=== PATIENT | female | born 1960 | race Caucasian/White ===

== ENCOUNTER 2020-11-04 13:31 | Outpatient (REF) | payer OTHER, SELFPAY ==
--- NOTE | 2020-11-04 | MR_ITS ---
EXAMINATION: BRAIN MRI WITHOUT CONTRAST CLINICAL INFORMATION: Trigeminal neuralgia COMPARISON: No relevant prior imaging. TECHNIQUE: Multiplanar MR imaging of the brain was performed without contrast. FINDINGS: There are a few scattered nonspecific foci of T2 FLAIR signal hyperintensity within the periventricular white matter. No acute territorial infarct. No pathological magnetic susceptibility artifact. Intracranial vascular flow voids are maintained. There is no intracranial mass effect or midline shift. No abnormal extra-axial collection. Lateral and third ventricles are proportionate to the subarachnoid spaces. No hydrocephalus. Midline structures including the cervicomedullary junction are normal. No acute bone marrow signal changes. There is no mastoid or middle ear effusion. Moderate paranasal sinus disease primarily affecting the right maxillary sinus. Globes and orbits are symmetric. MR/MR head/brain wo con IMPRESSION: There are a few scattered chronic small vessel ischemic changes within the periventricular white matter. Otherwise unremarkable examination. No evidence of acute territorial infarct no hemorrhage.
== END 2020-11-04 13:32 | disposition home or self-care (01) ==
LOC: HO.MRI 13:31
PROVIDERS: PCP Internal Medicine; Visit Provider Psychiatry & Neurology Neurology
DX: G50.0 Trigeminal neuralgia (principal); G50.9 Disorder of trigeminal nerve, unspecified
CPT/HCPCS: 70551

== ENCOUNTER → 2021-01-08 08:25 | Outpatient (REF) | payer OTHER, SELFPAY | LOC: HO.CARD 08:25 | PROVIDERS: Visit Provider Internal Medicine Cardiovascular Disease | DX: Z13.89 Encounter for screening for other disorder (principal) ==

== ENCOUNTER → 2021-04-20 14:00 | Outpatient (REF) | payer OTHER, SELFPAY ==
--- NOTE | 2021-04-20 14:12 | CA_ITS ---
Transthoracic Echocardiogram Patient (Last, First, Middle): Carolyn An A Gender: Female Date of : 1960 Age: 61 Procedure Date: 04/20/2021 Procedure Type: Transthoracic Echocardiogram Location: OP Height: 162.56 cm Weight: 97.07 kg BSA: 2.01 m2 Heart Rate: bpm BP: 117 / 72 mmHg Liner Checker: GREGG Referring MD: Luis Longoria MD Symptoms: palpitations Study Quality: Technically Difficult ECG Rhythm: Sinus Conclusions: - The left ventricular systolic function is normal. The visually estimated ejection fraction is between 60-65%. - No obvious valvular pathology seen on this study. Findings Left Ventricle Normal left ventricular cavity size. There is mildly increased left ventricular wall thickness. The left ventricular systolic function is normal. The visually estimated ejection fraction is between 60-65%. There is no evidence of regional wall motion abnormalities. E/E prime ratio is <8, consistent with normal filling pressures. Evidence suggests grade I (mild) diastolic dysfunction. Right Ventricle Normal right ventricular cavity size and systolic function. Atria Both atria are normal in size. Aortic Valve There is a normal trileaflet aortic valve. There is no aortic valve stenosis. There is no aortic valve regurgitation. Mitral Valve The mitral valve appears normal. There is trace mitral valve regurgitation. There is no mitral valve stenosis. Pulmonic Valve The pulmonic valve was not well visualized. Tricuspid Valve Normal tricuspid valve structure. There is trace tricuspid valve regurgitation. The pulmonary artery systolic pressure is normal. Great Vessels The aortic annulus, sinuses of valsalva, asc aorta, and aortic arch are normal in size. Venous The inferior vena cava is normal in size and collapses greater than 50% with inspiration. Pericardium/Pleural There is no evidence of pericardial effusion. Prior Study Comparison No significant change compared to prior study dated: 06/30/2018. Recommendations, Care & Conclusions No obvious valvular pathology seen on this study. Measurements 2D Linear Measurements IVSd: 1.12 0.6-0.9/0.6-1.0 cm LVIDd: 4.95 3.9-5.3/4.2-5.9 cm LVIDd Index: 2.46 2.4-3.2/2.2-3.1 cm/m2 LVIDs: 2.99 2.0-3.6 cm LVPWd: 1.10 0.7-1.1 cm Ao Root: 3.80 2.1-3.5 cm LA Diam: 4.00 2.7-3.8/3.0-4.0 cm LAIDs Index: 1.99 1.5-2.3 cm/m2 LV Mass: 257.21 67-162/88-224 g LV Mass Index: 127.96 43-95/49-115 g/m2 LVOT Diam: 2.10 3.0+(-)1.3 cm Mitral Valve MV Pk E: 0.66 MV PK A: 0.80 MV Decel Time: 254.00 E/A: 0.80 E'Lateral: 6.74 E'Medial: 6.96 E/E' Med: 9.50 E/E' Lat: 9.80 PHT: 74.00 MVA PHT: 2.97 Decel [place]: 2.61 Aortic Valve AoV Pk Cheo: 1.21 AoV Mn Cheo: 0.87 AoV VTI: 0.29 AoV Pk Grad: 6.00 Aov Mn Grad: 3.00 EDUARDA Cont.VTI: 2.41 LVOT LVOT Pk Cheo: 0.95 LVOT Mn Cheo: 0.66 LVOT VTI: 0.20 LVOT Pk Grad: 4.00 LVOT Mn Grad: 2.00 LVOT Diam: 2.10 LVOT Area: 3.46 Diastolic Function MV Pk E: 0.66 MV Pk A: 0.80 E/A: 0.80 E'Medial: 6.96 E/E' Med: 9.50 E' Laterial: 6.74 E/E' Lat: 9.80 Tricuspid Valve TR Pk Cheo: 1.52 TR Pk Grad: 9.00 Great Vessels Aorta Ao Root-2D: 3.80 2.0-3.7 cm Ao Asc: 3.20 2.1-3.4 cm Ao Arch: 3.00 Updated in Other Vendor System with Status of Final Gregg Bedoya MD electronically signed on 04/22/2021 4:28:11 PM with status of Final
--- NOTE | 2021-04-20 14:15 | ECG_ITS ---
Hook-up date: 2021-04-20 14:51:00 Duration: 47:09:00 Test Indications: PALPITATIONS Medications: 52563 QRS complexes 10 Ventricular ectopics which represent <1 % of total QRS comp. 54 Supraventricular ectopics which represent <1 % of total QRS comp. * Paced QRS complexs which represent % of total QRS comp. VENTRICULAR ECTOPY 10 Isolated 0 Bigeminal Cycles 0 Couplets 0 Runs 0 Beats in Runs * Beats LONGEST at * BPM at :: -- * Beats FASTEST at * BPM at :: -- SUPRAVENTRICULAR ECTOPY 48 Isolated 1 Couplets 1 Runs 4 Beats in Runs 4 Beats LONGEST at 114 BPM at 22:31:40 2021-04-20 4 Beats FASTEST at 114 BPM at 22:31:40 2021-04-20 HEART RATES 48 MIN at 08:31:13 2021-04-21 63 AVG 103 MAX at 21:51:50 2021-04-20 LONGEST RR 1.3280 secs at 10:53:49 2021-04-21 S-T LEVELS Channel 1 - 128 mm at 14:51:00 2021-04-20 - 128 mm at 14:51:00 2021-04-20 Channel 2 - 128 mm at 14:51:00 2021-04-20 - 128 mm at 14:51:00 2021-04-20 Channel 3 - 128 mm at 03:41:01 -- - 128 mm at 03:41:01 Underlying rhythm is sinus; Average rate 63/min; range 48-103/min; Rare PACs, PVCs; No sustained arrhythmias; Some symptoms in patient diary- 'fibrillate', 'pain' seem to be around the time of atrial ectopy. Referred By: Luis Longoria Overread By: RICKI KING
== END ==
LOC: HO.CARD 14:00
PROVIDERS: Visit Provider Internal Medicine Cardiovascular Disease
DX: R07.89 Other chest pain (principal); R00.2 Palpitations; I10 Essential (primary) hypertension; E66.9 Obesity, unspecified; R94.31 Abnormal electrocardiogram [ECG] [EKG]
CPT/HCPCS: 93225; 93226; 93306

== ENCOUNTER 2021-04-22 07:20 | Outpatient (REF) | payer OTHER, SELFPAY | END 2021-04-22 07:21 | disposition home or self-care (01) | LOC: HO.HOSX 07:20 | PROVIDERS: Visit Provider Orthopaedic Surgery | DX: Z13.89 Encounter for screening for other disorder (principal) ==

== ENCOUNTER 2021-06-19 | Outpatient (REF) | payer OTHER, SELFPAY | END 2021-06-19 00:01 | disposition home or self-care (01) | LOC: HO.LNP | PROVIDERS: Visit Provider Hospitalist | DX: Z20.822 Contact with and (suspected) exposure to COVID-19 (principal); J01.90 Acute sinusitis, unspecified | CPT/HCPCS: U0003; U0005 ==

== ENCOUNTER 2021-06-24 13:59 | Outpatient (REF) | payer OTHER, SELFPAY ==
[2021-06-24 16:29] LABS: MANUAL DIFF FLAG NO
[2021-06-24 16:33] LABS: Basophils Percent Auto 0.3 % (0-2); Eosinophils Absolute Auto 0.3 X10*3/uL (0.0-0.4); Eosinophils Percent Auto 4.7 % (0-4); Hematocrit 38.9 % (37-47); Hemoglobin 12.8 g/dl (12.0-16.0); Imm Gran Abs Auto 0.04 X10*3/uL (0.00-0.03); Imm Gran Pct Auto 0.6 % (0.0-0.4); Lymphocytes Absolute Auto 2.5 X10*3/uL (1.2-4.9); Lymphocytes Percent Auto 37.4 % (20-40); Mean Corpuscular HGB Conc 32.9 g/dl (31.0-35.0); Mean Corpuscular Hemoglobin 30.2 pg (27.0-33.0); Mean Corpuscular Volume 91.7 fL (80-98); Mean Platelet Volume 10.2 fL (9.4-12.3); Monocytes Absolute Auto 0.6 X10*3/uL (0.1-1.2); Monocytes Percent Auto 8.6 % (2-11); Neutrophils Absolute Auto 3.3 X10*3/uL (2.0-8.3); Neutrophils Percent Auto 48.4 % (45-73); Platelet Count 232 X10*3/uL (160-400); Red Blood Count 4.24 X10*6/uL (4.20-5.50); Red Cell Distribution Width 12.1 % (11.0-16.0); White Blood Count 6.8 X10*3/uL (4.8-10.8)
[2021-06-24 16:50] LABS: Alanine Aminotransferase 42 U/L (0-31); Albumin Level 4.6 g/dL (3.5-5.0); Alkaline Phosphatase 100 U/L (39-117); Anion Gap 15 (12-20); Aspartate Amino Transferase 24 U/L (5-31); Bilirubin Total 0.9 mg/dL (0.0-1.0); Blood Urea Nitrogen 30 mg/dL (9-16); Calcium 9.6 mg/dL (8.4-10.2); Carbon Dioxide 24 mmol/L (22-29); Chloride 106 mmol/L (96-108); Estimated Glomerular Filt Rate 42; Glucose Random 93 mg/dL (60-115); Potassium 4.5 mmol/L (3.3-5.1); Sodium 140 mmol/L (135-145)
== END 2021-06-24 14:00 | disposition home or self-care (01) ==
LOC: HO.HMGCLDS 13:59
PROVIDERS: PCP Internal Medicine; Visit Provider Internal Medicine
DX: J02.9 Acute pharyngitis, unspecified (principal); K14.6 Glossodynia; R19.7 Diarrhea, unspecified; R53.1 Weakness
CPT/HCPCS: 36415; 80053; 85025

== ENCOUNTER 2021-08-11 07:18 | Outpatient (REF) | payer OTHER, SELFPAY ==
--- NOTE | ~2021-08-11 | XR_ITS ---
EXAMINATION: XR KNEE, LEFT CLINICAL INFORMATION: Left knee pain. COMPARISON: None TECHNIQUE: Upright frontal views of both knees, bilateral femoral and lateral radiographs of the left knee were obtained. Total of 3 images. FINDINGS: The frontal view of both knees show symmetric alignment. Mild osteophyte formations are present along the articular surface of the femoral tibial joint both the medial lateral compartments. Note is made of chondrocalcinosis. The articular surface of the patella also appear irregular and subtle sclerosis and mild osteophyte formation. Suprapatellar effusion is noted as well. XR/XR knee LT 3V IMPRESSION: 1. Abnormal radiographs of the left knee showing evidence of tricompartmental mild osteoarthrosis and small suprapatellar effusion. Note is also made of presence of chondrocalcinosis. 2. Single limited frontal view only of the right knee appears unremarkable.
== END 2021-08-11 07:19 | disposition home or self-care (01) ==
LOC: HO.HOSX 07:18
PROVIDERS: Visit Provider Physician Assistant
DX: M17.12 Unilateral primary osteoarthritis, left knee (principal)
CPT/HCPCS: 20610; 73562; 99202; J1040

== ENCOUNTER 2021-08-23 03:01 | Emergency (ER) | payer OTHER, SELFPAY ==
[2021-08-23 03:06] VITALS: BP 130/80; BP 153/62; PULSE 77; PULSE 89; RESP 15; TEMP 37; O2SAT 95; O2SAT 98; BMI 39.8
[2021-08-23 04:00] VITALS: BP 154/68; PULSE 74; RESP 16; O2SAT 98
--- NOTE | 2021-08-23 04:03 | ED.GENADULT ---
HPI - General Adult General Chief complaint: Extremity Problem Stated complaint: foot pain Time Seen by Provider: 08/23/21 03:47 Source: patient Mode of arrival: EMS Limitations: no limitations History of Present Illness HPI narrative: 61-year-old female who presents emergency department for evaluation of pain in her right ankle x3 days. The patient states that she does have a history of gout and and she has had gout in her right foot and right ankle in the past. She states for the past 3 days she has had pain and swelling in her right ankle. She has also noticed redness over the right ankle. She states that the pain is a constant, sharp/burning/achy pain that is 10/10 at its worst. She states that she is not able to bear weight secondary to the pain. Patient states that she had a complex fracture of the right ankle in the past and does have screws and plates in this area. The patient states that she has been treated in the past with prednisone. She states that she has chronic kidney disease stage 3 with a GFR of 40-50%. The patient also has a history of a liver transplant. Related Data Previous Rx's Medication Instructions Recorded loratadine 10 mg tablet 10 mg PO DAILY 90 Days #90 tab 11/13/20 hydrocortisone 2.5 % topical cream 1 appl TOPICAL BID PRN 30 Days #30 12/09/20 g lancets 28 gauge (Sierrayle See Rx Instructions MISCELLANEOUS 02/24/21 Lancets) .qd prn #100 cap clotrimazole 10 mg shelly 10 mg MUCOUS MEMBRANE TID 7 Days 06/24/21 #21 tab gabapentin 300 mg capsule 300 mg PO BID 90 Days #180 cap 06/24/21 omeprazole 20 mg capsule,delayed 20 mg PO DAILY 90 Days #90 cap 06/26/21 release amoxicillin 875 mg-potassium 1 tab PO BID 7 Days #14 tab 06/30/21 clavulanate 125 mg tablet prednisone 20 mg tablet 20 mg PO DAILY 7 Days #7 tab 07/21/21 lisinopril 10 mg tablet 10 mg PO DAILY #30 tab 08/12/21 morphine 15 mg immediate release 15 mg PO Q4-6H PRN #14 tab 08/23/21 tablet prednisone 20 mg tablet 60 mg PO DAILY 7 Days #21 tab 08/23/21 Allergies Allergy/AdvReac Type Severity Reaction Status Date / Time nitrofurantoin Allergy Unknown nausea, Verified 08/23/21 03:52 dizziness and tightness chest perflutren [From DEFINITY] AdvReac Unknown SEVERE Verified 08/23/21 03:52 BACK PAIN Review of Systems Review of Systems: Yes all other systems are reviewed and are negative REPLACED BY [facility] Past Medical History REPLACED BY [facility] Narrative: Past medical history: Chronic kidney disease stage 3 GFR 40-50%, gout, osteoarthritis, liver transplant. Surgical history: Appendectomy, cholecystectomy, endometrial ablation, liver transplant, complex fracture of the right ankle with internal hardware including screws and plates according to the patient. Social history: She denies tobacco, alcohol and drug use. Surgical History History of ankle surgery History of endometrial ablation History of esophagogastroduodenoscopy (EGD) History of liver transplant Hx of appendectomy Hx of cholecystectomy Hx of colonoscopy Family History Family History Father No problems noted. Mother Sudden cardiac Other Mental health disorder Substance use disorder Social History Social History (Updated 08/11/21 @ 11:46 by Bakari Giron) Housing: House Alcohol intake: never Patient Tobacco Use Status: Never used Tobacco Second Hand Smoke Exposure: Yes Use of substances other than those prescribed or required for medical reasons: No Advance Directives: No Advance Directives Information Provided: No Current occupational status: disabled Current occupation: rt handed Physical Exam Vital Signs: Vital Signs: Last Vital Signs Temp 98.6 F 08/23/21 03:06 Pulse 72 08/23/21 06:00 Resp 16 08/23/21 06:00 BP 118/62 08/23/21 06:00 Pulse Ox 96 08/23/21 06:00 Body Mass Index 39.8 Const: General: cooperative and no acute distress Orientation/consciousness: oriented to person and oriented to place Limitations: no limitations HENMT: Head: Yes normal to inspection, Yes normocephalic and Yes atraumatic Ears: external ears normal General nose exam: Normal external nose present Face and sinus: Yes normal facial exam Mouth: Normal oral and palatal mucosa present Throat: Yes posterior oropharynx normal Eyes: General: appearance normal, both eyes and all related structures Pupils: Equal, round and reactive pupils present Neck: Neck: Yes normal visual inspection, Yes no lymphadenopathy, Yes trachea midline and Yes supple Chest: Chest palpation & inspection: normal inspection of the chest and normal palpation of entire chest wall Resp: Effort & Inspection: normal respiratory effort and able to speak in complete sentences Auscultation: clear to auscultation bilaterally Cardio: Rate: regular rate Rhythm: regular rhythm Heart sounds: S1 normal heart sound present, S2 normal heart sound present and no murmurs GI: Inspection: Yes normal to inspection Palpation (GI): Soft to palpation, nontender and no guarding Auscultation: normal bowel sounds : General: Yes no CVA tenderness Back/Spine/Pelvis: Back: no CVA tenderness Skin: General skin exam: no rashes or lesions noted Neuro: General: oriented to person and oriented to place Cranial nerves: Yes CN's II-XII intact bilaterally and Yes Equal, round and reactive pupils present Cognition (Neuro): normal cognition Motor exam (neuro): 5/5 motor strength present throughout Extrem: Other: The patient has soft tissue swelling and joint effusion over the right ankle with erythema and some slight increased warmth, the ankle is excruciatingly tender with minimal palpation. The patient does have surgical scars in this area consistent with her fracture ORIF. Patient also has tenderness with palpation over the 1st and 2nd MTP joints of the right foot with no increased warmth erythema or joint effusion in these areas. Her extremities neurovascularly intact Psych: Appearance: grossly normal Speech and movement: Normal speech and movement present Affect: normal affect Attitude: cooperative Thought process: Normal thought process present Thought content: Normal thought content present Course Course Course Narrative: 61-year-old female with a history of gout who presents to the emergency department for evaluation of 3 days of right ankle pain. Patient's physical findings are consistent with gout. I do not think the patient has cellulitis or joint infection at this time and I did discuss this with her. The patient does have chronic kidney disease and cannot take NSAIDs or colchicine. The patient's inflammation was treated with Solu-Medrol 125 mg IV. Her pain was treated with morphine 4 mg IV. The goal will be to try to get the patient's pain down to a tolerable level so that she can be discharged home. Patient states she does have a walker at home that she can use to help reduce weight-bearing on the right ankle. 0608: The patient required a 2nd and 3rd dose of morphine 4 mg IV with significant improvement of her pain. The patient will be discharged home with a prescription for prednisone 60 mg once a day for 1 week. She is also advised to take Tylenol 1000 mg every 6 hours as needed for pain. For pain not relieved by prednisone and Tylenol she was prescribed morphine 15 mg pills, 1 pill every 4 hours as needed for pain. I did discuss the use and side effects of morphine and the potential for addiction. The patient was discharged home. Discharge Plan Discharge Clinical Impression: Gout Instructions: Low Purine Diet (ED), Gout (ED) Additional Instructions: Your symptoms and physical findings are consistent with gout of your right ankle. You received morphine 4 mg IV x3 doses. You also received Solu-Medrol 125 mg IV (this is a steroid). Take prednisone 20 mg pills, 3 pills once a day for 7 days. You can stop this prescription earlier if your symptoms resolved before 7 days. Take your 1st dose tomorrow morning, 08/24/2021. Take Tylenol (acetaminophen) 500 mg pills, 2 pills every 4-6 hours as needed for pain. For pain not relieved by Tylenol take morphine 15 mg pills, 1 pill every 4 hours as needed for pain. Do not drive or work while taking this medication since they can cause sleepiness. Morphine is a narcotic medication that can be addicting. If you are concerned about addiction you can ask the pharmacist for less pills or do not get this prescription filled. Follow-up with your doctor in 2 days. Please return to the emergency department if your symptoms get worse or if you develop any symptoms that are concerning to you. Prescriptions: New prednisone 20 mg tablet 60 mg PO DAILY 7 Days Qty: 21 RF: 0 morphine 15 mg tablet 15 mg PO Q4-6H PRN (Reason: pain) Qty: 14 RF: 0 No Action loratadine 10 mg tablet 10 mg PO DAILY 90 Days Qty: 90 RF: 3 hydrocortisone 2.5 % cream 1 appl topical BID PRN (Reason: skin irritation) 30 Days Qty: 30 RF: 0 lancets [FreeStyle Lancets] 28 gauge misc See Rx Instructions miscellaneous .qd prn Qty: 100 RF: 5 omeprazole 20 mg capsule,delayed release(DR/EC) 20 mg PO DAILY 90 Days Qty: 90 RF: 0 prednisone 20 mg tablet 20 mg PO DAILY 7 Days Qty: 7 RF: 0 lisinopril 10 mg tablet 10 mg PO DAILY Qty: 30 RF: 2 gabapentin 300 mg capsule 300 mg PO BID 90 Days Qty: 180 RF: 0 clotrimazole 10 mg shelly 10 mg mucous membrane TID 7 Days Qty: 21 RF: 0 amoxicillin-pot clavulanate 875-125 mg tablet 1 tab PO BID 7 Days Qty: 14 RF: 0
[2021-08-23] MEDS: methylPREDNISolone Sod Succ 125 MG/2 ML VIAL IVPUSH (04:16)
[2021-08-23] MEDS: Morphine Sulfate 4 MG/ML CARTRIDGE IVPUSH ×3 (04:16→06:19)
[2021-08-23 06:00] VITALS: BP 118/62; PULSE 72; RESP 16; O2SAT 96
== END 2021-08-23 06:40 | disposition home or self-care (01) ==
PROVIDERS: Emergency Provider Emergency Medicine Emergency Medical Services
DX: M10.9 Gout, unspecified (principal); M25.571 Pain in right ankle and joints of right foot; Z79.899 Other long term (current) drug therapy
CPT/HCPCS: 96374; 96375; 96376; 99284; J2270; J2930

== ENCOUNTER → 2021-10-13 13:17 | Outpatient (BNVA) | payer OTHER, SELFPAY | PROVIDERS: PCP Internal Medicine; Visit Provider Physician Assistant | DX: M17.12 Unilateral primary osteoarthritis, left knee (principal) | CPT/HCPCS: 99212 ==

== ENCOUNTER 2021-11-16 15:32 | Outpatient (REF) | payer OTHER, SELFPAY ==
--- NOTE | ~2021-11-16 | US_ITS ---
EXAMINATION: US ABDOMEN LIMITED CLINICAL INFORMATION: Liver transplant status. COMPARISON: Ultrasound abdomen 08/25/2020 and 07/19/2019. CT abdomen and pelvis 09/26/2014. TECHNIQUE: Real-time imaging of the right upper quadrant abdominal viscera. FINDINGS: PANCREAS: The head and body the pancreas are normal. The tail is not well visualized due to bowel gas. LIVER: The liver is normal in size. The liver contour is normal. Liver echotexture is increased. No focal hepatic lesion. There is no intrahepatic biliary duct dilatation seen. The main portal vein is patent with appropriate hepatopedal flow. GALLBLADDER: Surgically absent. COMMON BILE DUCT: Common bile duct is similar to previous exams measuring 1.1 cm in diameter. RIGHT KIDNEY: There is a 1 cm cyst in the lower pole. No hydronephrosis or renal calculi. The kidney measures 10.3 cm in maximum dimension. FREE FLUID: None. US/US abdomen limited IMPRESSION: Slightly echogenic liver. No focal liver lesion or biliary duct dilatation. Limited visualization of the tail the pancreas.
== END 2021-11-16 15:33 | disposition home or self-care (01) ==
LOC: HO.HMGCX 15:32
PROVIDERS: PCP Internal Medicine; Visit Provider Internal Medicine
DX: Z94.4 Liver transplant status (principal)
CPT/HCPCS: 76705

== ENCOUNTER → 2021-12-03 13:19 | Outpatient (BNVA) | payer OTHER, SELFPAY | PROVIDERS: PCP Internal Medicine; Visit Provider Physician Assistant | DX: M17.12 Unilateral primary osteoarthritis, left knee (principal) | CPT/HCPCS: 20610; 99212; J1040 ==

== ENCOUNTER 2022-01-27 13:58 | Outpatient (REF) | payer OTHER, SELFPAY ==
[2022-01-27 16:48] LABS: MANUAL DIFF FLAG NO
[2022-01-27 16:51] LABS: Basophils Percent Auto 0.4 % (0-2); Eosinophils Absolute Auto 0.2 X10*3/uL (0.0-0.4); Eosinophils Percent Auto 4.6 % (0-4); Hematocrit 37.7 % (37.0-47.0); Hemoglobin 12.3 g/dl (12.0-16.0); Imm Gran Abs Auto 0.02 X10*3/uL (0.00-0.03); Imm Gran Pct Auto 0.4 % (0.0-0.4); Lymphocytes Absolute Auto 1.3 X10*3/uL (1.2-4.9); Mean Corpuscular HGB Conc 32.6 g/dl (31.0-35.0); Mean Corpuscular Hemoglobin 30.3 pg (27.0-33.0); Mean Corpuscular Volume 92.9 fL (80.0-98.0); Mean Platelet Volume 10.4 fL (9.4-12.3); Monocytes Absolute Auto 0.5 X10*3/uL (0.1-1.2); Monocytes Percent Auto 9.6 % (2-11); Neutrophils Absolute Auto 2.7 x10*3/uL (2.0-8.3); Platelet Count 238 X10*3/uL (160-400); Red Blood Count 4.06 X10*6/uL (4.20-5.50); Red Cell Distribution Width 12.6 % (11.0-16.0); White Blood Count 4.8 X10*3/uL (4.8-10.8)
[2022-01-27 17:07] LABS: Alanine Aminotransferase 26 U/L (0-31); Albumin Level 4.5 g/dL (3.5-5.0); Alkaline Phosphatase 75 U/L (39-117); Anion Gap 13 (12-20); Aspartate Amino Transferase 18 U/L (5-31); Bilirubin Total 1.2 mg/dL (0.0-1.0); Blood Urea Nitrogen 33 mg/dL (9-16); Calcium 9.4 mg/dL (8.4-10.2); Carbon Dioxide 27 mmol/L (22-29); Chloride 103 mmol/L (96-108); Estimated Glomerular Filt Rate 43; Glucose Random 101 mg/dL (60-115); Magnesium 2.2 mg/dL (1.6-2.6); Potassium 4.6 mmol/L (3.3-5.1); Sodium 138 mmol/L (135-145); Total Protein 6.7 g/dL (6.5-8.0)
[2022-01-27 17:27] LABS: TSH reflex Free T4 2.41 uIU/mL (0.32-4.0)
[2022-01-28 03:59] LABS: Estimated Average Glucose 97 mg/dL
== END 2022-01-27 13:59 | disposition home or self-care (01) ==
LOC: HO.HMGCLDS 13:58
PROVIDERS: Visit Provider Internal Medicine
DX: E66.09 Other obesity due to excess calories (principal); F41.1 Generalized anxiety disorder; R73.03 Prediabetes; R79.0 Abnormal level of blood mineral; Z94.4 Liver transplant status
CPT/HCPCS: 36415; 80053; 83036; 83735; 84443; 85025

== ENCOUNTER → 2022-03-23 15:37 | Outpatient (BNVA) | payer OTHER, SELFPAY | PROVIDERS: PCP Internal Medicine; Referring Provider Internal Medicine; Visit Provider Nurse Practitioner Family | DX: K21.9 Gastro-esophageal reflux disease without esophagitis (principal); R14.0 Abdominal distension (gaseous); K59.04 Chronic idiopathic constipation | CPT/HCPCS: 99202 ==

== ENCOUNTER 2022-06-24 13:43 | Outpatient (REF) | payer OTHER, SELFPAY | END 2022-06-24 13:44 | disposition home or self-care (01) | LOC: HO.LNP 13:43 | PROVIDERS: PCP Internal Medicine; Visit Provider Physician Assistant | DX: M17.12 Unilateral primary osteoarthritis, left knee (principal) | CPT/HCPCS: 20610; 87071; 87073; 87205; 89060; 99212; J1040 ==

== ENCOUNTER 2022-08-27 13:15 | Outpatient (REF) | payer OTHER, SELFPAY ==
[2022-08-27 14:31] LABS: Estimated Average Glucose 97 mg/dL
[2022-08-27 14:54] LABS: Alanine Aminotransferase 27 U/L (0-31); Albumin Level 4.5 g/dL (3.5-5.0); Alkaline Phosphatase 95 U/L (39-117); Anion Gap 16 (12-20); Aspartate Amino Transferase 18 U/L (5-31); Bilirubin Total 0.7 mg/dL (0.0-1.0); Blood Urea Nitrogen 25 mg/dL (9-16); Calcium 9.3 mg/dL (8.4-10.2); Carbon Dioxide 25 mmol/L (22-29); Chloride 107 mmol/L (96-108); Cholesterol 189 mg/dL; Estimated Glomerular Filt Rate 46; Glucose Fasting 92 mg/dL (60-99); HDL Cholesterol 44 mg/dL; LDL Cholesterol Calculated 122 mg/dl; Potassium 4.5 mmol/L (3.3-5.1); Sodium 143 mmol/L (135-145); Total Protein 6.8 g/dL (6.5-8.0); Triglycerides 117 mg/dL; Uric Acid 11.3 mg/dL (2.4-5.7)
== END 2022-08-27 13:16 | disposition home or self-care (01) ==
LOC: HO.HMGCLDS 13:15
PROVIDERS: PCP Internal Medicine; Visit Provider Internal Medicine
DX: E66.09 Other obesity due to excess calories (principal); F41.1 Generalized anxiety disorder; G62.0 Drug-induced polyneuropathy; I10 Essential (primary) hypertension; R73.03 Prediabetes; M10.9 Gout, unspecified; R79.0 Abnormal level of blood mineral; Z94.4 Liver transplant status
CPT/HCPCS: 36415; 80053; 80061; 83036; 84550

== ENCOUNTER 2022-11-06 14:59 | Outpatient (REF) | payer OTHER, SELFPAY | END 2022-11-06 15:00 | disposition home or self-care (01) | LOC: HO.LAB 14:59 | PROVIDERS: Visit Provider Nurse Practitioner Family | DX: R30.0 Dysuria (principal) | CPT/HCPCS: 87086 ==

== ENCOUNTER 2022-11-09 11:10 | Outpatient (REF) | payer OTHER, SELFPAY ==
[2022-11-09 14:25] LABS: Alanine Aminotransferase 36 U/L (0-31); Albumin Level 4.5 g/dL (3.5-5.0); Alkaline Phosphatase 94 U/L (39-117); Anion Gap 13 (12-20); Aspartate Amino Transferase 21 U/L (5-31); Bilirubin Total 0.7 mg/dL (0.0-1.0); Blood Urea Nitrogen 26 mg/dL (9-16); Calcium 9.5 mg/dL (8.4-10.2); Carbon Dioxide 27 mmol/L (22-29); Chloride 107 mmol/L (96-108); Estimated Glomerular Filt Rate 43; Glucose Random 108 mg/dL (60-115); Potassium 4.5 mmol/L (3.3-5.1); Sodium 142 mmol/L (135-145); Total Protein 6.7 g/dL (6.5-8.0)
== END 2022-11-09 11:11 | disposition home or self-care (01) ==
LOC: HO.HMGCLDS 11:10
PROVIDERS: PCP Internal Medicine; Visit Provider Internal Medicine
DX: R10.84 Generalized abdominal pain (principal)
CPT/HCPCS: 36415; 80053

== ENCOUNTER 2023-03-04 08:34 | Outpatient (REF) | payer OTHER, SELFPAY ==
--- NOTE | ~2023-03-04 | XR_ITS ---
EXAMINATION: XR KNEE, LEFT XR KNEE AP STANDING CLINICAL INFORMATION: Pain. COMPARISON: None TECHNIQUE: Lateral and axial views of the left knee were obtained. AP bilateral standing view of the knees was obtained. FINDINGS: The bilateral lateral and medial joint space compartment are well-maintained. The left patellofemoral joint space compartment is well-maintained. There is very mild tricompartment osteoarthritic change of the left knee. There is bilateral chondrocalcinosis, left greater than right. No fracture or dislocation is seen. A small left knee joint effusion is suspected. XR/XR knee LT 2V IMPRESSION: 1. There is very mild tricompartment osteoarthritic change of the left knee. 2. There is a small left knee joint effusion. 3. There is chondrocalcinosis, which can be associated with CPPD.
--- NOTE | ~2023-03-04 | XR_ITS ---
EXAMINATION: XR KNEE, LEFT XR KNEE AP STANDING CLINICAL INFORMATION: Pain. COMPARISON: None TECHNIQUE: Lateral and axial views of the left knee were obtained. AP bilateral standing view of the knees was obtained. FINDINGS: The bilateral lateral and medial joint space compartment are well-maintained. The left patellofemoral joint space compartment is well-maintained. There is very mild tricompartment osteoarthritic change of the left knee. There is bilateral chondrocalcinosis, left greater than right. No fracture or dislocation is seen. A small left knee joint effusion is suspected. XR/XR knee standing BI IMPRESSION: 1. There is very mild tricompartment osteoarthritic change of the left knee. 2. There is a small left knee joint effusion. 3. There is chondrocalcinosis, which can be associated with CPPD.
== END 2023-03-04 08:35 | disposition home or self-care (01) ==
LOC: HO.HOSX 08:34
PROVIDERS: Visit Provider Physician Assistant
DX: M17.12 Unilateral primary osteoarthritis, left knee (principal)
CPT/HCPCS: 20610; 73560; 73565; 99212; J1040

== ENCOUNTER → 2023-04-01 13:34 | Outpatient (BNVA) | payer OTHER, SELFPAY | PROVIDERS: PCP Internal Medicine; Visit Provider Nurse Practitioner Family | DX: M17.12 Unilateral primary osteoarthritis, left knee (principal); M25.562 Pain in left knee; E66.01 Morbid (severe) obesity due to excess calories; Z68.41 Body mass index [BMI] 40.0-44.9, adult | CPT/HCPCS: 99202 ==

== ENCOUNTER 2023-09-03 11:09 | Emergency (ER) | payer OTHER, SELFPAY ==
[2023-09-03 11:53] VITALS: BP 172/81; PULSE 75; RESP 18; TEMP 36.6; O2SAT 98; BMI 39.5
--- NOTE | 2023-09-03 11:53 | ED.EXTPRO ---
HPI - Extremity Problem General Chief complaint: Extremity Injury, Upper Stated complaint: L arm swelling Time Seen by Provider: 09/03/23 12:23 Source: patient Mode of arrival: ambulatory Limitations: no limitations History of Present Illness HPI Narrative: 63 yo female With history of gout, chronic kidney disease, liver transplant currently here with complaints of left elbow pain for the last 3 days with no known injury or trauma. Patient reports history of gout and states this feels similar. She is not on any daily gout medication. She denies any fevers, chills, weakness, numbness, tingling of the extremity. MD Complaint: extremity pain and extremity swelling Related Data Home Medications Medication Instructions Recorded Confirmed tacrolimus 1 mg capsule, 2 mg PO Q12H 10/13/21 03/17/23 immediate-release Lacto.acidophilus-Bif.animalis PO DAILY 01/27/22 03/17/23 [Daily Probiotic] cholecalciferol (vitamin D3) 50 100 mcg PO DAILY 01/27/22 03/17/23 mcg (2,000 unit) capsule coenzyme Q10 100 mg capsule 100 mg PO DAILY 01/27/22 03/17/23 magnesium oxide 400 mg (241.3 mg 400 mg PO BID 01/27/22 03/17/23 magnesium) tablet omega-3 fatty acids 500 mg capsule 1,000 mg PO .bid 02/10/22 03/17/23 blood sugar diagnostic (FreeStyle #10 ea 03/23/22 03/17/23 Lite Strips) famotidine 20 mg tablet 20 mg PO BID 03/23/22 03/17/23 vitamin K2 40 mcg tablet 90 mcg PO DAILY 08/27/22 03/17/23 propranolol 40 mg tablet 10 mg PO BID PRN 03/17/23 03/17/23 Previous Rx's Medication Instructions Recorded lancets 28 gauge (FreeStyle See Rx Instructions miscellaneous 02/24/21 Lancets) .qd prn for diabetes mellitus #100 caps hydrocortisone 2.5 % topical cream 1 appl topical BID PRN skin 01/28/22 irritation 30 days #30 grams sennosides 8.6 mg tablet (Natural 8.6 mg PO BEDTIME constipation #90 03/23/22 Senna Laxative) tabs simethicone 125 mg capsule (Gas 125 mg PO TID-QID PRN abdominal 04/26/22 Relief (simethicone)) distention #120 caps clotrimazole-betamethasone 1 1 appl topical ONCE 30 days #45 10/20/22 %-0.05 % topical cream grams gabapentin 300 mg capsule 300 mg PO BID 90 days #180 caps 11/10/22 loratadine 10 mg tablet 10 mg PO DAILY 90 days #90 tabs 02/04/23 prednisone 10 mg tablet 10 mg PO DAILY 30 days #30 tabs 03/17/23 diclofenac sodium 1 % topical gel 4 g topical QID pain #180 grams 04/01/23 (Arthritis Pain (diclofenac)) lisinopril 10 mg tablet 15 mg (1.5 x 10 mg) PO DAILY 90 06/28/23 days #135 tabs allopurinol 100 mg tablet 100 mg PO DAILY 30 days #90 tabs 08/19/23 morphine 15 mg immediate release 15 mg PO Q4-6H PRN pain #10 tabs 09/03/23 tablet prednisone 20 mg tablet 40 mg (2 x 20 mg) PO DAILY #8 tabs 09/03/23 Allergies Allergy/AdvReac Type Severity Reaction Status Date / Time nitrofurantoin Allergy Unknown nausea, Verified 09/03/23 11:53 dizziness and tightness chest perflutren [From DEFINITY] AdvReac Unknown SEVERE Verified 09/03/23 11:53 BACK PAIN Review of Systems Review of Systems: Yes all other systems are reviewed and are negative Constitutional: Constitutional: Reports no additional constitutional complaints, Denies body ache(s), Denies chills, Denies fever(s), Denies headache(s) and Denies weakness Eyes: Eyes: Reports no additional eye complaints and Denies change in vision ENT: Reports system reviewed and no additional complaints, except as documented, Denies dizziness, Denies headache(s), Denies nasal congestion, Denies nasal discharge and Denies neck pain Cardiovascular: Cardiovascular: Reports no additional cardiovascular complaints, Denies chest pain, Denies leg edema and Denies dyspnea Respiratory: Respiratory: Reports no additional respiratory complaints, Denies cough and Denies dyspnea Gastrointestinal: Gastrointestinal: Reports no additional gastrointestinal complaints, Denies abdominal pain, Denies diarrhea, Denies nausea and Denies vomiting Genitourinary: Genitourinary: Reports no additional female genitourinary complaints and Denies urinary incontinence Musculoskeletal: Musculoskeletal: Reports no additional musculoskeletal complaints, Denies back pain, Reports arthralgias, Reports joint swelling, Reports limited range of motion, Denies neck pain, Denies numbness and Denies tingling Integumentary/Breasts: Skin/Breast: Reports system reviewed and no additional complaints, except as docu and Denies rash Neurologic: Reports system reviewed and no additional complaints, except as documented, Denies Abnormal speech present, Denies dizziness, Denies headache(s), Denies numbness, Denies tingling and Denies weakness PMFSH Past Medical History Attestation statement: The following information was validated with the patient. Source: old records reviewed and nursing notes reviewed Medical History Dysuria Surgical History History of endometrial ablation Hx of colonoscopy Hx of appendectomy History of esophagogastroduodenoscopy (EGD) Hx of cholecystectomy History of ankle surgery History of liver transplant Family History Family History Father No problems noted. Mother Sudden cardiac Other Mental health disorder Substance use disorder Social History Social History Housing: House Alcohol intake: never Patient Tobacco Use Status: Never used Tobacco e-Cigarette/Vaping Use: Never Used Second Hand Smoke Exposure: Yes Advance Directives: No Current occupational status: disabled Current occupation: rt handed Cognitive needs: No Hearing needs: No Vision needs: No Physical Exam Vital Signs: Vital Signs: Last Vital Signs Temp 98 F 09/03/23 11:53 Pulse 75 09/03/23 11:53 Resp 18 09/03/23 11:53 BP 172/81 H 09/03/23 11:53 Pulse Ox 98 09/03/23 11:53 O2 Del Method Room Air 09/03/23 11:53 BMI result Body Mass Index 39.5 Const: General: cooperative, healthy appearing, comfortable and no acute distress Orientation/consciousness: patient oriented x3 Limitations: no limitations HEENT: Head: Yes normal to inspection Ears: hearing grossly normal bilaterally General nose exam: Normal external nose present Face and sinus: Yes normal facial exam Mouth: Normal oral and palatal mucosa present Throat: Yes posterior oropharynx normal Eyes: General: appearance normal, both eyes and all related structures Pupils: Equal, round and reactive pupils present Neck: Neck: Yes normal visual inspection Chest: Chest palpation & inspection: normal inspection of the chest Resp: Effort & Inspection: normal respiratory effort Auscultation: clear to auscultation bilaterally Cardio: Rate: regular rate Rhythm: regular rhythm Peripheral pulses: Peripheral pulses 2+ throughout GI: Inspection: Yes normal to inspection Palpation (GI): Soft to palpation and nontender Auscultation: normal bowel sounds Back/Spine/Pelvis: Thoracic/Lumbar Spine: thoracic and lumbar spine normal to inspection Skin: General skin exam: no rashes or lesions noted Neuro: General: patient oriented x3, no focal motor deficits and normal sensation to monofilament Cranial nerves: Yes Equal, round and reactive pupils present Cognition (Neuro): normal cognition Speech: No Abnormal speech present Gait exam (Neuro): Normal gait present Motor exam (neuro): 5/5 motor strength present throughout Extrem: Other: +swelling, erythema, TTP over the left lateral elbow. Pain with extension/flexion but able to with encouragement. Normal radial and ulnar pulses. Normal distal sensation. No tenderness on palpation over the proximal or distal joints. Course Course Course Narrative: RME - 63 y/o female with history of DM, obesity, gout, hx liver transplant 10 years ago @ [facility] who presents to the ER who presents to the ER for evaluation of left elbow pain, swelling, redness and warmth that has been worsening for the last 3 days. Left elbow is hot, slightly red, unable to fully extend and cannot flex at all. Plan: basic labs and x-ray Reevaluation(s) Reevaluation #1: labs are at baseline with the exception of elevated uric acid. X-ray shows no bony abnormality. Patient received morphine x2 for pain with some relief. plan for discharge home for gout flare with prednisone and morphine tablets. Reviewed worrisome signs and symptoms of when to return to the emergency room. Comfortable plan for discharge home. Medications Administered Discontinued Medications Generic Name Dose Route Start Last Admin Trade Name Freq PRN Reason Stop Dose Admin Morphine Sulfate 4 mg 09/03/23 12:35 09/03/23 12:43 Morphine Sulfate 4 Mg/Ml Cartridge IM 09/03/23 12:36 4 mg ONCE ONE Administration Protocol Morphine Sulfate 15 mg 09/03/23 14:10 09/03/23 14:19 Morphine Sulfate Immed Release 15 Mg Tablet PO 09/03/23 14:11 15 mg ONCE ONE Administration Prednisone 60 mg 09/03/23 12:35 09/03/23 12:42 Prednisone 20 Mg Tablet PO 09/03/23 12:36 60 mg ONCE ONE Administration Medical Decision Making Medical Decision Making [facility] Narrative: 63 yo female With history of gout, chronic kidney disease, liver transplant currently here with complaints of left elbow pain for the last 3 days with no known injury or trauma. Patient reports history of gout and states this feels similar. She is not on any daily gout medication. She denies any fevers, chills, weakness, numbness, tingling of the extremity. +swelling, erythema, TTP over the left lateral elbow which is worsened with extension/flexion but able to perform ROM with encouragement. Normal radial and ulnar pulses. Normal distal sensation. No tenderness on palpation over the proximal or distal joints. low concern for septic arthritis is patient has intact range of motion Plan to review labs, x-ray from triage, order analgesia Differential Diagnosis Differential Diagnoses: The differential diagnosis associated with the presentation includes Low concern for fracture, dislocation, sprain, strain, vascular injury, cellulitis, septic arthritis Consider gout Admission/Observation Consideration of admission/observation: Escalation of care including admission/observation considered Low concern for septic arthritis so no need for additional labs, imaging or emergent orthopedic consultation Lab Data [facility] Lab Attestation statement: I reviewed the patient's lab results. elevated uric acid, labs otherwise at baseline 09/03/23 12:01 09/03/23 12:01 Labs: Lab Results 09/03/23 Range/Units 12:01 WBC 6.7 (4.8-10.8) X10*3/uL RBC 4.34 (4.20-5.50) X10*6/uL Hgb 13.1 (12.0-16.0) g/dl Hct 39.5 (37.0-47.0) % MCV 91.0 (80.0-98.0) fL MCH 30.2 (27.0-33.0) pg MCHC 33.2 (31.0-35.0) g/dl RDW 12.2 (11.0-16.0) % Plt Count 247 (160-400) X10*3/uL MPV 9.2 L (9.4-12.3) fL Immature Gran % (Auto) 0.3 (0.0-0.4) % Neut % (Auto) 58.8 (45-73) % Lymph % (Auto) 26.4 (20-40) % [place] % (Auto) 9.2 (2-11) % Eos % (Auto) 4.8 H (0-4) % Baso % (Auto) 0.5 (0-2) % Lymph # (Auto) 1.8 (1.2-4.9) X10*3/uL [place] # (Auto) 0.6 (0.1-1.2) X10*3/uL Eos # (Auto) 0.3 (0.0-0.4) X10*3/uL Baso # (Auto) 0.0 (0.0-0.2) X10*3/uL Abs Immat Gran (auto) 0.02 (0.00-0.03) X10*3/uL Absolute Neuts (auto) 3.9 (2.0-8.3) x10*3/uL Absolute Nucleated RBC 0.000 (0.0-0.012) X10*3/uL Nucleated RBC % (auto) 0.0 (0.0-0.2) /100WBC ESR 14 (0-20) MM/HR Sodium 141 (135-145) mmol/L Potassium 4.5 (3.3-5.1) mmol/L Chloride 109 H (96-108) mmol/L Carbon Dioxide 22 (22-29) mmol/L Anion Gap 15 (12-20) BUN 24 H (9-16) mg/dL Creatinine 1.16 (0.5-1.4) mg/dL Estim Creat Clear Calc 59.9 Estimated GFR 47 Random Glucose 105 (60-115) mg/dL Uric Acid 10.0 H (2.4-5.7) mg/dL Calcium 9.9 (8.4-10.2) mg/dL Magnesium 2.1 (1.6-2.6) mg/dL Total Bilirubin 0.4 (0.0-1.0) mg/dL Direct Bilirubin 0.1 (0.0-0.5) mg/dL AST 24 (5-31) U/L ALT 42 H (0-31) U/L Alkaline Phosphatase 105 (39-117) U/L C-Reactive Protein 0.38 (< or = 0.50) mg/dL Total Protein 7.2 (6.5-8.0) g/dL Albumin 4.3 (3.5-5.0) g/dL Independent Interpretation I performed an independent interpretation of an: Plain X-Ray Interpretation: I independently reviewed the x-ray and agree with the radiology report Radiology Impression Discussion of test interpretation with radiology: I have reviewed the radiologist's reading. Radiologist Impression: [address] [address] XRay Report Signed Patient: Carolyn An MR#: [id number] : 1960 Acct:[id number] Age/Sex: 63 / F ADM Date: 09/03/23 Loc: .ED Attending Dr: Ordering Physician: Cristina Lala Date of Service: 09/03/23 Procedure(s): XR elbow LT min 3V Accession Number(s): [id number] cc: Agueda Shelton MD; Cristina Lala~ EXAMINATION: XR ELBOW, LEFT CLINICAL INFORMATION: Pain, swelling, limited range of motion COMPARISON: None available. TECHNIQUE: AP, lateral, and oblique views of the left elbow. FINDINGS: No visible acute fracture or dislocation. Alignment is anatomic. No significant joint effusion is evident. Joint spaces are maintained. No abnormal soft tissue calcification. XR/XR elbow LT min 3V IMPRESSION: No radiographic evidence of acute fracture or malalignment. External Record Review Previous ED record Tests considered The following testing was considered but not selected: Low concern for septic arthritis so no need for additional labs, imaging or emergent orthopedic consultation Prescription Management I considered prescription management with: Pain Medication Discharge Plan Discharge Clinical Impression: Gout Patient Disposition: Home, Self-Care Instructions: Low Purine Diet (ED), Gout (ED) Additional Instructions: Heat or ice Gentle stretching No heavy lifting with the left upper extremity Start the prednisone tomorrow Take Tylenol for pain every 4 hours at this not helped take the stronger pain medication that was prescribed. Please follow-up with your primary care doctor Prescriptions: New prednisone 20 mg tablet 40 mg PO DAILY Qty: 8 0RF morphine 15 mg tablet 15 mg PO Q4-6H PRN (Reason: pain) Qty: 10 0RF Rx Instructions: Partial Fill upon patient request. No Action lancets [FreeStyle Lancets] 28 gauge misc See Rx Instructions miscellaneous .qd prn Qty: 100 5RF Rx Instructions: miscellaneous .qd prn; hydrocortisone 2.5 % cream 1 appl topical BID PRN (Reason: skin irritation) 30 Days Qty: 30 5RF gabapentin 300 mg capsule 300 mg PO BID 90 Days Qty: 180 0RF loratadine 10 mg tablet 10 mg PO DAILY 90 Days Qty: 90 3RF lisinopril 10 mg tablet 15 mg PO DAILY 90 Days Qty: 135 2RF allopurinol 100 mg tablet 100 mg PO DAILY 30 Days Qty: 90 2RF magnesium oxide 400 mg (241.3 mg magnesium) tablet 400 mg PO BID cholecalciferol (vitamin D3) 50 mcg (2,000 unit) capsule 100 mcg PO DAILY coenzyme Q10 100 mg capsule 100 mg PO DAILY Lacto.acidophilus-Bif.animalis [Daily Probiotic] PO DAILY propranolol 40 mg tablet 10 mg PO BID PRN omega-3 fatty acids 500 mg capsule 1,000 mg PO .bid clotrimazole-betamethasone 1-0.05 % cream 1 appl topical ONCE 30 Days Qty: 45 0RF vitamin K2 40 mcg tablet 90 mcg PO DAILY prednisone 10 mg tablet 10 mg PO DAILY 30 Days Qty: 30 0RF famotidine 20 mg tablet 20 mg PO BID (DME) FreeStyle Lite Strips Strip See Rx Instructions Not Applicable QID Qty: 10 Rx Instructions: As directed sennosides [Natural Senna Laxative] 8.6 mg tablet 8.6 mg PO BEDTIME Qty: 90 3RF simethicone [Gas Relief (simethicone)] 125 mg capsule 125 mg PO TID-QID PRN (Reason: abdominal distention) Qty: 120 2RF tacrolimus 1 mg capsule 2 mg PO Q12H diclofenac sodium [Arthritis Pain (diclofenac)] 1 % gel 4 g topical QID Qty: 180 2RF Rx Instructions: Apply 1-3 grams (pumps) to the affected area 3-4 times daily. Referrals: Agueda Shelton MD [Primary Care Provider] - 1 week
[2023-09-03 12:30] LABS: Alanine Aminotransferase 42 U/L (0-31); Albumin Level 4.3 g/dL (3.5-5.0); Alkaline Phosphatase 105 U/L (39-117); Anion Gap 15 (12-20); Aspartate Amino Transferase 24 U/L (5-31); Bilirubin Direct 0.1 mg/dL (0.0-0.5); Bilirubin Total 0.4 mg/dL (0.0-1.0); Blood Urea Nitrogen 24 mg/dL (9-16); C Reactive Protein 0.38 mg/dL (< or = 0.50); Calcium 9.9 mg/dL (8.4-10.2); Carbon Dioxide 22 mmol/L (22-29); Chloride 109 mmol/L (96-108); Creatinine Clr Calc Pharmacy 59.9; Estimated Glomerular Filt Rate 47; Glucose Random 105 mg/dL (60-115); Magnesium 2.1 mg/dL (1.6-2.6); Potassium 4.5 mmol/L (3.3-5.1); Sodium 141 mmol/L (135-145); Total Protein 7.2 g/dL (6.5-8.0)
--- NOTE | 2023-09-03 14:21 | PC.NURSE ---
pt medicated per JAN for 08/07 pain- awaiting XR read
== END 2023-09-03 14:30 | disposition home or self-care (01) ==
PROVIDERS: Physician Assistant; Emergency Provider Emergency Medicine Emergency Medical Services; PCP Internal Medicine
DX: M10.9 Gout, unspecified (principal); M25.522 Pain in left elbow; Z79.899 Other long term (current) drug therapy
CPT/HCPCS: 36415; 73080; 80048; 80076; 83735; 84550; 85025; 85652; 86140; 96372; 99283; 99284; J2270

== ENCOUNTER 2023-09-16 13:28 | Outpatient (AMB) | payer OTHER, SELFPAY ==
--- NOTE | 2023-09-16 13:28 | A.OFFVIS_ITS ---
Intake Vital Signs 09/16/23 13:29 Height 5 ft 4 in Weight 230 lb BMI 39.5 Handedness Right Intake Visit Reasons: New Prob- B/L elbow pain Intake Note: Carolyn is a 63 year old right hand dominant female who presents today for a evaluation for her bilateral elbow pain. Patient reports the right elbow pain started 2 years ago with a lump on it and for the left elbow pain started a month ago. She states that he manager student services is weak and her ROM is limited due to causing her a lot. Allergies nitrofurantoin Allergy (Unknown, Verified 09/16/23 13:33) nausea, dizziness and tightness chest perflutren [From DEFINSwipeToSpin] Adverse Reaction (Unknown, Verified 09/16/23 13:33) SEVERE BACK PAIN HPI New Prob- B/L elbow pain HPI Details 63-year-old right hand dominant female danis martinez presents in the office today for an evaluation of bilateral elbow pain. The patient reports her right elbow pain began around 2 years ago, in 2020, with a lump on it. The left elbow pain started about a month ago. She states that her manager student services is weak and her ROM is limited due to increased pain. Patient has a significant medical history of diabetes mellitus. PFSH Medical History Dysuria Surgical History History of endometrial ablation Hx of colonoscopy Hx of appendectomy History of esophagogastroduodenoscopy (EGD) Hx of cholecystectomy History of ankle surgery History of liver transplant Family History Father No problems noted. Mother Sudden cardiac Other Mental health disorder Substance use disorder Social History Housing: House Alcohol intake: never Patient Tobacco Use Status: Never used Tobacco e-Cigarette/Vaping Use: Never Used Second Hand Smoke Exposure: Yes Current occupational status: disabled Current occupation: rt handed Cognitive needs: No Hearing needs: No Vision needs: No Review of Systems Const All systems reviewed & are unremarkable except as noted in HPI and below Physical Exam Vital Signs: BMI result Body Mass Index 39.5 Const General: cooperative and no acute distress Orientation/consciousness: patient oriented x3 Resp Effort & Inspection: normal respiratory effort and able to speak in complete sentences Cardio Peripheral pulses: Peripheral pulses 2+ throughout Skin General skin exam: no rashes or lesions noted Neuro General: patient oriented x3 Extrem Other: Right elbow: Chronic olecranon bursitis hard to palpation. 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 Full ROM in all planes. NVI. Left elbow: Tenderness to palpation lateral epicondyle. Pain with resisted wrist extension over the lateral epicondyle. Full ROM in all planes. Office Procedures Joint Injection/Drain Joint Injection/Drain Primary Site: left tennis elbow Prep: site was prepped using aseptic technique, ethochloride spray was applied and injection warnings given Injected: 40 mg of, DepoMedrol, with 1 mL of (2% plain lido) and other (lateral epicondyle ) Approach Used: other (lateral) Procedure: The patient tolerated the procedure well, but had some pain with the injection and there was some relief with the local anesthesia Coding 09583 - Epicondyle Procedure code (CPT) selection complete Results Reviewed Results Reviewed: 09/16/23 13:41 Lidocaine HCl 2 % MPF [Xylocaine 2 % MPF] 5 ml .ROUTE .STK-MED ONE methylPREDNISolone acetate [DEPO-MedroL] 80 mg .ROUTE .STK-MED ONE 09/16/23 13:42 methylPREDNISolone acetate [DEPO-MedroL] 40 mg .ROUTE .STK-MED ONE Assessment & Plan Assessment & Plan (1) Chronic gout of right elbow: Code(s): M1A.0210 - Idiopathic chronic gout, right elbow, without tophus (tophi) Qualifiers: Gout etiology: unspecified cause Qualified Code(s): M1A.0210 - Idiopathic chronic gout, right elbow, without tophus (tophi) (2) Olecranon bursitis, right elbow: Code(s): M70.21 - Olecranon bursitis, right elbow (3) Left tennis elbow: Code(s): M77.12 - Lateral epicondylitis, left elbow (4) Diabetes: Code(s): E11.9 - Type 2 diabetes mellitus without complications Plan Ms. An is a 63-year-old right hand dominant female who presents in the office today for an evaluation of bilateral elbow pain. The patient reports her right elbow pain began around 2 years ago, in 2020, with a lump on it. The left elbow pain started about a month ago. She states that her manager student services is weak and her ROM is limited due to increased pain. Patient has a significant medical history of diabetes mellitus. Right elbow: The right elbow will continue to be monitored. At this time I would not re commend surgical intervention. She is immunosuppressed and I educated the patient that there would be complications including wound healing concerns. She understands and excepts. Left elbow: The patient was offered a cortisone injection in the left elbow with 40 mg of DepoMedrol. The patient was explained the risk, benefits, and alternatives to receiving this injection. After receiving consent for the injection, the patient had the procedure done while in office today. The patient tolerated the procedure well with no complications. Due to the patient?s history of diabetes, they were instructed to monitor her blood glucose level. The patient was informed that they could see a rise in their numbers and if the numbers became too high, they were instructed to call their PCP. The patient was also informed that they could have facial flushing as a side effect of the injection but this will pass. I recommended for the patient to get a tennis elbow brace at the local drug store. Follow up will be PRN, or sooner if needed. Patient Instructions: Scribed for Kaila Bhatia PA-C by Cristina Willson senior medical technologist, on 09/16/2023 at 1:31 pm, EST. Coding Level of Care Code Est Pt Level 4 (29236) Diagnoses Chronic gout of right elbow, unspecified cause M1A.0210 Gout etiology: unspecified cause Olecranon bursitis, right elbow M70.21 Left tennis elbow M77.12 Diabetes E11.9 CPT Codes Coding - Joint 2: 18155 - Epicondyle ([id number])
[2023-09-16 13:29] VITALS: BMI 39.5
== END 2023-09-16 13:58 | disposition home or self-care (01) ==
PROVIDERS: PCP Internal Medicine; Visit Provider Physician Assistant
DX: M1A.0210 Idiopathic chronic gout, right elbow, without tophus (tophi) (principal); M77.12 Lateral epicondylitis, left elbow; M70.21 Olecranon bursitis, right elbow
CPT/HCPCS: 20550; 99214

== ENCOUNTER → 2023-09-16 13:28 | Outpatient (BNVA) | payer OTHER, SELFPAY | PROVIDERS: PCP Internal Medicine; Visit Provider Physician Assistant | DX: M70.21 Olecranon bursitis, right elbow (principal); M77.12 Lateral epicondylitis, left elbow; M1A.0210 Idiopathic chronic gout, right elbow, without tophus (tophi); E11.9 Type 2 diabetes mellitus without complications; Z94.4 Liver transplant status | CPT/HCPCS: 20551; 99212; J1020; J1040 ==

== ENCOUNTER 2023-10-08 16:03 | Emergency (ER) | payer OTHER, SELFPAY ==
--- NOTE | ~2023-10-08 | XR_ITS ---
EXAMINATION: XR SHOULDER, RIGHT CLINICAL INFORMATION: Atraumatic pain, shoulder pain. COMPARISON: None available. TECHNIQUE: Four views of the right shoulder. FINDINGS: No acute fracture or subluxation. Mild degenerative osteoarthritis of the acromioclavicular and glenohumeral joints. No abnormal soft tissue calcifications. No osseous erosions. Visualized right-sided ribs and right lung are within normal limits. No unexpected radiopaque foreign bodies. XR/XR shoulder RT min 2V IMPRESSION: 1. No acute fracture or malalignment. 2. Mild degenerative osteoarthritis of the acromioclavicular and glenohumeral joints.
[2023-10-08 16:57] VITALS: BP 152/79; PULSE 90; RESP 18; TEMP 37.3; O2SAT 98; BMI 41.8
--- NOTE | 2023-10-08 16:58 | ED.GENADULT ---
HPI - General Adult General Chief complaint: Neck Pain/Injury Stated complaint: right shoulder pain no inj Time Seen by Provider: 10/08/23 18:08 Source: patient Mode of arrival: ambulatory Limitations: no limitations History of Present Illness HPI narrative: Patient is a 63-year-old female presenting to the emergency department with complaint of right shoulder pain for the past 8 days. She denies any fall or other trauma. She reports pain is worse with movement and extends across the superior aspect of her right shoulder and towards her clavicle. She denies any numbness, weakness, tingling to her right arm. She has been using Tylenol as well as ice and heat for her symptoms with little relief. Reports pain is interfering with sleep. MD complaint: Right shoulder pain Onset (ago): day(s) Location: right and upper extremity Radiation: non-radiation Severity: severe Quality: burning Pain Consistency: constant Relieving factors: rest Exacerbating factors: movement Associated symptoms: denies other symptoms Treatments prior to arrival: cold therapy, heat therapy and other (Tylenol) Related Data Home Medications Medication Instructions Recorded Confirmed tacrolimus 1 mg capsule, 2 mg PO Q12H 10/13/21 03/17/23 immediate-release Lacto.acidophilus-Bif.animalis PO DAILY 01/27/22 03/17/23 [Daily Probiotic] cholecalciferol (vitamin D3) 50 100 mcg PO DAILY 01/27/22 03/17/23 mcg (2,000 unit) capsule coenzyme Q10 100 mg capsule 100 mg PO DAILY 01/27/22 03/17/23 magnesium oxide 400 mg (241.3 mg 400 mg PO BID 01/27/22 03/17/23 magnesium) tablet omega-3 fatty acids 500 mg capsule 1,000 mg PO .bid 02/10/22 03/17/23 blood sugar diagnostic (RisaStyle #10 ea 03/23/22 03/17/23 Lite Strips) famotidine 20 mg tablet 20 mg PO BID 03/23/22 03/17/23 vitamin K2 40 mcg tablet 90 mcg PO DAILY 08/27/22 03/17/23 propranolol 40 mg tablet 10 mg PO BID PRN 03/17/23 03/17/23 Previous Rx's Medication Instructions Recorded lancets 28 gauge (Sierrayle See Rx Instructions miscellaneous 02/24/21 Lancets) .qd prn for diabetes mellitus #100 caps hydrocortisone 2.5 % topical cream 1 appl topical BID PRN skin 01/28/22 irritation 30 days #30 grams sennosides 8.6 mg tablet (Natural 8.6 mg PO BEDTIME constipation #90 03/23/22 Senna Laxative) tabs simethicone 125 mg capsule (Gas 125 mg PO TID-QID PRN abdominal 03/23/22 Relief (simethicone)) distention #120 caps clotrimazole-betamethasone 1 1 appl topical ONCE 30 days #45 10/20/22 %-0.05 % topical cream grams gabapentin 300 mg capsule 300 mg PO BID 90 days #180 caps 11/10/22 loratadine 10 mg tablet 10 mg PO DAILY 90 days #90 tabs 02/04/23 prednisone 10 mg tablet 10 mg PO DAILY 30 days #30 tabs 03/17/23 diclofenac sodium 1 % topical gel 4 g topical QID pain #180 grams 04/01/23 (Arthritis Pain (diclofenac)) lisinopril 10 mg tablet 15 mg (1.5 x 10 mg) PO DAILY 90 06/28/23 days #135 tabs allopurinol 100 mg tablet 100 mg PO DAILY 30 days #90 tabs 08/19/23 morphine 15 mg immediate release 15 mg PO Q4-6H PRN pain #10 tabs 09/03/23 tablet prednisone 20 mg tablet 40 mg (2 x 20 mg) PO DAILY #8 tabs 09/03/23 lidocaine 5 % topical patch 1 patch topical DAILY #15 ea 10/08/23 prednisone 20 mg tablet 40 mg (2 x 20 mg) PO DAILY #8 tabs 10/08/23 Allergies Allergy/AdvReac Type Severity Reaction Status Date / Time nitrofurantoin Allergy Unknown nausea, Verified 09/16/23 13:33 dizziness and tightness chest perflutren [From DEFINITY] AdvReac Unknown SEVERE Verified 09/16/23 13:33 BACK PAIN Review of Systems Review of Systems: As per HPI. Yes all other systems are reviewed and are negative Constitutional: Constitutional: Reports as per HPI [facility] Past Medical History Medical History Dysuria Surgical History History of endometrial ablation Hx of colonoscopy Hx of appendectomy History of esophagogastroduodenoscopy (EGD) Hx of cholecystectomy History of ankle surgery History of liver transplant Family History Family History Father No problems noted. Mother Sudden cardiac Other Mental health disorder Substance use disorder Social History Social History Housing: House Alcohol intake: never Patient Tobacco Use Status: Never used Tobacco e-Cigarette/Vaping Use: Never Used Second Hand Smoke Exposure: Yes Advance Directives: No Advance Directives Information Provided: Yes Current occupational status: disabled Current occupation: rt handed Cognitive needs: No Hearing needs: No Vision needs: No Physical Exam ED Vital Signs: Vital Signs - 24 hr 10/08/23 16:57 Temperature 99.1 F Pulse Rate 90 Respiratory Rate 18 Blood Pressure 152/79 H Pulse Oximetry 98 Oxygen Delivery Method Room Air BMI result Body Mass Index 41.8 Vital signs have been reviewed and appear to be correct. Blood pressure elevated. Heart rate normal. Respiratory rate normal. Temperature normal. Oxygen saturation normal. Const General: cooperative and no acute distress Orientation/consciousness: oriented to person, oriented to place, oriented to time and patient oriented x3 Limitations: no limitations HENMT Head: Yes normocephalic and Yes atraumatic Ears: external ears normal General nose exam: Normal external nose present Face and sinus: Yes face symmetric Mouth: oropharynx normal and moist mucous membranes Throat: Yes uvula midline Eyes Pupils: Equal, round and reactive pupils present Neck Neck: Yes normal visual inspection and Yes supple Resp Effort & Inspection: normal respiratory effort and able to speak in complete sentences Auscultation: clear to auscultation bilaterally Cardio Rate: regular rate Rhythm: regular rhythm Heart sounds: S1 normal heart sound present and S2 normal heart sound present Skin General skin exam: elasticity normal and turgor normal Neuro General: oriented to person, oriented to place, oriented to time, patient oriented x3, moves all extremities, no focal motor deficits and CN's II-XI intact bilaterally Cranial nerves: Yes Equal, round and reactive pupils present Cognition (Neuro): normal cognition Motor exam (neuro): 5/5 motor strength present throughout Extrem General: Yes full ROM, Yes no pedal edema and Yes no calf tenderness Right upper extremity: shoulder/upper arm Details: normal to inspection, tenderness Location: of the A-C joint and of the proximal humerus, axillary nerve sensory function normal and normal ROM and Extremity exam: right hand Details: vascular exam Details: radial pulse present Psych Mental Status: mental status grossly normal Affect: normal affect Thought process: Normal thought process present Course Course Course Narrative: This is a rapid medical exam. Deferred additional HPI, ROS, PE to primary provider. 63 y/o female with history of CKD, obesity, gout, hx liver transplant 10 years ago @ [facility] here with complaints of atraumatic right shoulder pain x 8 days. Will obtain x-ray VSS Medical Decision Making Medical Decision Making MDM Narrative: Patient is a 63-year-old female presenting to the emergency department with complaint of right shoulder pain for the past 8 days. On exam patient is awake, A+Ox3, VS WNL, afebrile, normal neurological exam without focal deficits, physical exam findings as above. Given reported symptoms and physical exam findings, initial differential includes muscle strain, fracture, arthritis. X-ray notable for osteoarthritis of AC and glenohumeral joints. My interpretation is in agreement with the radiologist's interpretation. Results discussed with patient all questions answered. Will treat patient with course of prednisone and lidocaine patches. Advised patient to keep follow-up appointments with PCP and Ortho. Return precautions discussed at bedside. Patient verbalized understanding of and agreement with plan. Differential Diagnosis Differential Diagnoses: The differential diagnosis associated with the presentation includes As per MDM. Independent Interpretation I performed an independent interpretation of an: Plain X-Ray Interpretation: Osteoarthritis of AC and glenohumeral joints Radiology Impression Discussion of test interpretation with radiology: I have reviewed the radiologist's reading. Radiologist Impression: XR/XR shoulder RT min 2V IMPRESSION: 1. No acute fracture or malalignment. 2. Mild degenerative osteoarthritis of the acromioclavicular and glenohumeral joints. External Record Review External record reviewed: Inpatient record, Office record and Outpatient record Prescription Management I considered prescription management with: Pain Medication and Other Discharge Plan Discharge Clinical Impression: Pain in right shoulder Patient Disposition: Home, Self-Care Instructions: Shoulder Pain (ED) Additional Instructions: You were evaluated in the emergency department today for right shoulder pain. Your x-ray showed evidence of arthritis. You are being prescribed a short course of prednisone which is a steroid. Do not take any NSAIDs with his medication. You are also being prescribed topical lidocaine patches which he can wear for up to 12 hours in a 24 hour period, do not apply heat directly over the patches. Keep your follow-up appointments with your PCP and Orthopedics. Return to the emergency department if you develop worsening pain, new weakness, numbness, tingling to your arm or change of color to your arm or hand. Prescriptions: New prednisone 20 mg tablet 40 mg PO DAILY Qty: 8 0RF lidocaine 5 % adhesive patch,medicated 1 patch topical DAILY Qty: 15 0RF Rx Instructions: leave on most painful area for up to 12 hrs No Action lancets [FreeStyle Lancets] 28 gauge misc See Rx Instructions miscellaneous .qd prn Qty: 100 5RF Rx Instructions: miscellaneous .qd prn; hydrocortisone 2.5 % cream 1 appl topical BID PRN (Reason: skin irritation) 30 Days Qty: 30 5RF gabapentin 300 mg capsule 300 mg PO BID 90 Days Qty: 180 0RF loratadine 10 mg tablet 10 mg PO DAILY 90 Days Qty: 90 3RF lisinopril 10 mg tablet 15 mg PO DAILY 90 Days Qty: 135 2RF allopurinol 100 mg tablet 100 mg PO DAILY 30 Days Qty: 90 2RF prednisone 20 mg tablet 40 mg PO DAILY Qty: 8 0RF morphine 15 mg tablet 15 mg PO Q4-6H PRN (Reason: pain) Qty: 10 0RF Rx Instructions: Partial Fill upon patient request. magnesium oxide 400 mg (241.3 mg magnesium) tablet 400 mg PO BID cholecalciferol (vitamin D3) 50 mcg (2,000 unit) capsule 100 mcg PO DAILY coenzyme Q10 100 mg capsule 100 mg PO DAILY Lacto.acidophilus-Bif.animalis [Daily Probiotic] PO DAILY propranolol 40 mg tablet 10 mg PO BID PRN omega-3 fatty acids 500 mg capsule 1,000 mg PO .bid clotrimazole-betamethasone 1-0.05 % cream 1 appl topical ONCE 30 Days Qty: 45 0RF vitamin K2 40 mcg tablet 90 mcg PO DAILY prednisone 10 mg tablet 10 mg PO DAILY 30 Days Qty: 30 0RF famotidine 20 mg tablet 20 mg PO BID (DME) FreeStyle Lite Strips Strip See Rx Instructions Not Applicable QID Qty: 10 Rx Instructions: As directed sennosides [Natural Senna Laxative] 8.6 mg tablet 8.6 mg PO BEDTIME Qty: 90 3RF simethicone [Gas Relief (simethicone)] 125 mg capsule 125 mg PO TID-QID PRN (Reason: abdominal distention) Qty: 120 2RF tacrolimus 1 mg capsule 2 mg PO Q12H diclofenac sodium [Arthritis Pain (diclofenac)] 1 % gel 4 g topical QID Qty: 180 2RF Rx Instructions: Apply 1-3 grams (pumps) to the affected area 3-4 times daily.
[2023-10-08] MEDS: Lidocaine 4 % Patch ADH..PATCH 1 PATCH TRANSDERMA (19:41)
[2023-10-08] MEDS: predniSONE 20 MG TABLET 40 MG PO (19:42)
== END 2023-10-08 19:46 | disposition home or self-care (01) ==
PROVIDERS: Emergency Provider Student in an Organized Health Care Education/Training Program; PCP Internal Medicine
DX: M25.511 Pain in right shoulder (principal); E66.9 Obesity, unspecified; Z68.41 Body mass index [BMI] 40.0-44.9, adult; Z94.4 Liver transplant status
CPT/HCPCS: 73030; 99282; 99283

== ENCOUNTER 2023-10-19 12:05 | Outpatient (AMB) | payer OTHER, SELFPAY ==
[2023-10-19 12:07] VITALS: BMI 39.8
--- NOTE | 2023-10-19 12:07 | MHC.OFFVIS ---
Intake Vital Signs 10/19/23 12:07 Height 5 ft 4 in Weight 232 lb BMI 39.8 Intake Visit Reasons: New Prob- neck pain Intake Note: Carolyn 63 yr old female presents today for a new problem visit for her neck/shoulder/clavicle. States pain started about 3 weeks on the right side of her neck and clavicle. Hx of O.A. States she is limited ROM in neck and shoulder. Patient recalls about 30 years ago she fx her clavicle where no surgery was needed. Denies numbness or tingling in hands. Allergies nitrofurantoin Allergy (Unknown, Verified 10/19/23 12:10) nausea, dizziness and tightness chest perflutren [From DEFINITY] Adverse Reaction (Unknown, Verified 10/19/23 12:10) SEVERE BACK PAIN Medication List - Last Reconciled 10/19/23 by Leonie Cervantes MD allopurinol 100 mg PO DAILY 30 days blood sugar diagnostic (FreeStyle Lite Strips) As directed cholecalciferol (vitamin D3) 100 mcg PO DAILY clotrimazole-betamethasone 1-0.05 % 1 appl topical ONCE 30 days coenzyme Q10 100 mg PO DAILY diclofenac sodium 1% (Arthritis Pain (diclofenac)) 4 grams topical QID famotidine 20 mg PO BID hydrocortisone 2.5% 1 appl topical BID PRN 30 days Lacto.acidophilus-Bif.animalis (Daily Probiotic) PO DAILY lancets (FreeStyle Lancets) miscellaneous .qd prn; lisinopril 15 mg (1.5 x 10 mg) PO DAILY 90 days loratadine 10 mg PO DAILY 90 days magnesium oxide 400 mg PO BID omega-3 fatty acids 1,000 mg PO .bid propranolol 10 mg PO BID PRN sennosides (Natural Senna Laxative) 8.6 mg PO BEDTIME simethicone (Gas Relief (simethicone)) 125 mg PO TID-QID PRN tacrolimus 2 mg PO Q12H vitamin K2 90 mcg PO DAILY HPI HPI Comments History of Present Illness Details History of osteoarthritis, gout, pre-diabetes, CKD III, history of hepatitis B with liver transplant, morbid obesity and hypoventilation syndrome. Went to ER 10/08 for right shoulder pain. Woke up one day, fell asleep on the couch, pain on right clavicle and right trapezius pain. Described as pulling and severe. Was given prednisone at ER with relief for a few days. But now it has come back. Difficult to put on clothes. Full ROM with pain. No numbness. Treatment done so far: medications History of clavicle fracture 30 years ago, from fall. Healed well. [facility] Medical History Dysuria Surgical History History of endometrial ablation Hx of colonoscopy Hx of appendectomy History of esophagogastroduodenoscopy (EGD) Hx of cholecystectomy History of ankle surgery History of liver transplant Family History Father No problems noted. Mother Sudden cardiac Other Mental health disorder Substance use disorder Housing: House Alcohol intake: never Patient Tobacco Use Status: Never used Tobacco e-Cigarette/Vaping Use: Never Used Second Hand Smoke Exposure: Yes Current occupational status: disabled Current occupation: rt handed Cognitive needs: No Hearing needs: No Vision needs: No Review of Systems Const All systems reviewed & are unremarkable except as noted in HPI and below Physical Exam Vital Signs: BMI result Body Mass Index 39.8 Constitutional: Patient appears to be in no acute distress, well nourished and well developed. MSK: Inspection reveals appropriate head and neck positioning. No pain with palpation over the neck musculature. Cervical ROM was full. Spurling's sign negative. Bilateral shoulder ROM WNL. No ligamentous laxity or crepitance. No increased effusion. Empty can test is negative. Drop arm test is negative. Speed's test is negative. Neer's test is negative. Hawkin's test is negative. Tender on right upper trapezius with trigger points. Strength is 5/5 in all muscle groups tested. No increased tone noted. Neurological: Neurologic examination of the upper and lower extremities was nonfocal with intact sensation, muscle stretch reflexes and without focal motor deficits . De Leon?s negative bilaterally. Gait is non-antalgic without loss of balance. Office Procedures Joint Injection/Drain Joint Injection/Drain Details: Consent was obtained. The distal, lateral, and posterior edges of the right acromion are palpated. Area is cleansed with betadine solution. A findings at gauge needle is inserted just inferior to the posterolateral edge of the acromion. The needle is directed toward the opposite chest. A solution containing [40 mg] Kenalog and [3 ml] of 2% Lidocaine is injected. Patient tolerated procedure well without complications. Post-injection instructions given. Primary Site: right shoulder Injected: 40 mg of, Kenalog and with 3 mL of (2% lidocaine) Procedure: The patient tolerated the procedure well Coding 21702 - Large joint Procedure code (CPT) selection complete Results Reviewed Results Reviewed: XR SHOULDER, RIGHT CLINICAL INFORMATION: Atraumatic pain, shoulder pain. COMPARISON: None available. TECHNIQUE: Four views of the right shoulder. FINDINGS: No acute fracture or subluxation. Mild degenerative osteoarthritis of the acromioclavicular and glenohumeral joints. No abnormal soft tissue calcifications. No osseous erosions. Visualized right-sided ribs and right lung are within normal limits. No unexpected radiopaque foreign bodies. XR/XR shoulder RT min 2V IMPRESSION: 1. No acute fracture or malalignment. 2. Mild degenerative osteoarthritis of the acromioclavicular and glenohumeral joints. I reviewed records from the following: Ortho saw her for elbow pain Pain Management saw her for knee pain ER Assessment & Plan Assessment & Plan (1) Myofascial pain: Code(s): M79.18 - Myalgia, other site (2) AC (acromioclavicular) arthritis: Code(s): M19.019 - Primary osteoarthritis, unspecified shoulder Qualifiers: Laterality: right Qualified Code(s): M19.011 - Primary osteoarthritis, right shoulder Plan Suspect pain is primarily myofascial with trigger points on right upper trapezius. I recommend starting physical therapy and consideration of trigger point injections. However patient is convinced that this is coming from the shoulder. I assured her there is no sign of rotator cuff pathology on exam. No signs of cervical radiculopathy or myelopathy on exam. She is looking for immediate relief and would like to trial shoulder injection instead. X-ray was discussed with patient, images reviewed, showed mild AC joint arthritis. Tolerated procedure well. Still highly recommend physical therapy. Order placed. If not better, consider trigger point injections. Assessment and plan discussed with patient, and patient was agreeable. All questions were answered thoroughly. Follow-up in 2 months. Leonie Cervantes MD, MARIO Board Certified, [place] [employer] (ABPMR) Board Certified, [place] [employer] (ABEM) Orders: Orders AMB Joint Injection/Aspiration Today M19.019 - Primary osteoarthritis, unspecified shoulder PT Evaluation and Treatment Today M19.019 - Primary osteoarthritis, unspecified shoulder, M79.18 - Myalgia, other site Coding Level of Care Code New Pt Level 4 (36407) Diagnoses Myofascial pain M79.18 Arthritis of right acromioclavicular joint M19.011 Laterality: right CPT Codes Coding - 67551 Large joint: 52542 - Large joint ([id number])
== END 2023-10-19 12:32 | disposition home or self-care (01) ==
PROVIDERS: PCP Internal Medicine; Visit Provider Physical Medicine & Rehabilitation
DX: M19.011 Primary osteoarthritis, right shoulder (principal); M79.18 Myalgia, other site
CPT/HCPCS: 20610; 99214

== ENCOUNTER → 2023-10-19 12:05 | Outpatient (BNVA) | payer OTHER, SELFPAY | PROVIDERS: PCP Internal Medicine; Visit Provider Physical Medicine & Rehabilitation | DX: M19.011 Primary osteoarthritis, right shoulder (principal); M79.18 Myalgia, other site | CPT/HCPCS: 20610; 99212; J3301 ==

== ENCOUNTER 2023-10-26 15:30 | Outpatient (AMB) | payer OTHER, SELFPAY ==
--- NOTE | 2023-10-26 15:33 | MHC.PC.OV ---
Vital Signs 10/26/23 15:34 Height 5 ft 4 in Weight 245 lb 6 oz BMI 42.1 BP 132/68 Blood Pressure Location Rt brachial Position Sitting Pulse 76 Pulse Source Pulse Oximeter Pulse Oximetry (%) 98 Oxygen Delivery Method Room Air Intake Visit Reasons: F/u psoriasis-gout+ NEEDS PHQ9 +THRIVE Allergies nitrofurantoin Allergy (Unknown, Verified 10/26/23 15:34) nausea, dizziness and tightness chest perflutren [From DEFINITY] Adverse Reaction (Unknown, Verified 10/26/23 15:34) SEVERE BACK PAIN Medication List - Last Reconciled 10/26/23 by Agueda Shelton MD allopurinol 100 mg PO DAILY 30 days blood sugar diagnostic (FreeStyle Lite Strips) As directed cholecalciferol (vitamin D3) 100 mcg PO DAILY clotrimazole-betamethasone 1-0.05 % 1 appl topical ONCE 30 days coenzyme Q10 100 mg PO DAILY diclofenac sodium 1% (Arthritis Pain (diclofenac)) 4 grams topical QID famotidine 20 mg PO BID hydrocortisone 2.5% 1 appl topical BID PRN 30 days Lacto.acidophilus-Bif.animalis (Daily Probiotic) PO DAILY lancets (FreeStyle Lancets) miscellaneous .qd prn; lisinopril 15 mg (1.5 x 10 mg) PO DAILY 90 days loratadine 10 mg PO DAILY 90 days magnesium oxide 400 mg PO BID omega-3 fatty acids 1,000 mg PO .bid propranolol 10 mg PO BID PRN sennosides (Natural Senna Laxative) 8.6 mg PO BEDTIME simethicone (Gas Relief (simethicone)) 125 mg PO TID-QID PRN tacrolimus 2 mg PO Q12H vitamin K2 90 mcg PO DAILY Tobacco use date assessed: 10/26/23 Dental Screening Dental Screen Date: 10/26/23 Did you have a dental visit in the last 12 months?: Yes Did you have a dental problem in the last 6 months where you did not have access to dental care?: No Was dental information given to patient?: Patient has dentist HPI F/u psoriasis-gout+ NEEDS PHQ9 +THRIVE HPI Details Patient is 63-year-old female Patient have severe psoriasis she is in touch with her liver transplant doctor as well as Dermatology They are trying to figure out which medication will be a good choice for the patient. She is under care of [facility] for liver transplant monitoring. Hypertension: Blood pressure is elevated she is on lisinopril 10 mg I am increasing the dose to 1 and half tablet she has a monitor at home Pre diabetes: Due for labs Patient is also on vitamin-D supplement Chronic GERD: She is taking famotidine 20 mg b.i.d. Chronic constipation managed with the help of natural senna and stool softener as needed Allergies stable with loratadine 10 mg Morbid obesity with BMI of 42.1, patient is enquiring about Semaglutide, being a liver transplant recipient I do not think that is a good choice as it can cause problem with pancreas Patient have recurrent gout and elevated uric acid level but she has not start allopurinol still. She is requesting few tablets of prednisone as it helps her in number of ways including psoriasis and right shoulder pain. I talked about side effect of recurrent prednisone use I would not recommend that she continue taking prednisone frequently. Instead she should take allopurinol PFSH Medical History Dysuria Surgical History History of endometrial ablation Hx of colonoscopy Hx of appendectomy History of esophagogastroduodenoscopy (EGD) Hx of cholecystectomy History of ankle surgery History of liver transplant Family History Father No problems noted. Mother Sudden cardiac Other Mental health disorder Substance use disorder Social History Housing: House Alcohol intake: never Patient Tobacco Use Status: Never used Tobacco e-Cigarette/Vaping Use: Never Used Second Hand Smoke Exposure: Yes Current occupational status: disabled Current occupation: rt handed Cognitive needs: No Hearing needs: No Vision needs: No Questionnaire Thrive Questionnaire Date Thrive assessed: 01/27/22 AUDIT C Alcohol Use Questionnaire (AUDIT-C) 1. How often do you have a drink containing alcohol?: Never 3. How often do you have six or more drinks on one occasion?: Never Total Score: 0 Score Reviewed/Action Taken: Yes ALAN-7 AMB Questionnaire ALAN-7 Date ALAN - 7 assessed: 01/27/22 Source: Developed by Drs. Diomedes Uribe, Elda Medina, Black Kaplan and colleagues, with an educational christi from [employer]. Review of Systems Const Denies chills and Denies fever(s) ENT Denies epistaxis and Denies nasal discharge Card Denies chest pain Resp Denies chest congestion, Denies cough and Denies hemoptysis GI Denies diarrhea and Denies nausea Neuro Reports no additional complaints Psych Reports no additional complaints Endo Reports no additional complaints Physical exam (Primary Care) Vital Signs: Last Vital Signs Pulse 76 10/26/23 15:34 BP 132/68 10/26/23 15:34 Pulse Ox 98 10/26/23 15:34 Oxygen Delivery Method Room Air 10/26/23 15:34 BMI result Body Mass Index 42.1 Tobacco/Smoking Status: Tobacco use Status Tobacco use date assessed 10/26/23 10/26/23 15:36 Patient Tobacco Use Status Never used Tobacco 10/26/23 15:36 e-Cigarette/Vaping Use Never Used 10/26/23 15:36 Thrive Assessment: Date of Thrive Assessment Date Thrive assessed 01/27/22 10/26/23 15:36 Const General: cooperative, comfortable and no acute distress Orientation/consciousness: patient oriented x3 HENMT Head: Yes normocephalic Eyes General: appearance normal, both eyes and all related structures Neck Neck: Yes supple Resp Effort & Inspection: normal respiratory effort, no cough and no stridor Cardio Rhythm: regular rhythm Heart sounds: S1 normal heart sound present and S2 normal heart sound present Skin Other: Extensive psoriatic rash all over the body General skin exam: turgor normal Neuro General: patient oriented x3, tone normal and moves all extremities Extrem Right lower extremity: no edema Left lower extremity: no edema Assessment and Plan Assessment & Plan (1) Morbid obesity with BMI of 40.0-44.9, adult: Code(s): E66.01 - Morbid (severe) obesity due to excess calories; Z68.41 - Body mass index [BMI] 40.0-44.9, adult (2) Liver transplant recipient: Code(s): Z94.4 - Liver transplant status (3) Drug-induced peripheral neuropathy: Code(s): G62.0 - Drug-induced polyneuropathy (4) Nephropathy: Code(s): N28.9 - Disorder of kidney and ureter, unspecified (5) Psoriasis: Code(s): L40.9 - Psoriasis, unspecified (6) Hypertension, essential: Code(s): I10 - Essential (primary) hypertension (7) Anxiety, generalized: Code(s): F41.1 - Generalized anxiety disorder (8) Pre-diabetes: Code(s): R73.03 - Prediabetes (9) Gout: Code(s): M10.9 - Gout, unspecified Qualifiers: Gout site: multiple sites Gout etiology: unspecified cause Chronicity: chronic Qualified Code(s): M1A.09X0 - Idiopathic chronic gout, multiple sites, without tophus (tophi) Plan Patient is 63-year-old female Patient have severe psoriasis she is in touch with her liver transplant doctor as well as Dermatology They are trying to figure out which medication will be a good choice for the patient. She is under care of [facility] for liver transplant monitoring. Hypertension: Blood pressure is elevated she is on lisinopril 10 mg I am increasing the dose to 1 and half tablet she has a monitor at home Pre diabetes: Due for labs Patient is also on vitamin-D supplement Chronic GERD: She is taking famotidine 20 mg b.i.d. Chronic constipation managed with the help of natural senna and stool softener as needed Allergies stable with loratadine 10 mg Morbid obesity with BMI of 42.1, patient is enquiring about Semaglutide, being a liver transplant recipient I do not think that is a good choice as it can cause problem with pancreas Patient have recurrent gout and elevated uric acid level but she has not start allopurinol still. She is requesting few tablets of prednisone as it helps her in number of ways including psoriasis and right shoulder pain. I talked about side effect of recurrent prednisone use I would not recommend that she continue taking prednisone frequently. Instead she should take allopurinol Orders: Orders Comprehensive [place]. Panel Fast Today E11.69 - Type 2 diabetes mellitus with other specified complication, E66.01 - Morbid (severe) obesity due to excess calories, E66.9 - Obesity, unspecified, Z68.41 - Body mass index [BMI] 40.0-44.9, adult Hemoglobin A1c Today R73.03 - Prediabetes Lipid Panel Today E11.69 - Type 2 diabetes mellitus with other specified complication, E66.01 - Morbid (severe) obesity due to excess calories, E66.9 - Obesity, unspecified, G62.0 - Drug-induced polyneuropathy, L40.9 - Psoriasis, unspecified, Z68.41 - Body mass index [BMI] 40.0-44.9, adult, Z94.4 - Liver transplant status Microalbumin, Random (w Creat) Today E11.69 - Type 2 diabetes mellitus with other specified complication, E66.9 - Obesity, unspecified Medications: New prednisone 20 mg PO DAILY 5 tabs 0RF 5 days Coding Level of Care Code Est Pt Level 4 (09185) Diagnoses Morbid obesity with BMI of 40.0-44.9, adult E66.01; Z68.41 Liver transplant recipient Z94.4 Drug-induced peripheral neuropathy G62.0 Nephropathy N28.9 Psoriasis L40.9 Hypertension, essential I10 Anxiety, generalized F41.1 Pre-diabetes R73.03 Chronic gout of multiple sites, unspecified cause M1A.09X0 Gout site: multiple sites Gout etiology: unspecified cause Chronicity: chronic
[2023-10-26 15:34] VITALS: BP 132/68; PULSE 76; O2SAT 98; BMI 42.1
== END 2023-10-26 17:49 | disposition home or self-care (01) ==
PROVIDERS: PCP Internal Medicine; Visit Provider Internal Medicine
DX: E66.01 Morbid (severe) obesity due to excess calories (principal); Z68.41 Body mass index [BMI] 40.0-44.9, adult; Z94.4 Liver transplant status; G62.0 Drug-induced polyneuropathy; N28.9 Disorder of kidney and ureter, unspecified; L40.9 Psoriasis, unspecified; I10 Essential (primary) hypertension; F41.1 Generalized anxiety disorder; R73.03 Prediabetes; M1A.09X0 Idiopathic chronic gout, multiple sites, without tophus (tophi)
CPT/HCPCS: 99214

== ENCOUNTER 2023-12-16 07:46 | Outpatient (AMB) | payer OTHER, SELFPAY ==
--- NOTE | 2023-12-16 07:54 | MHC.PC.OV ---
Intake Visit Reasons: Pulmonology Referral~[phone] Allergies nitrofurantoin Allergy (Unknown, Verified 10/26/23 15:34) nausea, dizziness and tightness chest perflutren [From DEFINITY] Adverse Reaction (Unknown, Verified 10/26/23 15:34) SEVERE BACK PAIN Medication List - Last Reconciled 12/16/23 by Agueda Shelton MD allopurinol 100 mg PO DAILY 30 days blood sugar diagnostic (FreeStyle Lite Strips) As directed cholecalciferol (vitamin D3) 100 mcg PO DAILY clotrimazole-betamethasone 1-0.05 % 1 appl topical ONCE 30 days coenzyme Q10 100 mg PO DAILY diclofenac sodium 1% (Arthritis Pain (diclofenac)) 4 grams topical QID famotidine 20 mg PO BID hydrocortisone 2.5% 1 appl topical BID PRN 30 days Lacto.acidophilus-Bif.animalis (Daily Probiotic) PO DAILY lancets (FreeStyle Lancets) miscellaneous .qd prn; lisinopril 15 mg (1.5 x 10 mg) PO DAILY 90 days loratadine 10 mg PO DAILY 90 days magnesium oxide 400 mg PO BID omega-3 fatty acids 1,000 mg PO .bid prednisone 20 mg PO DAILY 5 days propranolol 10 mg PO BID PRN sennosides (Natural Senna Laxative) 8.6 mg PO BEDTIME simethicone (Gas Relief (simethicone)) 125 mg PO TID-QID PRN tacrolimus 2 mg PO Q12H vitamin K2 90 mcg PO DAILY Tobacco use date assessed: 10/26/23 HPI Pulmonology Referral~[phone] HPI Details 63-year-old female this is a telemedicine video conference Patient tells me that she started having respiratory symptoms 1 month ago, they escalated to cough chest congestion she never had fever She got concern as she still have lingering cough and mucus in her throat when she lays down at night Patient is liver transplant recipient and she is on immunosuppressants She is requesting adjust x-ray and a referral to employment law specialist which I have placed for her There is no difficulty taking deep breaths there is no shortness a breath She also have developed right elbow bursitis, for that I have recommended to place Isidoro wrap during the day for a week and see if it resolves Otherwise she need to come in for examination On review system: There is no nausea vomiting abdominal pain there are no chills PFSH Medical History Dysuria Surgical History History of endometrial ablation Hx of colonoscopy Hx of appendectomy History of esophagogastroduodenoscopy (EGD) Hx of cholecystectomy History of ankle surgery History of liver transplant Family History Father No problems noted. Mother Sudden cardiac Other Mental health disorder Substance use disorder Social History Housing: House Alcohol intake: never Patient Tobacco Use Status: Never used Tobacco e-Cigarette/Vaping Use: Never Used Second Hand Smoke Exposure: Yes Current occupational status: disabled Current occupation: rt handed Cognitive needs: No Hearing needs: No Vision needs: No Questionnaire Thrive Questionnaire Date Thrive assessed: 01/27/22 ALAN-7 AMB Questionnaire ALAN-7 Date ALAN - 7 assessed: 01/27/22 Source: Developed by Drs. Diomedes Uribe, Elda Medina, Black Kaplan and colleagues, with an educational christi from [employer] Review of Systems Const Denies chills and Denies fever(s) ENT Denies epistaxis and Denies nasal discharge Card Denies chest pain Resp Denies hemoptysis GI Denies diarrhea and Denies nausea Skin/Breast Denies rash Neuro Reports no additional complaints Psych Reports no additional complaints Endo Reports no additional complaints Physical exam (Primary Care) Tobacco/Smoking Status: Tobacco use Status Tobacco use date assessed 10/26/23 12/16/23 07:59 Patient Tobacco Use Status Never used Tobacco 12/16/23 07:59 e-Cigarette/Vaping Use Never Used 12/16/23 07:59 Thrive Assessment: Date of Thrive Assessment Date Thrive assessed 01/27/22 12/16/23 07:59 Telehealth Telehealth Location of provider rendering services: practice address Location of patient: address on file Patient Identification confirmed using: Name, : Yes Telehealth method: video Patient verbally consented to treatment: Yes Patient verbally consented to billing insurance company: Yes Patient informed of any privacy concerns related to visit: Yes Assessment and Plan Assessment & Plan (1) Acute bronchitis: Code(s): J20.9 - Acute bronchitis, unspecified Qualifiers: Bronchitis organism: other organism Qualified Code(s): J20.8 - Acute bronchitis due to other specified organisms (2) Chronic cough: Code(s): R05.3 - Chronic cough (3) Olecranon bursitis, right elbow: Code(s): M70.21 - Olecranon bursitis, right elbow (4) Liver transplant recipient: Code(s): Z94.4 - Liver transplant status Plan 63-year-old female this is a telemedicine video conference Patient tells me that she started having respiratory symptoms 1 month ago, they escalated to cough chest congestion she never had fever She got concern as she still have lingering cough and mucus in her throat when she lays down at night Patient is liver transplant recipient and she is on immunosuppressants Patient says that she was going for RSV infection when the symptoms started She is requesting adjust x-ray and a referral to employment law specialist which I have placed for her There is no difficulty taking deep breaths there is no shortness a breath She also have developed right elbow bursitis, for that I have recommended to place Isidoro wrap during the day for a week and see if it resolves Otherwise she need to come in for examination On review system: There is no nausea vomiting abdominal pain there are no chills Orders: Orders XR chest 2V Today J20.9 - Acute bronchitis, unspecified, R05.3 - Chronic cough Referrals Pulmonary Medicine Referral J20.9 - Acute bronchitis, unspecified, R05.3 - Chronic cough Coding Level of Care Code Tele Est Pt Level 4 (60832) Diagnoses Acute bronchitis due to other specified organisms J20.8 Bronchitis organism: other organism Chronic cough R05.3 Olecranon bursitis, right elbow M70.21 Liver transplant recipient Z94.4 Time Spent (min) 30 Comment 4 pre visit, 16 with patient, 5 charting, 5 coordination of care
== END 2023-12-16 09:38 | disposition home or self-care (01) ==
LOC: HO.HMGC 07:46
PROVIDERS: PCP Internal Medicine; Visit Provider Internal Medicine
DX: J20.8 Acute bronchitis due to other specified organisms (principal); R05.3 Chronic cough; M70.21 Olecranon bursitis, right elbow; Z94.4 Liver transplant status
CPT/HCPCS: 99214

== ENCOUNTER 2024-01-11 18:41 | Emergency (ER) | payer OTHER, SELFPAY ==
--- NOTE | ~2024-01-11 | XR_ITS ---
EXAMINATION: XR FOOT, LEFT CLINICAL INFORMATION: Left foot pain COMPARISON: None available. TECHNIQUE: AP, lateral, and oblique views of the left foot. FINDINGS: The bones and soft tissues are normal. No fracture. Alignment is anatomic. Joint spaces are maintained. XR/XR foot LT min 3V IMPRESSION: Unremarkable left foot.
[2024-01-11 18:54] VITALS: BP 118/58; PULSE 90; RESP 18; TEMP 36.6; O2SAT 97; BMI 38.6
--- NOTE | 2024-01-11 19:05 | ED.GENADULT ---
HPI - General Adult General Chief complaint: Extremity Injury, Lower Stated complaint: cant walk on foot Time Seen by Provider: 01/12/24 00:29 Source: patient and old records reviewed Mode of arrival: ambulatory Limitations: no limitations History of Present Illness HPI narrative: 63 yo female with PMH of gout, chronic kidney disease, liver transplant on tacrolimus, psoriatic arthritis here with c/o L foot pain and swelling no trauma no fevers concern for gout attack. states she cannot walk on it. Feels like a typical bout for her. complaint: foot pain Onset (ago): day(s) (6) Location: left and lower extremity Radiation: non-radiation Severity: moderate Quality: aching and constant Pain Consistency: constant Relieving factors: none Exacerbating factors: movement Associated symptoms: denies other symptoms Treatments prior to arrival: none Related Data Home Medications Medication Instructions Recorded Confirmed tacrolimus 1 mg capsule, 2 mg PO Q12H 10/13/21 12/16/23 immediate-release Lacto.acidophilus-Bif.animalis PO DAILY 01/27/22 12/16/23 [Daily Probiotic] cholecalciferol (vitamin D3) 50 100 mcg PO DAILY 01/27/22 12/16/23 mcg (2,000 unit) capsule coenzyme Q10 100 mg capsule 100 mg PO DAILY 01/27/22 12/16/23 magnesium oxide 400 mg (241.3 mg 400 mg PO BID 01/27/22 12/16/23 magnesium) tablet omega-3 fatty acids 500 mg capsule 1,000 mg PO .bid 02/10/22 12/16/23 blood sugar diagnostic (Luis #10 ea 03/23/22 12/16/23 Lite Strips) famotidine 20 mg tablet 20 mg PO BID 03/23/22 12/16/23 vitamin K2 40 mcg tablet 90 mcg PO DAILY 08/27/22 12/16/23 propranolol 40 mg tablet 10 mg PO BID PRN 03/17/23 12/16/23 Previous Rx's Medication Instructions Recorded lancets 28 gauge (Luis See Rx Instructions miscellaneous 02/24/21 Lancets) .qd prn for diabetes mellitus #100 caps hydrocortisone 2.5 % topical cream 1 appl topical BID PRN skin 01/28/22 irritation 30 days #30 grams sennosides 8.6 mg tablet (Natural 8.6 mg PO BEDTIME constipation #90 03/23/22 Senna Laxative) tabs simethicone 125 mg capsule (Gas 125 mg PO TID-QID PRN abdominal 03/23/22 Relief (simethicone)) distention #120 caps clotrimazole-betamethasone 1 1 appl topical ONCE 30 days #45 10/20/22 %-0.05 % topical cream grams diclofenac sodium 1 % topical gel 4 g topical QID pain #180 grams 04/01/23 (Arthritis Pain (diclofenac)) lisinopril 10 mg tablet 15 mg (1.5 x 10 mg) PO DAILY 90 06/28/23 days #135 tabs loratadine 10 mg tablet 10 mg PO DAILY 90 days #90 tabs 11/30/23 prednisone 20 mg tablet 20 mg PO DAILY 5 days #5 tabs 01/05/24 allopurinol 100 mg tablet 200 mg (2 x 100 mg) PO DAILY 90 01/08/24 days #180 tabs morphine 15 mg immediate release 15 mg PO Q6H PRN pain #15 tabs 01/12/24 tablet prednisone 20 mg tablet 40 mg (2 x 20 mg) PO DAILY 4 days 01/12/24 #8 tabs Allergies Allergy/AdvReac Type Severity Reaction Status Date / Time nitrofurantoin Allergy Unknown nausea, Verified 01/11/24 18:54 dizziness and tightness chest perflutren [From [employer]] AdvReac Unknown SEVERE Verified 01/11/24 18:54 BACK PAIN Review of Systems Review of Systems: Constitutional : No Fever, No Chills ENT/Mouth : No Ear Pain, No Hoarseness, No sore throat Eyes: No Eye Pain, No Swelling, No Redness, No Foreign Body Cardiovascular : No Chest Pain, No SOB Respiratory : No Cough, No Dyspnea Gastrointestinal : No Nausea, No Vomiting, No Diarrhea, No abdominal Pain Genitourinary : No Dysuria, No Hematuria Musculoskeletal : positive joint pain, No Myalgias, pos Joint Swelling Skin : No Skin lacerations, No rash Neuro : No Weakness, No Numbness, No Loss of Consciousness, No Dizziness, No Headache All other systems reviewed and are negative [facility] Past Medical History Attestation statement: The following information was validated with the patient. Source: old records reviewed Medical History Acute bronchitis Nephropathy Gout Hypertension, essential Drug-induced peripheral neuropathy Dysuria Surgical History Liver transplant recipient History of endometrial ablation Hx of colonoscopy Hx of appendectomy History of esophagogastroduodenoscopy (EGD) Hx of cholecystectomy History of ankle surgery History of liver transplant Family History Family History Father No problems noted. Mother Sudden cardiac Other Mental health disorder Substance use disorder Social History Social History Housing: House Alcohol intake: never Patient Tobacco Use Status: Never used Tobacco e-Cigarette/Vaping Use: Never Used Second Hand Smoke Exposure: Yes Advance Directives: No Advance Directives Information Provided: Yes Current occupational status: disabled Current occupation: rt handed Cognitive needs: No Hearing needs: No Vision needs: No Physical Exam ED Vital Signs: Vital Signs - 24 hr 01/11/24 18:54 Temperature 98 F Pulse Rate 90 Respiratory Rate 18 Blood Pressure 118/58 L Pulse Oximetry 97 Oxygen Delivery Method Room Air BMI result Body Mass Index 38.6 Appearance: Alert. Oriented X3. No acute distress. Eyes: Pupils equal, round and reactive to light. ENT: Pharynx normal. Neck: Normal inspection. Neck supple. CVS: Normal heart rate and rhythm. Pulses normal. Respiratory: No respiratory distress. Breath sounds normal. Abdomen: Soft and nontender. Skin: Skin warm and dry. Normal skin color. Normal skin turgor. Extremities: No lower extremity edema. L foot lateral aspect mild warmth minimal erythema mild swelling there is ttp along 5th MTP area she is NV intact Neuro: Oriented X 3. No motor deficit. No sensory deficit. Course Course Course Narrative: Patient with history of gout complains of left foot pain without injury making it hard to bear weight on the foot Left foot x-ray ordered This is rapid medical exam done in triage pending full evaluation and disposition by ER provider Medical Decision Making Medical Decision Making MDM Narrative: 63 yo female with PMH of gout, chronic kidney disease, liver transplant on tacrolimus, psoriatic arthritis here with atraumatic pain to L foot - NV intact hx of same in past with gout. There is mild erythema she is declining abx coverage states this is gout. At this time labs, xray and steroids/pain control ordered. sent home with precautions Differential Diagnosis Differential Diagnoses: The differential diagnosis associated with the presentation includes gout, cellulitis when discussed about possible coverage for cellulitis patient declined and states she will observe and return for any concerns Admission/Observation Consideration of admission/observation: Escalation of care including admission/observation considered labs stable, not toxic, can be managed as outpatient Lab Data MDM Lab Attestation statement: I reviewed the patient's lab results. 01/11/24 19:29 01/11/24 19:29 Labs: Lab Results 01/11/24 Range/Units 19:29 WBC 10.0 (4.8-10.8) X10*3/uL RBC 4.48 (4.20-5.50) X10*6/uL Hgb 13.2 (12.0-16.0) g/dl Hct 41.4 (37.0-47.0) % MCV 92.4 (80.0-98.0) fL MCH 29.5 (27.0-33.0) pg MCHC 31.9 (31.0-35.0) g/dl RDW 12.3 (11.0-16.0) % Plt Count 280 (160-400) X10*3/uL MPV 9.1 L (9.4-12.3) fL Immature Gran % (Auto) 0.4 (0.0-0.4) % Neut % (Auto) 73.1 H (45-73) % Lymph % (Auto) 14.3 L (20-40) % [place] % (Auto) 10.2 (2-11) % Eos % (Auto) 1.7 (0-4) % Baso % (Auto) 0.3 (0-2) % Lymph # (Auto) 1.4 (1.2-4.9) X10*3/uL [place] # (Auto) 1.0 (0.1-1.2) X10*3/uL Eos # (Auto) 0.2 (0.0-0.4) X10*3/uL Baso # (Auto) 0.0 (0.0-0.2) X10*3/uL Abs Immat Gran (auto) 0.04 H (0.00-0.03) X10*3/uL Absolute Neuts (auto) 7.3 (2.0-8.3) x10*3/uL Absolute Nucleated RBC 0.000 (0.0-0.012) X10*3/uL Nucleated RBC % (auto) 0.0 (0.0-0.2) /100WBC Sodium 141 (135-145) mmol/L Potassium 4.4 (3.3-5.1) mmol/L Chloride 103 (96-108) mmol/L Carbon Dioxide 27 (22-29) mmol/L Anion Gap 15 (12-20) BUN 20 H (9-16) mg/dL Creatinine 1.19 (0.5-1.4) mg/dL Estim Creat Clear Calc 57.7 Estimated GFR 46 Random Glucose 121 H (60-115) mg/dL Uric Acid 9.9 H (2.4-5.7) mg/dL Calcium 9.8 (8.4-10.2) mg/dL Total Bilirubin 0.8 (0.0-1.0) mg/dL AST 21 (5-31) U/L ALT 45 H (0-31) U/L Alkaline Phosphatase 84 (39-117) U/L Total Protein 7.2 (6.5-8.0) g/dL Albumin 4.1 (3.5-5.0) g/dL Independent Interpretation I performed an independent interpretation of an: Plain X-Ray (no fracture) Radiology Impression Discussion of test interpretation with radiology: I have reviewed the radiologist's reading. External Record Review External record reviewed: Inpatient record Prescription Management I considered prescription management with: Pain Medication and Other Discharge Plan Discharge Clinical Impression: Gout attack Qualifiers: Gout site: foot Gout etiology: unspecified cause Laterality: left Qualified Code(s): M10.9 - Gout, unspecified Patient Disposition: Home, Self-Care Instructions: Gout (ED) Additional Instructions: please return for worsening pain, swelling, increased redness or signs of infection, fevers Prescriptions: New prednisone 20 mg tablet 40 mg PO DAILY 4 Days Qty: 8 0RF morphine 15 mg tablet 15 mg PO Q6H PRN (Reason: pain) Qty: 15 0RF Rx Instructions: partial fill okay; Partial Fill upon patient request. No Action lancets [FreeStyle Lancets] 28 gauge misc See Rx Instructions miscellaneous .qd prn Qty: 100 5RF Rx Instructions: miscellaneous .qd prn; hydrocortisone 2.5 % cream 1 appl topical BID PRN (Reason: skin irritation) 30 Days Qty: 30 5RF lisinopril 10 mg tablet 15 mg PO DAILY 90 Days Qty: 135 2RF loratadine 10 mg tablet 10 mg PO DAILY 90 Days Qty: 90 3RF prednisone 20 mg tablet 20 mg PO DAILY 5 Days Qty: 5 0RF allopurinol 100 mg tablet 200 mg PO DAILY 90 Days Qty: 180 2RF magnesium oxide 400 mg (241.3 mg magnesium) tablet 400 mg PO BID cholecalciferol (vitamin D3) 50 mcg (2,000 unit) capsule 100 mcg PO DAILY coenzyme Q10 100 mg capsule 100 mg PO DAILY Lacto.acidophilus-Bif.animalis [Daily Probiotic] PO DAILY propranolol 40 mg tablet 10 mg PO BID PRN omega-3 fatty acids 500 mg capsule 1,000 mg PO .bid clotrimazole-betamethasone 1-0.05 % cream 1 appl topical ONCE 30 Days Qty: 45 0RF vitamin K2 40 mcg tablet 90 mcg PO DAILY famotidine 20 mg tablet 20 mg PO BID (DME) FreeStyle Lite Strips Strip See Rx Instructions Not Applicable QID Qty: 10 Rx Instructions: As directed sennosides [Natural Senna Laxative] 8.6 mg tablet 8.6 mg PO BEDTIME Qty: 90 3RF simethicone [Gas Relief (simethicone)] 125 mg capsule 125 mg PO TID-QID PRN (Reason: abdominal distention) Qty: 120 2RF tacrolimus 1 mg capsule 2 mg PO Q12H diclofenac sodium [Arthritis Pain (diclofenac)] 1 % gel 4 g topical QID Qty: 180 2RF Rx Instructions: Apply 1-3 grams (pumps) to the affected area 3-4 times daily.
[2024-01-11 19:35] LABS: MANUAL DIFF FLAG NO
[2024-01-11 19:37] LABS: Basophils Percent Auto 0.3 % (0-2); Eosinophils Absolute Auto 0.2 X10*3/uL (0.0-0.4); Eosinophils Percent Auto 1.7 % (0-4); Hematocrit 41.4 % (37.0-47.0); Hemoglobin 13.2 g/dl (12.0-16.0); Imm Gran Abs Auto 0.04 X10*3/uL (0.00-0.03); Imm Gran Pct Auto 0.4 % (0.0-0.4); Lymphocytes Absolute Auto 1.4 X10*3/uL (1.2-4.9); Lymphocytes Percent Auto 14.3 % (20-40); Mean Corpuscular HGB Conc 31.9 g/dl (31.0-35.0); Mean Corpuscular Hemoglobin 29.5 pg (27.0-33.0); Mean Corpuscular Volume 92.4 fL (80.0-98.0); Mean Platelet Volume 9.1 fL (9.4-12.3); Monocytes Percent Auto 10.2 % (2-11); Neutrophils Absolute Auto 7.3 x10*3/uL (2.0-8.3); Neutrophils Percent Auto 73.1 % (45-73); Platelet Count 280 X10*3/uL (160-400); Red Blood Count 4.48 X10*6/uL (4.20-5.50); Red Cell Distribution Width 12.3 % (11.0-16.0)
[2024-01-11 19:53] LABS: Alanine Aminotransferase 45 U/L (0-31); Albumin Level 4.1 g/dL (3.5-5.0); Alkaline Phosphatase 84 U/L (39-117); Anion Gap 15 (12-20); Aspartate Amino Transferase 21 U/L (5-31); Bilirubin Total 0.8 mg/dL (0.0-1.0); Blood Urea Nitrogen 20 mg/dL (9-16); Calcium 9.8 mg/dL (8.4-10.2); Carbon Dioxide 27 mmol/L (22-29); Chloride 103 mmol/L (96-108); Creatinine Clr Calc Pharmacy 57.7; Estimated Glomerular Filt Rate 46; Glucose Random 121 mg/dL (60-115); Potassium 4.4 mmol/L (3.3-5.1); Sodium 141 mmol/L (135-145); Total Protein 7.2 g/dL (6.5-8.0); Uric Acid 9.9 mg/dL (2.4-5.7)
[2024-01-12 00:49] VITALS: BP 113/67; PULSE 40; RESP 14; TEMP 36.8; O2SAT 95
[2024-01-12] MEDS: Morphine Sulfate Immed Release 15 MG TABLET PO (01:57)
[2024-01-12] MEDS: predniSONE 20 MG TABLET 40 MG PO (01:57)
== END 2024-01-12 02:07 | disposition home or self-care (01) ==
PROVIDERS: Emergency Provider Emergency Medicine; PCP Internal Medicine
DX: M10.9 Gout, unspecified (principal); M79.672 Pain in left foot; I10 Essential (primary) hypertension
CPT/HCPCS: 36415; 73630; 80053; 84550; 85025; 99283

== ENCOUNTER 2024-01-17 15:02 | Outpatient (AMB) | payer OTHER, SELFPAY ==
[2024-01-17 15:08] VITALS: BP 100/82; PULSE 72; TEMP 36.2; O2SAT 100; BMI 42.3
--- NOTE | 2024-01-17 15:08 | A.OFFVIS_ITS ---
Intake Vital Signs 01/17/24 15:08 Height 5 ft 4 in Weight 246 lb 7.629 oz BMI 42.3 BP 100/82 Blood Pressure Location Rt brachial Position Sitting Pulse 72 Pulse Source Pulse Oximeter Temp 97.2 F Temp Source Skin Pulse Oximetry (%) 100 Oxygen Delivery Method Room Air Intake Visit Reasons: Idiopathic chronic gout Intake Note: New patient, internally referred, presents today for gout. Reports on going left foot swelling. Justice Court Deputy Clerk Required: No Accompanied by: Self / Same As Patient Allergies nitrofurantoin Allergy (Unknown, Verified 01/17/24 15:08) nausea, dizziness and tightness chest perflutren [From [employer]] Adverse Reaction (Unknown, Verified 01/17/24 15:08) SEVERE BACK PAIN HPI HPI Comments History of Present Illness Details Ms. An 64yoF was referred to our practice for management of gout. Patient has a medical history significant for hepatitis-B with liver transplant, diabetes, hypertension, chronic kidney disease stage 3 and hypoventilation syndrome. She was diagnosed with gout over 5 years ago and was not taking allopurinol as prescribed. Patient was started on allopurinol in 2021 and her uric acid was 11.0 but did not continue to take the medication. She has managed her gout flares with prednisone. In August 2023 again she was started on allopurinol and did not take the medication however recent visit with her primary care she was admonished to take the medication and will be starting allopurinol 200 mg per day. Her uric acid is 9.9 as of 01/11/2024. The patient shares that she was afraid to take allopurinol because she was not sure how it would affect her liver. She is on tacrolimus. The patient says that prednisone helps her gout flare well better than colchicine. She feels that she is in a gout flare that is low and insidious. She says the bottom of her feet are burning and tender which usually happens when she has a gout flare. The main areas for her gout is her feet and her knees. She also described chronic right shoulder pain that is not helped by corticosteroids. She does have a history of right clavicle fracture 30 years ago, from fall which has since healed. [facility] Medical History (Updated 01/19/24 @ 22:43 by KISHA Lo) Pain of left foot Gout of multiple sites Acute bronchitis Nephropathy Gout Hypertension, essential Drug-induced peripheral neuropathy Dysuria Surgical History Liver transplant recipient History of endometrial ablation Hx of colonoscopy Hx of appendectomy History of esophagogastroduodenoscopy (EGD) Hx of cholecystectomy History of ankle surgery History of liver transplant Family History (Updated 01/17/24 @ 15:12 by RENATA Colon) Father No problems noted. Mother Sudden cardiac Other Arthritis Mental health disorder Substance use disorder Social History Housing: House Alcohol intake: never Patient Tobacco Use Status: Never used Tobacco e-Cigarette/Vaping Use: Never Used Second Hand Smoke Exposure: Yes Current occupational status: disabled Current occupation: rt handed Cognitive needs: No Hearing needs: No Vision needs: No Review of Systems Const All systems reviewed & are unremarkable except as noted in HPI and below Physical Exam Vital Signs: Last Vital Signs Temp 97.2 F 01/17/24 15:08 Pulse 72 01/17/24 15:08 BP 100/82 01/17/24 15:08 Pulse Ox 100 01/17/24 15:08 Oxygen Delivery Method Room Air 01/17/24 15:08 BMI result Body Mass Index 42.3 APPEARANCE: Patient in no acute distress EYES no redness, eyelids normal EARS:? External ear normall. NOSE/SINUS:? Airflow through both nares, no nasal discharge, no bleeding THROAT:? Oral mucosa moist, no ulcerations NECK:? No thyromegaly or masses, no adenopathy, trachea midline. HEART:? Regular rhythm, S1-S2 heard, no murmurs, rubs or gallops. LUNG:? Clear to percussion and auscultation ABD:? Normal bowel sounds, no organomegaly, masses or tenderness. Obese/Large EXTREMITIES:? No edema, no calf tenderness, normal peripheral pulses. NEURO:? Oriented and alert x3.? No focal weakness.? Reflexes symmetric.? Walks with a mild limp. SKIN:? There are no skin lesions evident. No objective signs of Raynaud's phenomenon. JOINT EXAM: Cervical Spine:.? Full range of motion without pain; no tenderness. Thoracic Spine:.? No scoliosis.? No tenderness on palpation. Lumbar Spine:.? Alignment normal.? Full range of motion without pain, no tenderness. Chest Wall:.? No tenderness, swelling, increased warmth or erythema. Hands:.? Normal pain-free range of motion without tenderness, swelling, increased warmth or erythema. Able to make a full fist and has a good contract writer strength. Wrists:.? Normal pain-free range of motion without tenderness, swelling, increased warmth or erythema. Elbows:. Normal pain-free range of motion without tenderness, swelling, increased warmth or erythema. Shoulders:.?? Full range of motion without pain. No tenderness, weakness, swelling, increased warmth or erythema. Hips:.? Full range of motion without pain. Hip bursa:.? No tenderness. Knees:.?? Normal pain-free range of motion with mild tenderness to right joint line, but no swelling, increased warmth or erythema.? There is no effusion or crepitation Ankles:.? Normal pain-free range of motion without tenderness, swelling, increased warmth or erythema. Feet:.? Normal pain-free range of motion without tenderness, swelling, increased warmth or erythema. Bilateral plantar tenderness L>R. Tender points:? No tenderness to digital palpation at the occiput, trapezius, second rib, lateral epicondyle, knees, greater trochanter and gluteal area bilaterally. ? Results Reviewed Results Reviewed: Laboratory Tests 01/11/24 19:29 WBC 10.0 RBC 4.48 Hgb 13.2 Hct 41.4 Creatinine 1.19 ALT 45 H Laboratory Tests 08/27/22 09/03/23 01/11/24 13:22 12:01 19:29 Uric Acid 11.3 H 10.0 H 9.[address] [address] XRay Report Signed Patient: Carolyn An MR#: [id number] : 1960 Acct:[id number] Age/Sex: 63 / F ADM Date: 01/11/24 Loc: HO.ED Attending Dr: Ordering Physician: Wilbert Krueger Date of Service: 01/11/24 Procedure(s): XR foot LT min 3V Accession Number(s): [id number] cc: Agueda Shelton MD; Wilbert Krueger~ EXAMINATION: XR FOOT, LEFT CLINICAL INFORMATION: Left foot pain COMPARISON: None available. TECHNIQUE: AP, lateral, and oblique views of the left foot. FINDINGS: The bones and soft tissues are normal. No fracture. Alignment is anatomic. Joint spaces are maintained. XR/XR foot LT min 3V IMPRESSION: Unremarkable left foot. Carolyn An 64 F 1960 Allergy/Adv: nitrofurantoin, perflutren [address] [address] XRay Report Signed Patient: Carolyn An MR#: [id number] : 1960 Acct:[id number] Age/Sex: 63 / F ADM Date: 10/08/23 Loc: HO.ED Attending Dr: Ordering Physician: Asuncion Lowery NP Date of Service: 10/08/23 Procedure(s): XR shoulder RT min 2V Accession Number(s): [id number] cc: Agueda Shelton MD; Asuncion Lowery NP~ EXAMINATION: XR SHOULDER, RIGHT CLINICAL INFORMATION: Atraumatic pain, shoulder pain. COMPARISON: None available. TECHNIQUE: Four views of the right shoulder. FINDINGS: No acute fracture or subluxation. Mild degenerative osteoarthritis of the acromioclavicular and glenohumeral joints. No abnormal soft tissue calcifications. No osseous erosions. Visualized right-sided ribs and right lung are within normal limits. No unexpected radiopaque foreign bodies. XR/XR shoulder RT min 2V IMPRESSION: 1. No acute fracture or malalignment. 2. Mild degenerative osteoarthritis of the acromioclavicular and glenohumeral joints. EXAMINATION: XR KNEE, LEFT XR KNEE AP STANDING CLINICAL INFORMATION: Pain. COMPARISON: None TECHNIQUE: Lateral and axial views of the left knee were obtained. AP bilateral standing view of the knees was obtained. FINDINGS: The bilateral lateral and medial joint space compartment are well-maintained. The left patellofemoral joint space compartment is well-maintained. There is very mild tricompartment osteoarthritic change of the left knee. There is bilateral chondrocalcinosis, left greater than right. No fracture or dislocation is seen. A small left knee joint effusion is suspected. XR/XR knee standing BI IMPRESSION: 1. There is very mild tricompartment osteoarthritic change of the left knee. 2. There is a small left knee joint effusion. 3. There is chondrocalcinosis, which can be associated with CPPD. [address] [address] XRay Report Signed Patient: Carolyn An MR#: [id number] : 1960 Acct:[id number] Age/Sex: 63 / F ADM Date: 09/03/23 Loc: HO.ED Attending Dr: Ordering Physician: Cristina Lala Date of Service: 09/03/23 Procedure(s): XR elbow LT min 3V Accession Number(s): [id number] cc: Agueda Shelton MD; Cristina Lala~ EXAMINATION: XR ELBOW, LEFT CLINICAL INFORMATION: Pain, swelling, limited range of motion COMPARISON: None available. TECHNIQUE: AP, lateral, and oblique views of the left elbow. FINDINGS: No visible acute fracture or dislocation. Alignment is anatomic. No significant joint effusion is evident. Joint spaces are maintained. No abnormal soft tissue calcification. XR/XR elbow LT min 3V IMPRESSION: No radiographic evidence of acute fracture or malalignment. Assessment & Plan Assessment & Plan (1) Myofascial pain: Code(s): M79.18 - Myalgia, other site (2) AC (acromioclavicular) arthritis: Code(s): M19.019 - Primary osteoarthritis, unspecified shoulder Qualifiers: Laterality: right Qualified Code(s): M19.011 - Primary osteoarthritis, right shoulder (3) Pain of left foot: Code(s): M79.672 - Pain in left foot (4) Gout of multiple sites: Code(s): M10.9 - Gout, unspecified Qualifiers: Chronicity: chronic Gout etiology: idiopathic Presence of tophus: without tophus Qualified Code(s): M1A.09X0 - Idiopathic chronic gout, multiple sites, without tophus (tophi) Plan #Gout/Left foot pain: Patient will start Allopurinol 200 mg QD. I will start her on a course of prednisone to offset any potential flare-ups when she starts the allopurinol. I educated patient on allopurinol to understand that there has an increased risk of flares when you start stopped or changed the dose of allopurinol. Discussed with patient that allopurinol is usually not toxic to the liver. Moreover we do monitor her CMP for adequate liver and kidney functions and CBC for anemia every 3-4 months. We will check labs in 2 months on Allopurinol, #Right shoulder Pain: Imaging reflects mild OA to the shoulder joint. She had a recent joint injection that did not provide relief per patient. Per Ortho there is no sign of rotator cuff pathology on their examination. Patient was given PT referral by Ortho. I recommend that she follow-up with physical therapy. She should continue to follow with ortho. Follow-up in 2 months. I spent 50 minutes reviewing history, evaluating and counseling patient and documenting. Orders: Orders Complete Blood Count Auto Diff 01/17/24 M10.9 - Gout, unspecified, M79.672 - Pain in left foot Erythrocyte Sedimentation Rate 01/17/24 M10.9 - Gout, unspecified, M79.672 - Pain in left foot C Reactive Protein 01/17/24 M10.9 - Gout, unspecified, M79.672 - Pain in left foot Cyclic Citrullinated Peptide 01/17/24 M10.9 - Gout, unspecified, M79.672 - Pain in left foot COLLIN Reflex Titer and Pattern 01/17/24 M10.9 - Gout, unspecified, M79.672 - Pain in left foot Uric Acid 01/17/24 M10.9 - Gout, unspecified, M79.672 - Pain in left foot Medications: New prednisone orally as directed; 3 tablets per day x 7 days, 2 tablets per day x 7 days, 1 tablet per day x 7 days. 30 tabs 0RF Coding Level of Care Code New Pt Level 4 (16016) Diagnoses Myofascial pain M79.18 Arthritis of right acromioclavicular joint M19.011 Laterality: right Pain of left foot M79.672 Idiopathic chronic gout of multiple sites without tophus M1A.09X0 Chronicity: chronic Gout etiology: idiopathic Presence of tophus: without tophus
== END 2024-01-17 15:55 | disposition home or self-care (01) ==
LOC: HO.RHE 15:02
PROVIDERS: PCP Internal Medicine; Visit Provider Nurse Practitioner Family
DX: M79.18 Myalgia, other site (principal); M19.011 Primary osteoarthritis, right shoulder; M79.672 Pain in left foot; M1A.09X0 Idiopathic chronic gout, multiple sites, without tophus (tophi)
CPT/HCPCS: 99204

== ENCOUNTER → 2024-01-17 15:02 | Outpatient (BNVA) | payer OTHER, SELFPAY | PROVIDERS: PCP Internal Medicine; Visit Provider Nurse Practitioner Family | DX: M79.18 Myalgia, other site (principal); M19.011 Primary osteoarthritis, right shoulder; M79.672 Pain in left foot; M1A.09X0 Idiopathic chronic gout, multiple sites, without tophus (tophi) | CPT/HCPCS: 99202 ==

== ENCOUNTER 2024-03-20 13:51 | Outpatient (AMB) | payer OTHER, SELFPAY ==
[2024-03-20 13:52] VITALS: BP 138/76; PULSE 82; O2SAT 98; BMI 42.8
--- NOTE | 2024-03-20 13:52 | MHC.PC.OV ---
Vital Signs 03/20/24 13:52 Height 5 ft 4 in Weight 249 lb 2 oz BMI 42.8 BP 138/76 Blood Pressure Location Lt brachial Position Sitting Pulse 82 Pulse Source Pulse Oximeter Pulse Oximetry (%) 98 Oxygen Delivery Method Room Air Intake Visit Reasons: Followup fungal infection Allergies nitrofurantoin Allergy (Unknown, Verified 03/20/24 13:53) nausea, dizziness and tightness chest perflutren [From DEFINITY] Adverse Reaction (Unknown, Verified 03/20/24 13:53) SEVERE BACK PAIN Medication List - Last Reconciled 03/20/24 by Agueda Shelton MD allopurinol 200 mg (2 x 100 mg) PO DAILY 90 days blood sugar diagnostic (FreeStyle Lite Strips) As directed cholecalciferol (vitamin D3) 100 mcg PO DAILY clotrimazole-betamethasone 1-0.05 % 1 appl topical ONCE 30 days coenzyme Q10 100 mg PO DAILY diclofenac sodium 1% (Arthritis Pain (diclofenac)) 4 grams topical QID hydrocortisone 2.5% 1 appl topical BID PRN 30 days Lacto.acidophilus-Bif.animalis (Daily Probiotic) PO DAILY lancets (FreeStyle Lancets) miscellaneous .qd prn; lisinopril 15 mg (1.5 x 10 mg) PO DAILY 90 days loratadine 10 mg PO DAILY 90 days magnesium oxide 400 mg PO BID omega-3 fatty acids 1,000 mg PO .bid propranolol 10 mg PO BID PRN sennosides (Natural Senna Laxative) 8.6 mg PO BEDTIME simethicone (Gas Relief (simethicone)) 125 mg PO TID-QID PRN tacrolimus 2 mg PO Q12H Tobacco use date assessed: 03/20/24 Dental Screening Dental Screen Date: 03/20/24 Did you have a dental visit in the last 12 months?: Yes Did you have a dental problem in the last 6 months where you did not have access to dental care?: No Was dental information given to patient?: Patient has dentist HPI Followup fungal infection HPI Details Patient is 63-year-old female Patient has developed severe fungal rash under her breasts and groin Also was found to have Louise in mouth by ENT specialist Patient says that nystatin was prescribed but her insurance did not cover it She is requesting clotrimazole toe shows that she has taken before, sent I have also sent ketoconazole 2% cream for the rash Explained to patient that prednisone that she is been taken recurrently for gout can predispose her to fungal rash Patient have severe psoriasis she is in touch with her liver transplant doctor as well as Dermatology They are trying to figure out which medication will be a good choice for the patient. She is under care of [facility] for liver transplant monitoring. Hypertension: Blood pressure is elevated she is on lisinopril 15 mg blood pressure is well-controlled Pre diabetes: Diet-controlled Patient is also on vitamin-D supplement Chronic GERD: She is taking famotidine 20 mg b.i.d. through Gastroenterology Chronic constipation managed with the help of natural senna and stool softener as needed also through Gastroenterology Allergies stable with loratadine 10 mg Morbid obesity , patient is having difficulty losing weight Gout with elevated uric acid level patient is under allopurinol and still having flare-up every now and then PFS Medical History Pain of left foot Gout of multiple sites Acute bronchitis Nephropathy Gout Hypertension, essential Drug-induced peripheral neuropathy Dysuria Surgical History Liver transplant recipient History of endometrial ablation Hx of colonoscopy Hx of appendectomy History of esophagogastroduodenoscopy (EGD) Hx of cholecystectomy History of ankle surgery History of liver transplant Family History Father No problems noted. Mother Sudden cardiac Other Arthritis Mental health disorder Substance use disorder Social History Housing: House Alcohol intake: never Patient Tobacco Use Status: Never used Tobacco e-Cigarette/Vaping Use: Never Used Second Hand Smoke Exposure: Yes service: No Current occupational status: disabled Current occupation: rt handed Cognitive needs: No Hearing needs: No Vision needs: No Questionnaire Thrive Questionnaire Date Thrive assessed: 01/27/22 AUDIT C Alcohol Use Questionnaire (AUDIT-C) 1. How often do you have a drink containing alcohol?: Never 3. How often do you have six or more drinks on one occasion?: Never Total Score: 0 Score Reviewed/Action Taken: Yes ALAN-7 AMB Questionnaire ALAN-7 Date ALAN - 7 assessed: 01/27/22 Source: Developed by Drs. Diomedes Uribe, Elda Medina, Black Kaplan and colleagues, with an educational christi from [employer]. Review of Systems Const Denies chills and Denies fever(s) ENT Denies epistaxis and Denies nasal discharge Card Denies chest pain Resp Denies chest congestion, Denies cough and Denies hemoptysis GI Denies diarrhea and Denies nausea Skin/Breast Denies rash Neuro Reports no additional complaints Psych Reports no additional complaints Endo Reports no additional complaints Physical exam (Primary Care) Vital Signs: Last Vital Signs Pulse 82 03/20/24 13:52 BP 138/76 03/20/24 13:52 Pulse Ox 98 03/20/24 13:52 Oxygen Delivery Method Room Air 03/20/24 13:52 BMI result Body Mass Index 42.8 Tobacco/Smoking Status: Tobacco use Status Tobacco use date assessed 03/20/24 03/20/24 14:01 Patient Tobacco Use Status Never used Tobacco 03/20/24 13:58 e-Cigarette/Vaping Use Never Used 03/20/24 13:58 Thrive Assessment: Date of Thrive Assessment Date Thrive assessed 01/27/22 03/20/24 13:58 Const General: cooperative, comfortable and no acute distress Orientation/consciousness: patient oriented x3 HENMT Head: Yes normocephalic Eyes General: appearance normal, both eyes and all related structures Neck Neck: Yes supple Resp Effort & Inspection: normal respiratory effort, no cough and no stridor Cardio Rhythm: regular rhythm Heart sounds: S1 normal heart sound present and S2 normal heart sound present Skin Other: Extensive rash under the breast and groin area General skin exam: turgor normal Neuro General: patient oriented x3, tone normal and moves all extremities Extrem Right lower extremity: no edema Left lower extremity: no edema Assessment and Plan Assessment & Plan (1) Tinea corporis: Code(s): B35.4 - Tinea corporis (2) Oral thrush: Code(s): B37.0 - Candidal stomatitis (3) Hypertension, essential: Code(s): I10 - Essential (primary) hypertension (4) Morbid obesity with BMI of 40.0-44.9, adult: Code(s): E66.01 - Morbid (severe) obesity due to excess calories; Z68.41 - Body mass index [BMI] 40.0-44.9, adult (5) Liver transplant recipient: Code(s): Z94.4 - Liver transplant status (6) Drug-induced peripheral neuropathy: Code(s): G62.0 - Drug-induced polyneuropathy (7) Nephropathy: Code(s): N28.9 - Disorder of kidney and ureter, unspecified (8) Psoriasis: Code(s): L40.9 - Psoriasis, unspecified (9) Anxiety, generalized: Code(s): F41.1 - Generalized anxiety disorder (10) Pre-diabetes: Code(s): R73.03 - Prediabetes (11) Gout: Code(s): M10.9 - Gout, unspecified Qualifiers: Chronicity: chronic Gout etiology: unspecified cause Gout site: multiple sites Qualified Code(s): M1A.09X0 - Idiopathic chronic gout, multiple sites, without tophus (tophi) Plan Patient is 63-year-old female Patient has developed severe fungal rash under her breasts and groin Also was found to have Louise in mouth by ENT specialist Patient says that nystatin was prescribed but her insurance did not cover it She is requesting clotrimazole toe shows that she has taken before, sent I have also sent ketoconazole 2% cream for the rash Explained to patient that prednisone that she is been taken recurrently for gout can predispose her to fungal rash Patient have severe psoriasis she is in touch with her liver transplant doctor as well as Dermatology They are trying to figure out which medication will be a good choice for the patient. She is under care of [facility] for liver transplant monitoring. Hypertension: Blood pressure is elevated she is on lisinopril 15 mg blood pressure is well-controlled Pre diabetes: Diet-controlled Patient is also on vitamin-D supplement Chronic GERD: She is taking famotidine 20 mg b.i.d. through Gastroenterology Chronic constipation managed with the help of natural senna and stool softener as needed also through Gastroenterology Allergies stable with loratadine 10 mg Morbid obesity , patient is having difficulty losing weight Gout with elevated uric acid level patient is under allopurinol and still having flare-up every now and then Medications: New clotrimazole Let it melt in the mouth 10 mg mucous membrane TID 21 tabs 0RF 7 days B37.0 - Candidal stomatitis ketoconazole 2% 1 appl topical BID 120 grams 2RF Fungal rash 30 days Coding Level of Care Code Est Pt Level 4 (84481) Diagnoses Tinea corporis B35.4 Oral thrush B37.0 Hypertension, essential I10 Morbid obesity with BMI of 40.0-44.9, adult E66.01; Z68.41 Liver transplant recipient Z94.4 Drug-induced peripheral neuropathy G62.0 Nephropathy N28.9 Psoriasis L40.9 Anxiety, generalized F41.1 Pre-diabetes R73.03 Chronic gout of multiple sites, unspecified cause M1A.09X0 Chronicity: chronic Gout etiology: unspecified cause Gout site: multiple sites
== END 2024-03-20 16:16 | disposition home or self-care (01) ==
LOC: HO.HMGC 13:51
PROVIDERS: PCP Internal Medicine; Visit Provider Internal Medicine
DX: G62.0 Drug-induced polyneuropathy (principal); E66.01 Morbid (severe) obesity due to excess calories; Z68.41 Body mass index [BMI] 40.0-44.9, adult; Z94.4 Liver transplant status; I10 Essential (primary) hypertension; B35.4 Tinea corporis; B37.0 Candidal stomatitis; N28.9 Disorder of kidney and ureter, unspecified; L40.9 Psoriasis, unspecified; F41.1 Generalized anxiety disorder; R73.03 Prediabetes; M1A.09X0 Idiopathic chronic gout, multiple sites, without tophus (tophi)
CPT/HCPCS: 99214

== ENCOUNTER 2024-05-09 11:27 | Outpatient (AMB) | payer OTHER, SELFPAY ==
--- NOTE | 2024-05-09 11:31 | MHC.OFFVIS ---
Intake Visit Reasons: Newprob-Left hand/joint pain Intake Note: Carolyn 64 female presents today for a new problem visit for her Left hand/joint pain. States pain started about 1 month ago and has worsened. Patient has been on prednisone which has helped with the swelling and pain. She denies numbness or tingling. She states her fingers and the left side of her wrist swelled up with no known injury. She states it is hard to pickup things as well. Pt denies any previous hand surgeries. Allergies nitrofurantoin Allergy (Unknown, Verified 05/09/24 11:33) nausea, dizziness and tightness chest perflutren [From DEFINITY] Adverse Reaction (Unknown, Verified 05/09/24 11:33) SEVERE BACK PAIN Medication List - Last Reconciled 05/09/24 by Leonie Cervantes MD allopurinol 200 mg (2 x 100 mg) PO DAILY 90 days blood sugar diagnostic (FreeStyle Lite Strips) As directed cholecalciferol (vitamin D3) 100 mcg PO DAILY clotrimazole 10 mg mucous membrane TID 7 days clotrimazole-betamethasone 1-0.05 % 1 appl topical ONCE 30 days coenzyme Q10 100 mg PO DAILY diclofenac sodium 1% (Arthritis Pain (diclofenac)) 4 grams topical QID hydrocortisone 2.5% 1 appl topical BID PRN 30 days ketoconazole 2% 1 appl topical BID 30 days Lacto.acidophilus-Bif.animalis (Daily Probiotic) PO DAILY lancets (FreeStyle Lancets) miscellaneous .qd prn; lisinopril 15 mg (1.5 x 10 mg) PO DAILY 90 days loratadine 10 mg PO DAILY 90 days magnesium oxide 400 mg PO BID omega-3 fatty acids 1,000 mg PO .bid prednisone 3 tablets daily x 7 days, 2 tablets daily x 7 days, 1 tablet daily x 7 days. propranolol 10 mg PO BID PRN sennosides (Natural Senna Laxative) 8.6 mg PO BEDTIME simethicone (Gas Relief (simethicone)) 125 mg PO TID-QID PRN tacrolimus 2 mg PO Q12H HPI Comments Details: Seen before for right shoulder, trapezius, myofascial pain. which is now better. Here now for left hand pain. Woke up with pain and sense of swelling 6 weeks. No inciting injuries. Affects 2nd-4th digits, left worse than right. No numbness. But it does wake her up at night. Swelling pain went down with prednisone, prescribed by Rheumatology. She was also on allopurinol for gout, which is prescribed by PCP. It gives her side effects. [facility] Medical History (Updated 05/09/24 @ 11:47 by Leonie Cervantes MD) De Quervain's tenosynovitis, left History of gout Carpal tunnel syndrome on both sides Pain of left foot Gout of multiple sites Acute bronchitis Nephropathy Gout Hypertension, essential Drug-induced peripheral neuropathy Dysuria Surgical History Liver transplant recipient History of endometrial ablation Hx of colonoscopy Hx of appendectomy History of esophagogastroduodenoscopy (EGD) Hx of cholecystectomy History of ankle surgery History of liver transplant Family History Father No problems noted. Mother Sudden cardiac Other Arthritis Mental health disorder Substance use disorder Social History Housing: House Alcohol intake: never Patient Tobacco Use Status: Never used Tobacco e-Cigarette/Vaping Use: Never Used Second Hand Smoke Exposure: Yes service: No Current occupational status: disabled Current occupation: rt handed Cognitive needs: No Hearing needs: No Vision needs: No Physical Exam Constitutional: Patient appears to be in no acute distress, well nourished and well developed. MSK: No joint effusion noted. No deformity noted. No intrinsic hand weakness noted. No atrophy noted. Lynsey test positive left. Carpal compression test negative. Tinel sign negative. No triggering. Strength is 5/5 in all muscle groups tested. No increased tone noted. Neurological: No upper extremity weakness. Reflexes normal. De Leon?s negative bilaterally. Results Reviewed Results Reviewed: Reviewed notes from Rheumatology, 10/19/2023 Reviewed notes from PCP Assessment & Plan Assessment & Plan (1) Carpal tunnel syndrome on both sides: Code(s): G56.03 - Carpal tunnel syndrome, bilateral upper limbs Category: Medical (2) History of gout: Code(s): Z87.39 - Personal history of other diseases of the musculoskeletal system and connective tissue Category: Medical (3) De Quervain's tenosynovitis, left: Code(s): M65.4 - Radial styloid tenosynovitis [de Quervain] Category: Medical Plan Symptoms suggestive of carpal tunnel syndrome although exam was normal. We will schedule for EMG. Advised to wear the wrist splints at night instead of during the day. Possible left de Quervain tenosynovitis. Will give a thumb spica comfort cool brace to wear during the day. We will get x-rays done today. She has history of gout. 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 Assessment and plan discussed with patient, and patient was agreeable. All questions were answered thoroughly. Leonie Cervantes MD, MARIO Board Certified, [place] Board [employer] and Rehabilitation (ABPMR) Board Certified, [place] Board [employer] Electrodiagnostic Medicine (ABEM) Orders: Orders NE electromyogram (EMG) Today G56.03 - Carpal tunnel syndrome, bilateral upper limbs NE nerve conduction velocity Today G56.03 - Carpal tunnel syndrome, bilateral upper limbs XR hand wrist LT Today G56.03 - Carpal tunnel syndrome, bilateral upper limbs, Z87.39 - Personal history of other diseases of the musculoskeletal system and connective tissue XR hand wrist RT Today G56.03 - Carpal tunnel syndrome, bilateral upper limbs, M79.643 - Pain in unspecified hand, Z87.39 - Personal history of other diseases of the musculoskeletal system and connective tissue Coding Level of Care Code Est Pt Level 4 (87837) Diagnoses Carpal tunnel syndrome on both sides G56.03 History of gout Z87.39 De Quervain's tenosynovitis, left M65.4
== END 2024-05-09 12:45 | disposition home or self-care (01) ==
PROVIDERS: PCP Internal Medicine; Visit Provider Physical Medicine & Rehabilitation
DX: G56.03 Carpal tunnel syndrome, bilateral upper limbs (principal); M65.4 Radial styloid tenosynovitis [de Quervain]; Z87.39 Personal history of other diseases of the musculoskeletal system and connective tissue
CPT/HCPCS: 99214

== ENCOUNTER 2024-05-09 11:27 | Outpatient (REF) | payer OTHER, SELFPAY ==
--- NOTE | ~2024-05-09 | XR_ITS ---
EXAMINATION: XR BILATERAL HAND AND WRIST CLINICAL INFORMATION: Personal history of other disease of musculoskeletal system, pain in unspecified hand. COMPARISON: Left forearm 08/31/2018. TECHNIQUE: 3 views of each wrist/hand. FINDINGS: LEFT HAND: Mild degenerative changes in the first carpometacarpal joint. Small cystic lucency in the distal aspect of the left scaphoid. Alignment maintained. Nonspecific minimal calcifications in the soft tissues of the wrist. RIGHT HAND: Mild degenerative changes in the first carpometacarpal joint. Amorphous calcifications adjacent to the first metacarpophalangeal joint. Radiopaque marker placed by technologist to indicate the area of concern as indicated by the patient adjacent to the shaft of the right fifth metacarpal. Very subtle, mild periosteal reaction along the distal diaphysis of the fifth metacarpal. XR/XR hand wrist LT IMPRESSION: 1. Mild degenerative changes in the bilateral first carpometacarpal joints. 2. Very subtle, mild periosteal reaction along the distal diaphysis of the right fifth metacarpal. Radiopaque marker placed by technologist to indicate the area of concern as indicated by the patient adjacent to the shaft of the right fifth metacarpal. 3. Recommend follow up imaging in 10-14 days if fracture is suspected.
--- NOTE | ~2024-05-09 | XR_ITS ---
EXAMINATION: XR BILATERAL HAND AND WRIST CLINICAL INFORMATION: Personal history of other disease of musculoskeletal system, pain in unspecified hand. COMPARISON: Left forearm 08/31/2018. TECHNIQUE: 3 views of each wrist/hand. FINDINGS: LEFT HAND: Mild degenerative changes in the first carpometacarpal joint. Small cystic lucency in the distal aspect of the left scaphoid. Alignment maintained. Nonspecific minimal calcifications in the soft tissues of the wrist. RIGHT HAND: Mild degenerative changes in the first carpometacarpal joint. Amorphous calcifications adjacent to the first metacarpophalangeal joint. Radiopaque marker placed by technologist to indicate the area of concern as indicated by the patient adjacent to the shaft of the right fifth metacarpal. Very subtle, mild periosteal reaction along the distal diaphysis of the fifth metacarpal. XR/XR hand wrist RT IMPRESSION: 1. Mild degenerative changes in the bilateral first carpometacarpal joints. 2. Very subtle, mild periosteal reaction along the distal diaphysis of the right fifth metacarpal. Radiopaque marker placed by technologist to indicate the area of concern as indicated by the patient adjacent to the shaft of the right fifth metacarpal. 3. Recommend follow up imaging in 10-14 days if fracture is suspected.
== END 2024-05-09 11:28 | disposition home or self-care (01) ==
LOC: HO.HOSX 11:27
PROVIDERS: PCP Internal Medicine; Visit Provider Physical Medicine & Rehabilitation
DX: G56.03 Carpal tunnel syndrome, bilateral upper limbs (principal); M65.4 Radial styloid tenosynovitis [de Quervain]; Z87.39 Personal history of other diseases of the musculoskeletal system and connective tissue
CPT/HCPCS: 73110; 73130; 99212

== ENCOUNTER 2024-10-03 14:30 | Outpatient (AMB) | payer OTHER, SELFPAY ==
--- NOTE | 2024-10-03 14:32 | MHC.OFFVIS ---
Vital Signs 10/03/24 14:36 Height 5 ft 4 in Weight 239 lb 6.752 oz BMI 41.1 BP 124/70 Blood Pressure Location Lt brachial Position Sitting Pulse 90 Pulse Source Pulse Oximeter Pulse Oximetry (%) 98 Oxygen Delivery Method Room Air Intake Visit Reasons: Gout/PsO/Liver TransPlnt/cM Intake Note: Patient presents for Gout/PsO/Liver Transplant. Allergies nitrofurantoin Allergy (Unknown, Verified 10/03/24 14:35) nausea, dizziness and tightness chest perflutren [From DEFINITY] Adverse Reaction (Unknown, Verified 10/03/24 14:35) SEVERE BACK PAIN Medication List - Last Reconciled 10/03/24 by Elenita Molina MD allopurinol 200 mg (2 x 100 mg) PO DAILY 90 days blood sugar diagnostic (FreeStyle Lite Strips) As directed cholecalciferol (vitamin D3) 100 mcg PO DAILY clotrimazole 10 mg mucous membrane TID 7 days clotrimazole-betamethasone 1-0.05 % 1 appl topical ONCE 30 days coenzyme Q10 100 mg PO DAILY diclofenac sodium 1% (Arthritis Pain (diclofenac)) 4 grams topical QID hydrocortisone 2.5% 1 appl topical BID PRN 30 days ketoconazole 2% 1 appl topical BID 30 days Lacto.acidophilus-Bif.animalis (Daily Probiotic) PO DAILY lancets (FreeStyle Lancets) miscellaneous .qd prn; lisinopril 15 mg (1.5 x 10 mg) PO DAILY 90 days loratadine 10 mg PO DAILY 90 days magnesium oxide 400 mg PO BID omega-3 fatty acids 1,000 mg PO .bid prednisone 3 tablets daily x 3 days, 2 tablets daily x 3 days, 1 tablet daily x days. propranolol 10 mg PO BID PRN sennosides (Natural Senna Laxative) 8.6 mg PO BEDTIME simethicone (Gas Relief (simethicone)) 125 mg PO TID-QID PRN tacrolimus 2 mg PO Q12H HPI Comments Details: This is a 64-year-old female with gout who presents for follow-up. Patient did not take allopurinol as prescribed. For fear of damage. She also states that she gets flare-up of gout when she starts it. She states that she continues to have flare-ups of gout that occur every 1-2 months, usually involving her knees, ankles and feet. Usually resolve with prednisone taper. She was recently diagnosed with psoriasis. She is treated with topicals. [facility] Medical History De Quervain's tenosynovitis, left Carpal tunnel syndrome on both sides Pain of left foot Acute bronchitis Nephropathy Gout Hypertension, essential Drug-induced peripheral neuropathy Dysuria Surgical History Liver transplant recipient History of endometrial ablation Hx of colonoscopy Hx of appendectomy History of esophagogastroduodenoscopy (EGD) Hx of cholecystectomy History of ankle surgery History of liver transplant Family History Father No problems noted. Mother Sudden cardiac Other Arthritis Mental health disorder Substance use disorder Social History Housing: House Alcohol intake: never Patient Tobacco Use Status: Never used Tobacco e-Cigarette/Vaping Use: Never Used Second Hand Smoke Exposure: Yes service: No Current occupational status: disabled Current occupation: rt handed Cognitive needs: No Hearing needs: No Vision needs: No Review of Systems Musc Reports arthralgias and Reports joint swelling Skin/Breast Reports rash Physical Exam Vital Signs: Last Vital Signs Pulse 90 10/03/24 14:36 BP 124/70 10/03/24 14:36 Pulse Ox 98 10/03/24 14:36 Oxygen Delivery Method Room Air 10/03/24 14:36 BMI result Body Mass Index 41.1 Const General: cooperative, healthy appearing and comfortable Nutritional Appearance: obese morbidly obese Orientation/consciousness: patient oriented x3 Limitations: no limitations HEENT Head: Yes normocephalic and Yes atraumatic Mouth: moist mucous membranes Resp Effort & Inspection: normal respiratory effort and able to speak in complete sentences Auscultation: clear to auscultation bilaterally Skin Other: Psoriasis patches on extensor aspect of both arms and her back Neuro General: patient oriented x3 Extrem Other: 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 Patient has been noncompliant with allopurinol as she is worried about liver damage. She has history of liver transplant and is taking tacrolimus. Per patient her most recent uric acid level was 10.4 mg/dL. This was just 2 days ago. Continues to have gout flare-ups that occur every 1-2 months treated with prednisone taper. Discussed with patient the need to control her gout given multiple complications associated with it including nephrolithiasis, progression of CKD and association of repeated flare-ups with cardiovascular events. Discussed that the risk of liver damage from allopurinol is likely minimal and is generally associated with severe allergic reactions (DRESS) patient has been exposed to allopurinol in the past and does not recall any allergic reactions . We will monitor her liver enzymes periodically. Discussed the need for prophylactic treatment in the 1st 3-6 months. Given that patient has history of liver transplant on tacrolimus, colchicine may not be a good option. Start allopurinol 100 mg daily for 2 weeks then increase to 200 mg daily Start prednisone 10 mg daily as a standing dose, then reduce to prednisone 5 mg daily until next visit Patient was recently diagnosed with psoriasis. She has multiple psoriasis patches all over, we will also have to monitor her for the development of psoriatic arthritis Labs before next visit in 3 months Plan I spent 30 minutes reviewing patient's chart, evaluating patient, ordering diagnostic workup, counseling patient and documenting in the chart Orders: Orders Erythrocyte Sedimentation Rate 3 Months M1A.9XX1 - Chronic gout, unspecified, with tophus (tophi) HLA B27 3 Months M45.9 - Ankylosing spondylitis of unspecified sites in spine Complete Blood Count Auto Diff 3 Months M1A.9XX1 - Chronic gout, unspecified, with tophus (tophi) Comprehensive Met. Panel 3 Months M1A.9XX1 - Chronic gout, unspecified, with tophus (tophi) C Reactive Protein 3 Months M1A.9XX1 - Chronic gout, unspecified, with tophus (tophi) Uric Acid 3 Months M1A.9XX1 - Chronic gout, unspecified, with tophus (tophi) Coding Level of Care Code Est Pt Level 4 (47043) Diagnoses Tophaceous gout M1A.9XX1
[2024-10-03 14:36] VITALS: BP 124/70; PULSE 90; O2SAT 98; BMI 41.1
== END 2024-10-03 15:03 | disposition home or self-care (01) ==
LOC: HO.RHE 14:31
PROVIDERS: PCP Internal Medicine; Visit Provider Student in an Organized Health Care Education/Training Program
DX: M1A.9XX1 Chronic gout, unspecified, with tophus (tophi) (principal)
CPT/HCPCS: 99214

== ENCOUNTER → 2024-10-03 14:30 | Outpatient (BNVA) | payer OTHER, SELFPAY | PROVIDERS: PCP Internal Medicine; Visit Provider Student in an Organized Health Care Education/Training Program | DX: M1A.9XX1 Chronic gout, unspecified, with tophus (tophi) (principal); L40.9 Psoriasis, unspecified; M45.9 Ankylosing spondylitis of unspecified sites in spine | CPT/HCPCS: 99212 ==

== ENCOUNTER → 2025-01-08 12:33 | Outpatient (BNVA) | payer OTHER, SELFPAY | PROVIDERS: PCP Internal Medicine; Visit Provider Student in an Organized Health Care Education/Training Program | DX: M1A.9XX1 Chronic gout, unspecified, with tophus (tophi) (principal); L40.9 Psoriasis, unspecified; Z51.81 Encounter for therapeutic drug level monitoring; Z79.52 Long term (current) use of systemic steroids; Z79.899 Other long term (current) drug therapy | CPT/HCPCS: 99212 ==

== ENCOUNTER → 2025-01-08 13:11 | Outpatient (AMB) | payer OTHER, SELFPAY ==
--- NOTE | 2025-01-08 12:42 | MHC.OFFVIS ---
Vital Signs 01/08/25 12:48 Height 5 ft 4 in Weight 258 lb 9.636 oz BMI 44.4 BP 150/90 H Blood Pressure Location Lt brachial Position Sitting Pulse 80 Pulse Source Pulse Oximeter Pulse Oximetry (%) 99 Oxygen Delivery Method Room Air Intake Visit Reasons: Gout Intake Note: Patient presents for Gout. Allergies nitrofurantoin Allergy (Unknown, Verified 01/08/25 12:47) nausea, dizziness and tightness chest perflutren [From DEFINITY] Adverse Reaction (Unknown, Verified 01/08/25 12:47) SEVERE BACK PAIN Medication List - Last Reconciled 01/08/25 by Shawna Whelan MD allopurinol 200 mg (2 x 100 mg) PO DAILY blood sugar diagnostic (FreeStyle Lite Strips) As directed cholecalciferol (vitamin D3) 100 mcg PO DAILY clotrimazole 10 mg mucous membrane TID 7 days clotrimazole-betamethasone 1-0.05 % 1 appl topical ONCE 30 days coenzyme Q10 100 mg PO DAILY diclofenac sodium 1% (Arthritis Pain (diclofenac)) 4 grams topical QID hydrocortisone 2.5% 1 appl topical BID PRN 30 days ketoconazole 2% 1 appl topical BID 30 days Lacto.acidophilus-Bif.animalis (Daily Probiotic) PO DAILY lancets (FreeStyle Lancets) miscellaneous .qd prn; lisinopril 15 mg (1.5 x 10 mg) PO DAILY 90 days loratadine 10 mg PO DAILY 90 days magnesium oxide 400 mg PO BID omega-3 fatty acids 1,000 mg PO .bid prednisone Take 2 tablets daily for 7 days then 1 tablet daily for 30 days propranolol 10 mg PO BID PRN sennosides (Natural Senna Laxative) 8.6 mg PO BEDTIME simethicone (Gas Relief (simethicone)) 125 mg PO TID-QID PRN tacrolimus 2 mg PO Q12H HPI Comments Details: Patient is a 64-year-old female with morbid obesity, 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 Molina. At that time patient's uric acid was not controlled due to noncompliance with medication out of fear of medication side effects. She was reassured during that visit and restarted on allopurinol. Since then she states that she started the allopurinol and then stopped because she was told by her surgeon that it interacted with opiates and so she stopped the medication in anticipation for this procedure. Today she continues to complain of multiple gout flares monthly requiring bouts of Prednisone and/or [id number] ibuprofen. Rheumatologic History: Ddx 2021 crystal proven gout (intracellular urate crystals left knee arthrocentesis in 2021) she also has tophi (right elbow) Current Rheumatology Medication(s): Allopurinol 200mg (not taking) Prednisone 5mg (not taking) [facility] Medical History (Updated 01/08/25 @ 13:17 by Shawna Whelan MD) Encounter for monitoring allopurinol therapy De Quervain's tenosynovitis, left Carpal tunnel syndrome on both sides Pain of left foot Acute bronchitis Nephropathy Gout Hypertension, essential Drug-induced peripheral neuropathy Dysuria Surgical History Liver transplant recipient History of endometrial ablation Hx of colonoscopy Hx of appendectomy History of esophagogastroduodenoscopy (EGD) Hx of cholecystectomy History of ankle surgery History of liver transplant Family History Father No problems noted. Mother Sudden cardiac Other Arthritis Mental health disorder Substance use disorder Social History Housing: House Alcohol intake: never Patient Tobacco Use Status: Never used Tobacco e-Cigarette/Vaping Use: Never Used Second Hand Smoke Exposure: Yes service: No Current occupational status: disabled Current occupation: rt handed Cognitive needs: No Hearing needs: No Vision needs: No Review of Systems Const Details: Review of Systems Constitutional: Denies fever, chills, weight loss ENT: Denies vision changes, eye pain or eye redness, dental caries, dry mouth GI: Denies nausea, vomiting, diarrhea, abdominal pain, change in BM Pulm: Denies SOB, GOMEZ, hemoptysis, wheezing Cards: Denies chest pain, palpitations Skin: Denies Raynaud's, rash, nail changes, photosensitivity, 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 Well appearing and in no apparent painful distress HEENT Conjunctiva and sclera clear. ?Pupils equal round and reactive to light. ?No lymphadenopathy. ? CHEST/RESPIRATORY SYSTEM Normal respiratory effort and able to speak in complete sentences. ?Clear to auscultation bilaterally. ?No crackles, rales, rhonchi, wheezes heard. CARDIAC SYSTEM Regular rate and rhythm. ?S1 and S2 heard no murmurs. ?Radial pulses intact bilaterally MSK Hands: ?Good director part strength bilaterally. No deformities noted. ?No synovitis noted to the MCPs, PIPs or DIPs. ?No tenderness to palpation of these joints. Wrists: ?Right wrist in a brace. Unable to fully examined. Left wrist no tenderness to palpation and full range of motion. Elbows: Full range of motion without pain. No tenderness, weakness, swelling, increased warmth or erythema. Tophi noted to the right elbow Shoulders: Full range of motion without pain. No tenderness, weakness, swelling, increased warmth or erythema. Hips: Full range of motion without pain. Hip bursa: No tenderness to palpation Knees: ?Full range of motion. ?No tenderness, swelling, increased warmth or erythema.?No effusion or crepitations Ankles: Full range of motion. ?No tenderness, swelling, increased warmth or erythema.? Feet: ?Negative squeeze test. ?No tenderness to palpation or swelling of the MTPs. Tender points:?No tenderness to palpation of the bilateral trapezius, supraspinatus, greater trochanters, anterior costochondral junctions, bilateral gluteal areas, bilateral suboccipital muscle insertions SKIN Psoriatic rash noted to bilateral ears, back and hairline Results Reviewed Results Reviewed: Laboratory Tests 09/03/23 01/11/24 12:01 19:29 WBC 10.0 RBC 4.48 Hgb 13.2 Hct 41.4 Plt Count 280 ESR 14 Sodium 141 Potassium 4.4 Chloride 103 Carbon Dioxide 27 BUN 20 H Creatinine 1.19 Uric Acid 10.0 H 9.9 H AST 24 21 ALT 42 H 45 H Alkaline Phosphatase 105 84 C-Reactive Protein 0.38 Assessment & Plan Assessment & Plan (1) 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 crystal proven gout (intracellular urate crystals left knee arthrocentesis in 2021) she also has tophi (right elbow) Code(s): M1A.9XX1 - Chronic gout, unspecified, with tophus (tophi) Category: Medical Plan: #Crystal proven tophaceous gout Patient is a 64-year-old female with crystal proven gout (intracellular urate crystals left knee arthrocentesis in 2021) she also has tophi (right elbow) who presents for follow-up. Patient has been noncompliant with allopurinol. Now stating that she was told that she had to stop it for some per surgical procedure. Continues to have gout flare-ups that occur every 1-2 months treated with prednisone taper. Discussed with patient the need to control her gout given multiple complications associated with it including nephrolithiasis, progression of CKD and association of repeated flare-ups with cardiovascular events. Discussed that the risk of liver damage from allopurinol is likely minimal and is generally associated with severe allergic reactions (DRESS) patient has been exposed to allopurinol in the past and does not recall any allergic reactions . We will monitor her liver enzymes periodically. Discussed the need for prophylactic treatment in the 1st 3-6 months. Given that patient has history of liver transplant on tacrolimus, colchicine may not be a good option. Reviewed interactions between tacrolimus and opiates and there are none with my allopurinol Plan - Restart allopurinol 200mg - Prednisone 10mg daily for 7 days then 5mg until f/u - Labs before next visit: CBC, CMP, ESR, CRP (2) Psoriasis: Code(s): L40.9 - Psoriasis, unspecified Category: Medical Plan: #PsO Patient with scattered psoriatic plaques noted involving the ear, hairline and back. Currently only on topical medications. Once gout under control we will consider adding Otezla Plan - Continue topicals - monitor for PsA - Consider Otezla in the future (3) Encounter for monitoring allopurinol therapy: Code(s): Z51.81 - Encounter for therapeutic drug level monitoring; Z79.899 - Other termite helper (current) drug therapy Category: Medical Plan: #Long-term Current Use of Allopurinol Risks and benefits of allopurinol discussed with patient Benefits include decreased gout flares, remission of gout and reduction of tophi Risks include allopurinol hypersensitivity syndrome which is a severe cutaneous adverse reaction associated with allopurinol use particularly in patients who are HLA B*5801 positive, increased transaminases, GI upset including diarrhea, nausea and vomiting, and other dermatologic manifestations. 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 (current) use of systemic steroids Plan: #Long-term Use of Steroids Discussed with patient the risks and benefits of steroid for managing the rheumatic condition Benefits include: - Reduced pain, improved mobility, increased participation in activities, and decreased progression of disease Risks include: - GI upset, potential ultrasound worsening or formation (especially in patients > 65 years old), elevated blood pressure/worsening hypertension, elevated blood sugar/worsening diabetes control, worsening of bone density, elevated lipids/worsening triglycerides, cataract formation, weight gain Recommended using proton pump inhibitors (PPIs) for the duration of steroid use to reduce the risk of gastric ulcers and vitamin-D daily to reduce the risk of osteoporosis Labs checked: ?A1c, T spot, hepatitis-B and C serologies Pneumocystis jiroveci prophylaxis: ?Patient with risk factors including steroids greater than 50 mg for more than 30 days, age greater than 60 years, and lung involvement from underlying rheumatic disease requires prophylaxis and will be given so Plan I spent 30 minutes reviewing the record and labs, taking a history, examining the patient, discussing the treatment plan and documenting in the medical record Medications: Changed From allopurinol Take 1 tab daily for 2 weeks then remain on 2 tabs daily 180 tabs 0RF M1A.9XX1 - Chronic gout, unspecified, with tophus (tophi) To allopurinol 200 mg (2 x 100 mg) PO DAILY 180 tabs 0RF M1A.9XX1 - Chronic gout, unspecified, with tophus (tophi) From prednisone 5 mg orally Take 4 tablets for 4 days then 3 tablets for 4 days the 2 tablets for 4 days then 1 tablet for 4 days then stop; 40 tabs 0RF M1A.9XX1 - Chronic gout, unspecified, with tophus (tophi) To prednisone Take 2 tablets daily for 7 days then 1 tablet daily for 30 days 44 tabs 0RF M1A.9XX1 - Chronic gout, unspecified, with tophus (tophi) Coding Level of Care Code Est Pt Level 4 (30473) Complex EM visit Add On G2211 Diagnoses Tophaceous gout M1A.9XX1 Psoriasis L40.9 Encounter for monitoring allopurinol therapy Z51.81; Z79.899 correction systemic steroid user Z79.52
[2025-01-08 12:48] VITALS: BP 150/90; PULSE 80; O2SAT 99; BMI 44.4
== END | disposition home or self-care (01) ==
PROVIDERS: PCP Internal Medicine; Visit Provider Student in an Organized Health Care Education/Training Program
DX: M1A.9XX1 Chronic gout, unspecified, with tophus (tophi) (principal); L40.9 Psoriasis, unspecified; Z51.81 Encounter for therapeutic drug level monitoring; Z79.899 Other long term (current) drug therapy; Z79.52 Long term (current) use of systemic steroids
CPT/HCPCS: 99214; G2211

== ENCOUNTER 2025-01-18 09:40 | Outpatient (REF) | payer OTHER, SELFPAY ==
--- OUTSIDE RECORDS SUMMARY | 2025-01-22 10:52 | XMS_ITS | Encounter Summary ---
Author Organization [facility] Address [address] [place] [address] Phone Care Team Providers Care Multiple Knife Edge Trimmer Operator Name Role Phone Agueda Shelton MD Primary Care Provider [phone] Encounter Details Date Type Department Care Team ([facility] Contact Info) Description 08/26/2022 Telephone [facility] [address] [place] [phone] Kimberly Archibald MD Social History Tobacco Use Types Packs/Day Years Used Date Smoking Tobacco: Never Smokeless Tobacco: Never Alcohol Use Standard Drinks/Week Comments No 0 (1 standard drink = 0.6 oz pure alcohol) Alcoholic Drinks/day: Occasional social drink Comments Unknown Sex and Gender Information Value Date Recorded Sex Assigned at Not on file Legal Sex Female 5:09 PM EST Gender Identity Not on file Sexual Orientation Not on file COVID-19 Exposure Response Date Recorded In the last 10 days, have kody osborn been in contact with someone who was confirmed or suspected to have Coronavirus/COVID-19? No / Unsure 08/23/2022 6:55 AM EDT documented as of this encounter Miscellaneous Notes * Telephone Encounter - Rosetta Thomas - 08/26/2022 9:55 AM EDT Pt called, her prednisone was sent over with a quantity of 12 tabs but in order to take the medication as directed she needs a total of 19 tabs. Please correct and resend to [facility] [address] in [place]. Thank you documented in this encounter Plan of Treatment Upcoming Encounters Date Type Department Care Team (Late st Contact Info) Description 06/05/2025 3:30 PM EDT Office Visit [facility] [address] [phone] Kelli Reyes ARNP [address] [address] documented as of this encounter Visit Diagnoses Not on filedocumented in this encounter Care Teams Multiple Knife Edge Trimmer Operator Relationship Specialty Start Date End Date Agueda Shelton MD [address] [place] [id number] PCP - General 12/08/20 documented as of this encounter
--- OUTSIDE RECORDS SUMMARY | 2025-01-22 10:52 | XMS_ITS | Encounter Summary ---
Author Organization [facility] Address [address] [place] [address] Phone Care Team Providers Care Bed Operator Name Role Phone Agueda Shelton MD Primary Care Provider [phone] Encounter Details Date Type Department Care Team (Late st Contact Info) Description 12/09/2022 Telephone [facility] [address] [place] [phone] Kelli Eubanks Social History Tobacco Use Types Packs/Day Years [...] In the last 10 days, have kody u been in contact with someone who was confirmed or suspected to have Coronavirus/COVID-19? No / Unsure 12/09/2022 9:07 AM EST documented as of this encounter Miscellaneous Notes * Telephone Encounter - Kelli Eubanks - 12/09/2022 1:22 PM EST This PT called today she has a kidney ultrasound appointment tomorrow but after receiving her labs PT feels her labs were good and that an ultrasound of her kidneys might be unnecessary. PT also relayed that her kidneys are no longer hurting her. PT wants to be advised on whether she should go to her appointment tomorrow. documented in this encounter Plan of Treatment Upcoming Encounters Date Type Department Care Team (Late st Contact Info) Description 06/05/2025 3:30 PM EDT [facility] Visit [facility] [address] [phone] Kelli Reyes ARNP [address] [phone] documented as of this encounter Visit Diagnoses Not on filedocumented in this encounter Care Teams Bed Operator Relationship Specialty Start Date End Date Agueda Shelton MD [facility] [place] [address] PCP - General 12/08/20 documented as of this encounter
--- OUTSIDE RECORDS SUMMARY | 2025-01-22 10:52 | XMS_ITS | Encounter Summary ---
Author Organization [facility] Address [address] [place] [address] Phone Care Team Providers Care Well Shooter Name Role Phone Agueda Shelton MD Primary Care Provider [phone] Encounter Details Date Type Department Care Team (Late st Contact Info) Description 03/22/2023 Telephone [facility] [address] [place] [phone] Rosetta Thomas MA Social History Tobacco Use Types Packs/Day Years [...] on file Sexual Orientation Not on file documented as of this encounter Miscellaneous Notes * Telephone Encounter - Cele Campo RN - 03/28/2023 11:24 AM EDT Called her, all set * Telephone Encounter - Nathalie Gray - 03/22/2023 5:24 PM EDT See note below * Telephone Encounter - Rosetta Thomas MA - 03/22/2023 3:35 PM EDT Pt called, she is experiencing burning while urinating and dizziness for the past 4 days. She wouldlike to be checked for a UTI if possible. Please advise Thank you documented in this encounter Plan of Treatment Upcoming Encounters Date Type Department Care Team (Late st Contact Info) Description 06/05/2025 3:30 PM EDT [facility] Visit [facility] [address] [phone] Kelli Reyes ARNP [address] [phone] documented as of this encounter Visit Diagnoses Not on filedocumented in this encounter Care Teams Well Shooter Relationship Specialty Start Date End Date Agueda Shelton MD [facility] [place] [address] PCP - General 12/08/20 documented as of this encounter
--- OUTSIDE RECORDS SUMMARY | 2025-01-22 10:52 | XMS_ITS | Encounter Summary ---
Author Organization [facility] Address [address] [place] [address] Care Team Providers Care Project Development Leader Name Role Phone Agueda Shelton Primary Care Provider [phone] Encounter Details Date Type Department Care Team (Late st Contact Info) Description 01/10/2025 Orders Only [facility] Transplant Department [address] [place] [address] Yoli Kent RN 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); Immunosuppression (HCC) Social History Tobacco Use Types Packs/Day Years Used Date Smoking Tobacco: Former Smokeless Tobacco: Never Comments:: Alcohol Use Standard Drinks/Week Comments No 0 (1 standard drink = 0.6 oz pur e alcohol) Comments No Sex and Gender Information Value Date Recorded Sex Assigned at Female 12/08/2022 11:51 PM EST Legal Sex Female 12:40 PM EDT Gender Identity Female 12/08/2022 11:51 PM EST Sexual Orientation Straight 12/08/2022 11 :51 PM EST documented as of this encounter Plan of Treatment Upcoming Encounters Date Type Department Care Team (Late st Contact Info) Description 04/11/2025 3:30 PM EDT Follow-Up [facility] Transplant Services [address] [place] [address] Meet Reilly MD [address] [place] [address] Scheduled Orders Name Type Priority Associated Diagnoses Orde r Schedule CBC Auto Differential Lab Routine Liver replaced by transplant (HCC) Expected: 01/10/2025, Expires: 01/10/2026 Magnesium Lab Routine Liver replaced by transplant (HCC) Expected: 01/10/2025, Expires: 01/10/2026 Tacrolimus level Lab Routine Liver replaced by transplant (HCC) Immunosuppression (HCC) Expected: 01/10/2025, Expires: 01/10/2026 Comprehensive Metabolic Panel Lab Routine Liver replaced by transplant (HCC) Expected: 01/10/2025, Expires: 01/10/2026 CBC Auto Differential Lab Routine Liver replaced by transplant (HCC) Every 12 Weeks for 22 Occurrences starting 01/10/2025 until 07/09/2025 Magnesium Lab Routine Liver replaced by transplant (HCC) Every 12 Weeks for 22 Occurrences starting 01/10/2025 until 07/09/2025 Tacrolimus level Lab Routine Liver replaced by transplant (HCC) Immunosuppression (HCC) Every 12 Weeks for 22 Occurrences starting 01/10/2025 until 07/09/2025 Comprehensive Metabolic Panel Lab Routine Liver replaced by transplant (HCC) Every 12 Weeks for 22 Occurrences starting 01/10/2025 until 07/09/2025 documented as of this encounter Visit Diagnoses Diagnosis Liver replaced by transplant (HCC)- Primary Liver replaced by transplant Immunosuppression (HCC) documented in this encounter Care Teams Project Development Leader Relationship Specialty Start Date End Date Nikita Agueda [address] [place] [address] PCP - General 06/16/17 documented as of this encounter
--- OUTSIDE RECORDS SUMMARY | 2025-01-22 10:52 | XMS_ITS | Encounter Summary ---
Author Organization [facility] Address [address] [place] [address] Phone Care Team Providers Care Jacquard Card Lacer Name Role Phone Agueda Shelton MD Primary Care Provider [phone] Encounter Details Date Type Department Care Team (Late st Contact Info) Description 11/04/2022 Telephone [facility] [address] [place] [phone] Kimberly Archibald MD Social History Tobacco Use [...] * Telephone Encounter - Kelli Eubanks - 11/08/2022 3:55 PM EST ERROR. * Telephone Encounter - Rosetta Thomas - 11/04/2022 3:12 PM EST Pt called she would thinks she might have a UTI and would like to get some labs done. Please advisethank you documented in this encounter Plan of Treatment Upcoming Encounters Date Type Department Care Team (Late st Contact Info) Description 06/05/2025 3:30 PM EDT Office Visit [facility] [address] [phone] Kelli Reyes ARNP [address] [phone] documented as of this encounter Visit Diagnoses Not on filedocumented in this encounter Care Teams Jacquard Card Lacer Relationship Specialty Start Date End Date Agueda Shelton MD [facility] [place] [address] PCP - General 12/08/20 documented as of this encounter
--- OUTSIDE RECORDS SUMMARY | 2025-01-22 10:52 | XMS_ITS | Encounter Summary ---
Author Organization [facility] Address [address] [place] [address] Phone Care Team Providers Care Security Services Manager Name Role Phone Agueda Shelton MD Primary Care Provider [phone] Encounter Details Date Type Department Care Team (Late Contact Info) Description 03/02/2021 Orders Only [facility] [address] [place] [id number] Kimberly Archibald MD Stage 3a chronic kidney disease (HCC); H/O: liver recipient (HCC) Social History Tobacco Use Types Packs/Day Years Used Date Smoking Tobacco: Never Alcohol Use Standard Drinks/Week Comments No 0 (1 standard drink = 0.6 oz pure alcohol) Alcoholic Drinks/day: Occasional social drink Comments Unknown Sex and Gender Information Value Date Recorded Sex Assigned at Not on file Legal Sex Female 5:09 PM EST Gender Identity Not on file Sexual Orientation Not on file documented as of this encounter Plan of Treatment Upcoming Encounters Date Type Department Care Team (Late st Contact Info) Description 06/05/2025 3:30 PM EDT Office Visit [facility] [address] [facility] [address] [place] [address] Kelli Reyes ARNP [address] [facility] [address] [place] [address] documented as of this encounter Procedures Procedure Name Priority Date/Time Associated Diagnosis Comments URINALYSIS WITH MICROSCOPIC Routine 03/26/2021 2:39 PM EDT Stage 3a chronic kidney disease (HCC) H/O: liver recipient (HCC) UA W/REFLEX CULTURE & RENAL Routine 03/26/2021 2:38 PM EDT URINE ALBUMIN / CREATININE RATIO Routine 03/26/2021 2:38 PM EDT URINE CULTURE Routine 03/26/2021 2:38 PM EDT TACROLIMUS LEVEL Routine 03/26/2021 2:20 PM EDT Stage 3a chronic kidney disease (HCC) H/O: liver recipient (HCC) VITAMIN D 25 HYDROXY Routine 03/26/2021 2:20 PM EDT Stage 3a chronic kidney disease (HCC) H/O: liver recipient (HCC) CBC AND DIFFERENTIAL Routine 03/26/2021 2:20 PM EDT Stage 3a chronic kidney disease (HCC) H/O: liver recipient (HCC) URIC ACID Routine 03/26/2021 2:20 PM EDT Stage 3a chronic kidney disease (HCC) H/O: liver recipient (HCC) PTH, INTACT Routine 03/26/2021 2:20 PM EDT Stage 3a chronic kidney disease (HCC) H/O: liver recipient (HCC) MAGNESIUM Routine 03/26/2021 2:20 PM EDT Stage 3a chronic kidney disease (HCC) H/O: liver recipient (HCC) RENAL FUNCTION PANEL Routine 03/26/2021 2:20 PM EDT Stage 3a chronic kidney disease (HCC) H/O: liver recipient (HCC) documented in this encounter Results * (ABNORMAL) Urinalysis with microscopic (03/26/2021 2:39 PM EDT) Appearance COLORLESS [facility] Comment:CLEAR Specific Villas 1.009 (1.002-1. 030) [facility] pH Urine 6.0 (5.0-8.0) [facility] Albumin, Urine NEGATIVE (NEG) [facility] Glucose, Ur NEGATIVE (NEG) [facility] Ketones, Urine NEGATIVE (NEG) [facility] Bilirubin Urine NEGATIVE (NEG) [facility] Hemoglobin Presence in Urine NEGATIVE (NEG) [facility] Nitrite, Urine NEGATIVE (NEG) [facility] Leukocyte Esterase Urine 1+(A) (NEG) [facility] Urobilinogen Urine NORMAL (NORM) MG/DL [facility] WBC, Urine 3 (0-5) /HPF [facility] RBC, Urine <1 (0-3) /HPF [facility] Bacteria SLIGHT(A) (NEG) HPF [facility] Squamous Epithelial, Urine 3 (0-8) /HPF [facility] Comment: Testing performed or reported by [facility], a Service of [facility], [address] [place] [id number] Gene Vu MD, Director Voice Urine (Urine, Clean Catch) 03/26/2021 2:39 PM EDT 03/26/2021 2:42 PM EDT Kimberly Archibald MD LAB URINE ORDERABLES Final Resu lt [facility] * Urine Culture (03/26/2021 2:38 PM EDT) Specimen Description See Comment See Comment See Comment See Comment [facility] Comment: URINE NONE Reflexed from [id number] <10,000 COL/ML FINAL 03/28/2021 Testing performed or reported by [facility], a Service of [facility], [address] [place] [address] [place] [address] Darren Garcia MD, Director Voice 03/26/2021 2:38 PM EDT 03/26/2021 2:42 PM EDT James Forrest MD LAB URINE ORDERABLES Final Re sult [facility] * (ABNORMAL) Urine Albumin / Creatinine Ratio (03/26/2021 2:38 PM EDT) Urine Microalbumin 14.1 (<20) MG/L [facility] Comment: The urine microalbumin test is designed to monitor renal function. When screening for Bence Garcia proteinuria, urine electrophoresis is recommended. Microalbumin/Creati nine Ratio 23.8(H) (0-20) MG/GM [facility] Microalb/Creat Ratio 59.3 MG/DL [facility] Comment: Testing performed or reported by [facility], a Service of [facility], [address] [place] [phone] Gene Vu MD, Director Voice 03/26/2021 2:38 PM EDT 03/26/2021 2:42 PM EDT James Forrest MD LAB URINE ORDERABLES Final Re sult [facility] * (ABNORMAL) UA w/Reflex Culture (03/26/2021 2:38 PM EDT) Appearance COLORLESS [facility] Comment:CLEAR Specific Villas 1.009 (1.002-1. 030) [facility] pH Urine 6.0 (5.0-8.0) [facility] Albumin, Urine NEGATIVE [facility] Glucose, Ur NEGATIVE (NEG) [facility] Ketones, Urine NEGATIVE (NEG) [facility] Bilirubin Urine NEGATIVE (NEG) [facility] Hemoglobin Presence in Urine NEGATIVE (NEG) [facility] Nitrite, Urine NEGATIVE (NEG) [facility] Leukocyte Esterase Urine 1+(A) (NEG) [facility] Urobilinogen Urine NORMAL (NORM) MG/DL [facility] WBC, Urine 3 (0-5) /HPF [facility] RBC, Urine <1 (0-3) /HPF [facility] Bacteria SLIGHT(A) (NEG) HPF [facility] Squamous Epithelial, Urine 3 (0-8) /HPF [facility] Clarity CLEAR (CLEAR) [facility] CULTURE INDICATED CULTURE INDICATED [facility] Comment: Testing performed or reported by [facility], a Service of [facility], [address] [place] [phone] Gene Vu MD, Director Voice 03/26/2021 2:38 PM EDT 03/26/2021 2:42 PM EDT James Forrest MD LAB URINE ORDERABLES Final Re sult [facility] * (ABNORMAL) CBC and differential (03/26/2021 2:20 PM EDT) White Blood Cells 4.9 (4.0-11.0) K/MM3 [facility] RBC 4.22 (4.20-5.40 ) M/MM3 [facility] Hgb 12.6 (11.7-15.5 ) GM/DL [facility] Hematocrit 40.0 (35.7-45.8 ) % [facility] MCV 94.8 (80.0-100. 0) FL [facility] MCH 29.9 (27.0-34.0 ) PG [facility] MCHC 31.5(L) (33.0-37.0 ) g/dL [facility] Platelets 229 (150-460) K/MM3 [facility] RDW-SD 42.7 (<47.0) FL [facility] MPV 9.9 (9.4-12.4) FL [facility] nRBC Count 0.0 #/100 WBC'S [facility] NRBC Absolute 0.0 K/MM3 [facility] Neutrophils Abs Auto 2.8 (1.3-7.0) K/MM3 [facility] Lymphocytes Relative 1.4 (0.8-3.1) K/MM3 [facility] Monocytes 0.4 (0.4-0.9) K/MM3 [facility] Eosinophils Relative 0.2 (0.0-0.4) K/MM3 [facility] Basophil ABS 0.0 (0.0-0.1) K/MM3 [facility] Granulocytes Absolute 0.0 K/MM3 [facility] Neutrophils % Auto 57.1 (44-76) % [facility] Lymphs 28.6 (15-43) % [facility] Monocytes Absolute 8.4 (4.5-10.5) % [facility] Eosinophils 4.9 (0-6) % [facility] Basophils Relative 0.4 (0-2) % [facility] Immature Granulocytes 0.6 % [facility] Comment: Testing performed or reported by [facility], a Service of [facility], [address] [place] [phone] Gene Vu MD, Director Voice Blood (Blood, Venous) 03/26/2021 2:20 PM EDT 03/26/2021 2:34 PM EDT Kimberly Archibald MD LAB BLOOD ORDERABLES Final Resu lt Performing Organization Address City/[facility]/ZIP Co de Phone Number [facility] * Magnesium (03/26/2021 2:20 PM EDT) Magnesium 2.0 (1.6-2.3) mg/dL [facility] Comment: Testing performed or reported by [facility], a Service of [facility], [address] [place] [phone] Gene Vu MD, Director Voice Blood (Blood, Venous) 03/26/2021 2:20 PM EDT 03/26/2021 2:34 PM EDT Kimberly Archibald MD LAB BLOOD ORDERABLES Final Resu lt Performing Organization Address [facility] de Phone Number [facility] * (ABNORMAL) Tacrolimus level (03/26/2021 2:20 PM EDT) Tacrolimus Lvl 4.8(L) (5-20) NG/ML [facility] Comment: As of January 18, 2018, Tacrolimus method has been changed from liquid chromatography mass spectrometry (LC-MS/MS) to immunoassay based method ([employer]). ??The new method could produce measurements that are approximately 15% higher than LC-MS/MS. Reference range(s) correspond to the new method. Testing performed or reported by [facility], a Service of [facility], [address] [place] [phone] Darren Garcia MD, Director Voice Blood (Blood, Venous) 03/26/2021 2:20 PM EDT 03/26/2021 2:34 PM EDT Kimberly Archibald MD LAB BLOOD ORDERABLES Final Resu lt Performing Organization Address [facility]/ZIP Co de Phone Number [facility] * Vitamin D 25 hydroxy (03/26/2021 2:20 PM EDT) Vitamin D, 25-Hydroxy 30.0 (20-50) NG/ML [facility] Comment: Testing performed or reported by [facility], a Service of [facility], [address] [place] [phone] Gene Vu MD, Director Voice Blood (Blood, Venous) 03/26/2021 2:20 PM EDT 03/26/2021 2:34 PM EDT Kimberly Archibald MD LAB BLOOD ORDERABLES Final Resu lt Performing Organization Address [facility] Co de Phone Number [facility] * (ABNORMAL) PTH, intact (03/26/2021 2:20 PM EDT) PTH, Intact 85(H) (15-65) PG/ML [facility] Comment: Testing performed or reported by [facility], a Service of [address] [id number] Gene Vu MD, Director Voice Blood (Blood, Venous) 03/26/2021 2:20 PM EDT 03/26/2021 2:34 PM EDT Kimberly Archibald MD LAB BLOOD ORDERABLES Final Resu lt Performing Organization Address [facility] de Phone Number [facility] * (ABNORMAL) Uric acid (03/26/2021 2:20 PM EDT) Uric Acid 10.8(H) (1.6-7.6) MG/DL [facility] Comment: Testing performed or reported by [facility], a Service of [address] [phone] Gene Vu MD, Director Voice Blood (Blood, Venous) 03/26/2021 2:20 PM EDT 03/26/2021 2:34 PM EDT Kimberly Archibald MD LAB BLOOD ORDERABLES Final Resu lt Performing Organization Address [facility] de Phone Number [facility] * (ABNORMAL) Renal function panel (03/26/2021 2:20 PM EDT) Glucose 108(H) (70-99) MG/DL [facility] BUN 24(H) (6-20) MG/DL [facility] Creatinine 1.2(H) (0.5-1.0) MG/DL [facility] Sodium 139 (133-145) MMOL/L [facility] Potassium 4.8 (3.6-5.2) MMOL/L [facility] Chloride 105 (98-107) MMOL/L [facility] Bicarbonate (CO2) 25 (22-29) MMOL/L [facility] Anion Gap 9 (4-17) [facility] Albumin 4.5 (3.4-4.8) GM/DL [facility] Calcium 9.3 (8.6-10.5) MG/DL [facility] Phosphorus, Serum 3.8 (2.5-4.5) MG/DL [facility] Est GFR Non 50 ML/MIN/1.7 3 M2 [facility] Comment: Creatinine based estimated glomerular filtration rate (eGFR) is calculated using the Chronic Kidney Disease Epidemiology Collaboration (CKD-EPI). The CKD-EPI creatinine equation has not been validated in children (<18 years), women or in some racial or ethnic subgroups other than Caucasians and Americans. EST GFR 58 ML/MIN/1.7 3 M2 [facility] Comment: Creatinine based estimated glomerular filtration rate (eGFR) is calculated using the Chronic Kidney Disease Epidemiology Collaboration (CKD-EPI). The CKD-EPI creatinine equation has not been validated in children (<18 years), women or in some racial or ethnic subgroups other than Caucasians and Americans. Testing performed or reported by [facility], a Service of [facility], [address] [place] [id number] Gene Vu MD, Director Voice Blood (Blood, Venous) 03/26/2021 2:20 PM EDT 03/26/2021 2:34 PM EDT Kimberly Archibald MD LAB BLOOD ORDERABLES Final Resu lt [facility] documented in this encounter Visit Diagnoses Diagnosis Stage 3a chronic kidney disease (HCC) H/O: liver recipient (HCC) documented in this encounter Care Teams Security Services Manager Relationship Specialty Start Date End Date Agueda Shelton MD [address] [place] [address] PCP - General 12/08/20 documented as of this encounter
--- OUTSIDE RECORDS SUMMARY | 2025-01-22 10:53 | XMS_ITS | Referral Summary ---
Author Organization [facility] Address [address] [place] [address] Care Team Providers Care Tight Rope Walker Name Role Phone Agueda Shelton Primary Care Provider Encounters Date Type Department Care Team Description 01/10/2025 Orders Only [facility] Transplant Department [address] [place] [id number] Yoli Kent, RN 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); Immunosuppression (HCC) from Last 3 Months Allergies No known active allergies Medications cyanocobalamin, vitamin B-12, 1,000 mcg tablet extended release Take 1,000 mcg by mouth daily. DIRECTED. Active folic acid (FOLVITE) 400 mcg tablet Take 400 mcg by mouth daily. DIRECTED Active LACTOBACILLUS ACIDOPHILUS (PROBIOTIC ORAL) ONCE DAILY Ac tive TURMERIC (CURCUMIN MISC) Curcumin Extract Powder PT STATES TAKING 1 CAP 400MG DAILY Refills: 0 Started 03-Feb-2016 Active 6 Active coenzyme Q10 10 mg capsule Coenzyme Q10 10 MG Oral Capsule TAKE 1 CAPSULE DAILY Refills: 0 Started 04-Jan-2014 Active 4 Active omega-3 acid ethyl esters (LOVAZA) 1 gram capsule Fish Oil 1000 MG Oral Capsule TAKE 1 CAPSULE DAILY. Refills: 0 MEET VARNER MD; Started 09-Jul-2015 Active 5 Active hydrocortisone 2.5% cream APPLY TO AFFECTED AREA EVERY DAY AT BEDTIME NEEDED 1 7 Active lidocaine (LIDODERM) 5% patch APPLY 1 PATCH ONTO SKIN DAILY, REMOVE AFTER 12 HOURS 2 7 Active loratadine (CLARITIN) 10 mg tablet Take 10 mg by mouth. 9 7 Active vitamin D3 1,000 unit capsule Vitamin D3 1000 UNIT Oral Capsule 1 TAB DAILY Refills: 0 Active Active BLOOD-GLUCOSE METER (FREESTYLE FREEDOM LITE MISC) FreeStyle Lite Device test 4 x per day Quantity: 1; Refills: 0 MARKOSIAN, SUSANNA N.P.; Started 11-Dec-2013 Active1 EA Box 4 Active BLOOD-GLUCOSE METER (FREESTYLE LITE METER MISC) FreeStyle Lite Test In Vitro Strip TEST 4 TIMES DAILY. Quantity: 1; Refills: 5 MARKOSIAN, SUSANNA N.P.; Started 11-Dec-2013 [id number] EA Box 4 Active colchicine (COLCRYS) 0.6 mg tablet Take 1 tablet (0.6 mg total) by mouth 2 times a day. 60 tablet 8 Active lancets misc Use to test 4 times daily. 100 each 5 9 Active Freestyle lancets 28 gauge USE TO TEST BLOOD SUGAR FOUR TIMES DAILY DIRECTED 5 9 Active lisinopril (PRINIVIL,ZESTRI L) 10 mg tablet 9 Active fluocinonide (LIDEX) 0.05% cream PLEASE SEE ATTACHED FOR DETAILED DIRECTIONS 2 Active gabapentin (NEURONTIN) 300 mg capsule Take 300 mg by mouth 2 times a day. 2 Active escitalopram (LEXAPRO) 10 mg tablet Take 10 mg by mouth once a day. 2 Active valACYclovir (VALTREX) 500 mg tablet Take 500 mg by mouth 2 times a day. 2 Active Freestyle Lite test strips USE TO TEST 4 TIMES DAILY 100 strip 11 2 Active clobetasoL 0.05 % shampooIndicatio ns:Psoriasis Use to wash scalp 3-5x per week. Let sit for 5 min before rinsing 118 mL 3 3 Active alclometasone (ACLOVATE) 0.05 % ointmentIndicati ons:Psoriasis USE ON PSORIASIS IN SKIN FOLDS AND GROIN TWICE DAILY NEEDED 45 g 2 3 Active famotidine (PEPCID) 20 mg tablet TAKE 1 TABLET BY MOUTH TWICE A DAY 180 tablet 3 3 Active triamcinolone (KENALOG) 0.025 % ointmentIndicati ons:Psoriasis Apply to psoriasis and skin folds twice daily for 2-week intervals 80 g 3 3 Active tacrolimus (PROGRAF) 1 mg capsuleIndicatio ns:Liver replaced by transplant (HCC),Immunosupp ression (HCC) Take 2 capsules (2 mg total) by mouth in the morning AND 1 capsule (1 mg total) every evening. 270 capsule 3 01/07/2025 10:33 PM EST 4 01/31/20 27 Active fluocinonide (LIDEX) 0.05% solutionIndicati ons:Psoriasis APPLY TO AFFECTED AREAS OF SCALP TWICE DAILY FOR FLARES FOR UP TO 2 WEEKS AT A TIME 60 mL 2 4 Active clobetasoL (TEMOVATE) 0.05% ointmentIndicati ons:Psoriasis APPLY TO AFFECTED AREAS ON BACK AND LEGS TWICE DAILY 60 g 4 Active ketoconazole (NIZORAL) 2% shampooIndicatio ns:Psoriasis APPLY TO SCALP, LATHER, LEAVE ON 5 MINUTES, AND RINSE. USE AT LEAST 2-3X WEEKLY 120 mL 5 4 Active propranoloL (INDERAL) 10 mg tablet TAKE 0.5 TABLETS (5 MG TOTAL) BY MOUTH 2 TIMES A DAY. 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/03/2016 Genital herpes in women 03/05/2015 Umbilical hernia 09/18/2014 Arthralgia of multiple sites 05/29/2014 Hypertension 03/21/2014 Hyperglycemia 01/08/2014 Liver replaced by transplant 12/14/2013 Immunizations Immunization Administration Dates Next Due COVID-19, Pfizer, mRNA, Biva lent Booster, PF, 30 mcg/0.3 mL dose (for age 12 y and up) 04/09/2023,09/24/2022 Covid-19, Pfizer, mRNA, Erie valent, PF 30 mcg/0.3 mL dose (for ages 12 and older) 07/17/2021,03/16/2021,02/21/2021 Covid-19, Pfizer, mRNA, Erie valent, PF, 30 mcg/0.3 mL dose, danie-sucrose (COMIRNATY)(for ages 12 and older) 07/10/2022,01/25/2022 Covid-19, Pfizer, mRNA, Danie -sucrose Vaccine, PF, 30 mcg/0.3 mL (for age 12 y and up) 08/24/2023 INFLUENZA, SPLIT VIRUS, TRIVALENT, PF 09/01/2016 ,08/28/2014 Influenza, Injectable, Madin Tonya Canine Kidney, Preservative Free, Quadrivalent 09/10/2019 Influenza, Injectable, Quadr ivalent, Contains Preservative 08/31/2018,08/20/2017 Influenza, Injectable, Quadr ivalent, Preservative Free 08/15/2021,08/09/2020 Influenza, Trivalent, MDV, Injectable 09/26/2018 ,08/29/2015,08/02/2012 Pneumococcal Conjugate Vaccine, 13 Valent 2019 Pneumococcal Polysaccharide Vaccine, 23 Valent 12/25/2012 Zoster Vaccine Recombinant 08/09/2020 Social History Tobacco Use Types Packs/Day Years Used Date Smoking Tobacco: Former Smokeless Tobacco: Never Tobacco Cessation:Counseling Given: Not Answered Comments:: Alcohol Use Standard Drinks/Week Comments No 0 (1 standard drink = 0.6 oz pur e alcohol) Comments No Sex and Gender Information Value Date Recorded Sex Assigned at Female 12/08/2022 11:51 PM EST Legal Sex Female 12:40 PM EDT Gender Identity Female 12/08/2022 11:51 PM EST Sexual Orientation Straight 12/08/2022 11 :51 PM EST Last Filed Vital Signs Vital Sign Reading Time Taken Comments Blood Pressure 128/48 08/11/2022 5:15 PM EDT Pulse 90 08/11/2022 5:15 PM EDT Temperature 36.2 ??C (97.1 ??F) 07/27/2022 3:34 PM ED T Respiratory Rate 19 08/11/2022 5:15 PM EDT Oxygen Saturation 97% 08/11/2022 5:15 PM EDT Inhaled Oxygen Concentration - - Weight 102.1 kg (225 lb) 07/27/2022 3:34 PM EDT Height 160 cm (5' 3 ) 03/30/2019 11:34 AM EDT Body Mass Index 39.86 03/30/2019 11:34 AM EDT Plan of Treatment Upcoming Encounters Date Type Department Care Team (Late st Contact Info) Description 04/11/2025 3:30 PM EDT Follow-Up [facility] Liver Transplant Services [address] [place] [address] Meet Varner MD [address] [place] [address] Procedures * Due to [facility] law, this organization might not be sharing negative HIV tests. Procedure Name Priority Date/Time Associated Diagnosis Comments COMPREHENSIVE METABOLIC PANEL, OUTSIDE LAB Routine 09/27/2017 12:56 PM EDT COLONOSCOPY 02/17/2016 9:07 AM EDT X HEPATITIS C RNA, QUALITATIVE, TMA Routine 08/28/2014 11:[address] CHEST W CONTRAST Routine 12/01/2010 1 1:08 AM EST from Last 3 Months or Most Recently Relevant to Health Maintenance Results * Due to [place] [employer] law, this organization might not be sharing negative HIV tests. * Comprehensive Metabolic Panel, Outside Lab (09/27/2017 12:56 PM EDT) Sodium 141 mmol/L [facility] Potassium 4.6 [facility] Chloride 103 [facility] Carbon Dioxide 26 [facility] Glucose 96 [facility] BUN 19 mg/dL [facility] Creatinine 1.2 [facility] Calcium 9.3 mg/dL [facility] Total Protein 6.7 g/dL [facility] Albumin 4.8 g/dL [facility] Bilirubin, Total 0.7 mg/dL [facility] Alkaline Phosphatase 81 U/L [facility] AST 24 U/L [facility] ALT 51 U/L [facility] Blood specimen (specimen) Structure of peripheral vein / Unknown 09/27/2017 12:56 PM EDT us Unknown Provider LAB BLOOD ORDERABLES Final R esult [facility] [address] [place] [address] [id number] * COLONOSCOPY (02/17/2016 9:07 AM EDT) Narrative Procedure Note Meet Varner MD - 02/17/2016 9:07 AM EDT Patient Name: Carolyn An Procedure Date: 02/17/2016 9:07 AM Date of : 1960 Admit Type: Outpatient Age: 56 Room: Room 4 Gender: Female Note Status: Finalized Attending MD: Meet Varner MD Procedure: Colonoscopy Indications: Hematochezia Comorbidities status post liver transplant Providers: Meet Varner MD Referring MD: Agueda Shelton MD (Referring MD) Requesting Provider: Medicines: Midazolam 1 mg IV, Fentanyl 25 micrograms IV, See the other procedure note for documentation of theadministered medications Complications: No immediate complications. Estimated Blood Loss: Estimated blood loss: none. Procedure: After I obtained informed consent, the scope was passed under direct vision. Throughout the procedure, the patient's blood pressure, pulse, and oxygen saturations were monitored continuously. The Colonoscope was introduced through the anus and advanced to the cecum, identified by appendiceal orifice and ileocecal valve.The colonoscopy was performed with moderate difficulty dueto significant looping. Successful completion of the procedure was aided by applying abdominal pressure. The patient tolerated the procedure well. The quality ofthe bowel preparation was good. The bowel preparation usedwas CoLyte. Findings: The perianal and digital rectal examinations were normal. Internal hemorrhoids were found during retroflexion. The hemorrhoids were mild. The exam was otherwise without abnormality. Impression: - Internal hemorrhoids. - The examination was otherwise normal. - No specimens collected. Recommendation: - Discharge patient to home (ambulatory). - Return to transplant clinic as previouslyscheduled. Attending Participation: I was present and participated during the entire procedure, including non-johnson portions. Meet Varner MD 02/17/2016 10:04:55 AM This report has been signed electronically. Number of Addenda: 0 Note Initiated On: 02/17/2016 9:07 AM us Meet Varner MD PROVATION PROCEDURES Final Re sult * Hepatitis C RNA, Qualitative, TMA (08/28/2014 11:56 AM EDT) Hepatitis C Viral RNA Qual TMA Not detected () [facility] ([place]) Comment: Reference Range: ??Not detected The limit of detection for this assay is 5.3 IU/mL. This test was performed using the Versant (R) HCV RNA Qualitative Assay (TMA). Test Performed by Galina Mars, [facility] Padilla [facility], [address] [place], [place] Godfrey Hernandez M.D., Ph.D., Director of Laboratories , AMRIEL [id number] 08/28/2014 11:5 6 AM EDT 08/28/2014 1:54 PM EDT us Meet Varner MD LAB BLOOD ORDERABLES Final Re sult [facility]) [address] [place], [place] , [place] * CT Chest W Contrast (12/01/2010 11:08 AM EST) Anatomical Region Laterality Modality Body Computed Tomogra phy 12/01/2010 10:4 0 AM EST Impressions 12/02/2010 5:26 PM EST Contrast-enhanced CT of the chest showing no evidence of lung nodules or masses. Small left effusion is present, most likely related to liver failure.. COMMUNICATION: Per this written report. Narrative 12/02/2010 5:26 PM EST EXAMINATION: CT Chest With Intravenous Contrast. INDICATION: Preliver transplant. ?? TECHNIQUE: Routine helical CT of the chest was performed with use of approximately 80 ??ml of intravenous contrast; exact amount is documented in supervisor microbiology technologists 's exam notes. ??One and 5mm Axial images were obtained at 1 and 5mm ??intervals from apices through diaphragms. COMPARISON: None FINDINGS: Lung windows show no evidence of opacities, nodule or mass. Mediastinal windows show infra-centimetric nodes, but no significant adenopathy. ??There is a small left pleural effusion which appears to be free-flowing. There is no right effusion or pericardial effusion.. ?? Bone windows show no significant abnormality. Images of the upper abdomen suggest the presence of 3 lymph nodes will be reported separately. There is a markedly cirrhotic liver with nodular surface. The spleen is enlarged, multiple portosystemic shunts are seen.. Procedure Note Taj Gold P - 07/29/2017 EXAMINATION: CT Chest With Intravenous Contrast. INDICATION: Preliver transplant. TECHNIQUE: Routine helical CT of the chest was performed with use of approximately 80 ml of intravenous contrast; exact amount is documented in supervisor microbiology technologists 's exam notes. One and 5mm Axial images were obtained at 1 and 5mm intervals from apices through diaphragms. COMPARISON: None FINDINGS: Lung windows show no evidence of opacities, nodule or mass. Mediastinal windows show infra-centimetric nodes, but no significant adenopathy. There is a small left pleural effusion which appears to be free-flowing. There is no right effusion or pericardial effusion.. Bone windows show no significant abnormality. Images of the upper abdomen suggest the presence of 3 lymph nodes will be reported separately. There is a markedly cirrhotic liver with nodular surface. The spleen is enlarged, multiple portosystemic shunts are seen.. IMPRESSION: Contrast-enhanced CT of the chest showing no evidence of lung nodules or masses. Small left effusion is present, most likely related to liver failure.. COMMUNICATION: Per this written report. us Michael Severino MD IMG CT PROCEDURES Final Res ult from Last 3 Months or Most Recently Relevant to Health Maintenance Insurance [employer] Advance Directives Documents on File Type Date Recorded Patient Senior Product Marketing Manager Expl anation Advance Directive 12/19/2013 12:00 AM Adva nce Care Directives Advance Directive 12/04/2010 12:00 AM keith Douglas dical Dec Making (Adv.Dir) * Full Code (Latest Code Status on File) Date Activated Date Inactivated Comments 08/11/2022 3:27 PM 08/11/2022 7:32 PM Care Teams Tight Rope Walker Relationship Specialty Start Date End Date Agueda Shelton [address] [place] [address] [facility] - General 06/16/17
--- OUTSIDE RECORDS SUMMARY | 2025-01-22 10:53 | XMS_ITS | Clinical Summary ---
Author Organization [facility] Address [address] [place] [address] Care Team Providers Care Force Variation Equipment Tender Name Role Phone Agueda Shelton Primary Care Provider [phone] Allergies No known active allergies Medications cyanocobalamin, [...] TAKE 1 CAPSULE DAILY. Refills: 0 MEET REILLY MD; Started 09-Jul-2015 Active 5 Active hydrocortisone [...] x per day Quantity: 1; Refills: 0 SUSANNA STEPHEN N.P.; Started 11-Dec-2013 Active1 EA Box 4 Active BLOOD-GLUCOSE METER (FREESTYLE LITE METER MISC) FreeStyle Lite Test In Vitro Strip TEST 4 TIMES DAILY. Quantity: 1; Refills: 5 MARKOSIGRISEL, SUSANNA N.P.; Started 11-Dec-2013 [id number] EA Box 4 Active colchicine (COLCRYS) 0.6 [...] Hyperglycemia 01/08/2014 Liver replaced by transplant 12/14/2013 Encounters Date Type Department Care Team Description 01/10/2025 Orders Only [facility] Transplant Department [address] [place] [id number] Yoli Kent, RN 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); Immunosuppression (HCC) from Last 3 Months Immunizations Immunization Administration Dates Next Due COVID-19, Pfizer, mRNA, Biva lent Booster, PF, 30 mcg/0.3 mL dose (for age 12 y and up) 04/09/2023,09/24/2022 Covid-19, Pfizer, mRNA, Hyde valent, PF 30 mcg/0.3 mL dose (for ages 12 and older) 07/17/2021,03/16/2021,02/21/2021 Covid-19, Pfizer, mRNA, Hyde valent, PF, 30 mcg/0.3 mL dose, danie-sucrose [...] 23 Valent 12/25/2012 Zoster Vaccine Recombinant 08/09/2020 Family History Medical History Relation Name Comments Other Brother 1 Family History of alcoholism Other Brother 2 Family History of chronic obstructive pulmonary disease Other Brother 3 Family history of Hepatitis Other Brother 4 Family history of High cholesterol Other Brother 5 Family History of hypertension Other Brother 6 Family History of arthritis Other Brother 7 Family History of cardiac disorder Other Father Family History of alcoholism /Family History of lung disease /Family History of chronic obstructive pulmonary disease /Family history of Other Mother Maternal histor y of Benign Essential Hypertension /Family History of hypertension /Family history of /Family History of arthritis /Family History of cardiac disorder Relation Name Status Comments Brother 1 Brother 2 Brother 3 Brother 4 Brother 5 Brother 6 Brother 7 Father Mother Social History Tobacco Use Types Packs/Day Years [...] Info) Description 04/11/2025 3:30 PM EDT Follow-Up [facility] Liver Transplant Services [address] [place] [address] Meet Reilly MD [address] [place] [address] Health Maintenance Due Date Last Done Comments Cervical Cancer Screening 1960 Cologuard 1960 FOBT / Fit Test 1960 HIV Screening 1960 HPV and Pap Smear 1960 Pap Smear 1960 Sigmoidoscopy 1960 DTaP,Tdap,and Td Vaccines (1 - Tdap) [address] Lung Cancer Screening (Baseline) 2012 12/01/2010 Zoster Vaccines (2 of 2) 10/04/2020 08/09/2020 Hepatitis B Vaccines (1 of 3 - Risk 3-dose series) 2022 RSV Vaccine (60+ years old a nd patients) (1 - Risk 60-74 years 1-dose series) 2022 Basic Metabolic Panel 04/12/2024 04/12/2023 , 02/15/2023, 03/26/2021, Additional history exists COVID-19 Vaccine (2023-2 5 season) 2024 08/24/2023, 04/09/2023, 09/24/2022, Additional history exists Alcohol/Substance Use Screening 11/28/2024 Depression Screening and Follow-Up 11/28/2024 Social Drivers of Health Margret ual Screening 11/28/2024 Colon Cancer Screening 02/16/2026 Colonoscopy 02/16/2026 02/17/2016, 11/12/2010 CT Lung Cancer Screening (12 months, previous LungRADS 1 or 2) Discontinued 12/01/2010 Hepatitis C Screening Completed 08/28/2014 , 05/29/2014, 02/20/2014, Additional history exists Influenza Vaccine Completed 08/07/2024, , 08/14/2022, Additional history exists Pneumococcal Vaccine: 50+ Years Completed 08/07/2024, 08/09/2020, 12/25/2012 Procedures * Due to [place] [employer] law, this organization might not be sharing [...] to Health Maintenance Results * Due to [place] [employer] law, this organization might not be sharing negative HIV tests. * Comprehensive Metabolic Panel, Outside Lab (09/27/2017 12:56 PM EDT) Sodium 141 mmol/L [facility] Potassium 4.6 [facility] Chloride 103 [facility] Carbon Dioxide 26 [facility] Glucose 96 [facility] BUN 19 mg/dL [facility] Creatinine 1.2 [facility] Calcium 9.3 mg/dL [facility] Total Protein 6.7 g/dL [facility] Albumin 4.8 g/dL [facility] Bilirubin, Total 0.7 mg/dL [facility] Alkaline Phosphatase 81 U/L [facility] AST 24 U/L [facility] ALT 51 U/L [facility] Blood specimen (specimen) Structure of peripheral vein / Unknown 09/27/2017 12:56 PM EDT us Unknown Provider LAB BLOOD ORDERABLES Final R esult Performing Organization Address [facility]/State/[facility] Co de Phone Number [facility] [address] [place] [address] [id number] * COLONOSCOPY (02/17/2016 9:07 AM EDT) Narrative Procedure Note Meet Reilly MD - 02/17/2016 9:07 AM EDT Patient Name: Carolyn An Procedure Date: 02/17/2016 9:07 AM Date of : 1960 Admit Type: Outpatient Age: 56 Room: Room 4 Gender: Female Note Status: Finalized Attending MD: Meet Reilly MD Procedure: Colonoscopy Indications: Hematochezia Comorbidities status post liver transplant Providers: Meet Reilly MD Referring MD: Agueda Shelton MD (Referring [...] the entire procedure, including non-johnson portions. Meet Reilly MD 02/17/2016 10:04:55 AM This report has been signed electronically. Number of Addenda: 0 Note Initiated On: 02/17/2016 9:07 AM us Meet Reilly MD PROVATION PROCEDURES Final Re sult * Hepatitis C RNA, Qualitative, TMA (08/28/2014 11:56 AM EDT) Hepatitis C Viral RNA Qual TMA Not detected () [facility] (ZAHIDA) Comment: Reference Range: ??Not detected The limit of detection for this assay is 5.3 IU/mL. This test was performed using the Versant (R) HCV RNA Qualitative Assay (TMA). Test Performed by Galina Mars, Navneet Padilla [facility], [address] [place], [place] Godfrey Hernandez M.D., Ph.D., Director of Laboratories , [place] [id number] 08/28/2014 11:5 6 AM EDT 08/28/2014 1:54 PM EDT us Meet Reilly MD LAB BLOOD ORDERABLES Final Re sult [facility] ([place]) [address] [place], [place] , [place] * CT Chest W [...] intravenous contrast; exact amount is documented in cytotechnologist 's exam notes. ??One and 5mm Axial [...] intravenous contrast; exact amount is documented in cytotechnologist 's exam notes. One and 5mm Axial [...] liver failure.. COMMUNICATION: Per this written report. Michael Severino MD IM CT PROCEDURES Final Res ult from Last 3 Months or Most Recently Relevant to Health Maintenance Insurance [employer] Advance Directives Documents on File Type Date Recorded Patient Application Architect Manager Expl anation Advance Directive 12/19/2013 12:00 AM Adva nce Care Directives Advance Directive 12/04/2010 12:00 AM sf Me dical Dec Making (Adv.Dir) * Full Code (Latest Code Status on File) Date Activated Date Inactivated Comments 08/11/2022 3:27 PM 08/11/2022 7:32 PM Care Teams Force Variation Equipment Tender Relationship Specialty Start Date End Date NikitaAgueda [address] [place] [address] PCP - General 06/16/17
--- OUTSIDE RECORDS SUMMARY | 2025-01-22 10:53 | XMS_ITS | Encounter Summary ---
Author Organization [facility] Address [address] [place] [address] Care Team Providers Care Maintenance Shop Laborer Name Role Phone Agueda Shelton Primary Care Provider [phone] Encounter Details Date Type Department Care Team (Late st Contact Info) Description 08/31/2017 Transplant Conversio n Encounter [facility] Management [address] [place], [place] [phone] Provider, Historical [facility] Social History Tobacco Use Types Packs/Day Years Used Date Smoking Tobacco: Former Comments:: Comments Unknown Sex and Gender Information Value Date Recorded Sex Assigned at Female 12/08/2022 11:51 PM EST Legal Sex Female 12:40 PM EDT Gender Identity Female 12/08/2022 11:51 PM EST Sexual Orientation Straight 12/08/2022 11 :51 PM EST documented as of this encounter Plan of Treatment Upcoming Encounters Date Type Department Care Team (Late st Contact Info) Description 04/11/2025 3:30 PM EDT Follow-Up [facility] Liver Transplant Services [address] [place], [place] [phone] Meet Reilly MD [address] [place], [place] [phone] documented as of this encounter Visit Diagnoses Not on filedocumented in this encounter Care Teams Maintenance Shop Laborer Relationship Specialty Start Date End Date Agueda Shelton [address] [place] [address] PCP - General 06/16/17 documented as of this encounter
--- OUTSIDE RECORDS SUMMARY | 2025-01-22 10:53 | XMS_ITS | Encounter Summary ---
Author Organization [facility] Address [address] [place] [address] Care Team Providers Care Dynamics Ax Consultant Name Role Phone Agueda Shelton Primary Care Provider [phone] Encounter Details Date Type Department Care Team (Late st Contact Info) Description 12/28/2022 Orders Only [facility] Interventional Radiology [address] [place] [address] Paulo Camilo MD [address] [place] [address] [phone] Social History Tobacco Use Types Packs/Day Years [...] Info) Description 04/11/2025 3:30 PM EDT Follow-Up [facility] Liver Transplant Services [address] [place] [address] Meet Reilly MD [address] [place] [phone] documented as of this encounter Visit Diagnoses Not on filedocumented in this encounter Care Teams Dynamics Ax Consultant Relationship Specialty Start Date End Date Agueda Shelton [address] [place] [address] PCP - General 06/16/17 documented as of this encounter
--- OUTSIDE RECORDS SUMMARY | 2025-01-22 10:53 | XMS_ITS | Clinical Summary ---
Author Organization [facility] Address [address] [address] Phone Care Team Providers Care Imitation Marble Mechanic Name Role Phone Agueda Shelton MD Primary Care Provider [phone] Allergies Active Allergy Reactions Criticality Noted Date Comments Nsaids Other (see comments) 01/13/2021 Other 12/30/2021 grapefruit Medications coenzyme Q-10 200 MG capsule Take 1 capsule by mouth 1 (one) time each day Active cyanocobalamin (VITAMIN B-12) 100 MCG tablet Take 1 tablet by mouth 1 (one) time each day Active hydrocortisone 2.5 % cream 1 application by Other route at bed time Active Harmony-3 Fatty Acids (Fish Oil Concentrate) 1000 MG capsule Take 2 capsules by mouth 2 (two) times a day Active folic acid (FOLVITE) 1 MG tablet Take 1 mg by mouth 1 (one) time each day Active saccharomyces boulardii (FLORASTOR) 250 MG capsule Take 250 mg by mouth 1 (one) time each day Active Tacrolimus ER 1 MG capsule sustained-relea se 24 hr Take 1 mg by mouth in the morning and 1 mg in the evening. 2mg in the am, 1 mg at night daily total 3mg. 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, not otherwise specified Take 0.5 tablets (50 mg total) by mouth 1 (one) time each day 45 tablet 3 4 06/06/20 25 Active Cholecalciferol (Vitamin D3) 1.25 MG (07218 UT) capsuleIndicati ons:Vitamin D Deficiency Take 1 capsule by mouth 1 (one) time each day Active predniSONE (DELTASONE) 20 MG tabletIndicatio ns:Idiopathic chronic gout without tophus, not otherwise specified,Stage 3a chronic kidney disease (HCC) Take 2 tablets (40 mg total) by mouth 1 (one) time each day for 5 days TAKE EARLY IN THE DAY WITH FOOD 10 tablet 5 01/06/20 25 Active Problems Problem Noted Date Diagnosed Date Vitamin D deficiency, not otherwise specified Idiopathic chronic gout with out tophus, not otherwise specified 12/07/2024 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, not otherwise specified 10/24/2024 Dysuria 06/09/2024 Drug-induced chronic gout wi thout tophus, not otherwise specified 06/09/2024 Eosinophilic esophagitis 09/02/2022 Stage 3a chronic kidney disease 09/02/2022 Palpitations 12/30/2021 Patent foramen ovale 12/30/2021 Portal hypertension 12/30/2021 Essential (primary) hypertension 12/30/2021 Stage 3a chronic kidney disease 09/03/2021 H/O: liver recipient 01/13/2021 Microalbuminuria 01/13/2021 Poisoning by antineoplastic and immunosuppressiv e drugs 01/13/2021 Resolved Problems Problem Noted Date Diagnosed Date Resolved Date Viral hepatitis C 12/30/2021 12/30/2021 Kidney failure 01/13/2021 09/02/2022 Encounters Date Type Department Care Team Description 01/01/2025 Office Communication [facility] [address] [place] [phone] Anne Akbar MA 12/11/2024 Office Communication [facility] [address] [place] [address] Sukhjinder Khushboo 12/06/2024 3:00 PM EST Office Visit [facility] [address] [place] [address] Kelli Reyes ARNP Stage 3a chronic kidney disease (HCC) (Primary Dx); Essential (primary) hypertension; Idiopathic chronic gout without tophus, not otherwise specified; Vitamin D deficiency, not otherwise specified 12/03/2024 Orders Only [facility] [address] [address] Kelli Reyes ARNP 11/30/2024 Travel 10/28/2024 Orders Only [facility] [address] [facility] [address] [place] [phone] Kelli Reyes ARNP Stage 3a chronic kidney disease (HCC); Essential (primary) hypertension; Drug-induced chronic gout without tophus, not otherwise specified 10/24/2024 Office Communication [facility] [address] [phone] Kelli Reyes ARNP from Last 3 Months Immunizations Name Administration Dates Next Due Influenza TIV (IM) 09/26/2018 Influenza, Quadrivalent, Preservative Free 08/08 Pneumococcal Conjugate 13-Valent 08/08/2020 Zoster 08/09/2020 Family History Medical History Relation Comments Heart disease Mother Hypertension Mother Heart disease Sibling Hypertension Sibling Relation Status Comments Father Mother Sibling Social History Tobacco Use Types Packs/Day Years Used Date Smoking Tobacco: Never Smokeless Tobacco: Never Tobacco Cessation:Counseling Given: No Alcohol Use Standard Drinks/Week Comments No 0 (1 standard drink = 0.6 oz pure alcohol) Alcoholic Drinks/day: Occasional social drink Comments Unknown Sex and Gender Information Value Date Recorded Sex Assigned at Not on file Legal Sex Female 5:09 PM EST Gender Identity Not on file Sexual Orientation Not on file Last Filed Vital Signs Vital Sign Reading Time Taken Comments Blood Pressure 130/70 12/06/2024 3:33 PM EST Pulse 79 12/06/2024 3:33 PM EST Temperature - - Respiratory Rate - - Oxygen Saturation 98% 06/06/2024 2:22 PM EDT Inhaled Oxygen Concentration - - Weight 113 kg (250 lb) 12/06/2024 3:33 PM EST Height 162.6 cm (5' 4 ) 09/03/2021 2:45 PM EDT Body Mass Index 42.91 09/03/2021 2:45 PM EDT Plan of Treatment Upcoming Encounters Date Type Department Care Team (Late st Contact Info) Description 06/05/2025 3:30 PM EDT Office Visit [facility] [address] [address] Kelli Reyes ARNP [address] [address] Health Maintenance Due Date Last Done Comments Breast Cancer Screening 1960 Colorectal Cancer Screening: Annual FOBT 2011 Colorectal Cancer Screening: Colonoscopy 2011 Colorectal Cancer Screening: Sigmoidoscopy 2011 Pneumococcal Vaccine: Pediat rics (0 to 5 Years) and At-Risk Patients (6 to 64 Years) (3 of 3 - PPSV23 or PCV20) 10/03/2020 08/08/2020, 12/25/2012 Hepatitis B Vaccine (1 of 3 - Risk 3-dose series) 2022 Influenza Vaccine (#1) 2024 , 08/08/2020, 09/10/2019, Additional history exists Procedures Procedure Name Priority Date/Time Associated Diagnosis Comments PTH, INTACT Routine 12/03/2024 3:53 PM EST FERRITIN Routine 12/03/2024 3:53 PM EST URIC ACID Routine 12/03/2024 3:53 PM EST VITAMIN D 25 HYDROXY Routine 12/03/2024 3:53 PM EST URINE ALBUMIN / CREATININE RATIO Routine 12/03/2024 3:53 PM EST IRON PANEL (FE, TIBC, TSAT) Routine 12/03/2024 3:53 PM EST CBC Routine 12/03/2024 3:53 PM EST RENAL FUNCTION PANEL Routine 12/03/2024 3:53 PM EST URINALYSIS WITH MICROSCOPIC Routine 12/03/2024 3:53 PM EST MICROSCOPIC EXAMINATION - DO NOT USE Routine 12/03/2024 3:53 PM EST from Last 3 Months Results * Microscopic Examination (12/03/2024 3:53 PM EST) WBC, Urine None seen 0 - 5 /hpf [facility] RBC, Urine None seen 0 - 2 /hpf [facility] Squamous Epithelial, Urine None seen 0 - 10 /hpf [facility] Casts None seen None seen /lpf [facility] Bacteria, Urine None seen None seen/Few [facility] 12/03/2024 3:53 PM EST 12/03/2024 Kelli Reyes [facility] MICROBIOLOGY - GENERAL ORDERABLES Final Result [facility] [address] [place] [address] * Iron Panel (Fe, TIBC, TSAT) (12/03/2024 3:53 PM EST) TIBC 296 250 - 450 ug/dL [facility] UIBC 222 118 - 369 ug/dL [facility] Iron 74 27 - 139 ug/dL [facility] Iron Saturation (TSat) 25 15 - 55 % [facility] 12/03/2024 3:53 PM EST 12/03/2024 Kelli Reyes [facility] BLOOD ORDERABLES Final Result Performing Organization Address City/[facility]/ZIP Co de Phone Number [facility] [address] [place] [address] * Urine Albumin / Creatinine Ratio (12/03/2024 3:53 PM EST) Creatinine, Ur 86.6 Not Estab. mg/dL [facility] Urine Microalbumin 23.6 Not Estab. ug/mL [facility] Microalbumin/Crea tinine Ratio 27 0 - 29 mg/g creat [facility] Comment: ? Normal: ?0 - ??29 ? Moderately increased: 30 - 300 ? Severely increased: ? >300 12/03/2024 3:5 3 PM EST 12/03/2024 Kelli [facility] URINE ORDERABLES Final Result Performing Organization Address City/[facility]/ZIP Co de Phone Number [facility] [place] [address] [place] [address] * Vitamin D 25 Hydroxy (12/03/2024 3:53 PM EST) Vitamin D, 25-OH, Total 30.6 30.0 - 100.0 ng/mL [facility] Comment: Vitamin D deficiency has been defined by the Independence of Medicine and an Endocrine Society practice guideline as a level of serum 25-OH vitamin D less than 20 ng/mL (1,2). The Endocrine Society went on to further define vitamin D insufficiency as a level between 21 and 29 ng/mL (2). 1. IOM (Independence of Medicine). 2010. Dietary reference ?? intakes for calcium and D. [place]: The ?? National Jaco Solarsi Press. 2. Joan MF, Marycruz CORDERO, Armand CHEN, et al. ?? Evaluation, treatment, and prevention of vitamin D ?? deficiency: an Endocrine Society clinical practice ?? guideline. JCEM. 2010; 96(7):1911-30. 12/03/2024 3:53 PM EST 12/03/2024 Kelli Reyes [facility] BLOOD ORDERABLES Final Result [facility] [address] [place] [address] * Urinalysis with microscopic (12/03/2024 3:53 PM EST) Specific [place], Urine 1.010 1.005 - 1.030 [facility] [phone] pH Urine 6.0 5.0 - 7.5 [facility] Color, Urine Yellow Yellow [facility] Appearance Urine Clear Clear [facility] [place] WBC Esterase Urine Negative Negative [facility] Protein, Ur Negative Negative/Tra ce [facility] Glucose, Ur Negative Negative [facility] Ketones, Urine Negative Negative [facility] [place] Blood Urine Negative Negative [facility] Bilirubin Urine Negative Negative [facility] [place] Urobilinogen Urine 0.2 0.2 - 1.0 mg/dL [facility] Nitrite, Urine Negative Negative [facility] Microscopic Examination Comment [facility] Comment:Microscopic follows if indicated. Other Microsc. Observations See below: [facility] Comment:Microscopic was haroon cated and was performed. 12/03/2024 3:53 PM EST 12/03/2024 Kelli [facility] LAB URINE ORDERABLES Final Result [facility] [address] [place] [address] * CBC (12/03/2024 3:53 PM EST) WBC 6.6 3.4 - 10.8 x10E3/uL [facility] RBC 4.42 3.77 - 5.28 x10E6/uL [facility] Hemoglobin 13.6 11.1 - 15.9 g/dL [facility] Hematocrit 40.6 34.0 - 46.6 % [facility] MCV 92 79 - 97 fL [facility] MCH 30.8 26.6 - 33.0 pg [facility] MCHC 33.5 31.5 - 35.7 g/dL [facility] RDW 12.2 11.7 - 15.4 % [facility] Platelets 214 150 - 450 x10E3/uL [facility] 12/03/2024 3:53 PM EST 12/03/2024 Kelli [facility] BLOOD ORDERABLES Final Result Performing Organization Address City/[facility]/ZIP Co de Phone Number [facility] [address] [place] [address] * (ABNORMAL) Uric Acid (12/03/2024 3:53 PM EST) Uric Acid 9.6(H) 3.0 - 7.2 mg/dL [facility] Comment:Therapeutic target f or gout patients: <6.0 12/03/2024 3:53 PM EST 12/03/2024 Kelli [facility] LAB BLOOD ORDERABLES Final Result Performing Organization Address [facility] Co de Phone Number [facility] [address] [place] [address] * PTH, Intact (12/03/2024 3:53 PM EST) PTH 56 15 - 65 pg/mL [facility] 12/03/2024 3:53 PM EST 12/03/2024 Kelli [facility] LAB BLOOD ORDERABLES Final Result Performing Organization Address [facility] Co de Phone Number [facility] [address] [place] [address] * (ABNORMAL) Ferritin (12/03/2024 3:53 PM EST) Ferritin 227(H) 15 - 150 ng/mL [facility] 12/03/2024 3:53 PM EST 12/03/2024 [facility]OD ORDER[facility]LES Final Result Performing Organization Address City/[facility]/ZIP Co de Phone Number [facility] [address] [place] [address] * (ABNORMAL) Renal Function Panel (12/03/2024 3:53 PM EST) Glucose 99 70 - 99 mg/dL [facility] BUN 17 8 - 27 mg/dL [facility] Creatinine 1.12(H) 0.57 - 1.00 mg/dL [facility] eGFR CKD-EPI CR 2020 56(L) >59 mL/min/1.7 3 [facility] BUN/Creatinine Ratio 15 12 - 28 [facility] Sodium 140 134 - 144 mmol/L [facility] Potassium 4.4 3.5 - 5.2 mmol/L [facility] Chloride 103 96 - 106 mmol/L [facility] Bicarbonate (CO2) 23 20 - 29 mmol/L [facility] Calcium 9.2 8.7 - 10.3 mg/dL [facility] Phosphorus 3.5 3.0 - 4.3 mg/dL [facility] Albumin 3.9 3.9 - 4.9 g/dL [facility] 12/03/2024 3:53 PM EST 12/03/2024 Kelli [facility] LAB BLOOD ORDERABLES Final Result [facility] [address] [place] [address] from Last [address] [place] [address] [place] [address] MEDICAID [facility] MEDICAID Care Teams Imitation Marble Mechanic Relationship Specialty Start Date End Date Agueda Shelton MD [address] [place], [place] PCP - General 12/08/20
--- OUTSIDE RECORDS SUMMARY | 2025-01-22 10:53 | XMS_ITS | Encounter Summary ---
Author Organization [facility] Address [address] [facility] [address] [place] [address] Phone Care Team Providers Care Industrial Truck Driver Name Role Phone Agueda Shelton MD Primary Care Provider [phone] Encounter Details Date Type Department Care Team (Late st Contact Info) Description 01/01/2025 Office Communication [facility]. [address] [facility] [address] [place] [phone] Anne Akbar MA [address] [place] [phone] Social History Tobacco Use Types Packs/Day Years [...] encounter Miscellaneous Notes * Telephone Encounter - Anne Akbar MA - 01/01/2025 8:58 AM EST Pt called, is having a gout flare up would like to have a 5 day course of prednisone . She said youhave prescribed this for her in the past [phone] or [phone] documented in this encounter Plan of Treatment Upcoming Encounters Date Type Department Care Team (Late st Contact Info) Description 06/05/2025 3:30 PM EDT Office Visit [facility] [address] [address] Kelli Reyes ARNP [address] [address] documented as of this encounter Visit Diagnoses Not on filedocumented in this encounter Care Teams Industrial Truck Driver Relationship Specialty Start Date End Date Agueda Shelton MD [facility] [place] [address] PCP - General 12/08/20 documented as of this encounter
--- OUTSIDE RECORDS SUMMARY | 2025-01-22 10:53 | XMS_ITS | Encounter Summary ---
Author Organization [facility] Address [address] [place] [address] Care Team Providers Care Oracle Application Consultant Name Role Phone Agueda Shelton Primary Care Provider [phone] Reason for Visit * Reason Onset Date Comments cs- reschdule appt 03/07/2023 Encounter Details Date Type Department Care Team (Late st Contact Info) Description 03/07/2023 Telephone [facility] Central Scheduling Department [address] [place] [address] Telephone Intake, Staff cs- reschdule appt Social History Tobacco Use Types Packs/Day Years [...] PM EST documented as of this encounter Miscellaneous Notes * Telephone Encounter - Georgie Arreola - 03/07/2023 3:47 PM EDT Pt needs a soon appt. She is having lesions on over body and some are changing colors, painful, itchy and bleed if you hit them. documented in this encounter Plan of Treatment Upcoming Encounters Date Type Department Care Team (Late st Contact Info) Description 04/11/2025 3:30 PM EDT Follow-Up [facility] [address] [place] [address] Meet Reilly MD [address] [place], [place] [phone] documented as of this encounter Visit Diagnoses Not on filedocumented in this encounter Care Teams Oracle Application Consultant Relationship Specialty Start Date End Date Agueda Shelton [address] [place] [address] PCP - General 06/16/17 documented as of this encounter
--- OUTSIDE RECORDS SUMMARY | 2025-01-22 10:53 | XMS_ITS | Encounter Summary ---
Author Organization [facility] Address [address] [place] [address] Care Team Providers Care Marketing Communications Associate Name Role Phone Agueda Shelton Primary Care Provider [phone] Encounter Details Date Type Department Care Team (Late st Contact Info) Description 04/06/2017 Orders Only [facility] Building [address] [place] [address] Meet Reilly MD [address] [place] [address] Social History Tobacco Use Types Packs/Day Years Used Date Smoking Tobacco: Never Assessed Comments Unknown Sex and Gender Information Value Date Recorded Sex Assigned at Female 12/08/2022 11:51 PM EST Legal Sex Female 12:40 PM EDT Gender Identity Female 12/08/2022 11:51 PM EST Sexual Orientation Straight 12/08/2022 11 :51 PM EST documented as of this encounter Plan of Treatment Upcoming Encounters Date Type Department Care Team (Late st Contact Info) Description 04/11/2025 3:30 PM EDT Follow-Up [facility] [address] [place], [place] [phone] Meet Reilly MD [address] [place], [place] [phone] documented as of this encounter Visit Diagnoses Not on filedocumented in this encounter Care Teams Marketing Communications Associate Relationship Specialty Start Date End Date Agueda Shelton [address] [place] [address] PCP - General 06/16/17 documented as of this encounter
--- OUTSIDE RECORDS SUMMARY | 2025-01-22 10:53 | XMS_ITS | Encounter Summary ---
Author Organization [facility] Address [address] [place] [address] Care Team Providers Care Personal Injury Law Specialist Name Role Phone Agueda Shelton Primary Care Provider [phone] Encounter Details Date Type Department Care Team (Late st Contact Info) Description 05/09/2017 Orders Only [facility] Building [address] [place] [address] Meet Reilly MD [address] [place] [address] Social History Tobacco Use Types Packs/Day Years [...] Description 04/11/2025 3:30 PM EDT Follow-Up [facility] [address] [place], [place] [phone] Meet Reilly MD [address] [place], [place] [phone] documented as of this encounter Visit Diagnoses Not on filedocumented in this encounter Care Teams Personal Injury Law Specialist Relationship Specialty Start Date End Date Agueda Shelton [address] [place] [address] PCP - General 06/16/17 documented as of this encounter
--- OUTSIDE RECORDS SUMMARY | 2025-01-22 10:53 | XMS_ITS | Encounter Summary ---
Author Organization [facility] Address [address] [place] [address] Phone Care Team Providers Care Hop Grower Name Role Phone Agueda Shelton MD Primary Care Provider Encounter Details Date Type Department Care Team (Late st Contact Info) Description 06/06/2024 Office Communication [facility] [address] [place] [phone] Kelli Reyes ARNP [address] [phone] Social History Tobacco Use Types Packs/Day Years [...] Visit [facility] [address] [facility] [address] [place] [address] Kelli Reyes ARNP [address] [address] documented as of this encounter Visit Diagnoses Not on filedocumented in this encounter Care Teams Hop Grower Relationship Specialty Start Date End Date Agueda Shelton MD [address] [place] [address] PCP - General 12/08/20 documented as of this encounter
--- OUTSIDE RECORDS SUMMARY | 2025-01-22 10:53 | XMS_ITS ---
Author Organization [facility] Address [address] [place] [address] Care Team Providers Care Bilingual Office Assistant Name Role Phone Nikita Ashlirosalia Primary Care Provider [phone] Transplant Episode Liver Recipient [facility] ([place], [place]) - [facility] Organ Received: Liver Transplanted on 11/20/2013 Marked as Active Follow-up on 11/20/2013 Liver CoordinatorYoli Kent RN Phone: N/A Fax: N/A Email: N/A [place] Organ Diagnosis Organ Primary Contributory Liver Cirrhosis: Type C Infection History Noted Survival Infection Treatment Organism Resolved 03/05/2015 1 year 3 months Genital herpes in women Donor Information Organ ABO Source Meets Risk Criteria HLA Match Mismatches Cross Match Liver Transplanted O DBD Yes A: B: DR: Liver Donor Serology Results Anti-CMV CMV IgG: Positive EBV IgG EBV VCA IgG: Positive Anti-HBcAb HBC Total: Negative HBsAg HBsAg: Negative HBV DNA No results on file Anti-HCV HCV: Negative Anti-HIV I/II HIV-1: Negative Anti-HTLV I/II HTLV: Not Done RPR/VDRL RPR: Negative EBV IgM EBV VCA IgM: Negative HBsAb HBsAb: Not Done EBNA No results on file HBC Total HBC Total: Negative SARS CoV-2 No results on file Care Team Name Role Phone Fax Email Yoli Kent RN Liver Coordinator N/A N/A N/A Meet Reilly MD Soaking Tank Worker [phone] [email or web address] Diomedes Chun Referring Physician [phone] N/A Events Post-Transplant Pre-Transplant Admitted: 11/13/2013 Referred: 07/09/2010 Transplanted: 11/20/2013 Evaluation began: 1 Discharged: 12/18/2013 Committee: 12/11/2010 Center waitlisted: 1
== END 2025-01-18 09:41 | disposition home or self-care (01) ==
LOC: HO.HOSX 09:40
PROVIDERS: Visit Provider Physician Assistant
DX: Z13.89 Encounter for screening for other disorder (principal)

== ENCOUNTER 2025-02-26 14:18 | Outpatient (REF) | payer OTHER, SELFPAY ==
--- OUTSIDE RECORDS SUMMARY | 2025-02-26 17:05 | XMS_ITS | Encounter Summary ---
Author Organization [facility] Address [address] [place] [address] Phone Care Team Providers Care Experimental Psychologist Name Role Phone Agueda Shelton MD Primary Care Provider [phone] Encounter Details Date Type Department Care Team ([facility] Contact Info) Description 08/26/2022 Telephone [facility] [address] [place] [phone] Kimberly Archibald MD Social History Tobacco Use [...] Please correct and resend to [facility] [place]. Thank you documented in this encounter Plan of Treatment Upcoming Encounters Date Type Department Care Team (Late st Contact Info) Description 06/05/2025 3:30 PM EDT Office Visit [facility] [address] [address] Kelli Reyes ARNP [address] [address] documented as of this encounter Visit Diagnoses Not on filedocumented in this encounter Care Teams Experimental Psychologist Relationship Specialty Start Date End Date Agueda Shelton MD [address] [place] [address] PCP - General 12/08/20 documented as of this encounter
--- OUTSIDE RECORDS SUMMARY | 2025-02-26 17:05 | XMS_ITS | Encounter Summary ---
Author Organization [facility] Address [address] [place] [address] Phone Care Team Providers Care Small Wind Energy Installer Name Role Phone Agueda Shelton MD Primary Care Provider [phone] Encounter Details Date Type Department Care Team (Late st Contact Info) Description 11/04/2022 Telephone [facility] [address] [place] [phone] Kimberly Archibald MD Social History Tobacco Use [...] [facility] [address] [address] Kelli Reyes ARNP [address] [address] documented as of this encounter Visit Diagnoses Not on filedocumented in this encounter Care Teams Small Wind Energy Installer Relationship Specialty Start Date End Date Agueda Shelton MD [facility] [place] [address] PCP - General 12/08/20 documented as of this encounter
--- OUTSIDE RECORDS SUMMARY | 2025-02-26 17:05 | XMS_ITS | Encounter Summary ---
Author Organization [facility] Address [address] [place] [address] Phone Care Team Providers Care Needle Punch Machine Operator Name Role Phone Agueda Shelton MD Primary Care Provider [phone] Encounter Details Date Type Department Care Team (Late st Contact Info) Description 12/09/2022 Telephone [facility] [address] [place] [phone] Kelli Eubanks Social History Tobacco Use Types [...] Office Visit [facility][1] [address] [address] Kelli Reyes ARNP [address] [address] documented as of this encounter Visit Diagnoses Not on filedocumented in this encounter Care Teams Needle Punch Machine Operator Relationship Specialty Start Date End Date Agueda [place] [address] PCP - General 12/08/20 documented as of this encounter
--- OUTSIDE RECORDS SUMMARY | 2025-02-26 17:06 | XMS_ITS | Encounter Summary ---
Author Organization [facility] Address [address] [facility] [address] [place] [address] Phone Care Team Providers Care Process Tank Tender Name Role Phone Agueda Shelton MD Primary Care Provider [phone] Reason for Visit * Reason Onset Date Comments Med Refill 02/19/2025 Encounter Details Date Type Department Care Team (Late Contact Info) Description 02/19/2025 Refill [facility] [address] [facility] [address] [place] [phone] Anne Akbar MA [address] [place] [phone] Social History Tobacco Use Types Packs/Day Years [...] Encounters Date Type Department Care Team (Late Contact Info) Description 06/05/2025 3:30 PM EDT Office Visit [facility] [address] [facility] [address] [place] [address] Kelli Reyes ARNP [address] [facility] [address] [place] [address] documented as of this encounter Visit Diagnoses Not on filedocumented in this encounter Care Teams Process Tank Tender Relationship Specialty Start Date End Date Agueda Shelton MD [facility] [place] [address] PCP - General 12/08/20 documented as of this encounter
--- OUTSIDE RECORDS SUMMARY | 2025-02-26 17:06 | XMS_ITS | Encounter Summary ---
Author Organization [facility] Address [address] [place] [address] Phone Care Team Providers Care Ripening Room Hand Name Role Phone Agueda Shelton MD Primary Care Provider [phone] Encounter Details Date Type Department Care Team (Late st Contact Info) Description 06/06/2024 Office Communication [facility] [address] [place] [phone] Kelli Reyes ARNP [address] [phone] Social History Tobacco Use Types Packs/Day Years [...] Visit [facility] [address] [facility] [address] [place] [phone] Kelli Reyes ARNP [address] [address] documented as of this encounter Visit Diagnoses Not on filedocumented in this encounter Care Teams Ripening Room Hand Relationship Specialty Start Date End Date Agueda Shelton MD [address] [place] [address] PCP - General 12/08/20 documented as of this encounter
--- OUTSIDE RECORDS SUMMARY | 2025-02-26 17:06 | XMS_ITS | Encounter Summary ---
Author Organization [facility] Address [address] [place] [address] Care Team Providers Care Mechanical Applications Engineer Name Role Phone Agueda Shelton Primary Care Provider [phone] Encounter Details Date Type Department Care Team (Late st Contact Info) Description 04/06/2017 Orders Only [facility] Building [address] [place] [address] Meet Reilly MD [address] [place] [address] Social History Tobacco Use Types Packs/Day Years [...] Info) Description 04/11/2025 3:30 PM EDT Follow-Up [facility] Transplant Services [address] [place], [place] [phone] Meet Reilly MD [address] [place], [place] [phone] documented as of this encounter Visit Diagnoses Not on filedocumented in this encounter Care Teams Mechanical Applications Engineer Relationship Specialty Start Date End Date Agueda Shelton [address] [place] [address] PCP - General 06/16/17 documented as of this encounter
--- OUTSIDE RECORDS SUMMARY | 2025-02-26 17:06 | XMS_ITS | Encounter Summary ---
Author Organization [facility] Address [address] [place] [address] Care Team Providers Care Sandwich Hand Name Role Phone Agueda Shelton Primary Care Provider [phone] Reason for Visit * Reason Onset Date Comments cs- reschdule appt 03/07/2023 Encounter Details Date Type Department Care Team (Late st Contact Info) Description 03/07/2023 Telephone [facility] Central Scheduling Department [address] [place] [address] Telephone Intake, Staff cs- reschdule appt Social [...] Info) Description 04/11/2025 3:30 PM EDT Follow-Up [facility] Transplant Services [address] [place] [address] Meet Reilly MD [address] [place], [place] [phone] documented as of this encounter Visit Diagnoses Not on filedocumented in this encounter Care Teams Sandwich Hand Relationship Specialty Start Date End Date Agueda Shelton [address] [place] [address] PCP - General 06/16/17 documented as of this encounter
--- OUTSIDE RECORDS SUMMARY | 2025-02-26 17:06 | XMS_ITS | Encounter Summary ---
Author Organization [facility] Address [address] [place] [address] Phone Care Team Providers Care Trimmer Loader Name Role Phone Agueda Shelton MD Primary Care Provider [phone] Encounter Details Date Type Department Care Team (Late Contact Info) Description 03/02/2021 Orders Only [facility] [address] [place] [phone] Kimberly Archibald MD Stage 3a chronic kidney [...] Visit [facility] [address] [facility] [address] [place] [address] Kelli Reyes ARNP [address] [facility] [address] [place] [address] documented as of this encounter [...] PM EDT) Appearance COLORLESS [facility] Comment:CLEAR Specific Murdock 1.009 (1.002-1. 030) [facility] pH Urine 6.0 (5.0-8.0) [facility] Albumin, Urine NEGATIVE (NEG) [facility] Glucose, Ur NEGATIVE (NEG) [facility] Ketones, Urine NEGATIVE (NEG) [facility] Bilirubin Urine NEGATIVE (NEG) [facility] Hemoglobin Presence in Urine NEGATIVE (NEG) [facility] Nitrite, Urine NEGATIVE (NEG) [facility] Leukocyte Esterase Urine 1+(A) (NEG) [facility] Urobilinogen Urine NORMAL (NORM) MG/DL [facility] WBC, Urine 3 (0-5) /HPF [facility] RBC, Urine <1 (0-3) /HPF [facility] Bacteria SLIGHT(A) (NEG) HPF [facility] Squamous Epithelial, Urine 3 (0-8) /HPF [facility] Comment: Testing performed or reported by [facility], a Service of [facility], [address] [place] [address] Gene Vu MD, Chemical Compounder Urine (Urine, Clean Catch) 03/26/2021 2:39 PM EDT 03/26/2021 2:42 PM EDT Kimberly Archibald MD LAB URINE ORDERABLES Final Resu lt [facility] * Urine Culture (03/26/2021 2:38 PM EDT) Specimen Description See Comment See Comment See Comment See Comment [facility] Comment: URINE NONE Reflexed from [id number] <10,000 COL/ML FINAL 03/28/2021 Testing performed or reported by [facility], a Service of [facility], [address] [place] [address] [place] [address] Darren Garcia MD, Chemical Compounder 03/26/2021 2:38 PM EDT 03/26/2021 2:42 PM EDT James Forrest MD LAB URINE ORDERABLES Final Re sult [facility] * (ABNORMAL) Urine Albumin / Creatinine Ratio (03/26/2021 2:38 PM EDT) Urine Microalbumin 14.1 (<20) MG/L [facility] Comment: The urine microalbumin test is designed to monitor renal function. When screening for Bence Garcia proteinuria, urine electrophoresis is recommended. Microalbumin/Creati nine Ratio 23.8(H) (0-20) MG/GM [facility] Microalb/Creat Ratio 59.3 MG/DL [facility] Comment: Testing performed or reported by [facility], a Service of [facility], [address] [place] [address] Gene Vu MD, Chemical Compounder 03/26/2021 2:38 PM EDT 03/26/2021 2:42 PM EDT James Forrest MD LAB URINE ORDERABLES Final Re sult [facility] * (ABNORMAL) UA w/Reflex Culture (03/26/2021 2:38 PM EDT) Appearance COLORLESS [facility] Comment:CLEAR Specific Murdock 1.009 (1.002-1. 030) [facility] pH Urine 6.0 (5.0-8.0) [facility] Albumin, Urine NEGATIVE [facility] Glucose, Ur NEGATIVE (NEG) [facility] Ketones, Urine NEGATIVE (NEG) [facility] Bilirubin Urine NEGATIVE (NEG) [facility] Hemoglobin Presence in Urine NEGATIVE (NEG) [facility] Nitrite, Urine NEGATIVE (NEG) [facility] Leukocyte Esterase Urine 1+(A) (NEG) [facility] Urobilinogen Urine NORMAL (NORM) MG/DL [facility] WBC, Urine 3 (0-5) /HPF [facility] RBC, Urine <1 (0-3) /HPF [facility] Bacteria SLIGHT(A) (NEG) HPF [facility] Squamous Epithelial, Urine 3 (0-8) /HPF [facility] Clarity CLEAR (CLEAR) [facility] CULTURE INDICATED CULTURE INDICATED [facility] Comment: Testing performed or reported by [facility], a Service of [facility], [address] [place] [address] Gene Vu MD, Chemical Compounder 03/26/2021 2:38 PM EDT 03/26/2021 2:42 PM EDT James Forrest MD LAB URINE ORDERABLES Final Re sult [facility] * (ABNORMAL) CBC and differential (03/26/2021 2:20 PM EDT) White Blood Cells 4.9 (4.0-11.0) K/MM3 [facility] RBC 4.22 (4.20-5.40 ) M/MM3 [facility] Hgb 12.6 (11.7-15.5 ) GM/DL [facility] Hematocrit 40.0 (35.7-45.8 ) % [facility] MCV 94.8 (80.0-100. 0) FL [facility] MCH 29.9 (27.0-34.0 ) PG [facility] MCHC 31.5(L) (33.0-37.0 ) g/dL [facility] Platelets 229 (150-460) K/MM3 [facility] RDW-SD 42.7 (<47.0) FL [facility] MPV 9.9 (9.4-12.4) FL [facility] nRBC Count 0.0 #/100 WBC'S [facility] NRBC Absolute 0.0 K/MM3 [facility] Neutrophils Abs Auto 2.8 (1.3-7.0) K/MM3 [facility] Lymphocytes Relative 1.4 (0.8-3.1) K/MM3 [facility] Monocytes 0.4 (0.4-0.9) K/MM3 [facility] Eosinophils Relative 0.2 (0.0-0.4) K/MM3 [facility] Basophil ABS 0.0 (0.0-0.1) K/MM3 [facility] Granulocytes Absolute 0.0 K/MM3 [facility] Neutrophils % Auto 57.1 (44-76) % [facility] Lymphs 28.6 (15-43) % [facility] Monocytes Absolute 8.4 (4.5-10.5) % [facility] Eosinophils 4.9 (0-6) % [facility] Basophils Relative 0.4 (0-2) % [facility] Immature Granulocytes 0.6 % [facility] Comment: Testing performed or reported by [facility], a Service of [facility], [address] [place] [address] Gene Vu MD, Chemical Compounder Blood (Blood, Venous) 03/26/2021 2:20 PM EDT 03/26/2021 2:34 PM EDT Kimberly Archibald MD LAB BLOOD ORDERABLES Final Resu lt Performing Organization Address City/[facility]/ZIP Co de Phone Number [facility] * Magnesium (03/26/2021 2:20 PM EDT) Magnesium 2.0 (1.6-2.3) mg/dL [facility] Comment: Testing performed or reported by [facility], a Service of [facility], [address] [place] [address] Gene Vu MD, Chemical Compounder Blood (Blood, Venous) 03/26/2021 2:20 PM EDT 03/26/2021 2:34 PM EDT Kimberly Archibald MD LAB BLOOD ORDERABLES Final Resu lt Performing Organization Address [facility] de Phone Number [facility] * (ABNORMAL) Tacrolimus level (03/26/2021 2:20 PM EDT) Tacrolimus Lvl 4.8(L) (5-20) NG/ML [facility] Comment: As of January 18, 2018, Tacrolimus method has been changed from liquid chromatography mass spectrometry (LC-MS/MS) to immunoassay based method (Anderson Operations Forester). ??The new method could produce measurements that are approximately 15% higher than LC-MS/MS. Reference range(s) correspond to the new method. Testing performed or reported by [facility], a Service of [facility], [address] [place] [address] Darren Garcia MD, Chemical Compounder Blood (Blood, Venous) 03/26/2021 2:20 PM EDT 03/26/2021 2:34 PM EDT Kimberly Archibald MD LAB BLOOD ORDERABLES Final Resu lt Performing Organization Address [facility]/ZIP Co de Phone Number [facility] * Vitamin D 25 hydroxy (03/26/2021 2:20 PM EDT) Vitamin D, 25-Hydroxy 30.0 (20-50) NG/ML [facility] Comment: Testing performed or reported by [facility], a Service of [facility], [address] [place] [address] Gene Vu MD, Chemical Compounder Blood (Blood, Venous) 03/26/2021 2:20 PM EDT 03/26/2021 2:34 PM EDT Kimberly Archibald MD LAB BLOOD ORDERABLES Final Resu lt Performing Organization Address [facility] Co de Phone Number [facility] * (ABNORMAL) PTH, intact (03/26/2021 2:20 PM EDT) PTH, Intact 85(H) (15-65) PG/ML [facility] Comment: Testing performed or reported by [facility], a Service of [address] [address] Gene Vu MD, Chemical Compounder Blood (Blood, Venous) 03/26/2021 2:20 PM EDT 03/26/2021 2:34 PM EDT Kimberly Archibald MD LAB BLOOD ORDERABLES Final Resu lt Performing Organization Address [facility] de Phone Number [facility] * (ABNORMAL) Uric acid (03/26/2021 2:20 PM EDT) Uric Acid 10.8(H) (1.6-7.6) MG/DL [facility] Comment: Testing performed or reported by [facility], a Service of [address] [address] Gene Vu MD, Chemical Compounder Blood (Blood, Venous) 03/26/2021 2:20 PM EDT 03/26/2021 2:34 PM EDT Kimberly Archibald MD LAB BLOOD ORDERABLES Final Resu lt Performing Organization Address [facility] de Phone Number [facility] * (ABNORMAL) Renal function panel (03/26/2021 2:20 PM EDT) Glucose 108(H) (70-99) MG/DL [facility] BUN 24(H) (6-20) MG/DL [facility] Creatinine 1.2(H) (0.5-1.0) MG/DL [facility] Sodium 139 (133-145) MMOL/L [facility] Potassium 4.8 (3.6-5.2) MMOL/L [facility] Chloride 105 (98-107) MMOL/L [facility] Bicarbonate (CO2) 25 (22-29) MMOL/L [facility] Anion Gap 9 (4-17) [facility] Albumin 4.5 (3.4-4.8) GM/DL [facility] Calcium 9.3 (8.6-10.5) MG/DL [facility] Phosphorus, Serum 3.8 (2.5-4.5) MG/DL [facility] Est GFR Non 50 ML/MIN/1.7 3 M2 [facility] Comment: Creatinine based estimated glomerular filtration rate (eGFR) is calculated using the Chronic Kidney Disease Epidemiology Collaboration (CKD-EPI). The CKD-EPI creatinine equation has not been validated in children (<18 years), women or in some racial or ethnic subgroups other than Caucasians and Americans. EST GFR 58 ML/MIN/1.7 3 M2 [facility] Comment: Creatinine based estimated glomerular filtration rate (eGFR) is calculated using the Chronic Kidney Disease Epidemiology Collaboration (CKD-EPI). The CKD-EPI creatinine equation has not been validated in children (<18 years), women or in some racial or ethnic subgroups other than Caucasians and Americans. Testing performed or reported by [facility], a Service of [facility], [address] [place] [address] Gene Vu MD, Chemical Compounder Blood (Blood, Venous) 03/26/2021 2:20 PM EDT 03/26/2021 2:34 PM EDT Kimberly Archibald MD LAB BLOOD ORDERABLES Final Resu lt [facility] documented in this encounter Visit Diagnoses Diagnosis Stage 3a chronic kidney disease (HCC) H/O: liver recipient (HCC) documented in this encounter Care Teams Trimmer Loader Relationship Specialty Start Date End Date Agueda Shelton MD [address] [place] [address] PCP - General 12/08/20 documented as of this encounter
--- OUTSIDE RECORDS SUMMARY | 2025-02-26 17:06 | XMS_ITS | Clinical Summary ---
Author Organization [facility] Address [address] [place] [address] Care Team Providers Care Mortgage Consultant Name Role Phone Agueda Shelton Primary Care Provider Allergies No known active allergies Medications cyanocobalamin, [...] Refills: 5 MARKOSIGRISEL, SUSANNA N.P.; Started 11-Dec-2013 [id number] Active colchicine (COLCRYS) 0.6 [...] Department Care Team Description 01/10/2025 Orders Only [facility] Transplant Department [address] [place] [address] Yoli Kent, RN Liver replaced by transplant (Primary Dx); Immunosuppression from Last 3 Months Immunizations Immunization Administration Dates Next Due COVID-19, Pfizer, mRNA, Biva lent Booster, PF, 30 mcg/0.3 mL dose (for age 12 y and up) 04/09/2023,09/24/2022 Covid-19, Pfizer, mRNA, Hinds valent, PF 30 mcg/0.3 mL dose (for ages 12 and older) 07/17/2021,03/16/2021,02/21/2021 Covid-19, Pfizer, mRNA, Hinds valent, PF, 30 mcg/0.3 mL dose, dnaie-sucrose (COMIRNATY)(for ages 12 and older) 07/10/2022,01/25/2022 Covid-19, [...] Info) Description 04/11/2025 3:30 PM EDT Follow-Up [facility] Transplant Services [address] [place] [address] Meet Reilly MD [address] [place] [address] Health Maintenance Due Date Last Done [...] 08/07/2024, 08/09/2020, 12/25/2012 Procedures * Due to [place] [employer] law, this organization might not be sharing [...] to Health Maintenance Results * Due to [place] law, this organization might not be sharing negative HIV tests. * Comprehensive Metabolic Panel, Outside Lab (09/27/2017 12:56 PM EDT) Sodium 141 mmol/L [facility] Potassium 4.6 [facility] Chloride 103 [facility] Carbon Dioxide 26 [facility] Glucose 96 [facility] BUN 19 mg/dL [facility] Creatinine 1.2 [facility] Calcium 9.3 mg/dL [facility] Total Protein 6.7 g/dL [facility] Albumin 4.8 g/dL [facility] Bilirubin, Total 0.7 mg/dL [facility] Alkaline Phosphatase 81 U/L [facility] AST 24 U/L [facility] ALT 51 U/L [facility] Blood specimen (specimen) Structure of peripheral vein / Unknown 09/27/2017 12:56 PM EDT us Unknown Provider LAB BLOOD ORDERABLES Final R esult Performing Organization Address City/State/[facility] Co de Phone Number [facility] [address] [place] [phone] * COLONOSCOPY (02/17/2016 9:07 AM EDT) Narrative [...] Qual TMA Not detected () [facility] Comment: Reference Range: ??Not detected The limit of detection for this assay is 5.3 IU/mL. This test was performed using the Versant (R) HCV RNA Qualitative Assay (TMA). Test Performed by Galina Mars, [facility], [address] [place], [place] Godfrey Hernandez M.D., Ph.D., Director of Laboratories , CLIA [id number] 08/28/2014 11:5 6 AM EDT 08/28/2014 1:54 PM EDT us Meet Reilly MD LAB BLOOD ORDERABLES Final Re sult [facility] [address] [place], [place] , [place] * CT Chest W [...] intravenous contrast; exact amount is documented in interventional radiology technologist 's exam notes. ??One and 5mm Axial [...] intravenous contrast; exact amount is documented in interventional radiology technologist 's exam notes. One and 5mm Axial [...] Per this written report. Michael Severino MD IMG CT PROCEDURES Final Res ult from Last 3 Months or Most Recently Relevant to Health Maintenance Insurance [place] [address] Advance Directives Documents on File Type Date Recorded Patient Bread Room Hand Expl anation Advance Directive 12/19/2013 12:00 AM Adva nce Care Directives Advance Directive 12/04/2010 12:00 AM [facility] dical Dec Making (Adv.Dir) * Full Code (Latest Code Status on File) Date Activated Date Inactivated Comments 08/11/2022 3:27 PM 08/11/2022 7:32 PM Care Teams Mortgage Consultant Relationship Specialty Start Date End Date Nikita Ashlirosalia [address] [place] [address] PCP - General 06/16/17
--- OUTSIDE RECORDS SUMMARY | 2025-02-26 17:06 | XMS_ITS | Encounter Summary ---
Author Organization [facility] Address [address] [place] [address] Care Team Providers Care Registered Associate Name Role Phone Agueda Shelton Primary Care Provider [phone] Encounter Details Date Type Department Care Team (Late st Contact Info) Description 08/31/2017 Transplant Conversio n Encounter [facility] [address] [place], [place] [phone] Provider, Historical [facility] Social History Tobacco Use Types Packs/Day Years [...] Info) Description 04/11/2025 3:30 PM EDT Follow-Up [facility] Transplant Services [address] [place], [place] [phone] Meet Reilly MD [address] [place], [place] [phone] documented as of this encounter Visit Diagnoses Not on filedocumented in this encounter Care Teams Registered Associate Relationship Specialty Start Date End Date Agueda Shelton [address] [place] [address] PCP - General 06/16/17 documented as of this encounter
--- OUTSIDE RECORDS SUMMARY | 2025-02-26 17:06 | XMS_ITS | Encounter Summary ---
Author Organization [facility] Address [address] [place] [address] Care Team Providers Care Lab Animal Technician Name Role Phone Agueda Shelton Primary Care Provider [phone] Encounter Details Date Type Department Care Team (Late st Contact Info) Description 05/09/2017 Orders Only [facility] Building [address] [place] [address] Meet Reilly MD [address] [place] [phone] Social History Tobacco Use Types Packs/Day Years [...] Info) Description 04/11/2025 3:30 PM EDT Follow-Up [facility] [address] [place], [place] [phone] Meet Reilly MD [address] [place], [place] [phone] documented as of this encounter Visit Diagnoses Not on filedocumented in this encounter Care Teams Lab Animal Technician Relationship Specialty Start Date End Date Agueda Shelton [address] [place] [address] PCP - General 06/16/17 documented as of this encounter
--- OUTSIDE RECORDS SUMMARY | 2025-02-26 17:06 | XMS_ITS | Clinical Summary ---
Author Organization [facility] Address [address] [address] Phone Care Team Providers Care Unit Nurse Name Role Phone Agueda Shelton MD Primary Care Provider [phone] Allergies Active Allergy Reactions Criticality Noted Date Comments Nsaids Other (see comments) 01/13/2021 Other 12/30/2021 grapefruit Medications coenzyme Q-10 200 MG capsule Take 1 capsule by mouth 1 (one) time each day Active cyanocobalamin (VITAMIN B-12) 100 MCG tablet Take 1 tablet by mouth 1 (one) time each day Active hydrocortisone 2.5 % cream 1 application by Other route at bed time Active [place]-3 Fatty Acids (Fish Oil Concentrate) 1000 MG capsule Take 2 capsules by mouth 2 (two) times a day Active folic acid (FOLVITE) 1 MG tablet Take 1 mg by mouth 1 (one) time each day Active saccharomyces boulardii (FLORASTOR) 250 MG capsule Take 250 mg by mouth 1 (one) time each day Active Tacrolimus ER 1 MG capsule sustained-rele ase 24 hr Take 1 mg by mouth [...] Turmeric 500 MG capsule Take by mouth Activ e propranolol (INDERAL) 10 MG tablet Take 10 mg by mouth 1 (one) time each day Active allopurinol (ZYLOPRIM) 100 MG tabletIndicati ons: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, not otherwise specified Take 0.5 tablets (50 mg total) by mouth 1 (one) time each day 45 tablet 3 4 025 Active Cholecalcifero l (Vitamin D3) 1.25 MG (05619 UT) capsuleIndicat ions:Vitamin D Deficiency Take 1 capsule by mouth 1 (one) time each day Active predniSONE (DELTASONE) 20 MG tablet Take 20 mg by mouth 1 (one) time each day Take 1 tablet 2x daily for five days for gout 025 Discontinu ed(Reorder (does not appear on AVS)) predniSONE (DELTASONE) 20 MG tabletIndicati ons:Acute gout Take 2 tablets (40 mg total) by mouth 1 (one) time each day if needed (Gout flare) for up to 4 days 8 tablet 5 025 Active Problems Problem Noted Date Diagnosed Date [...] Encounters Date Type Department Care Team Description 02/19/2025 Refill [facility] [address] [address] Anne Akbar [place] 01/01/2025 Office Communication [facility] [address] [address] Anne Akbar MA 12/11/2024 Office Communication [facility] [address] [phone] Khushboo Slaughter 12/06/2024 3:00 PM EST Office Visit [facility] [address] [address] Kelli Reyes ARNP Stage 3a chronic kidney disease (HCC) (Primary Dx); Essential (primary) hypertension; Idiopathic chronic gout without tophus, not otherwise specified; Vitamin D deficiency, not otherwise specified 12/03/2024 Orders Only [facility] [address] [address] Kelli Reyes ARNP 11/30/2024 Travel from Last 3 Months Immunizations Name Administration [...] [facility] [address] [address] Kelli Reyes ARNP [address] [address] Health Maintenance Due Date Last [...] 3-dose series) 2022 Influenza Vaccine (#1) 2024 1, 08/08/2020, 09/10/2019, Additional history exists Procedures Procedure [...] None seen 0 - 5 /hpf [facility] RBC, Urine None seen 0 - 2 /hpf [facility] Squamous Epithelial, Urine None seen 0 - 10 /hpf [facility] Casts None seen None seen /lpf [facility] Bacteria, Urine None seen None seen/Few [facility] 12/03/2024 3:53 PM EST 12/03/2024 Kelli Eric JONESP LAB MICROBIOLOGY - GENERAL ORDERABLES Final Result [facility] [address] [place] [address] * Iron Panel (Fe, TIBC, TSAT) (12/03/2024 3:53 PM EST) TIBC 296 250 - 450 ug/dL [facility] UIBC 222 118 - 369 ug/dL [facility] Iron 74 27 - 139 ug/dL [facility] Iron Saturation (TSat) 25 15 - 55 % [facility] 12/03/2024 3:53 PM EST 12/03/2024 Kelli Reyes [facility] LAB BLOOD ORDERABLES Final Result Performing Organization Address City/[facility] Co de Phone Number [facility] [place] [address] [place] [address] * Urine Albumin / Creatinine Ratio (12/03/2024 3:53 PM EST) Creatinine, Ur 86.6 Not Estab. mg/dL [facility] Urine Microalbumin 23.6 Not Estab. ug/mL [facility] Microalbumin/Crea tinine Ratio 27 0 - 29 mg/g creat [facility] Comment: ? Normal: ?0 - ??29 ? Moderately increased: 30 - 300 ? Severely increased: ? >300 12/03/2024 3:53 PM EST 12/03/2024 Kelli Reyes [facility] LAB URINE ORDERABLES Final Result Performing Organization Address City/[facility]/ZIP Co de Phone Number [facility] [address] [place] [address] * Vitamin D 25 Hydroxy (12/03/2024 3:53 PM EST) Vitamin D, 25-OH, Total 30.6 30.0 - 100.0 ng/mL [facility] Comment: Vitamin D deficiency has been defined by the [place] of Medicine and an Endocrine Society practice guideline as a level of serum 25-OH vitamin D less than 20 ng/mL (1,2). The Endocrine Society went on to further define vitamin D insufficiency as a level between 21 and 29 ng/mL (2). 1. IOM ([place] of Medicine). 2010. Dietary reference ?? intakes for calcium and D. [place]: The ?? National AcademAquamarine Power Press. 2. Joan MF, Marycruz CORDERO, Armand CHEN, et al. ?? Evaluation, treatment, and prevention of vitamin D ?? deficiency: an Endocrine Society clinical practice ?? guideline. JCEM. 2010; 96(7):1911-30. 12/03/2024 3:53 PM EST 12/03/2024 Kelli Reyes [facility] LAB BLOOD ORDERABLES Final Result [facility] [address] [place] [address] * Urinalysis with microscopic (12/03/2024 3:53 PM EST) Specific [place], Urine 1.010 1.005 - 1.030 [facility] pH Urine 6.0 5.0 - 7.5 [facility] [phone] Color, Urine Yellow Yellow [facility] Appearance Urine Clear Clear Lab [facility] [place] [phone] WBC Esterase Urine Negative Negative [facility] Protein, Ur Negative Negative/Tra ce [facility] [phone] Glucose, Ur Negative Negative [facility] [phone] Ketones, Urine Negative Negative [facility] [place] Blood Urine Negative Negative [facility] Bilirubin Urine Negative Negative [facility] [place] Urobilinogen Urine 0.2 0.2 - 1.0 mg/dL [facility] [phone] Nitrite, Urine Negative Negative [facility] [place] Microscopic Examination Comment [facility] [phone] Comment:Microscopic follows if indicated. Other Microsc. Observations See below: [facility] Comment:Microscopic was haroon cated and was performed. 12/03/2024 3:53 PM EST 12/03/2024 Kelli [facility] LAB URINE ORDERABLES Final Result Performing Organization Address City/[facility]/ZIP Co de Phone Number [facility] [address] [place] [address] * CBC (12/03/2024 3:53 PM EST) WBC 6.6 3.4 - 10.8 x10E3/uL [facility] RBC 4.42 3.77 - 5.28 x10E6/uL [facility] Hemoglobin 13.6 11.1 - 15.9 g/dL [facility] Hematocrit 40.6 34.0 - 46.6 % [facility] MCV 92 79 - 97 fL [facility] MCH 30.8 26.6 - 33.0 pg [facility] MCHC 33.5 31.5 - 35.7 g/dL [facility] RDW 12.2 11.7 - 15.4 % [facility] Platelets 214 150 - 450 x10E3/uL [facility] 12/03/2024 3:53 PM EST 12/03/2024 Kelli [facility] LAB BLOOD ORDERABLES Final Result Performing Organization Address City/[facility]/ZIP Co de Phone Number [facility] [address] [place] [address] * (ABNORMAL) Uric Acid (12/03/2024 3:53 PM EST) Uric Acid 9.6(H) 3.0 - 7.2 mg/dL [facility] Comment:Therapeutic target f or gout patients: <6.0 12/03/2024 3:53 PM EST 12/03/2024 [facility] LAB BLOOD ORDERABLES Final Result [facility] [place] [address] [place] [address] * PTH, Intact (12/03/2024 3:53 PM EST) Pathologist [facility] PTH 56 15 - 65 pg/mL [facility] 12/03/2024 3:53 PM EST 12/03/2024 [employer] [facility] LAB BLOOD ORDERABLES Final Result Performing Organization Address City/[facility]/ZIP Co de Phone Number [facility] [place] [address] [place] [address] * (ABNORMAL) Ferritin (12/03/2024 3:53 PM EST) Pathologist [facility] Ferritin 227(H) 15 - 150 ng/mL [facility] 12/03/2024 3:53 PM EST 12/03/2024 [facility] BLOOD ORDERABLES Final Result Performing Organization Address City/[facility]/ZIP Co de Phone Number [facility] [address] [place] [address] * (ABNORMAL) Renal Function Panel (12/03/2024 3:53 PM EST) Glucose 99 70 - 99 mg/dL [facility] BUN 17 8 - 27 mg/dL [facility] Creatinine 1.12(H) 0.57 - 1.00 mg/dL [facility] eGFR CKD-EPI CR 2020 56(L) >59 mL/min/1.7 3 [facility] BUN/Creatinine Ratio 15 12 - 28 [facility] Sodium 140 134 - 144 mmol/L [facility] Potassium 4.4 3.5 - 5.2 mmol/L [facility] Chloride 103 96 - 106 mmol/L [facility] Bicarbonate (CO2) 23 20 - 29 mmol/L [facility] Calcium 9.2 8.7 - 10.3 mg/dL [facility] Phosphorus 3.5 3.0 - 4.3 mg/dL [facility] Albumin 3.9 3.9 - 4.9 g/dL [facility] 12/03/2024 3:53 PM EST 12/03/2024 Kelli BARILLAS LAB BLOOD ORDERABLES Final Result [facility] [address] [place] [address] from Last 3 Months Insurance [facility] MEDICAID [facility] MEDICAID Care Teams Unit Nurse Relationship Specialty Start Date End Date Agueda Shelton MD [address] [place], [place] PCP - General 12/08/20
--- OUTSIDE RECORDS SUMMARY | 2025-02-26 17:06 | XMS_ITS | Encounter Summary ---
Author Organization [facility] Address [address] [place] [address] Phone Care Team Providers Care Site Leader Name Role Phone Agueda Shelton MD Primary Care Provider [phone] Encounter Details Date Type Department Care Team (Late st Contact Info) Description 03/22/2023 Telephone [facility] [address] [place] [phone] Rosetta Thomas MA Social History Tobacco Use [...] Office Visit [facility] [address] [address] Kelli Reyes ARNP [address] [address] documented as of this encounter Visit Diagnoses Not on filedocumented in this encounter Care Teams Site Leader Relationship Specialty Start Date End Date Agueda Shelton MD [facility] [place] [address] PCP - General 12/08/20 documented as of this encounter
--- OUTSIDE RECORDS SUMMARY | 2025-02-26 17:06 | XMS_ITS | Referral Summary ---
Author Organization [facility] Address [address] [place] [address] Care Team Providers Care Children'S Author Name Role Phone Agueda Shelton Primary Care Provider [phone] Encounters Date Type Department Care Team Description 01/10/2025 Orders Only [facility] Transplant Department [address] [place] [address] Yoli Kent, RN Liver replaced by transplant (Primary Dx); Immunosuppression from Last 3 Months Allergies No known [...] x per day Quantity: 1; Refills: 0 ZAFAR, SUSANNA N.P.; Started 11-Dec-2013 Active1 EA Box 4 Active BLOOD-GLUCOSE METER (FREESTYLE LITE METER MISC) FreeStyle Lite Test In Vitro Strip TEST 4 TIMES DAILY. Quantity: 1; Refills: 5 MARKOSIAN, SUSANNA N.P.; Started 11-Dec-2013 Cplsft814 EA Box 4 Active colchicine (COLCRYS) 0.6 [...] y and up) 04/09/2023,09/24/2022 Covid-19, Pfizer, mRNA, Bledsoe valent, PF 30 mcg/0.3 mL dose (for ages 12 and older) 07/17/2021,03/16/2021,02/21/2021 Covid-19, Pfizer, mRNA, Bledsoe valent, PF, 30 mcg/0.3 mL dose, danie-sucrose (COMIRNATY)(for ages 12 and older) 07/10/2022,01/25/2022 Covid-19, Pfizer, mRNA, Danie -sucrose Vaccine, PF, 30 mcg/0.3 mL (for age 12 y and up) 08/24/2023 INFLUENZA, SPLIT VIRUS, TRIVALENT, PF 09/01/2016 ,08/28/2014 Influenza, Injectable, Madin Tonay Canine Kidney, Preservative Free, Quadrivalent 09/10/2019 Influenza, [...] Info) Description 04/11/2025 3:30 PM EDT Follow-Up [facility] Transplant Services [address] [place] [address] Meet Reilly MD [address] [place], [place] [phone] Procedures * Due to [facility] law, this organization might not be [...] to Health Maintenance Results * Due to [place] law, this organization might not be sharing [...] [facility] Bilirubin, Total 0.7 mg/dL [facility] Alkaline Phosphatase 81 U/L [facility] AST 24 U/L [facility] ALT 51 U/L [facility] Blood specimen (specimen) Structure of peripheral vein / Unknown 09/27/2017 12:56 PM EDT us Unknown Provider LAB BLOOD ORDERABLES Final R esult Performing Organization Address City/State/[facility] Co de Phone Number [facility] [address] [place] [phone] * COLONOSCOPY (02/17/2016 9:07 AM EDT) Narrative [...] RNA Qual TMA Not detected () [facility]) Comment: Reference Range: ??Not detected The limit of detection for this assay is 5.3 IU/mL. This test was performed using the Versant (R) HCV RNA Qualitative Assay (TMA). Test Performed by Galina Mars, [facility], [address] [place] [address] Godfrey Hernandez M.D., Ph.D., Director of Laboratories , LALIT [id number] 08/28/2014 11:5 6 AM EDT 08/28/2014 1:54 PM EDT us Meet Reilly MD LAB BLOOD ORDERABLES Final Re sult [facility]) [address] [place], [place] , [place] * CT Chest W [...] intravenous contrast; exact amount is documented in biochemistry technologist 's exam notes. ??One and 5mm [...] intravenous contrast; exact amount is documented in biochemistry technologist 's exam notes. One and 5mm [...] Documents on File Type Date Recorded Patient Project Construction Manager Expl anation Advance Directive 12/19/2013 12:00 AM Adva amandeepe Care Directives Advance Directive 12/04/2010 12:00 AM keith Douglas dical Dec Making (Adv.Dir) * Full Code (Latest Code Status on File) Date Activated Date Inactivated Comments 08/11/2022 3:27 PM 08/11/2022 7:32 PM Care Teams Children'S Author Relationship Specialty Start Date End Date Agueda Shelton [address] [place] [address] [facility] - General 06/16/17
--- OUTSIDE RECORDS SUMMARY | 2025-02-26 17:06 | XMS_ITS ---
Author Organization [facility] Address [address] [place] [address] Care Team Providers Care Manager Of Internal Name Role Phone Nikita Ashlirosalia Primary Care Provider [phone] Transplant Episode Liver Recipient [facility] ([place], [place]) - [facility] Organ Received: Liver Transplanted on 11/20/2013 Marked as Active Follow-up on 11/20/2013 Liver CoordinatorYoli Kent RN Phone: N/A Fax: N/A Email: N/A [place] Organ Diagnosis Organ Primary Contributory Liver Cirrhosis: [...] Coordinator N/A N/A N/A Meet Reilly MD Household Manager [phone] [email or web address] Diomedes Chun Referring Physician [phone] N/A Events Post-Transplant Pre-Transplant Admitted: 11/13/2013 Referred: 07/09/2010 Transplanted: 11/20/2013 Evaluation began: 1 Discharged: 12/18/2013 Committee: 12/11/2010 Center waitlisted: 1
--- OUTSIDE RECORDS SUMMARY | 2025-02-26 17:06 | XMS_ITS | Encounter Summary ---
Author Organization [facility] Address [address] [place] [address] Care Team Providers Care Tool Repairer Name Role Phone Agueda Shelton Primary Care Provider [phone] Encounter Details Date Type Department Care Team (Late st Contact Info) Description 12/28/2022 Orders Only [facility] Interventional Radiology [address] [place] [address] Paulo Camilo MD [address] [place] [address] [phone] Social History Tobacco Use Types Packs/Day Years [...] Info) Description 04/11/2025 3:30 PM EDT Follow-Up [facility] Liver Transplant Services [address] [place] [address] Meet Reilly MD [address] [place] [address] documented as of this encounter Visit Diagnoses Not on filedocumented in this encounter Care Teams Tool Repairer Relationship Specialty Start Date End Date Agueda Shelton [address] [place] [address] PCP - General 06/16/17 documented as of this encounter
== END 2025-02-26 14:19 | disposition home or self-care (01) ==
LOC: HO.HOSX 14:18
DX: Z13.89 Encounter for screening for other disorder (principal)

== ENCOUNTER 2025-04-01 04:07 | Emergency (ER) | payer OTHER, SELFPAY ==
--- NOTE | ~2025-04-01 | XR_ITS ---
CLINICAL HISTORY: swelling , pain 3 view left elbow Comparison: CR/SR - XR ELBOW LT MIN 3V - 09/03/23 12:16 EDT Findings: No acute fractures or dislocations. No significant arthritic change or erosions. No joint effusion. No radiopaque foreign body. Posterior soft tissue swelling or possible bursitis. IMPRESSION: Posterior soft tissue swelling or possible bursitis. No acute osseous abnormality This document has been electronically signed by: Shawn Perkins MD, PHD on 04/01/2025 04:54:09
[2025-04-01 04:16] VITALS: BP 152/76; BP 168/88; PULSE 95; PULSE 99; RESP 18; TEMP 36.7; O2SAT 97; BMI 43.4
[2025-04-01 06:08] VITALS: BP 140/72; PULSE 93; RESP 16; TEMP 37.2; O2SAT 95
--- NOTE | 2025-04-01 06:26 | ED_ITS ---
HPI - Extremity Problem General Chief complaint: Extremity Problem Stated complaint: HTN 188/98, diff breathing, swollen Elbow Time Seen by Provider: 04/01/25 06:18 Source: patient Mode of arrival: ambulatory Limitations: no limitations History of Present Illness ED Provider: Dr. Marry Flores HPI Narrative: Patient comes to the emergency room complaining of right elbow pain. Patient states that last week she went to [facility] due to the same complaint, patient states that she was given steroid injections and started feeling better. Patient states that the pain is returning. Patient denies fever chills. Patient states that she has a fullness sensation in the elbow. Patient denies any trauma Related Data Home Medications ?Medication ?Instructions ?Recorded ?Confirmed tacrolimus 1 mg capsule, 2 mg PO Q12H 10/13/21 01/08/25 immediate-release Lacto.acidophilus-Bif.animalis PO DAILY 01/27/22 01/08/25 [Daily Probiotic] cholecalciferol (vitamin D3) 50 100 mcg PO DAILY 01/27/22 01/08/25 mcg (2,000 unit) capsule coenzyme Q10 100 mg capsule 100 mg PO DAILY 01/27/22 01/08/25 magnesium oxide 400 mg (241.3 mg 400 mg PO BID 01/27/22 01/08/25 magnesium) tablet omega-3 fatty acids 500 mg capsule 1,000 mg PO .bid 02/10/22 01/08/25 blood sugar diagnostic ([facility]a 03/23/22 01/08/25 Lite Strips) propranolol 40 mg tablet 10 mg PO BID PRN 03/17/23 01/08/25 Previous Rx's ?Medication ?Instructions ?Recorded lancets 28 gauge (FreeStyle See Rx Instructions miscellaneous 02/24/21 Lancets) .qd prn for diabetes mellitus #100 caps hydrocortisone 2.5 % topical cream 1 appl topical BID PRN skin 01/28/22 irritation 30 days #30 grams sennosides 8.6 mg tablet (Natural 8.6 mg PO BEDTIME constipation #90 03/23/22 Senna Laxative) tabs simethicone 125 mg capsule (Gas 125 mg PO TID-QID PRN abdominal 03/23/22 Relief (simethicone)) distention #120 caps clotrimazole-betamethasone 1 1 appl topical ONCE 30 days #45 10/20/22 %-0.05 % topical cream grams diclofenac sodium 1 % topical gel 4 g topical QID pain #180 grams 04/01/23 (Arthritis Pain (diclofenac)) clotrimazole 10 mg shelly 10 mg mucous membrane TID 7 days 03/20/24 #21 tabs ketoconazole 2 % topical cream 1 appl topical BID Fungal rash 30 03/20/24 days #120 grams lisinopril 10 mg tablet 15 mg (1.5 x 10 mg) PO DAILY 90 12/03/24 days #135 tabs loratadine 10 mg tablet 10 mg PO DAILY 90 days #90 tabs 12/03/24 allopurinol 100 mg tablet 200 mg (2 x 100 mg) PO DAILY #180 01/08/25 tabs prednisone 20 mg tablet 20 mg PO DAILY 5 days #5 tabs 03/02/25 prednisone 5 mg tablet 5 mg PO DIRECTED #100 tabs 03/04/25 prednisone 20 mg tablet 20 mg PO DAILY #4 tabs 04/01/25 tramadol 50 mg tablet 50 mg PO BID PRN pain #8 tabs 04/01/25 Allergies Allergy/AdvReac Type Severity Reaction Status Date / Time nitrofurantoin Allergy Unknown nausea, Verified 04/01/25 04:18 dizziness and tightness chest perflutren [From DEFINITY] AdvReac Unknown SEVERE Verified 04/01/25 04:18 BACK PAIN Review of Systems Review of Systems: Constitutional : No Weight loss, No Fever, No Chills, No Night Sweats, No Fatig ue, No Malaise ENT/Mouth : No Hearing loss, No Ear Pain, No Nasal Congestion, No Sinus Pain, No Hoarseness, No sore throat, No Rhinorrhea, No Swallowing Difficulty Eyes: No Eye Pain, No Swelling, No Redness, No Foreign Body, No Discharge, No Vision Changes Cardiovascular : No Chest Pain, No SOB, No Dyspnea on Exertion, No Orthopnea, No Edema, No Palpitations Respiratory : No Cough, No Sputum, No Wheezing, No Smoke Exposure, No Dyspnea Gastrointestinal : No Nausea, No Vomiting, No Diarrhea, No Constipation, No abdominal Pain, No Hematochezia, No Melena Genitourinary : no irregular bleeding, No Dysuria, No Urinary Frequency, No Hematuria, No Urinary Incontinence, No Urgency, No Flank Pain, No Urinary Flow Changes, No Hesitancy Musculoskeletal : Complaining of right elbow pain, No Myalgias, No Joint Swelling Skin : No Skin Lesions, No rash Neuro : No Weakness, No Numbness, No Paresthesias, No Loss of Consciousness, No Dizziness, No Headache Psych : No Anxiety/Panic, No Depression, No SI/HI/AH/VH, No Social Issues, Heme/Lymph: No Bruising, No Bleeding,No Lymphadenopathy Endocrine : No Polyuria, No Polydipsia, No Temperature Intolerance [facility] Past Medical History Medical History Encounter for monitoring allopurinol therapy De Quervain's tenosynovitis, left Carpal tunnel syndrome on both sides Pain of left foot Acute bronchitis Nephropathy Gout Hypertension, essential Drug-induced peripheral neuropathy Dysuria Surgical History Liver transplant recipient History of endometrial ablation Hx of colonoscopy Hx of appendectomy History of esophagogastroduodenoscopy (EGD) Hx of cholecystectomy History of ankle surgery History of liver transplant Family History Family History Father No problems noted. Mother Sudden cardiac Other Arthritis Mental health disorder Substance use disorder Social History Social History Housing: House Alcohol intake: never Patient Tobacco Use Status: Never used Tobacco e-Cigarette/Vaping Use: Never Used Second Hand Smoke Exposure: Yes Advance Directives: No Advance Directives Information Provided: Yes Do you have a plan to hurt others: No Plan service: No Current occupational status: disabled Current occupation: rt handed Cognitive needs: No Hearing needs: No Vision needs: No Physical Exam Vital Signs: Vital Signs: Last Vital Signs Temp 99.0 F 04/01/25 06:08 Pulse 93 04/01/25 06:08 Resp 16 04/01/25 06:08 BP 140/72 H 04/01/25 06:08 Pulse Ox 95 04/01/25 06:08 O2 Del Method Room Air 04/01/25 06:08 BMI result Body Mass Index 43.4 Const: Other: Appearance: Alert. Oriented X3. No acute distress. Eyes: Pupils equal, round and reactive to light. ENT: Pharynx normal. Neck: Normal inspection. Neck supple. No lymph nodes noted. No crepitus CVS: Normal heart rate and rhythm. Pulses normal. Normal S1 and S2 Respiratory: No respiratory distress. Breath sounds normal. No Wheezing. No rales Abdomen: Soft and nontender. No rigidity. No distention. Skin: Skin warm and dry. Normal skin color. Normal skin turgor. Extremities: No lower extremity edema. No Lacerations. No Rash on the left elbow, there is a bit of swelling, is not erythematous, not warm to touch. Patient is able to flex and extend the elbow. Hurts doing so but has near normal range of motion. Neuro: Oriented X 3. No motor deficit. No sensory deficit. Moving all extremities. No slurred speech. CN 2 through 12 grossly intact Psych: calm, cooperative, normal affect Course Course Course Narrative: Patient has near normal range of motion Medical Decision Making Medical Decision Making MDM Narrative: Septic joint is not suspected. Patient has fairly normal range of motion, hurts doing so but tolerable. Patient can not take NSAIDs due to chronic kidney disease per patient Tramadol was given to the patient. Patient instructed to follow-up with orthopedics and PCP X-rays did not show any acute abnormality Patient mentioned that about a week ago she had prednisone and help quite a bit. Patient will be given another dose of prednisone. It is possible that patient may have gout. Unable to take NSAIDs Differential Diagnosis Differential Diagnoses: The differential diagnosis associated with the presentation includes (Bursitis, effusion, gout, septic joint not suspected) Independent Interpretation I performed an independent interpretation of an: Plain X-Ray Radiology Impression Discussion of test interpretation with radiology: I have reviewed the radiologist's reading. Radiologist Impression: No acute fractures or dislocations. No significant arthritic change or erosions. No joint effusion. No radiopaque foreign body. Posterior soft tissue swelling or possible bursitis. IMPRESSION: Posterior soft tissue swelling or possible bursitis. No acute osseous abnormality Discharge Plan Discharge Clinical Impression: Bursitis of elbow Patient Disposition: Home, Self-Care Instructions: Elbow Bursitis (ED) Additional Instructions: Please follow-up with your primary care physician tomorrow. If you have any worsening or new symptoms, please return to the emergency room or call 911 Prescriptions: New tramadol 50 mg tablet 50 mg PO BID PRN (Reason: pain) Qty: 8 0RF prednisone 20 mg tablet 20 mg PO DAILY Qty: 4 0RF No Action lancets [FreeStyle Lancets] 28 gauge misc See Rx Instructions miscellaneous .qd prn Qty: 100 5RF Rx Instructions: miscellaneous .qd prn; hydrocortisone 2.5 % cream 1 appl topical BID PRN (Reason: skin irritation) 30 Days Qty: 30 5RF lisinopril 10 mg tablet 15 mg PO DAILY 90 Days Qty: 135 2RF loratadine 10 mg tablet 10 mg PO DAILY 90 Days Qty: 90 3RF prednisone 20 mg tablet 20 mg PO DAILY 5 Days Qty: 5 0RF prednisone 5 mg tablet 5 mg PO DIRECTED Qty: 100 0RF Rx Instructions: Take 4 tablets for 7 days then 3 tablets for 7 days then 2 tablets for 7 days then 1 tablet for 30 days magnesium oxide 400 mg (241.3 mg magnesium) tablet 400 mg PO BID cholecalciferol (vitamin D3) 50 mcg (2,000 unit) capsule 100 mcg PO DAILY coenzyme Q10 100 mg capsule 100 mg PO DAILY Lacto.acidophilus-Bif.animalis [Daily Probiotic] PO DAILY propranolol 40 mg tablet 10 mg PO BID PRN omega-3 fatty acids 500 mg capsule 1,000 mg PO .bid clotrimazole-betamethasone 1-0.05 % cream 1 appl topical ONCE 30 Days Qty: 45 0RF clotrimazole 10 mg shelly 10 mg mucous membrane TID 7 Days Qty: 21 0RF Rx Instructions: Let it melt in the mouth ketoconazole 2 % cream 1 appl topical BID 30 Days Qty: 120 2RF (DME) FreeStyle Lite Strips Strip See Rx Instructions Not Applicable QID Qty: 10 Rx Instructions: As directed sennosides [Natural Senna Laxative] 8.6 mg tablet 8.6 mg PO BEDTIME Qty: 90 3RF simethicone [Gas Relief (simethicone)] 125 mg capsule 125 mg PO TID-QID PRN (Reason: abdominal distention) Qty: 120 2RF tacrolimus 1 mg capsule 2 mg PO Q12H allopurinol 100 mg tablet 200 mg PO DAILY Qty: 180 0RF diclofenac sodium [Arthritis Pain (diclofenac)] 1 % gel 4 g topical QID Qty: 180 2RF Rx Instructions: Apply 1-3 grams (pumps) to the affected area 3-4 times daily. Print Language: [place]
[2025-04-01] MEDS: traMADoL HCL 50 MG TABLET PO (06:30)
[2025-04-01] MEDS: predniSONE 20 MG TABLET PO (06:36)
[2025-04-01 06:37] VITALS: BP 140/72; PULSE 93; RESP 16; TEMP 37.2; O2SAT 95
== END 2025-04-01 06:40 | disposition home or self-care (01) ==
PROVIDERS: Emergency Provider Emergency Medicine; PCP Internal Medicine
DX: M71.9 Bursopathy, unspecified (principal); M25.521 Pain in right elbow; I10 Essential (primary) hypertension
CPT/HCPCS: 73080; 99283; 99284

== ENCOUNTER → 2025-04-01 04:34 | Outpatient (BNV) | payer OTHER, SELFPAY | PROVIDERS: PCP Internal Medicine; Visit Provider General Practice | DX: M25.522 Pain in left elbow (principal); R22.32 Localized swelling, mass and lump, left upper limb | CPT/HCPCS: 73080 ==

== ENCOUNTER 2025-04-10 12:36 | Outpatient (AMB) | payer OTHER, SELFPAY ==
[2025-04-10 12:40] VITALS: BP 140/78; PULSE 74; O2SAT 97; BMI 46.5
--- NOTE | 2025-04-10 12:40 | A.OFFVIS_ITS ---
Vital Signs 04/10/25 12:40 Height 5 ft 3 in Weight 262 lb 9.129 oz BMI 46.5 BP 140/78 H Blood Pressure Location Lt brachial Position Sitting Pulse 74 Pulse Source Pulse Oximeter Pulse Oximetry (%) 97 Oxygen Delivery Method Room Air Intake Visit Reasons: follow up Intake Note: Patient presents for psoriasis and would like to discuss getting prednisone. Allergies nitrofurantoin Allergy (Unknown, Verified 04/10/25 12:44) nausea, dizziness and tightness chest perflutren [From DEFINITY] Adverse Reaction (Unknown, Verified 04/10/25 12:44) SEVERE BACK PAIN Medication List - Last Reconciled 04/10/25 by Shawna Whelan MD allopurinol 300 mg PO DAILY blood sugar diagnostic (FreeStyle Lite Strips) As directed cholecalciferol (vitamin D3) 100 mcg PO DAILY clotrimazole 10 mg mucous membrane TID 7 days clotrimazole-betamethasone 1-0.05 % 1 appl topical ONCE 30 days coenzyme Q10 100 mg PO DAILY diclofenac sodium 1% (Arthritis Pain (diclofenac)) 4 grams topical QID hydrocortisone 2.5% 1 appl topical BID PRN 30 days ketoconazole 2% 1 appl topical BID 30 days Lacto.acidophilus-Bif.animalis (Daily Probiotic) PO DAILY lancets (FreeStyle Lancets) miscellaneous .qd prn; lisinopril 15 mg (1.5 x 10 mg) PO DAILY 90 days loratadine 10 mg PO DAILY 90 days magnesium oxide 400 mg PO BID omega-3 fatty acids 1,000 mg PO .bid prednisone 10 mg PO DAILY propranolol 10 mg PO BID PRN sennosides (Natural Senna Laxative) 8.6 mg PO BEDTIME simethicone (Gas Relief (simethicone)) 125 mg PO TID-QID PRN tacrolimus 2 mg PO Q12H tramadol 50 mg PO BID PRN HPI Comments Details: Patient is a 64-year-old female with morbid obesity, 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 At that time she was following up for her tophaceous crystal proven chronic gouty arthritis. Her uric acid was not at goal and she was not very compliant with her allopurinol. Had a long discussion with the patient at that visit about the importance of compliance and follow up. Allopurinol was restarted and labs were drawn. Since that visit patient has missed an appointment and has been having frequent gout flares requiring prednisone not just from me but from other providers. I discussed with the patient through the patient portal that she needs to come in and be seen and evaluated. Today she is complaining of left elbow pain and swelling that has been occurring for the past 3 weeks. She has gotten 2 courses of 20 mg prednisone for 5 days for total of 10 days of prednisone 20 mg with no improvement in the pain or swelling. Rheumatologic History: Ddx 2021 crystal proven gout (intracellular urate crystals left knee arthrocentesis in 2021) she also has tophi (right elbow) Current Rheumatology Medication(s): Allopurinol 100mg (supposed to be taking 200mg) Prednisone 5mg daily [facility] Medical History Encounter for monitoring allopurinol therapy De Quervain's tenosynovitis, left Carpal tunnel syndrome on both sides Pain of left foot Acute bronchitis Nephropathy Gout Hypertension, essential Drug-induced peripheral neuropathy Dysuria Surgical History Liver transplant recipient History of endometrial ablation Hx of colonoscopy Hx of appendectomy History of esophagogastroduodenoscopy (EGD) Hx of cholecystectomy History of ankle surgery History of liver transplant Family History Father No problems noted. Mother Sudden cardiac Other Arthritis Mental health disorder Substance use disorder Social History Housing: House Alcohol intake: never Patient Tobacco Use Status: Never used Tobacco e-Cigarette/Vaping Use: Never Used Second Hand Smoke Exposure: Yes service: No Current occupational status: disabled Current occupation: rt handed Cognitive needs: No Hearing needs: No Vision needs: No Review of Systems Const Details: Review of Systems Constitutional: Denies fever, chills, weight loss ENT: Denies vision changes, eye pain or eye redness, dental caries, dry mouth GI: Denies nausea, vomiting, diarrhea, abdominal pain, change in BM Pulm: Denies SOB, GOMEZ, hemoptysis, wheezing Cards: Denies chest pain, palpitations Skin: Denies Raynaud's, rash, nail changes, photosensitivity, 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 Well appearing and in no apparent painful distress HEENT Conjunctiva and sclera clear. ?Pupils equal round and reactive to light. ?No lymphadenopathy. ? CHEST/RESPIRATORY SYSTEM Normal respiratory effort and able to speak in complete sentences. ?Clear to auscultation bilaterally. ?No crackles, rales, rhonchi, wheezes heard. CARDIAC SYSTEM Regular rate and rhythm. ?S1 and S2 heard no murmurs. 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 No deformities noted. ?No synovitis noted to the MCPs, PIPs or DIPs. ?No tenderness to palpation of these joints. Wrists: ?Right wrist in a brace. Unable to fully examined. Left wrist no tenderness to palpation and full range of motion. Elbows: Full range of motion without pain. No tenderness, weakness, swelling, increased warmth or erythema. Tophi noted to the right elbow. Swelling, warmth and TTP of the left elbow Shoulders: Full range of motion without pain. No tenderness, weakness, swelling, increased warmth or erythema. Hips: Full range of motion without pain. Hip bursa: No tenderness to palpation Knees: ?Full range of motion. ?No tenderness, swelling, increased warmth or erythema.?No effusion or crepitations Ankles: Full range of motion. ?No tenderness, swelling, increased warmth or erythema.? Feet: ?Negative squeeze test. ?No tenderness to palpation or swelling of the MTPs. Tender points:?No tenderness to palpation of the bilateral trapezius, supraspinatus, greater trochanters, anterior costochondral junctions, bilateral gluteal areas, bilateral suboccipital muscle insertions SKIN Psoriatic rash noted to bilateral ears, back and hairline Tophi no Office Procedures AMB Joint Injection/Aspiration Joint Injection/Aspiration Details: Procedure was explained to the patient and consent was obtained. ? The area of interest was identified and confirmed with patient. ?This was subsequently cleaned with chlorhexidine x3. ? The area was then anesthetized using ethyl chloride spray. Attempted to remove fluid but it was a dry tap likely 2/2 loculations 40 mg Kenalog with 1 cc 1% lidocaine was injected without issue. ?Minimal to no bleeding. ?Patient tolerated procedure. Primary Site: other (left elbow bursa) Prep: site was prepped using aseptic technique and ethochloride spray was applied Injected: 40 mg of, with 1 mL of, 1% plain lidocaine and other (into the bursa) Procedure: The patient tolerated the procedure well Coding 94768 - Medium joint Procedure code (CPT) selection complete Office Meds lidocaine (PF) 10 mg/mL (1 %) injection solution Performing Provider: Shawna Whelan MD Performing Location: [facility] Rheumatology Administered by: Shawna Whelan MD on 04/10/25 14:45 Dose Route Admin Location Dispensed Lot Number Expiration Date [facility] Irrigation System Installer 1 mL Infiltration left elbow 2 mL [id number] 01/26/27 25604-111-78 [facility] Kenalog 40 mg/mL suspension for injection Performing Provider: Shawna Whelan MD Performing Location: [facility] Rheumatology Administered by: Shawna Whelan MD on 04/10/25 14:45 Dose Route Admin Location Dispensed Lot Number Expiration Date [facility] Irrigation System Installer 40 mg intrabursal left elbow 1 mL [id number] 05/28/26 [address]-1 [employer] Results Reviewed Results Reviewed: Laboratory Tests 09/03/23 01/11/24 12:01 19:29 WBC 10.0 RBC 4.48 Hgb 13.2 Hct 41.4 Plt Count 280 ESR 14 Sodium 141 Potassium 4.4 Chloride 103 Carbon Dioxide 27 BUN 20 H Creatinine 1.19 Uric Acid 10.0 H 9.9 H AST 24 21 ALT 42 H 45 H Alkaline Phosphatase 105 84 C-Reactive Protein 0.38 Assessment & Plan Assessment & Plan (1) 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 crystal proven gout (intracellular urate crystals left knee arthrocentesis in 2021) she also has tophi (right elbow) Code(s): M1A.9XX1 - Chronic gout, unspecified, with tophus (tophi) Category: Medical Plan: #Gout Patient is a 65-year-old female with crystal proven tophaceous gout here today for follow up. Patient has been noncompliant with instructions from the rheumatology office including but not limited to taking her allopurinol, doing lab work and following up with visits. I had a discussion with the patient about the importance of following up and doing the required blood work in the management of her disease. She received a steroid injection into her olecranon bursa today for her gout flare. She is to do blood work and follow up in 8 weeks If patient does not follow up with instructions I can no longer be a part of her care Plan - Allopurinol increased to 300mg - Colchicine c/i in the setting of liver transplant - Prednisone 10mg daily for prophylaxis - Labs today: CBC, CMP, ESR, CRP, UA - RTC 8 weeks (2) Encounter for monitoring allopurinol therapy: Code(s): Z51.81 - Encounter for therapeutic drug level monitoring; Z79.899 - Other assisted (current) drug therapy Category: Medical Plan: #Long-term Current Use of Allopurinol Risks and benefits of allopurinol discussed with patient Benefits include decreased gout flares, remission of gout and reduction of tophi Risks include allopurinol hypersensitivity syndrome which is a severe cutaneous adverse reaction associated with allopurinol use particularly in patients who are HLA [id number] positive, increased transaminases, GI upset including diarrhea, nausea and vomiting, and other dermatologic manifestations. 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 Plan: #Long-term Use of Steroids Discussed with patient the risks and benefits of steroid for managing the rheumatic condition Benefits include: - Reduced pain, improved mobility, increased participation in activities, and decreased progression of disease Risks include: - GI upset, potential ultrasound worsening or formation (especially in patients > 65 years old), elevated blood pressure/worsening hypertension, elevated blood sugar/worsening diabetes control, worsening of bone density, elevated lipids/worsening triglycerides, cataract formation, weight gain Recommended using proton pump inhibitors (PPIs) for the duration of steroid use to reduce the risk of gastric ulcers and vitamin-D daily to reduce the risk of osteoporosis Labs checked: ?A1c, T spot, hepatitis-B and C serologies Pneumocystis jiroveci prophylaxis: ?Patient with risk factors including steroids greater than 50 mg for more than 30 days, age greater than 60 years, and lung involvement from underlying rheumatic disease requires prophylaxis and will be given so Plan I spent 30 minutes reviewing the record and labs, taking a history, examining the patient, discussing the treatment plan, counselling, ordering diagnostic work up and documenting in the medical record Orders: Orders Erythrocyte Sedimentation Rate Today M1A.9XX1 - Chronic gout, unspecified, with tophus (tophi) Uric Acid Today M1A.9XX1 - Chronic gout, unspecified, with tophus (tophi) Complete Blood Count Auto Diff Today M1A.9XX1 - Chronic gout, unspecified, with tophus (tophi) Comprehensive Met. Panel Today M1A.9XX1 - Chronic gout, unspecified, with tophus (tophi) C Reactive Protein Today M1A.9XX1 - Chronic gout, unspecified, with tophus (tophi) AMB Joint Injection/Aspiration Today M1A.9XX1 - Chronic gout, unspecified, with tophus (tophi), M70.22 - Olecranon bursitis, left elbow Medications: New prednisone 10 mg PO DAILY 90 tabs 1RF M1A.9XX1 - Chronic gout, unspecified, with tophus (tophi) Changed From allopurinol 200 mg (2 x 100 mg) PO DAILY 180 tabs 0RF M1A.9XX1 - Chronic gout, unspecified, with tophus (tophi) To allopurinol 300 mg PO DAILY 90 tabs 1RF M1A.9XX1 - Chronic gout, unspecified, with tophus (tophi) Discontinued prednisone Discontinued Reason: Doctor's Order 20 mg PO DAILY 4 tabs 0RF prednisone Discontinued Reason: Doctor's Order 20 mg PO DAILY 5 days 5 tabs 0RF prednisone Take 4 tablets for 7 days then 3 tablets for 7 days then 2 tablets for 7 days then 1 tablet for 30 days Discontinued Reason: Doctor's Order 5 mg PO DIRECTED 100 tabs 0RF M10.9 - Gout, unspecified Coding Level of Care Code Est Pt Level 4 (73630) Complex EM visit Add On G2211 Diagnoses Tophaceous gout M1A.9XX1 Encounter for monitoring allopurinol therapy Z51.81; Z79.899 USP (current) use of systemic steroids Z79.52 CPT Codes Coding - 73286 Medium joint: 00224 - Medium joint ([id number])
--- OUTSIDE RECORDS SUMMARY | 2025-04-10 12:57 | XMS_ITS | Encounter Summary ---
Author Organization [facility] Address [address] [place] [address] Phone Care Team Providers Care Cordwainer Name Role Phone Agueda Shleton MD Primary Care Provider [phone] Encounter Details Date Type Department Care Team ([facility] Contact Info) Description 08/26/2022 Telephone [facility] [address] [place] [phone] Kimberly Archibald MD Social History Tobacco Use [...] Please correct and resend to [facility] [address] in [place]. Thank you documented in this encounter Plan of Treatment Upcoming Encounters Date Type Department Care Team (Late st Contact Info) Description 06/05/2025 3:30 PM EDT Office Visit [facility] [address] [address] Kelli Reyes ARNP [address] [address] documented as of this encounter Visit Diagnoses Not on filedocumented in this encounter Care Teams Cordwainer Relationship Specialty Start Date End Date Agueda Shelton MD [address] [place] [address] PCP - General 12/08/20 documented as of this encounter
--- OUTSIDE RECORDS SUMMARY | 2025-04-10 12:58 | XMS_ITS ---
Author Organization [facility] Address [address] [place] [address] Care Team Providers Care Automobile Washer Steam Name Role Phone Nikita Ashlirosalia Primary Care Provider [phone] Transplant Episode Liver Recipient [facility] ([place], [place]) - [facility] Organ Received: Liver Transplanted on 11/20/2013 Marked as Active Follow-up on 11/20/2013 Liver CoordinatorYoli Kent RN Phone: N/A Fax: N/A Email: N/A Jackson Organ Diagnosis Organ Primary Contributory Liver Cirrhosis: [...] Coordinator N/A N/A N/A Meet Reilly MD Enrollment Representative [email or web address] Diomedes Chun Referring Physician [phone] N/A Events Post-Transplant Pre-Transplant Admitted: 11/13/2013 Referred: 07/09/2010 Transplanted: 11/20/2013 Evaluation began: 1 Discharged: 12/18/2013 Committee: 12/11/2010 Center waitlisted: 1 Appointments (03/11/2025 - 05/11/2025) When With Visit Type Description 04/11/2025 Transplant - Maritza Reilly Follow Up Cancel ed (Patient - Illness)
--- OUTSIDE RECORDS SUMMARY | 2025-04-10 12:58 | XMS_ITS | Encounter Summary ---
Author Organization [facility] Address [address] [place] [address] Phone Care Team Providers Care Tongsman Name Role Phone Agueda Shelton MD Primary Care Provider [phone] Encounter Details Date Type Department Care Team (Late st Contact Info) Description 03/22/2023 Telephone [facility] [address] [place] [phone] Rosetta Thomas [place] Social History Tobacco Use [...] Office Visit [facility] [address] [address] Kelli Reyes ARNP [address] [address] documented as of this encounter Visit Diagnoses Not on filedocumented in this encounter Care Teams Tongsman Relationship Specialty Start Date End Date Agueda Shelton MD [facility] [place] [address] PCP - General 12/08/20 documented as of this encounter
--- OUTSIDE RECORDS SUMMARY | 2025-04-10 12:58 | XMS_ITS | Encounter Summary ---
Author Organization [facility] Address [address] [place] [address] Phone Care Team Providers Care Die Drawing Checker Name Role Phone Agueda Shelton MD Primary Care Provider [phone] Encounter Details Date Type Department Care Team (Late Contact Info) Description 03/02/2021 Orders Only [facility] [address] [place] [phone] Kimberly Archibald MD Stage 3a chronic kidney [...] and Transplant Associates of the [facility] [address] [facility] [address] [place] [address] Kelli Reyes ARNP [address] [facility] [address] [place] [address] documented as of this encounter [...] PM EDT) Appearance COLORLESS [facility] Comment:CLEAR Specific [place] 1.009 (1.002-1. 030) [facility] pH Urine 6.0 (5.0-8.0) [facility] Albumin, Urine NEGATIVE (NEG) [facility] Glucose, Ur NEGATIVE (NEG) [facility] Ketones, Urine NEGATIVE (NEG) [facility] Bilirubin Urine NEGATIVE (NEG) [facility] Hemoglobin Presence in Urine NEGATIVE (NEG) [facility] Nitrite, Urine NEGATIVE (NEG) [facility] Leukocyte Esterase Urine 1+(A) (NEG) [facility] Urobilinogen Urine NORMAL (NORM) MG/DL [facility] WBC, Urine 3 (0-5) /HPF [facility] RBC, Urine <1 (0-3) /HPF [facility] Bacteria SLIGHT(A) (NEG) HPF [facility] Squamous Epithelial, Urine 3 (0-8) /HPF [facility] Comment: Testing performed or reported by [facility], a Service of [facility], [address] [place] [address] Gene Vu MD, Instructional Facilitator Urine (Urine, Clean Catch) 03/26/2021 2:39 PM EDT 03/26/2021 2:42 PM EDT Kimberly Archibald MD LAB URINE ORDERABLES Final Resu lt [facility] * Urine Culture (03/26/2021 2:38 PM EDT) Specimen Description See Comment See Comment See Comment See Comment [facility] Comment: URINE NONE Reflexed from [id number] <10,000 COL/ML FINAL 03/28/2021 Testing performed or reported by [facility], a Service of [facility], [address] [place] [address] [place] [address] Darren Garcia MD, Instructional Facilitator 03/26/2021 2:38 PM EDT 03/26/2021 2:42 PM EDT James Forrest MD LAB URINE ORDERABLES Final Re sult [facility] * (ABNORMAL) Urine Albumin / Creatinine Ratio (03/26/2021 2:38 PM EDT) Urine Microalbumin 14.1 (<20) MG/L [facility] Comment: The urine microalbumin test is designed to monitor renal function. When screening for Bence Garcia proteinuria, urine electrophoresis is recommended. Microalbumin/Creati nine Ratio 23.8(H) (0-20) MG/GM [facility] Microalb/Creat Ratio 59.3 MG/DL [facility] Comment: Testing performed or reported by [facility], a Service of [facility], [address] [place] [address] Gene Vu MD, Instructional Facilitator 03/26/2021 2:38 PM EDT 03/26/2021 2:42 PM EDT James Forrest MD LAB URINE ORDERABLES Final Re sult [facility] * (ABNORMAL) UA w/Reflex Culture (03/26/2021 2:38 PM EDT) Appearance COLORLESS [facility] Comment:CLEAR Specific [place] 1.009 (1.002-1. 030) [facility] pH Urine 6.0 (5.0-8.0) [facility] Albumin, Urine NEGATIVE [facility] Glucose, Ur NEGATIVE (NEG) [facility] Ketones, Urine NEGATIVE (NEG) [facility] Bilirubin Urine NEGATIVE (NEG) [facility] Hemoglobin Presence in Urine NEGATIVE (NEG) [facility] Nitrite, Urine NEGATIVE (NEG) [facility] Leukocyte Esterase Urine 1+(A) (NEG) [facility] Urobilinogen Urine NORMAL (NORM) MG/DL [facility] WBC, Urine 3 (0-5) /HPF [facility] RBC, Urine <1 (0-3) /HPF [facility] Bacteria SLIGHT(A) (NEG) HPF [facility] Squamous Epithelial, Urine 3 (0-8) /HPF [facility] Clarity CLEAR (CLEAR) [facility] CULTURE INDICATED CULTURE INDICATED [facility] Comment: Testing performed or reported by [facility], a Service of [facility], [address] [place] [address] Gene Vu MD, Instructional Facilitator 03/26/2021 2:38 PM EDT 03/26/2021 2:42 PM EDT James Forrest MD LAB URINE ORDERABLES Final Re sult [facility] * (ABNORMAL) CBC and differential (03/26/2021 2:20 PM EDT) White Blood Cells 4.9 (4.0-11.0) K/MM3 [facility] RBC 4.22 (4.20-5.40 ) M/MM3 [facility] Hgb 12.6 (11.7-15.5 ) GM/DL [facility] Hematocrit 40.0 (35.7-45.8 ) % [facility] MCV 94.8 (80.0-100. 0) FL [facility] MCH 29.9 (27.0-34.0 ) PG [facility] MCHC 31.5(L) (33.0-37.0 ) g/dL [facility] Platelets 229 (150-460) K/MM3 [facility] RDW-SD 42.7 (<47.0) FL [facility] MPV 9.9 (9.4-12.4) FL [facility] nRBC Count 0.0 #/100 WBC'S [facility] NRBC Absolute 0.0 K/MM3 [facility] Neutrophils Abs Auto 2.8 (1.3-7.0) K/MM3 [facility] Lymphocytes Relative 1.4 (0.8-3.1) K/MM3 [facility] Monocytes 0.4 (0.4-0.9) K/MM3 [facility] Eosinophils Relative 0.2 (0.0-0.4) K/MM3 [facility] Basophil ABS 0.0 (0.0-0.1) K/MM3 [facility] Granulocytes Absolute 0.0 K/MM3 [facility] Neutrophils % Auto 57.1 (44-76) % [facility] Lymphs 28.6 (15-43) % [facility] Monocytes Absolute 8.4 (4.5-10.5) % [facility] Eosinophils 4.9 (0-6) % [facility] Basophils Relative 0.4 (0-2) % [facility] Immature Granulocytes 0.6 % [facility] Comment: Testing performed or reported by [facility], a Service of [facility], [address] [place] [address] Gene Vu MD, Instructional Facilitator Blood (Blood, Venous) 03/26/2021 2:20 PM EDT 03/26/2021 2:34 PM EDT Kimberly Archibald MD LAB BLOOD ORDERABLES Final Resu lt Performing Organization Address City/[facility]/ZIP Co de Phone Number [facility] * Magnesium (03/26/2021 2:20 PM EDT) Magnesium 2.0 (1.6-2.3) mg/dL [facility] Comment: Testing performed or reported by [facility], a Service of [facility], [address] [place] [address] Gene Vu MD, Instructional Facilitator Blood (Blood, Venous) 03/26/2021 2:20 PM EDT 03/26/2021 2:34 PM EDT Kimberly Archibald MD LAB BLOOD ORDERABLES Final Resu lt Performing Organization Address [facility] de Phone Number [facility] * (ABNORMAL) Tacrolimus level (03/26/2021 2:20 PM EDT) Tacrolimus Lvl 4.8(L) (5-20) NG/ML [facility] Comment: As of January 18, 2018, Tacrolimus method has been changed from liquid chromatography mass spectrometry (LC-MS/MS) to immunoassay based method (Anderson Fitter Mechanic). ??The new method could produce measurements that are approximately 15% higher than LC-MS/MS. Reference range(s) correspond to the new method. Testing performed or reported by [facility], a Service of [facility], [address] [place] [phone] Darren Garcia MD, Instructional Facilitator Blood (Blood, Venous) 03/26/2021 2:20 PM EDT 03/26/2021 2:34 PM EDT Kimberly Archibald MD LAB BLOOD ORDERABLES Final Resu lt Performing Organization Address [facility]/ZIP Co de Phone Number [facility] * Vitamin D 25 hydroxy (03/26/2021 2:20 PM EDT) Vitamin D, 25-Hydroxy 30.0 (20-50) NG/ML [facility] Comment: Testing performed or reported by [facility], a Service of [facility], [address] [place] [address] Gene Vu MD, Instructional Facilitator Blood (Blood, Venous) 03/26/2021 2:20 PM EDT 03/26/2021 2:34 PM EDT Kimberly Archibald MD LAB BLOOD ORDERABLES Final Resu lt Performing Organization Address [facility] Co de Phone Number [facility] * (ABNORMAL) PTH, intact (03/26/2021 2:20 PM EDT) PTH, Intact 85(H) (15-65) PG/ML [facility] Comment: Testing performed or reported by [facility], a Service of [address] [address] Gene Vu MD, Instructional Facilitator Blood (Blood, Venous) 03/26/2021 2:20 PM EDT 03/26/2021 2:34 PM EDT Kimberly Archibald MD LAB BLOOD ORDERABLES Final Resu lt Performing Organization Address [facility] de Phone Number [facility] * (ABNORMAL) Uric acid (03/26/2021 2:20 PM EDT) Uric Acid 10.8(H) (1.6-7.6) MG/DL [facility] Comment: Testing performed or reported by [facility], a Service of [address] [address] Gene Vu MD, Instructional Facilitator Blood (Blood, Venous) 03/26/2021 2:20 PM EDT 03/26/2021 2:34 PM EDT Kimberly Archibald MD LAB BLOOD ORDERABLES Final Resu lt Performing Organization Address [facility] de Phone Number [facility] * (ABNORMAL) Renal function panel (03/26/2021 2:20 PM EDT) Glucose 108(H) (70-99) MG/DL [facility] BUN 24(H) (6-20) MG/DL [facility] Creatinine 1.2(H) (0.5-1.0) MG/DL [facility] Sodium 139 (133-145) MMOL/L [facility] Potassium 4.8 (3.6-5.2) MMOL/L [facility] Chloride 105 (98-107) MMOL/L [facility] Bicarbonate (CO2) 25 (22-29) MMOL/L [facility] Anion Gap 9 (4-17) [facility] Albumin 4.5 (3.4-4.8) GM/DL [facility] Calcium 9.3 (8.6-10.5) MG/DL [facility] Phosphorus, Serum 3.8 (2.5-4.5) MG/DL [facility] Est GFR Non 50 ML/MIN/1.7 3 M2 [facility] Comment: Creatinine based estimated glomerular filtration rate (eGFR) is calculated using the Chronic Kidney Disease Epidemiology Collaboration (CKD-EPI). The CKD-EPI creatinine equation has not been validated in children (<18 years), women or in some racial or ethnic subgroups other than Caucasians and Americans. EST GFR 58 ML/MIN/1.7 3 M2 [facility] Comment: Creatinine based estimated glomerular filtration rate (eGFR) is calculated using the Chronic Kidney Disease Epidemiology Collaboration (CKD-EPI). The CKD-EPI creatinine equation has not been validated in children (<18 years), women or in some racial or ethnic subgroups other than Caucasians and Americans. Testing performed or reported by [facility], a Service of [facility], [address] [place] [address] Gene Vu MD, Instructional Facilitator Blood (Blood, Venous) 03/26/2021 2:20 PM EDT 03/26/2021 2:34 PM EDT Kimberly Archibald MD LAB BLOOD ORDERABLES Final Resu lt [facility] documented in this encounter Visit Diagnoses Diagnosis Stage 3a chronic kidney disease (HCC) H/O: liver recipient (HCC) documented in this encounter Care Teams Die Drawing Checker Relationship Specialty Start Date End Date Agueda Shelton MD [address] [place] [address] PCP - General 12/08/20 documented as of this encounter
--- OUTSIDE RECORDS SUMMARY | 2025-04-10 12:58 | XMS_ITS | Encounter Summary ---
Author Organization [facility] Address [address] [place] [address] Care Team Providers Care Floatlight Powder Mixer Name Role Phone Agueda Shelton Primary Care Provider [phone] Encounter Details Date Type Department Care Team (Late st Contact Info) Description 05/09/2017 Orders Only [facility] Building [address] [place] [address] Meet Reilly MD [address] [place] [phone] Social History Tobacco Use Types Packs/Day Years [...] Care Team (Late st Contact Info) Description 07/18/2025 4:00 PM EDT Follow-Up [facility] [address] [place], [place] [phone] Meet Reilly MD [address] [place] [address] documented as of this encounter Visit Diagnoses Not on filedocumented in this encounter Care Teams Floatlight Powder Mixer Relationship Specialty Start Date End Date Agueda Shelton [address] [place] [address] PCP - General 06/16/17 documented as of this encounter
--- OUTSIDE RECORDS SUMMARY | 2025-04-10 12:58 | XMS_ITS | Encounter Summary ---
Author Organization [facility] Address [address] [place] [address] Care Team Providers Care Cork Floor Installer Name Role Phone Agueda Shelton Primary Care Provider [phone] Reason for Visit * Reason Onset Date Comments cs- reschdule appt 03/07/2023 Encounter Details Date Type Department Care Team (Late st Contact Info) Description 03/07/2023 Telephone [facility] Central Scheduling Department [address] [place] [address] Telephone Intake, Staff cs- reschdule appt Social [...] Info) Description 07/18/2025 4:00 PM EDT Follow-Up [facility] [address] [place] [address] Meet Reilly MD [address] [place], [place] [phone] documented as of this encounter Visit Diagnoses Not on filedocumented in this encounter Care Teams Cork Floor Installer Relationship Specialty Start Date End Date Agueda Shelton [address] [place] [address] PCP - General 06/16/17 documented as of this encounter
--- OUTSIDE RECORDS SUMMARY | 2025-04-10 12:58 | XMS_ITS | Clinical Summary ---
Author Organization [facility] Address [address] [address] Phone Care Team Providers Care Travel Coordinator Name Role Phone Agueda Shelton MD Primary Care Provider [phone] Allergies Active Allergy Reactions Criticality Noted Date Comments Nsaids Other (see comments) 01/13/2021 Other 12/30/2021 grapefruit Medications coenzyme Q-10 200 MG capsule Take 1 capsule by mouth 1 (one) time each day Active cyanocobalamin (VITAMIN B-12) 100 MCG tablet Take 1 tablet by mouth 1 (one) time each day Active hydrocortisone 2.5 % cream 1 application by Other route at bed time Active [place]-3 Fatty Acids (Fish Oil Concentrate) 1000 MG [...] 25 Active Cholecalciferol (Vitamin D3) 1.25 MG (71243 UT) capsuleIndicati ons:Vitamin D Deficiency Take 1 capsule by mouth 1 (one) time each day Active Active Problems Problem Noted Date Diagnosed [...] 02/19/2025 Refill [facility] [address] [address] Anne Akbar [place] from Last 3 Months Immunizations Immunization Administration Dates Next Due Influenza TIV (IM) [...] Office Visit [facility] [address] [address] Kelli Reyes ARNP [address] [phone] Health Maintenance Due Date Last Done Comments Breast Cancer Screening 1960 Colorectal Cancer Screening: Annual FOBT 2011 Colorectal Cancer Screening: Colonoscopy 2011 Colorectal Cancer Screening: Sigmoidoscopy 2011 Pneumococcal Vaccine: 50+ Ye ars (3 of 3 - PPSV23, PCV20 or PCV21) 10/03/2020 08/08/2020, 12/25/2012 Hepatitis B Vaccine (1 of 3 - Risk 3-dose series) 2022 Influenza Vaccine (Season Ended) 2025 08/15/2021, 08/08/2020, 09/10/2019, Additional history exists Pneumococcal Vaccine: Peds ( 0 to 5 Years) and At-Risk Patients (6 to 49 Years) Discontinued 08/08/2020, 12/25/2012 Insurance Medicaid Member Subscriber Plan / Payer (Ef fective 2018-Present) Name:Carolyn An Relation to Subscriber:Self Name:Carolyn An Payer ID:Not on file Group ID:[id number] Type:Not on file Address: [address] [place] [phone] [place] [address] Medicaid Care Teams Travel Coordinator Relationship Specialty Start Date End Date Agueda Shelton MD [address] [place] [address] PCP - General 12/08/20
--- OUTSIDE RECORDS SUMMARY | 2025-04-10 12:58 | XMS_ITS | Encounter Summary ---
Author Organization [facility] Address [address] [place] [address] Phone Care Team Providers Care Sample Card Maker Name Role Phone Agueda Shelton MD Primary Care Provider [phone] Encounter Details Date Type Department Care Team (Late st Contact Info) Description 12/09/2022 Telephone [facility] [address] [place] [phone] Kelli Eubanks Social History Tobacco Use Types [...] Office Visit [facility] [address] [address] Kelli Reyes ARNP [address] [address] documented as of this encounter Visit Diagnoses Not on filedocumented in this encounter Care Teams Sample Card Maker Relationship Specialty Start Date End Date Agueda Shelton MD [facility] [place] [address] PCP - General 12/08/20 documented as of this encounter
--- OUTSIDE RECORDS SUMMARY | 2025-04-10 12:58 | XMS_ITS | Encounter Summary ---
Author Organization [facility] Address [address] [place] [address] Phone Care Team Providers Care Fine Arts Chair Name Role Phone Agueda Shelton MD Primary Care Provider [phone] Encounter Details Date Type Department Care Team (Late st Contact Info) Description 11/04/2022 Telephone [facility] [address] [place] [phone] Kimberly Archibald MD Social History Tobacco Use [...] Visit [facility] [address] [phone] Kelli Reyes ARNP [address] [address] documented as of this encounter Visit Diagnoses Not on filedocumented in this encounter Care Teams Fine Arts Chair Relationship Specialty Start Date End Date Agueda Shelton MD [facility] [place] [address] PCP - General 12/08/20 documented as of this encounter
--- OUTSIDE RECORDS SUMMARY | 2025-04-10 12:58 | XMS_ITS | Clinical Summary ---
Author Organization [facility] Address [address] [place] [address] Care Team Providers Care Water Systems Engineer Name Role Phone Agueda Shelton Primary Care Provider [phone] Allergies No known active allergies Medications cyanocobalamin, [...] Refills: 5 MARKOSIGRISEL, SUSANNA N.P.; Started 11-Dec-2013 [id number] EA Box 4 Active colchicine (COLCRYS) 0.6 [...] 2-week intervals 80 g 3 3 Active fluocinonide (LIDEX) 0.05% solutionIndicati ons:Psoriasis APPLY [...] 90 tablet 3 4 09/14/20 25 Active tacrolimus (PROGRAF) 1 mg capsuleIndicatio ns:Liver replaced by transplant (HCC),Immunosupp ression (HCC) Take 2 capsules (2 mg total) by mouth in the morning AND 1 capsule (1 mg total) every evening. 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 Genital herpes in women 03/05/2015 Umbilical hernia 09/18/2014 Arthralgia of multiple sites 05/29/2014 Hypertension 03/21/2014 Hyperglycemia 01/08/2014 Liver replaced by transplant 12/14/2013 Encounters Date Type Department Care Team Description 03/28/2025 Refill [facility] Trans[facility] [address] [place] [address] Meet Reilly MD Liver replaced by transplant (HCC); Immunosuppression (HCC) from Last 3 Months Immunizations Immunization Administration Dates Next Due COVID-19, Pfizer, mRNA, Biva lent Booster, PF, 30 mcg/0.3 mL dose (for age 12 y and up) 04/09/2023,09/24/2022 Covid-19, Pfizer, mRNA, [place] valent, PF 30 mcg/0.3 mL dose (for ages 12 and older) 07/17/2021,03/16/2021,02/21/2021 Covid-19, Pfizer, mRNA, [place] valent, PF, 30 mcg/0.3 mL dose, danie-sucrose [...] Info) Description 07/18/2025 4:00 PM EDT Follow-Up [facility] Trans[facility] [address] [place] [address] Meet Reilly MD [address] [place] [address] Health Maintenance Due Date Last Done [...] 08/07/2024, 08/09/2020, 12/25/2012 Procedures * Due to [place] [employer] law, this organization might not be sharing [...] to Health Maintenance Results * Due to [place] [employer] law, this organization might not be sharing negative HIV tests. * Comprehensive Metabolic Panel, Outside Lab (09/27/2017 12:56 PM EDT) Sodium 141 mmol/L [facility] Potassium 4.6 [facility] Chloride 103 [facility] Carbon Dioxide 26 [facility] Glucose 96 [facility] BUN 19 mg/dL [facility] Creatinine 1.2 [facility] Calcium 9.3 mg/dL [facility] Total Protein 6.7 g/dL [facility] Albumin 4.8 g/dL [facility] Bilirubin, Total 0.7 mg/dL [facility] Alkaline Phosphatase 81 U/L [facility] AST 24 U/L [facility] ALT 51 U/L [facility] Blood specimen (specimen) Structure of peripheral vein / Unknown 09/27/2017 12:56 PM EDT us Unknown Provider LAB BLOOD ORDERABLES Final R esult Performing Organization Address [facility]/State/ZIP Co de Phone Number [facility] [address] [place] [address] [phone] * COLONOSCOPY (02/17/2016 9:07 AM EDT) Narrative [...] Viral RNA Qual TMA Not detected () [facility] Comment: Reference Range: ??Not detected The limit of detection for this assay is 5.3 IU/mL. This test was performed using the Versant (R) HCV RNA Qualitative Assay (TMA). Test Performed by Galina Mars, [facility], [address] [place], [place] Godfrey Hernandez M.D., Ph.D., Director of Laboratories , [place] [id number] 08/28/2014 11:5 6 AM EDT 08/28/2014 1:54 PM EDT us Meet Reilly MD LAB BLOOD ORDERABLES Final Re sult [facility] [address] [place], [place] , [place] * CT Chest W [...] intravenous contrast; exact amount is documented in principal technologist 's exam notes. ??One and 5mm [...] intravenous contrast; exact amount is documented in principal technologist 's exam notes. One and 5mm [...] Per this written report. Michael Severino MD [facility] [place] PROCEDURES Final Res ult from Last 3 Months or Most Recently Relevant to Health Maintenance Insurance [employer] Advance Directives Documents on File Type Date Recorded Patient Human Resource Assistant Expl anation Advance Directive 12/19/2013 12:00 AM Adva nce Care Directives Advance Directive 12/04/2010 12:00 AM Me dical Dec Making (Adv.Dir) * Full Code (Latest Code Status on File) Date Activated Date Inactivated Comments 08/11/2022 3:27 PM 08/11/2022 7:32 PM Care Teams Water Systems Engineer Relationship Specialty Start Date End Date NikitaAgueda [address] [place] [address] PCP - General 06/16/17
--- OUTSIDE RECORDS SUMMARY | 2025-04-10 12:58 | XMS_ITS | Encounter Summary ---
Author Organization [facility] Address [address] [place] [address] Care Team Providers Care Level Vial Inspector Name Role Phone Agueda Shelton Primary Care Provider [phone] Encounter Details Date Type Department Care Team (Late st Contact Info) Description 08/31/2017 Transplant Conversio n Encounter [facility] Health Information Management [address] [place], [place] [phone] Provider, Historical [facility] Social History Tobacco Use Types Packs/Day [...] Info) Description 07/18/2025 4:00 PM EDT Follow-Up [facility] Liver Transplant Services [address] [place], [place] [phone] Meet Reilly MD [address] [place], [place] [phone] documented as of this encounter Visit Diagnoses Not on filedocumented in this encounter Care Teams Level Vial Inspector Relationship Specialty Start Date End Date Agueda Shelton [address] [place] [address] PCP - General 06/16/17 documented as of this encounter
--- OUTSIDE RECORDS SUMMARY | 2025-04-10 12:58 | XMS_ITS | Encounter Summary ---
Author Organization [facility] Address [address] [place] [address] Phone Care Team Providers Care Night Baker Name Role Phone Agueda Shelton MD Primary Care Provider [phone] Encounter Details Date Type Department Care Team (Late st Contact Info) Description 06/06/2024 Office Communication [facility] [address] [place] [phone] Kelli Reyes ARNP [address] [phone] Social History Tobacco Use Types Packs/Day Years [...] Visit [facility] [address] [facility] [address] [place] [phone] Kelli Reyes ARNP [address] [phone] documented as of this encounter Visit Diagnoses Not on filedocumented in this encounter Care Teams Night Baker Relationship Specialty Start Date End Date Agueda Shelton MD [address] [place] [address] PCP - General 12/08/20 documented as of this encounter
--- OUTSIDE RECORDS SUMMARY | 2025-04-10 12:58 | XMS_ITS | Referral Summary ---
Author Organization [facility] Address [address] [place] [address] Care Team Providers Care Emergency Veterinarian Name Role Phone Agueda Shelton Primary Care Provider [phone] Encounters Date Type Department Care Team Description 03/28/2025 Refill [facility] Liver Transplant Services [address] [place] [address] Meet Reilly MD Liver replaced by transplant (HCC); Immunosuppression (HCC) from Last 3 Months Allergies [...] Refills: 5 MARKOSIAN, SUSANNA N.P.; Started 11-Dec-2013 [id number] EA Box 4 Active colchicine (COLCRYS) 0.6 [...] y and up) 04/09/2023,09/24/2022 Covid-19, Pfizer, mRNA, [place] valent, PF 30 mcg/0.3 mL dose (for ages 12 and older) 07/17/2021,03/16/2021,02/21/2021 Covid-19, Pfizer, mRNA, [place] valent, PF, 30 mcg/0.3 mL dose, danie-sucrose [...] Info) Description 07/18/2025 4:00 PM EDT Follow-Up [facility] Transplant Services [address] [place], [place] [phone] Meet Reilly MD [address] [place], [place] [phone] Procedures * Due to [facility] law, this organization might not be [...] Health Maintenance Results * Due to [place] [employer] law, this organization might not be sharing negative HIV tests. * Comprehensive Metabolic Panel, Outside Lab (09/27/2017 12:56 PM EDT) Sodium 141 mmol/L [facility] Potassium 4.6 [facility] Chloride 103 [facility] Carbon Dioxide 26 [facility] Glucose 96 [facility] BUN 19 mg/dL [facility] Creatinine 1.2 [facility] Calcium 9.3 mg/dL [facility] Total Protein 6.7 g/dL [facility] Albumin 4.8 g/dL [facility] Bilirubin, Total 0.7 mg/dL [facility] Alkaline Phosphatase 81 U/L [facility] AST 24 U/L [facility] ALT 51 U/L [facility] Blood specimen (specimen) Structure of peripheral vein / Unknown 09/27/2017 12:56 PM EDT us Unknown Provider LAB BLOOD ORDERABLES Final R esult [facility] [address] [place] [phone] * COLONOSCOPY (02/17/2016 9:07 AM EDT) Narrative [...] Test Performed by Galina Mars, [facility], [address] [place], [place] Godfrey Hernandez M.D., Ph.D., Director of Laboratories , MARIEL [id number] 08/28/2014 11:5 6 AM EDT 08/28/2014 1:54 PM EDT us Meet Reilly MD LAB BLOOD ORDERABLES Final Re sult [facility]) [address] [place], [place] , [place] * CT Chest W [...] intravenous contrast; exact amount is documented in chief cardiopulmonary technologist 's exam notes. ??One and 5mm [...] intravenous contrast; exact amount is documented in chief cardiopulmonary technologist 's exam notes. One and 5mm [...] Documents on File Type Date Recorded Patient Career Development Coordinator Expl anation Advance Directive 12/19/2013 12:00 AM Adva nce Care Directives Advance Directive 12/04/2010 12:00 AM keith Douglas dicildefonso Dec Making (Adv.Dir) * Full Code (Latest Code Status on File) Date Activated Date Inactivated Comments 08/11/2022 3:27 PM 08/11/2022 7:32 PM Care Teams Emergency Veterinarian Relationship Specialty Start Date End Date Agueda Shelton [address] [place] [address] [facility] - General 06/16/17
--- OUTSIDE RECORDS SUMMARY | 2025-04-10 12:58 | XMS_ITS | Encounter Summary ---
Author Organization [facility] Address [address] [place] [address] Care Team Providers Care Volcanology Teacher Name Role Phone Agueda Shelton Primary Care Provider [phone] Encounter Details Date Type Department Care Team (Late st Contact Info) Description 12/28/2022 Orders Only [facility] Interventional Radiology [address] [place] [address] Paulo Camilo MD [address] [place] [address] [phone] Social History Tobacco Use Types Packs/Day Years [...] Info) Description 07/18/2025 4:00 PM EDT Follow-Up [facility] Liver Transplant Services [address] [place] [address] Meet Reilly MD [address] [place] [address] documented as of this encounter Visit Diagnoses Not on filedocumented in this encounter Care Teams Volcanology Teacher Relationship Specialty Start Date End Date Agueda Shelton [address] [place] [address] PCP - General 06/16/17 documented as of this encounter
--- OUTSIDE RECORDS SUMMARY | 2025-04-10 12:58 | XMS_ITS | Encounter Summary ---
Author Organization [facility] Address [address] [place] [address] Care Team Providers Care Group President Name Role Phone Agueda Shelton Primary Care Provider [phone] Encounter Details Date Type Department Care Team (Late st Contact Info) Description 04/06/2017 Orders Only [facility] Building [address] [place] [address] Meet Reilly MD [address] [place] [address] Social History Tobacco Use Types Packs/Day Years [...] Info) Description 07/18/2025 4:00 PM EDT Follow-Up [facility] Liver Transplant Services [address] [place], [place] [phone] Meet Reilly MD [address] [place], [place] [phone] documented as of this encounter Visit Diagnoses Not on filedocumented in this encounter Care Teams Group President Relationship Specialty Start Date End Date Agueda Shelton [address] [place] [address] PCP - General 06/16/17 documented as of this encounter
== END 2025-04-10 13:17 | disposition home or self-care (01) ==
LOC: HO.RHE 12:36
PROVIDERS: PCP Internal Medicine; Visit Provider Student in an Organized Health Care Education/Training Program
DX: M1A.0221 Idiopathic chronic gout, left elbow, with tophus (tophi) (principal); Z51.81 Encounter for therapeutic drug level monitoring; Z79.899 Other long term (current) drug therapy; Z79.52 Long term (current) use of systemic steroids; M70.22 Olecranon bursitis, left elbow
CPT/HCPCS: 20605; 99214

== ENCOUNTER → 2025-04-10 12:36 | Outpatient (BNVA) | payer OTHER, SELFPAY | PROVIDERS: PCP Internal Medicine; Visit Provider Student in an Organized Health Care Education/Training Program | DX: M1A.9XX1 Chronic gout, unspecified, with tophus (tophi) (principal); Z51.81 Encounter for therapeutic drug level monitoring; Z79.52 Long term (current) use of systemic steroids; Z79.899 Other long term (current) drug therapy | CPT/HCPCS: 20605; 99212; J3300 ==

== ENCOUNTER 2025-04-19 13:12 | Outpatient (REF) | payer OTHER, SELFPAY ==
[2025-04-19 16:31] LABS: MANUAL DIFF FLAG NO
[2025-04-19 16:40] LABS: Basophils Percent Auto 0.3 % (0-2); Eosinophils Absolute Auto 0.1 X10*3/uL (0.0-0.4); Eosinophils Percent Auto 1.1 % (0-4); Hematocrit 40.6 % (37.0-47.0); Hemoglobin 13.1 g/dl (12.0-16.0); Imm Gran Abs Auto 0.18 X10*3/uL (0.00-0.03); Imm Gran Pct Auto 2.3 % (0.0-0.4); Lymphocytes Absolute Auto 1.5 X10*3/uL (1.2-4.9); Lymphocytes Percent Auto 18.1 % (20-40); Mean Corpuscular HGB Conc 32.3 g/dl (31.0-35.0); Mean Corpuscular Hemoglobin 30.1 pg (27.0-33.0); Mean Corpuscular Volume 93.3 fL (80.0-98.0); Mean Platelet Volume 9.7 fL (9.4-12.3); Monocytes Absolute Auto 0.7 X10*3/uL (0.1-1.2); Monocytes Percent Auto 8.8 % (2-11); Neutrophils Absolute Auto 5.6 x10*3/uL (2.0-8.3); Neutrophils Percent Auto 69.4 % (45-73); Platelet Count 246 X10*3/uL (160-400); Red Blood Count 4.35 X10*6/uL (4.20-5.50); Red Cell Distribution Width 12.7 % (11.0-16.0)
[2025-04-19 17:09] LABS: Alanine Aminotransferase 37 U/L (0-31); Albumin Level 4.1 g/dL (3.5-5.0); Alkaline Phosphatase 73 U/L (39-117); Anion Gap 13 (12-20); Aspartate Amino Transferase 21 U/L (5-31); Bilirubin Total 0.8 mg/dL (0.0-1.0); Blood Urea Nitrogen 34 mg/dL (9-16); C Reactive Protein 0.19 mg/dL (< or = 0.50); Calcium 9.1 mg/dL (8.4-10.2); Carbon Dioxide 26 mmol/L (22-29); Chloride 109 mmol/L (96-108); Cholesterol 188 mg/dL (<200); Estimated Glomerular Filt Rate 42; Glucose Fasting 98 mg/dL (60-99); HDL Cholesterol 58 mg/dL (>40); LDL Cholesterol Calculated 96 mg/dL (<100); Magnesium 1.8 mg/dL (1.6-2.6); Potassium 4.5 mmol/L (3.3-5.1); Sodium 143 mmol/L (135-145); Total Protein 6.5 g/dL (6.5-8.0); Triglycerides 174 mg/dL (<150)
[2025-04-19 17:16] LABS: Erythrocyte Sedimentation Rate 7 MM/HR (0-20)
[2025-04-19 17:23] LABS: Vitamin B12 375 pg/mL (200-900)
[2025-04-19 17:27] LABS: TSH reflex Free T4 1.94 uIU/mL (0.32-4.0)
[2025-04-19 17:57] LABS: Uric Acid 9.8 mg/dL (2.4-5.7)
[2025-04-23 16:29] LABS: Vitamin D 25-OH, D2 <4 ng/mL; Vitamin D 25-OH, D3 38 ng/mL; Vitamin D 25-OH, Total 38 ng/mL (30-100)
== END 2025-04-19 13:13 | disposition home or self-care (01) ==
LOC: HO.HMGCLDS 13:12
PROVIDERS: Student in an Organized Health Care Education/Training Program; PCP Internal Medicine; Visit Provider Internal Medicine
DX: R06.2 Wheezing (principal); I10 Essential (primary) hypertension; N28.9 Disorder of kidney and ureter, unspecified; G62.0 Drug-induced polyneuropathy; M1A.9XX1 Chronic gout, unspecified, with tophus (tophi); R73.03 Prediabetes; R79.0 Abnormal level of blood mineral; E66.01 Morbid (severe) obesity due to excess calories; Z68.42 Body mass index [BMI] 45.0-49.9, adult; Z79.899 Other long term (current) drug therapy; Z94.4 Liver transplant status
CPT/HCPCS: 36415; 80053; 80061; 82306; 82607; 83735; 84443; 84550; 85025; 85652; 86140; 96127; 99212

== ENCOUNTER 2025-04-19 13:12 | Outpatient (AMB) | payer OTHER, SELFPAY ==
--- OUTSIDE RECORDS SUMMARY | 2025-04-19 13:16 | XMS_ITS | Encounter Summary ---
Author Organization [facility] Address [address] [place] [address] Phone Care Team Providers Care Wallpaper Scraper Name Role Phone Agueda Shelton MD Primary Care Provider [phone] Encounter Details Date Type Department Care Team ([facility] Contact Info) Description 08/26/2022 Telephone [facility] [address] [place] [phone] Kimberly Archibald MD Social History Tobacco Use [...] Please correct and resend to [facility] [place]. Thank you documented in this encounter Plan of Treatment Upcoming Encounters Date Type Department Care Team (Late st Contact Info) Description 06/05/2025 3:30 PM EDT Office Visit [facility] [address] [phone] Kelli Reyes ARNP [address] [phone] documented as of this encounter Visit Diagnoses Not on filedocumented in this encounter Care Teams Wallpaper Scraper Relationship Specialty Start Date End Date Agueda Shelton MD [address] [place] [address] PCP - General 12/08/20 documented as of this encounter
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
[2025-04-19 13:21] VITALS: BP 138/78; PULSE 70; O2SAT 100; BMI 46.8
== END 2025-04-19 13:36 | disposition home or self-care (01) ==
LOC: HO.HMCC 13:12
PROVIDERS: PCP Internal Medicine; Visit Provider Internal Medicine
DX: R06.2 Wheezing (principal); Z94.4 Liver transplant status; E66.01 Morbid (severe) obesity due to excess calories; Z68.42 Body mass index [BMI] 45.0-49.9, adult; I10 Essential (primary) hypertension; N28.9 Disorder of kidney and ureter, unspecified; G62.0 Drug-induced polyneuropathy; M1A.9XX1 Chronic gout, unspecified, with tophus (tophi); R73.03 Prediabetes; R79.0 Abnormal level of blood mineral

== ENCOUNTER 2025-07-23 12:36 | Outpatient (REF) | payer OTHER, SELFPAY ==
--- OUTSIDE RECORDS SUMMARY | 2025-07-23 13:19 | XMS_ITS | Encounter Summary ---
Author Organization [facility] Address [address] [place] [address] Phone Care Team Providers Care Director Of Consumer Affairs Name Role Phone Agueda Shelton MD Primary Care Provider [phone] Encounter Details Date Type Department Care Team ([facility] Contact Info) Description 08/26/2022 Telephone [facility] [address] [place] [phone] Kimberly Archibald MD Social History Tobacco Use [...] Please correct and resend to [facility] [address] [place]. Thank you documented in this encounter Plan of Treatment Upcoming Encounters Date Type Department Care Team (Late st Contact Info) Description 07/30/2025 2:15 PM EDT Office Visit [facility] [address] [phone] Kelli Reyes ARNP [address] [phone] documented as of this encounter Visit Diagnoses Not on filedocumented in this encounter Care Teams Director Of Consumer Affairs Relationship Specialty Start Date End Date Agueda Shelton MD [address] [place] [id number] PCP - General 12/08/20 documented as of this encounter
--- OUTSIDE RECORDS SUMMARY | 2025-07-23 13:20 | XMS_ITS | Patient Health Record ---
Author Organization [facility] Address [address] [place] [address] Care Team Providers Care Immigration Guard Name Role Phone Maykel Peña MD Primary Care Provider Diomedes Mi [phone] Reason For Referral No Information Medications Medication SIG (Take, Route, Frequency, Duration) Notes Start Date End Date Status Magnesium 400 MG Orally Act ida Multivitamin Orally Active Omeprazole 20 MG 1 capsule Orally Onc e a day for 30 Active Senna Orally Active Lasix 40 MG Orally Active Calcium Carbonate 1250 MG 1 capsule Oral ly Three times a day Active Cholecalciferol 1000 UNIT 1 capsule Oral ly Once a day Active CellCept 250 MG Orally Acti ve Gabapentin 300 MG 1 capsule Orally Thr ee times a day Active Prograf 5 MG Orally Active Sulfamethoxazole-TMP DS 800-160 MG 1 tablet Orally Twice a day Active Coenzyme Q-10 60 MG 1 capsule with a violet l Orally Once a day Active Colace 100 MG 1 capsule as needed Orally Once a day Active Fish Oil 1000 MG 1 capsule Orally Onc e a day Active Problems Problem Type SNOMED Code ICD Code Onset Dates Problem Status W/U Status Risk Notes Problem Chronic hepatitis C (996284425) Chronic hepatitis C without mention of hepatic coma (070.54) Active confirmed Problem Cirrhosis of liver () Cirrhosis of liver without mention of alcohol (571.5) Active confirmed Problem Constipation (90929244) Constipation (564.00) Active confirmed Problem Chronic hepatitis C (996380117) Chronic hepatitis C (070.54) Active confirmed Problem Ascites (279680751) Ascites (789.59) Active confirmed Problem Cirrhotic (936699686) Cirrhosis (571.5) Active confirmed Problem Cirrhosis of liver () Cirrhosis of liver (571.5) Active confirmed Problem Fatigue (10410764) Fatigue (780.79) Active confirmed Plan Of Treatment Pending Test Test Name Order Date CHEM 7 PROFILE 06/23/2012 MRI ABD W&WO CONTRAST 03/28/2012 Insurance Providers Payer Name Payer Address Payer Phone Subscriber Number Group Number Insured Name Patient Relationship to Insured Coverage Start Date Coverage End Date MED[place] OF [facility] [address] [place] [phone] [id number] MORALES MORSE Self - patient is the insured Medical (General) History Medical History History ICD Code Cirrhosis, Chronic Hep C-pre vious variceal bleeds(s/p sclerotherapy), ascites, encephalopathy--followed by Dr. Chung at [facility]--she underwent an orthotopic liver transplant on November 20, 2013--she had a relatively prolonged hospitalization in relation to elevation of her liver enzymes--she was on Coumadin in relation to the surgery as well, but this was discontinued earlier in May of 2014--she was treated with 12 weeks of sofosbuvir and simeprevir which finished in February 2014, and a subsequent hepatitis C viral load was nondetectable. Denies [place],DM,CVA,Lung disease,renal dise ase Nonbleeding esophageal varices-EGD [address] Chung Colonoscopy in 05/2011 with kiana garnett of portal HTN in rectum with telangiectasias-no polyps Surgical History Surgery Date(Month/Year) CCY Ankle surgery Uterine ablation for bleeding liver transplant 11/20/13 as above
--- OUTSIDE RECORDS SUMMARY | 2025-07-23 13:20 | XMS_ITS | Encounter Summary ---
Author Organization [facility] Address [address] [place] [address] Phone Care Team Providers Care Satellite Specialist Name Role Phone Agueda Shelton MD Primary Care Provider [phone] Encounter Details Date Type Department Care Team (Late st Contact Info) Description 06/06/2024 Office Communication [facility] [address] [place] [phone] Kelli Reyes ARNP [address] [phone] Social History Tobacco Use Types Packs/Day Years [...] [facility] [address] [facility] [address] [place] [address] Kelli Reyes ARNP [address] [phone] documented as of this encounter Visit Diagnoses Not on filedocumented in this encounter Care Teams Satellite Specialist Relationship Specialty Start Date End Date Agueda Shelton MD [address] [place] [id number] PCP - General 12/08/20 documented as of this encounter
--- OUTSIDE RECORDS SUMMARY | 2025-07-23 13:20 | XMS_ITS | Encounter Summary ---
Author Organization [facility] Address [address] [place] [address] Phone Care Team Providers Care Mortgage Clerk Name Role Phone Agueda Shelton MD Primary Care Provider [phone] Encounter Details Date Type Department Care Team (Late st Contact Info) Description 12/09/2022 Telephone [facility] [address] [place] [phone] Kelli Eubanks Social History Tobacco Use Types [...] [facility] [address] [phone] Kelil Reyes ARNP [address] [address] documented as of this encounter Visit Diagnoses Not on filedocumented in this encounter Care Teams Mortgage Clerk Relationship Specialty Start Date End Date Agueda Shelton [place] [address] PCP - General 12/08/20 documented as of this encounter
--- OUTSIDE RECORDS SUMMARY | 2025-07-23 13:20 | XMS_ITS | Encounter Summary ---
Author Organization [facility] Address [address] [place] [address] Care Team Providers Care Check Viewer Name Role Phone Agueda Shelton Primary Care Provider [phone] Encounter Details Date Type Department Care Team (Late st Contact Info) Description 12/28/2022 Orders Only [facility] Interventional Radiology [address] [place], [place] [phone] Paulo Camilo MD [address] [place] [phone] Social History Tobacco Use Types Packs/Day Years [...] Care Team (Late st Contact Info) Description 10/08/2025 3:00 PM EST Follow-Up [facility] [address] [place], [place] [phone] Meet Reilly MD [address] [place] [phone] documented as of this encounter Visit Diagnoses Not on filedocumented in this encounter Additional Health Concerns Infection Onset Date Last Indicated Resolved Time COVID-19 - Confirmed infection 06/13/2025 06/13/2025 07/13/2025 10:32 PM EDT documented as of this encounter Care Teams Check Viewer Relationship Specialty Start Date End Date Agueda Shelton [address] [place] [address] PCP - General 06/16/17 documented as of this encounter
--- OUTSIDE RECORDS SUMMARY | 2025-07-23 13:20 | XMS_ITS | Encounter Summary ---
Author Organization [facility] Address [address] [place] [address] Phone Care Team Providers Care Gypsum Calciner Name Role Phone Agueda Shelton MD Primary Care Provider [phone] Encounter Details Date Type Department Care Team (Late st Contact Info) Description 11/04/2022 Telephone [facility] [address] [place] [phone] Kimberly Archibald MD Social History Tobacco Use [...] Visit [facility] [address] [address] Kelli Reyes ARNP [address] [address] documented as of this encounter Visit Diagnoses Not on filedocumented in this encounter Care Teams Gypsum Calciner Relationship Specialty Start Date End Date Agueda Shelton MD [facility] [place] [address] PCP - General 12/08/20 documented as of this encounter
--- OUTSIDE RECORDS SUMMARY | 2025-07-23 13:20 | XMS_ITS | Encounter Summary ---
Author Organization [facility] Address [address] [place] [address] Care Team Providers Care Craft Demonstrator Name Role Phone Agueda Shelton Primary Care Provider [phone] Reason for Visit * Reason Onset Date Comments cs- reschdule appt 03/07/2023 Encounter Details Date Type Department Care Team (Late st Contact Info) Description 03/07/2023 Telephone [facility] Central Scheduling Department [address] [place] [address] Telephone Intake, Staff cs- reschdule appt Social [...] Info) Description 10/08/2025 3:00 PM EST Follow-Up [facility] Transplant [facility] [address] [place] [address] [phone] Meet Reilly MD [address] [place], [place] [phone] documented as of this encounter Visit Diagnoses Not on filedocumented in this encounter Additional Health Concerns Infection Onset Date Last Indicated Resolved Time COVID-19 - Confirmed infection 06/13/2025 06/13/2025 07/13/2025 10:32 PM EDT documented as of this encounter Care Teams Craft Demonstrator Relationship Specialty Start Date End Date Agueda Shelton [address] [place] [address] PCP - General 06/16/17 documented as of this encounter
--- OUTSIDE RECORDS SUMMARY | 2025-07-23 13:20 | XMS_ITS | Encounter Summary ---
Author Organization [facility] Address [address] [place] [address] Care Team Providers Care Hog Cutter Name Role Phone Agueda Shelton Primary Care Provider [phone] Encounter Details Date Type Department Care Team (Late st Contact Info) Description 05/09/2017 Orders Only [facility] ACC Building [address] [place] [address] Meet Reilly MD [address] [place] [phone] Social History Tobacco Use Types Packs/Day Years [...] Info) Description 10/08/2025 3:00 PM EST Follow-Up [facility] Transplant Services [address] [place], [place] [phone] Meet Reilly MD [address] [place] [address] documented as of this encounter Visit Diagnoses Not on filedocumented in this encounter Additional Health Concerns Infection Onset Date Last Indicated Resolved Time COVID-19 - Confirmed infection 06/13/2025 06/13/2025 07/13/2025 10:32 PM EDT documented as of this encounter Care Teams Hog Cutter Relationship Specialty Start Date End Date Agueda Shelton [address] [place] [address] PCP - General 06/16/17 documented as of this encounter
--- OUTSIDE RECORDS SUMMARY | 2025-07-23 13:20 | XMS_ITS | Clinical Summary ---
Author Organization [facility] Address [address] [address] Phone Care Team Providers Care School Coordinator Name Role Phone Agueda Shelton MD Primary Care Provider [phone] Allergies Active Allergy Reactions Criticality Noted Date Comments Nsaids Other (see comments) 01/13/2021 Other 12/30/2021 grapefruit Medications coenzyme Q-10 200 MG capsule Take 1 capsule by mouth 1 (one) time each day Active cyanocobalamin (VITAMIN B-12) 100 MCG tablet Take 1 tablet by mouth 1 (one) time each day Active hydrocortisone 2.5 % cream 1 application by Other route at bed time Active Sutton-3 Fatty Acids (Fish Oil Concentrate) 1000 MG capsule Take 2 capsules by mouth 2 (two) times a day Active folic acid (FOLVITE) 1 MG tablet Take 1 mg by mouth 1 (one) time each day Active saccharomyces boulardii (FLORASTOR) 250 MG capsule Take 250 mg by mouth 1 (one) time each day Active Tacrolimus ER 1 MG capsule sustained-releas e 24 hr Take 1 mg by mouth in the morning and 1 mg in the evening. 2mg in the am, 1 mg at night daily total 3mg. 9 Active Loratadine 10 MG capsule Take 10 mg by mouth 9 Active magnesium oxide (MAG-OX) 400 MG tablet Take 400 mg by mouth 9 Active Turmeric 500 MG capsule Take by mouth Active propranolol (INDERAL) 10 MG tablet Take 10 mg by mouth 1 (one) time each day Active Cholecalciferol (Vitamin D3) 1.25 MG (85964 UT) capsuleIndicatio ns:Vitamin D Deficiency Take 1 capsule by mouth 1 (one) time each day Active lisinopril (PRINIVIL,ZESTRI L) 30 MG tabletIndication s:Stage 3a chronic kidney disease (HCC),Essential (primary) hypertension Take 1 tablet (30 mg total) by mouth 1 (one) time each day 30 tablet 5 5 11/30/19 26 Active Active Problems Problem Noted Date Diagnosed [...] Encounters Date Type Department Care Team Description 06/03/2025 1:45 PM EDT Office Visit [facility] [address] [phone] Kelli Reyes ARNP Stage 3a chronic kidney disease (HCC) (Primary Dx); Essential (primary) hypertension; Vitamin D deficiency, not otherwise specified 05/27/2025 Office Communication [facility] [address] [phone] Tomas Mchugh 05/26/2025 Orders Only [facility] [address] [place] [phone] Kelli Reyes ARNP Stage 3a chronic kidney disease (HCC); Essential (primary) hypertension; Idiopathic chronic gout without tophus, not otherwise specified from Last 3 Months Immunizations Immunization Administration [...] Sign Reading Time Taken Comments Blood Pressure 170/90 06/03/2025 1:51 PM EDT Pulse 81 06/03/2025 1:51 PM EDT Temperature - - Respiratory Rate - - Oxygen Saturation 97% 06/03/2025 1:51 PM EDT Inhaled Oxygen Concentration - - Weight 122 kg (270 lb) 06/03/2025 1:51 PM EDT Height 162.6 cm (5' 4 ) 09/03/2021 2:45 PM EDT Body Mass Index 46.35 09/03/2021 2:45 PM EDT Plan of Treatment Upcoming Encounters Date Type Department Care Team (Late st Contact Info) Description 07/30/2025 2:15 PM EDT Office Visit [facility] [address] [phone] Kelli Reyes ARNP [address] [phone] Health Maintenance Due Date Last Done Comments Breast Cancer Screening 1962 Colorectal Cancer Screening: Annual FOBT 2011 Colorectal Cancer Screening: Colonoscopy 2011 Colorectal Cancer Screening: Sigmoidoscopy 2011 Pneumococcal Vaccine: 50+ Ye ars (3 of 3 - PCV20 or PCV21) 10/03/2020 08/08/2020, 12/25/2012 Hepatitis B Vaccine (1 of 3 - Risk 3-dose series) 2022 Influenza Vaccine (#1) 2025 1, 08/08/2020, 09/10/2019, Additional history exists Pneumococcal Vaccine: Peds ( 0 to 5 Years) and At-Risk Patients (6 to 49 Years) Discontinued 08/08/2020, 12/25/2012 Insurance [facility] Medicaid Care Teams School Coordinator Relationship Specialty Start Date End Date Agueda Shelton MD [address] [place] [address] PCP - General 12/08/20
--- OUTSIDE RECORDS SUMMARY | 2025-07-23 13:20 | XMS_ITS | Encounter Summary ---
Author Organization [facility] Address [address] [place] [address] Care Team Providers Care Jacquard Card Cutter Name Role Phone Agueda Shelton Primary Care Provider [phone] Encounter Details Date Type Department Care Team (Late st Contact Info) Description 08/31/2017 Transplant Conversio n Encounter [facility] Health Information Management [address] [place] [address] Provider, Historical Conversion PR Social History Tobacco Use Types Packs/Day Years [...] Info) Description 10/08/2025 3:00 PM EST Follow-Up [facility] Transplant Services [address] [place], [place] [phone] Meet Reilly MD [address] [place] [address] documented as of this encounter Visit Diagnoses Not on filedocumented in this encounter Additional Health Concerns Infection Onset Date Last Indicated Resolved Time COVID-19 - Confirmed infection 06/13/2025 06/13/2025 07/13/2025 10:32 PM EDT documented as of this encounter Care Teams Jacquard Card Cutter Relationship Specialty Start Date End Date Agueda Shelton [address] [place] [address] PCP - General 06/16/17 documented as of this encounter
--- OUTSIDE RECORDS SUMMARY | 2025-07-23 13:20 | XMS_ITS | Encounter Summary ---
Author Organization [facility] Address [address] [place] [address] Phone Care Team Providers Care Funeral Home Assistant Name Role Phone Agueda Shelton MD Primary Care Provider [phone] Encounter Details Date Type Department Care Team (Late st Contact Info) Description 03/22/2023 Telephone [facility] [address] [place] [phone] Rosetta Thomas [place] Social History Tobacco Use [...] Office Visit [facility] [address] [phone] Kelli Reyes ARNP [address] [phone] documented as of this encounter Visit Diagnoses Not on filedocumented in this encounter Care Teams Funeral Home Assistant Relationship Specialty Start Date End Date Agueda Shelton MD [facility] [place] [address] PCP - General 12/08/20 documented as of this encounter
--- OUTSIDE RECORDS SUMMARY | 2025-07-23 13:20 | XMS_ITS | Clinical Summary ---
Author Organization [facility] Address [address] [place] [address] Care Team Providers Care Platform Builder Name Role Phone Agueda Shelton Primary Care Provider [phone] Allergies No known active allergies Medications cyanocobalamin, [...] Refills: 5 MARKOSIGRISEL, SUSANNA N.P.; Started 11-Dec-2013 [id number] Active colchicine (COLCRYS) 0.6 [...] capsuleIndicatio ns:Liver replaced by transplant (HCC),Immunosupp ression ([facility]) Take 2 capsules (2 mg total) by mouth in the morning AND 1 capsule (1 mg total) every evening. 270 capsule 3 07/12/2025 2:51 PM EDT 5 03/12/20 28 Active Active Problems Problem Noted Date Diagnosed Date Gout of foot 12/27/2017 Obesity 04/06/2017 Immunosuppression 09/01/2016 Xerosis of skin 04/21/2016 Odynophagia 02/03/2016 Abdominal pain 02/03/2016 Hematochezia 02/03/2016 Cirrhosis, non-alcoholic 02/03/2016 Genital herpes in women 03/05/2015 Umbilical hernia 09/18/2014 Arthralgia of multiple sites 05/29/2014 Hypertension 03/21/2014 Hyperglycemia 01/08/2014 Liver replaced by transplant 12/14/2013 Encounters Date Type Department Care Team Description 07/02/2025 Orders Only [facility] Transplant Department [address] [place] [address] Yoli Kent, RN 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); Immunosuppression ([facility]) 06/14/2025 Orders Only [facility] Transplant Department [address] [place] [address] Yoli Kent RN 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); Immunosuppression (HCC) 06/14/2025 Telephone [facility] Transplant Department [address] [place] [address] Yoli Kent RN from Last 3 Months Immunizations Immunization Administration Dates Next Due COVID-19, Pfizer, mRNA, Biva lent Booster, PF, 30 mcg/0.3 mL dose (for age 12 y and up) 04/09/2023,09/24/2022 Covid-19, Pfizer, mRNA, Niobrara valent, PF 30 mcg/0.3 mL dose (for ages 12 and older) 07/17/2021,03/16/2021,02/21/2021 Covid-19, Pfizer, mRNA, Niobrara valent, PF, 30 mcg/0.3 mL dose, danie-sucrose [...] 90 08/11/2022 5:15 PM EDT Temperature 36.2 C (97.1 F) 07/27/2022 3:34 PM EDT Respiratory Rate 19 08/11/2022 5:15 PM EDT [...] Info) Description 10/08/2025 3:00 PM EST Follow-Up [facility] Liver Transplant Services [address] [place] [address] Meet Reilly MD [address] [place] [address] Health Maintenance Due Date Last Done Comments [...] Drivers of Health Margret ual Screening 11/28/2024 Influenza Vaccine (#1) 2025 , 09/17/2023, 08/14/2022, Additional history exists Colon Cancer Screening 02/16/2026 Colonoscopy 02/16/2026 02/17/2016, 11/12/2010 CT Lung Cancer Screening (12 months, previous LungRADS 1 or 2) Discontinued 12/01/2010 Hepatitis C Screening Completed 08/28/2014 , 05/29/2014, 02/20/2014, Additional history exists Pneumococcal Vaccine: 50+ Years Completed 08/07/2024, 08/09/2020, 12/25/2012 Procedures * Due to [place] state law, this organization might not be sharing [...] Health Maintenance Results * Due to [place] state law, this organization might not be sharing negative HIV tests. * Comprehensive Metabolic Panel, Outside Lab (09/27/2017 12:56 PM EDT) Sodium 141 mmol/L [facility] Potassium 4.6 [facility] Chloride 103 [facility] Carbon Dioxide 26 [facility] Glucose 96 [facility] BUN 19 mg/dL [facility] Creatinine 1.2 [facility] Calcium 9.3 mg/dL [facility] Total Protein 6.7 g/dL [facility] Albumin 4.8 g/dL [facility] Bilirubin, Total 0.7 mg/dL [facility] Alkaline Phosphatase 81 U/L [facility] AST 24 U/L [facility] ALT 51 U/L [facility] Blood specimen (specimen) Structure of peripheral vein / Unknown 09/27/2017 12:56 PM EDT us Unknown Provider LAB BLOOD ORDERABLES Final R esult [facility] [address] [place] [address] [id number] * COLONOSCOPY (02/17/2016 9:07 AM EDT) Narrative [...] () [facility] Comment: Reference Range: Not detected The limit of detection for this assay is 5.3 IU/mL. This test was performed using the Versant (R) HCV RNA Qualitative Assay (TMA). Test Performed by [facility], [facility], [address] [place] [address] Godfrey Hernandez M.D., Ph.D., Director of Laboratories , [place] [id number] 08/28/2014 11:5 6 AM EDT 08/28/2014 1:54 PM EDT us Meet Reilly MD LAB BLOOD ORDERABLES Final Re sult [facility]) [address] [place] [address] , [place] * CT Chest W Contrast [...] intravenous contrast; exact amount is documented in cardiac cath technologist 's exam notes. One and 5mm [...] intravenous contrast; exact amount is documented in cardiac cath technologist 's exam notes. One and 5mm [...] Documents on File Type Date Recorded Patient Anvil Seating Press Operator Expl anation Advance Directive 12/19/2013 12:00 AM Adva nce Care Directives Advance Directive 12/04/2010 12:00 AM [facility] dical Dec Making (Adv.Dir) * Full Code (Latest Code Status on File) Date Activated Date Inactivated Comments 08/11/2022 3:27 PM 08/11/2022 7:32 PM Care Teams Platform Builder Relationship Specialty Start Date End Date Agueda Shelton [address] [place] [address] PCP - General 06/16/17
--- OUTSIDE RECORDS SUMMARY | 2025-07-23 13:20 | XMS_ITS | Encounter Summary ---
Author Organization [facility] Address [address] [place] [address] Phone Care Team Providers Care V Belt Curer Name Role Phone Agueda Shelton MD Primary Care Provider [phone] Encounter Details Date Type Department Care Team (Late Contact Info) Description 03/02/2021 Orders Only [facility] [address] [place] [id number] Kimberly Archibald MD Stage 3a chronic kidney [...] Visit [facility] [address] [facility] [address] [place] [address] Kelli Reyes ARNP [address] [facility] [address] [place] [address] documented as of this encounter [...] PM EDT) Appearance COLORLESS [facility] Comment:CLEAR Specific [place] 1.009 (1.002-1. 030) [facility] pH Urine 6.0 (5.0-8.0) [facility] Albumin, Urine NEGATIVE (NEG) [facility] Glucose, Ur NEGATIVE (NEG) [facility] Ketones, Urine NEGATIVE (NEG) [facility] Bilirubin Urine NEGATIVE (NEG) [facility] Hemoglobin Presence in Urine NEGATIVE (NEG) [facility] Nitrite, Urine NEGATIVE (NEG) [facility] Leukocyte Esterase Urine 1+(A) (NEG) [facility] Urobilinogen Urine NORMAL (NORM) MG/DL [facility] WBC, Urine 3 (0-5) /HPF [facility] RBC, Urine <1 (0-3) /HPF [facility] Bacteria SLIGHT(A) (NEG) HPF [facility] Squamous Epithelial, Urine 3 (0-8) /HPF [facility] Comment: Testing performed or reported by [facility], a Service of [facility], [address] [place] [id number] Gene Vu MD, Drier Transfer Car Operator Urine specimen (specimen) Urine specimen obtained by clean catch procedure / Unknown 03/26/2021 2:39 PM EDT 03/26/2021 2:42 PM EDT Kimberly Archibald MD LAB URINE ORDERABLES Final Resu lt Performing Organization Address City/[facility]/ZIP Co de Phone Number [facility] * Urine Culture (03/26/2021 2:38 PM EDT) Specimen Description See Comment See Comment See Comment See Comment [facility] Comment: URINE NONE Reflexed from [id number] <10,000 COL/ML FINAL 03/28/2021 Testing performed or reported by [facility], a Service of [facility], [address] [place] [id number] Darren Garcia MD, Drier Transfer Car Operator 03/26/2021 2:38 PM EDT 03/26/2021 2:42 PM EDT James Forrest MD LAB URINE ORDERABLES Final Re sult [facility] * (ABNORMAL) Urine Albumin / Creatinine Ratio (03/26/2021 2:38 PM EDT) Urine Microalbumin 14.1 (<20) MG/L [facility] Comment: The urine microalbumin test is designed to monitor renal function. When screening for Bence Garcia proteinuria, urine electrophoresis is recommended. Microalbumin/Creati nine Ratio 23.8(H) (0-20) MG/GM [facility] Microalb/Creat Ratio 59.3 MG/DL [facility] Comment: Testing performed or reported by [facility], a Service of [facility], [address] [place] [id number] Gene Vu MD, Drier Transfer Car Operator 03/26/2021 2:38 PM EDT 03/26/2021 2:42 PM EDT James Forrest MD LAB URINE ORDERABLES Final Re sult [facility] * (ABNORMAL) UA w/Reflex Culture (03/26/2021 2:38 PM EDT) Appearance COLORLESS [facility] Comment:CLEAR Specific [place] 1.009 (1.002-1. 030) [facility] pH Urine 6.0 (5.0-8.0) [facility] Albumin, Urine NEGATIVE [facility] Glucose, Ur NEGATIVE (NEG) [facility] Ketones, Urine NEGATIVE (NEG) [facility] Bilirubin Urine NEGATIVE (NEG) [facility] Hemoglobin Presence in Urine NEGATIVE (NEG) [facility] Nitrite, Urine NEGATIVE (NEG) [facility] Leukocyte Esterase Urine 1+(A) (NEG) [facility] Urobilinogen Urine NORMAL (NORM) MG/DL [facility] WBC, Urine 3 (0-5) /HPF [facility] RBC, Urine <1 (0-3) /HPF [facility] Bacteria SLIGHT(A) (NEG) HPF [facility] Squamous Epithelial, Urine 3 (0-8) /HPF [facility] Clarity CLEAR (CLEAR) [facility] CULTURE INDICATED CULTURE INDICATED [facility] Comment: Testing performed or reported by [facility], a Service of [facility], [address] [place] [phone] Gene Vu MD, Drier Transfer Car Operator 03/26/2021 2:38 PM EDT 03/26/2021 2:42 PM EDT us James Forrest MD LAB URINE ORDERABLES Final Re sult [facility] * (ABNORMAL) CBC and differential (03/26/2021 2:20 PM EDT) White Blood Cells 4.9 (4.0-11.0) K/MM3 [facility] RBC 4.22 (4.20-5.40 ) M/MM3 [facility] Hgb 12.6 (11.7-15.5 ) GM/DL [facility] Hematocrit 40.0 (35.7-45.8 ) % [facility] MCV 94.8 (80.0-100. 0) FL [facility] MCH 29.9 (27.0-34.0 ) PG [facility] MCHC 31.5(L) (33.0-37.0 ) g/dL [facility] Platelets 229 (150-460) K/MM3 [facility] RDW-SD 42.7 (<47.0) FL [facility] MPV 9.9 (9.4-12.4) FL [facility] nRBC Count 0.0 #/100 WBC'S [facility] NRBC Absolute 0.0 K/MM3 [facility] Neutrophils Abs Auto 2.8 (1.3-7.0) K/MM3 [facility] Lymphocytes Relative 1.4 (0.8-3.1) K/MM3 [facility] Monocytes 0.4 (0.4-0.9) K/MM3 [facility] Eosinophils Relative 0.2 (0.0-0.4) K/MM3 [facility] Basophil ABS 0.0 (0.0-0.1) K/MM3 [facility] Granulocytes Absolute 0.0 K/MM3 [facility] Neutrophils % Auto 57.1 (44-76) % [facility] Lymphs 28.6 (15-43) % [facility] Monocytes Absolute 8.4 (4.5-10.5) % [facility] Eosinophils 4.9 (0-6) % [facility] Basophils Relative 0.4 (0-2) % [facility] Immature Granulocytes 0.6 % [facility] Comment: Testing performed or reported by [facility], a Service of [facility], [address] [place] [id number] Gene Vu MD, Drier Transfer Car Operator Blood specimen (specimen) Venous blood / Unknown 03/26/2021 2:20 PM EDT 03/26/2021 2:34 PM EDT Result [facility] Kimberly Archibald MD LAB BLOOD ORDERABLES Final Resu lt Performing Organization Address City/[facility]/ZIP Co de Phone Number [facility] * Magnesium (03/26/2021 2:20 PM EDT) Pathologist [facility] Magnesium 2.0 (1.6-2.3) mg/dL [facility] Comment: Testing performed or reported by [facility], a Service of [facility], [address] [place] [id number] Gene Vu MD, Drier Transfer Car Operator Blood specimen (specimen) Venous blood / Unknown 03/26/2021 2:20 PM EDT 03/26/2021 2:34 PM EDT Result [facility] Kimberly Archibald MD LAB BLOOD ORDERABLES Final Resu lt Performing Organization Address [facility] de Phone Number [facility] * (ABNORMAL) Tacrolimus level (03/26/2021 2:20 PM EDT) [facility] Tacrolimus Lvl 4.8(L) (5-20) NG/ML [facility] Comment: As of January 18, 2018, Tacrolimus method has been changed from liquid chromatography mass spectrometry (LC-MS/MS) to immunoassay based method ([place] [employer]). The new method could produce measurements that are approximately 15% higher than LC-MS/MS. Reference range(s) correspond to the new method. Testing performed or reported by [facility], a Service of [facility], [address] [place] [phone] Darren Garcia MD, Drier Transfer Car Operator Blood specimen (specimen) Venous blood / Unknown 03/26/2021 2:20 PM EDT 03/26/2021 2:34 PM EDT Result [facility] Kimberly Archibald MD LAB BLOOD ORDERABLES Final Resu lt Performing Organization Address [facility] Co de Phone Number [facility] * Vitamin D 25 hydroxy (03/26/2021 2:20 PM EDT) Vitamin D, 25-Hydroxy 30.0 (20-50) NG/ML [facility] Comment: Testing performed or reported by [facility], a Service of [address] [address] Gene Vu MD, Drier Transfer Car Operator Blood specimen (specimen) Venous blood / Unknown 03/26/2021 2:20 PM EDT 03/26/2021 2:34 PM EDT Kimberly Archibald MD LAB BLOOD ORDERABLES Final Resu lt Performing Organization Address [facility] Co de Phone Number [facility] * (ABNORMAL) PTH, intact (03/26/2021 2:20 PM EDT) [facility] PTH, Intact 85(H) (15-65) PG/ML [facility] Comment: Testing performed or reported by [facility], a Service of [address] [address] Gene Vu MD, Drier Transfer Car Operator Blood specimen (specimen) Venous blood / Unknown 03/26/2021 2:20 PM EDT 03/26/2021 2:34 PM EDT Result [facility] Kimberly Archibald MD LAB BLOOD ORDERABLES Final Resu lt Performing Organization Address [facility] de Phone Number [facility] * (ABNORMAL) Uric acid (03/26/2021 2:20 PM EDT) [facility] Uric Acid 10.8(H) (1.6-7.6) MG/DL [facility] Comment: Testing performed or reported by [facility], a Service of [address] [address] Gene Vu MD, Drier Transfer Car Operator Blood specimen (specimen) Venous blood / Unknown 03/26/2021 2:20 PM EDT 03/26/2021 2:34 PM EDT Kimberly Archibald MD LAB BLOOD ORDERABLES Final Resu lt [facility] * (ABNORMAL) Renal function panel (03/26/2021 2:20 PM EDT) Glucose 108(H) (70-99) MG/DL [facility] BUN 24(H) (6-20) MG/DL [facility] Creatinine 1.2(H) (0.5-1.0) MG/DL [facility] Sodium 139 (133-145) MMOL/L [facility] Potassium 4.8 (3.6-5.2) MMOL/L [facility] Chloride 105 (98-107) MMOL/L [facility] Bicarbonate (CO2) 25 (22-29) MMOL/L [facility] Anion Gap 9 (4-17) [facility] Albumin 4.5 (3.4-4.8) GM/DL [facility] Calcium 9.3 (8.6-10.5) MG/DL [facility] Phosphorus, Serum 3.8 (2.5-4.5) MG/DL [facility] Est GFR Non 50 ML/MIN/1.7 3 M2 [facility] Comment: Creatinine based estimated glomerular filtration rate (eGFR) is calculated using the Chronic Kidney Disease Epidemiology Collaboration (CKD-EPI). The CKD-EPI creatinine equation has not been validated in children (<18 years), women or in some racial or ethnic subgroups other than Caucasians and Americans. EST GFR 58 ML/MIN/1.7 3 M2 [facility] Comment: Creatinine based estimated glomerular filtration rate (eGFR) is calculated using the Chronic Kidney Disease Epidemiology Collaboration (CKD-EPI). The CKD-EPI creatinine equation has not been validated in children (<18 years), women or in some racial or ethnic subgroups other than Caucasians and Americans. Testing performed or reported by [facility], a Service of [facility], [address] [place] [phone] Gene Vu MD, Drier Transfer Car Operator Blood specimen (specimen) Venous blood / Unknown 03/26/2021 2:20 PM EDT 03/26/2021 2:34 PM EDT us Kimberly Archibald MD LAB BLOOD ORDERABLES Final Resu lt NIKITA documented in this encounter Visit Diagnoses Diagnosis Stage 3a chronic kidney disease (HCC) H/O: liver recipient (HCC) documented in this encounter Care Teams V Belt Curer Relationship Specialty Start Date End Date Agueda Shelton MD [address] [place] [address] PCP - General 12/08/20 documented as of this encounter
--- OUTSIDE RECORDS SUMMARY | 2025-07-23 13:20 | XMS_ITS | Encounter Summary ---
Author Organization [facility] Address [address] [place] [address] Care Team Providers Care Farm Appraiser Name Role Phone Agueda Shelton Primary Care Provider [phone] Encounter Details Date Type Department Care Team (Late st Contact Info) Description 04/06/2017 Orders Only [facility] Building [address] [place] [address] Meet Reilly MD [address] [place] [phone] Social History Tobacco Use Types Packs/Day Years [...] Info) Description 10/08/2025 3:00 PM EST Follow-Up [facility] [address] [place], [place] [id number] Meet Reilly MD [address] [place] [address] documented as of this encounter Visit Diagnoses Not on filedocumented in this encounter Additional Health Concerns Infection Onset Date Last Indicated Resolved Time COVID-19 - Confirmed infection 06/13/2025 06/13/2025 07/13/2025 10:32 PM EDT documented as of this encounter Care Teams Farm Appraiser Relationship Specialty Start Date End Date Agueda Shelton [address] [place] [address] PCP - General 06/16/17 documented as of this encounter
--- OUTSIDE RECORDS SUMMARY | 2025-07-23 13:20 | XMS_ITS ---
Author Organization [facility] Address [address] [place] [address] Care Team Providers Care Watchguard Name Role Phone Nikita Ashlirosalia Primary Care Provider [phone] Transplant Episode Liver Recipient [facility] ([place], [place]) - [facility] Organ Received: Liver Transplanted on 11/20/2013 Marked as Active Follow-up on 11/20/2013 Liver CoordinatorYoli Kent RN Phone: N/A Fax: N/A Email: N/A Citizen [place] Organ Diagnosis Organ Primary Contributory Liver Cirrhosis: [...] Coordinator N/A N/A N/A Meet Reilly MD Safety Grooving Machine Operator [phone] [email or web address] Diomedes Chun Referring Physician [phone] N/A Events Post-Transplant Pre-Transplant Admitted: 11/13/2013 Referred: 07/09/2010 Transplanted: 11/20/2013 Evaluation began: 1 Discharged: 12/18/2013 Committee: 12/11/2010 Center waitlisted: 1 Appointments (06/22/2025 - 08/23/2025) When With Visit Type Description 07/18/2025 Transplant - Maritza Reilly Follow Up Cancel ed (Patient - Personal Reason)
[2025-07-23 16:15] LABS: MANUAL DIFF FLAG NO
[2025-07-23 16:27] LABS: Hematocrit 40.9 % (37.0-47.0); Hemoglobin 13.1 g/dl (12.0-16.0); Imm Gran Abs Auto 0.35 X10*3/uL (0.00-0.03); Imm Gran Pct Auto 3.8 % (0.0-0.4); Lymphocytes Absolute Auto 0.8 X10*3/uL (1.2-4.9); Mean Corpuscular HGB Conc 32.0 g/dl (31.0-35.0); Mean Corpuscular Hemoglobin 30.2 pg (27.0-33.0); Mean Corpuscular Volume 94.2 fL (80.0-98.0); NRBC Abs Auto 0.000 X10*3/uL (0.0-0.012); NRBC Pct Auto 0.0 /100WBC (0.0-0.2); Platelet Count 211 X10*3/uL (160-400); Red Blood Count 4.34 X10*6/uL (4.20-5.50); White Blood Count 9.2 X10*3/uL (4.8-10.8)
[2025-07-23 16:42] LABS: Alanine Aminotransferase 52 U/L (0-31); Albumin Level 4.1 g/dL (3.5-5.0); Alkaline Phosphatase 69 U/L (39-117); Anion Gap 14 (12-20); Aspartate Amino Transferase 23 U/L (5-31); Blood Urea Nitrogen 26 mg/dL (9-16); Calcium 8.9 mg/dL (8.4-10.2); Carbon Dioxide 24 mmol/L (22-29); Chloride 107 mmol/L (96-108); Estimated Glomerular Filt Rate 42; Potassium 4.5 mmol/L (3.3-5.1); Sodium 140 mmol/L (135-145); Total Protein 6.2 g/dL (6.5-8.0); Uric Acid 9.9 mg/dL (2.4-5.7)
== END 2025-07-23 12:37 | disposition home or self-care (01) ==
LOC: HO.HMGCLDS 12:36
PROVIDERS: PCP Internal Medicine; Visit Provider Student in an Organized Health Care Education/Training Program
DX: M1A.9XX1 Chronic gout, unspecified, with tophus (tophi) (principal)
CPT/HCPCS: 36415; 80053; 84550; 85025; 85652; 86140

== ENCOUNTER 2025-08-29 13:35 | Outpatient (AMB) | payer OTHER, SELFPAY ==
--- NOTE | 2025-08-29 13:37 | A.OFFVIS_ITS ---
Vital Signs 08/29/25 13:42 Height 5 ft 3 in Weight 263 lb 7.238 oz BMI 46.7 BP 132/90 H Blood Pressure Location Lt brachial Position Sitting Pulse 88 Pulse Source Pulse Oximeter Pulse Oximetry (%) 98 Oxygen Delivery Method Room Air Intake Visit Reasons: follow up Intake Note: Patient presents for Topaceous Gout follow up. Allergies nitrofurantoin Allergy (Unknown, Verified 08/29/25 13:41) nausea, dizziness and tightness chest perflutren (From [employer]) Adverse Reaction (Unknown, Verified 08/29/25 13:41) SEVERE BACK PAIN Medication List - Last Reconciled 08/29/25 by Shawna Whelan MD [aerochamber As directed] allopurinol 600 mg (2 x 300 mg) PO DAILY 90 days blood sugar diagnostic (FreeStyle Lite Strips) As directed cholecalciferol (vitamin D3) 100 mcg PO DAILY coenzyme Q10 100 mg PO DAILY hydrocortisone 2.5% 1 appl topical BID PRN 30 days Lacto.acidophilus-Bif.animalis (Daily Probiotic) PO DAILY lancets (FreeStyle Lancets) miscellaneous .qd prn; lisinopril 15 mg (1.5 x 10 mg) PO DAILY 90 days loratadine 10 mg PO DAILY 90 days magnesium oxide 400 mg PO BID omega-3 fatty acids 1,000 mg PO .bid prednisone 10 mg PO DAILY propranolol 10 mg PO DAILY sennosides (Natural Senna Laxative) 8.6 mg PO BEDTIME simethicone (Gas Relief (simethicone)) 125 mg PO TID-QID PRN tacrolimus 2 mg PO Q12H Ventolin HFA 90 mcg/actuation (albuterol sulfate) 1 inh inhalation QID PRN 30 days NS HPI Comments Details: Patient is a 65-year-old female with morbid obesity, 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 - On allopurinol 100mg (supposed to be on 200mg) and prednisone 5mg - Patient has missed an appointment and has been having frequent gout flares requiring prednisone not just from me but from other providers. I discussed w ith the patient through the patient portal that she needs to come in and be seen and evaluated. - Complaining of left elbow pain and swelling that has been occurring for the past 3 weeks. She has gotten 2 courses of 20 mg prednisone for 5 days for total of 10 days of prednisone 20 mg with no improvement in the pain or swelling. - Allopurinol increased to 300mg and prednisone increased to 10mg for prophylaxis - Follow up for 8 weeks Today - On allopurinol 600mg and prednisone 10mg - Missed 05/2025 appointments x 2 because she was in the hospital with COVID - Missed 07/31/2025 due to ride issues - Had 2 gout flares requiring prednisone tapers - Completed last prednisone taper about 1 month ago - Complaining of left elbow pain - Also complaining of bilateral knee pain Rheumatologic History: Ddx 2021 crystal proven gout (intracellular urate crystals left knee arthrocentesis in 2021) she also has tophi (right elbow) Current Rheumatology Medication(s): Allopurinol 100mg (supposed to be taking 200mg) Prednisone 5mg daily PFSH Medical History Nephropathy Hypertension, essential Drug-induced peripheral neuropathy Encounter for monitoring allopurinol therapy De Quervain's tenosynovitis, left Carpal tunnel syndrome on both sides Pain of left foot Acute bronchitis Gout Dysuria Surgical History Liver transplant recipient History of endometrial ablation Hx of colonoscopy Hx of appendectomy History of esophagogastroduodenoscopy (EGD) Hx of cholecystectomy History of ankle surgery History of liver transplant Family History Father No problems noted. Mother Sudden cardiac Other Arthritis Mental health disorder Substance use disorder Social History Housing: House Alcohol intake: never Patient Tobacco Use Status: Never used Tobacco e-Cigarette/Vaping Use: Never Used Second Hand Smoke Exposure: Yes service: No Current occupational status: disabled Current occupation: rt handed Cognitive needs: No Hearing needs: No Vision needs: No Review of Systems Const Details: Review of Systems Constitutional: Denies fever, chills, weight loss ENT: Denies vision changes, eye pain or eye redness, dental caries, dry mouth GI: Denies nausea, vomiting, diarrhea, abdominal pain, change in BM Pulm: Denies SOB, GOMEZ, hemoptysis, wheezing Cards: Denies chest pain, palpitations Skin: Denies Raynaud's, rash, nail changes, photosensitivity, CORPORATE SECURITIES RESEARCH ANALYST: Denies headaches, weakness, paresthesias, recurrent falls MSK: as per HPI All other systems reviewed and are unremarkable except noted above Physical Exam Exam Exam: Vital signs reviewed Physical Examination CONSTITUITIONAL Patient alert and cooperative. Well appearing and in no apparent painful distress MSK Hands * Right Hand: Able to make a fist. No swelling or tenderness to palpation of the MCPs, PIPs or DIPs. * Left Hand: Able to make a fist. No swelling or tenderness to palpation of the MCPs, PIPs or DIPs. * Very faint Herbedens nodes noted bilaterally Wrists * Right Wrist: Full ROM to flexion and extension. No swelling or TTP * Left Wrist: Full ROM to flexion and extension. No swelling or TTP Elbows * Right Elbow: Full ROM. No swelling or TTP. No TTP of the medial epicondyle. No TTP of the lateral epicondyle. Tophi noted * Left Elbow: Decreased ROM. No swelling or TTP. No TTP of the medial epicondyle. No TTP of the lateral epicondyle. Elbow bursa with warmth, redness and TTP Shoulders * Right shoulder: Full ROM. No swelling noted. No TTP of the AC joint. No TTP of the subacromial bursa. No TTP of the posterior shoulder * Left shoulder: Full ROM. No swelling noted. No TTP of the AC joint. No TTP of the subacromial bursa. No TTP of the posterior shoulder Knees * Right knee: Full ROM. No swelling noted. No TTP of the knee joint line. No TTP of pes anserine bursa * Left knee: Full ROM. No swelling noted. No TTP of the knee joint line. No TTP of pes anserine bursa. * Crepitations felt bilaterally Ankles * Right ankle: Good ankle dorsiflexion and plantar flexion. No swelling. No TTP of the ankle joint * Left ankle: Good ankle dorsiflexion and plantar flexion. No swelling. No TTP of the ankle joint Feet * Right foot: Negative squeeze test * Left foot: Negative squeeze test Tender points? * No tenderness to palpation of the bilateral trapezius, supraspinatus, anterior costochondral junctions, bilateral suboccipital muscle insertions SKIN No rashes Vital Signs: Last Vital Signs Pulse 88 08/29/25 13:42 BP 132/90 H 08/29/25 13:42 Pulse Ox 98 08/29/25 13:42 Oxygen Delivery Method Room Air 08/29/25 13:42 BMI result Body Mass Index 46.7 Office Procedures AMB Joint Injection/Aspiration Joint Injection/Aspiration Details: Procedure was explained to the patient and informed consent was obtained. ? Risks associated with the procedure were discussed with the patient including but not limited to bleeding, infection, drug reactions and reactions to the topical anesthetic. Patient made aware of signs to look out for infectious complications. The area of interest was identified and confirmed with patient. ?This was subsequently cleaned with chlorhexidine x 2. ? The area was then anesthetized using ethyl chloride spray. 40 mg Kenalog with 1 cc 1% lidocaine was injected without issue. ?Minimal to no bleeding. ?Patient tolerated procedure. Primary Site: other (left elbow) Prep: site was prepped using aseptic technique and ethochloride spray was applied Injected: 40 mg of, Kenalog, with 1 mL of and 1% plain lidocaine Procedure: The patient tolerated the procedure well Coding 75848 - Medium joint Procedure code (CPT) selection complete Office Meds lidocaine (PF) 10 mg/mL (1 %) injection solution Performing Provider: Shawna Whelan MD [place] [facility] Administered by: Kasandra Baron RN on 08/29/25 14:15 Dose Route Admin Location Dispensed Lot Number Expiration Date [facility] Manager Of Human Resources 1 mL Infiltration left elbow 2 mL [id number] 04/27/27 24274-019-70 FR [employer] Total Dispensed Waste 2 mL 50 % Kenalog 40 mg/mL suspension for injection Performing Provider: Shawna Whelan MD Performing [place] [facility] Administered by: Kasandra Baron RN on 08/29/25 14:15 Dose Route Admin Location Dispensed Lot Number Expiration Date [facility] Manager Of Human Resources 40 mg intrabursal left elbow 1 mL [id number] 05/27/27 [address]-4 AM [employer] Total Dispensed Waste 1 mL 0 % Results Reviewed Results Reviewed: Laboratory Tests 04/19/25 07/23/25 13:53 12:40 WBC 9.2 RBC 4.34 Hgb 13.1 Hct 40.9 Plt Count 211 ESR 5 Sodium 140 Potassium 4.5 Chloride 107 Carbon Dioxide 24 BUN 26 H Creatinine 1.28 Uric Acid 9.8 H 9.9 H AST 23 ALT 52 H C-Reactive Protein 0.15 XR Bilateral Knees 02/2023 FINDINGS: The bilateral lateral and medial joint space compartment are well-maintained. The left patellofemoral joint space compartment is well-maintained. There is very mild tricompartment osteoarthritic change of the left knee. There is bilateral chondrocalcinosis, left greater than right. No fracture or dislocation is seen. A small left knee joint effusion is suspected. IMPRESSION: 1. There is very mild tricompartment osteoarthritic change of the left knee. 2. There is a small left knee joint effusion. 3. There is chondrocalcinosis, which can be associated with CPPD. Assessment & Plan Assessment & Plan (1) 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 crystal proven gout (intracellular urate crystals left knee arthrocentesis in 2021) she also has tophi (right elbow) Code(s): M1A.9XX1 - Chronic gout, unspecified, with tophus (tophi) Category: Medical Plan: #Tophaceous gout Patient is a 65-year-old female with history of liver transplant here today for tophaceous gout. Her gout history has been complicated by noncompliance with medication and instructions which has a lead to uncontrolled uric acid and recurrent gout flares. I had a discussion with the patient about compliance with medication and instructions from Rheumatology, including ensuring following up at visits when appropriate. Patient voiced understanding and was made aware that if in the future she would not like to follow up with Rheumatology instructions then she will be discharged from clinic. Complaining of left elbow residual pain, given steroid injection today Plan - Continue allopurinol 600mg daily - Prednisone 10mg daily for prophylaxis - Labs today: CMP and Uric Acid - Goal Uric Acid: 4-5 - RTC 2 months - Labs before visit: CMP, Uric Acid, CMP, ESR (2) Bilateral primary osteoarthritis of knee: Code(s): M17.0 - Bilateral primary osteoarthritis of knee (3) Encounter for monitoring allopurinol therapy: Code(s): Z51.81 - Encounter for therapeutic drug level monitoring; Z79.899 - Other terminal gauger supervisor (current) drug therapy Category: Medical Plan: #Long-term Current Use of Allopurinol Risks and benefits of allopurinol discussed with patient Benefits include decreased gout flares, remission of gout and reduction of tophi Risks include allopurinol hypersensitivity syndrome which is a severe cutaneous adverse reaction associated with allopurinol use particularly in patients who are HLA B*5801 positive, increased transaminases, GI upset including diarrhea, nausea and vomiting, and other dermatologic manifestations. (4) roasterman current use of systemic steroids: Code(s): Z79.52 - roasterman (current) use of systemic steroids Plan: #Long-term Use of Steroids Discussed with patient the risks and benefits of steroid for managing the rheumatic condition Benefits include: - Reduced pain, improved mobility, increased participation in activities, and decreased progression of disease Risks include: - GI upset, potential ultrasound worsening or formation (especially in patients > 65 years old), elevated blood pressure/worsening hypertension, elevated blood sugar/worsening diabetes control, worsening of bone density, elevated lipids/worsening triglycerides, cataract formation, weight gain Recommended using proton pump inhibitors (PPIs) for the duration of steroid use to reduce the risk of gastric ulcers and vitamin-D daily to reduce the risk of osteoporosis Labs checked: ?A1c, T spot, hepatitis-B and C serologies Pneumocystis jiroveci prophylaxis: ?Patient with risk factors including steroids greater than 50 mg for more than 30 days, age greater than 60 years, and lung involvement from underlying rheumatic disease requires prophylaxis and will be given so Plan I spent 30 minutes reviewing the record and labs, taking a history, examining the patient, discussing the treatment plan, ordering diagnostic work up and documenting in the medical record Orders: Orders AMB Joint Injection/Aspiration Today M70.21 - Olecranon bursitis, right elbow Comprehensive Met. Panel Today M1A.9XX1 - Chronic gout, unspecified, with tophus (tophi) Uric Acid Today M1A.9XX1 - Chronic gout, unspecified, with tophus (tophi) Medications: New prednisone 10 mg PO DAILY 30 tabs 3RF M1A.9XX1 - Chronic gout, unspecified, with tophus (tophi) Discontinued prednisone see taper instructions: Take 15mg for 7 days then 10mg for 7 days then 5mg for 7 days then stop Discontinued Reason: Patient Completed Course 5 mg PO DIRECTED 42 tabs 0RF prednisone Discontinued Reason: Patient Completed Course 30 mg (3 x 10 mg) PO BID 4 days 24 tabs 0RF M1A.9XX1 - Chronic gout, unspecified, with tophus (tophi) prednisone Discontinued Reason: Patient Completed Course 20 mg PO BID 6 tabs 0RF Coding Level of Care Code Est Pt Level 4 (72587) Complex EM visit Add On G2211 Diagnoses Tophaceous gout M1A.9XX1 Bilateral primary osteoarthritis of knee M17.0 Encounter for monitoring allopurinol therapy Z51.81; Z79.899 roasterman current use of systemic steroids Z79.52 CPT Codes Coding - 53929 Medium joint: 16480 - Medium joint ([id number])
[2025-08-29 13:42] VITALS: BP 132/90; PULSE 88; O2SAT 98; BMI 46.7
--- OUTSIDE RECORDS SUMMARY | 2025-08-29 15:04 | XMS_ITS | Patient Health Record ---
Author Organization [facility] Address [address] [place] [address] Care Team Providers Care Circulation Analyst Name Role Phone Maykel Peña MD Primary Care Provider Diomedes Mi [phone] Reason For Referral No Information Medications Medication [...] Status Risk Notes Problem Chronic hepatitis C (884153515) Chronic hepatitis C without mention of hepatic coma (070.54) Active confirmed Problem Cirrhosis of liver () Cirrhosis of liver without mention of alcohol (571.5) Active confirmed Problem Constipation (48085650) Constipation (564.00) Active confirmed Problem Chronic hepatitis C (250406961) Chronic hepatitis C (070.54) Active confirmed Problem Ascites (883257290) Ascites (789.59) Active confirmed Problem Cirrhotic (982993267) Cirrhosis (571.5) Active confirmed Problem Cirrhosis of liver () Cirrhosis of liver (571.5) Active confirmed Problem Fatigue (15944054) Fatigue (780.79) Active confirmed Plan Of Treatment Pending Test Test Name Order Date CHEM 7 PROFILE 06/23/2012 MRI ABD W&WO CONTRAST 03/28/2012 Insurance Providers Payer Name Payer Address Payer Phone Subscriber Number Group Number Insured Name Patient Relationship to Insured Coverage Start Date Coverage End Date MEDICA[employer] [facility] [address] [place] [id number] MORALES MORSE Self - patient is the insured Medical (General) History Medical History History ICD Code Cirrhosis, Chronic Hep C-pre vious variceal bleeds(s/p sclerotherapy), ascites, encephalopathy--followed by Dr. Chung at [facility]--she underwent an orthotopic [...] hepatitis C viral load was nondetectable. Denies MD,DM,CVA,Lung disease,renal dise ase Nonbleeding esophageal varices-EGD [address] Chung Colonoscopy in 05/2011 with kiana garnett of portal HTN in rectum with telangiectasias-no polyps Surgical History Surgery Date(Month/Year) [facility]Y Ankle surgery Uterine ablation for bleeding liver transplant 11/20/13 as above
--- OUTSIDE RECORDS SUMMARY | 2025-08-29 15:05 | XMS_ITS | Encounter Summary ---
Author Organization [facility] Address [address] [place] [address] Care Team Providers Care Certified Juvenile Probation Officer Name Role Phone Agueda Shelton Primary Care Provider [phone] Encounter Details Date Type Department Care Team (Late st Contact Info) Description 08/31/2017 Transplant Conversio n Encounter [facility] Health Information Management [address] [place] [address] Provider, Historical Conversion IN Social History Tobacco Use Types Packs/Day Years [...] Info) Description 10/08/2025 3:00 PM EST Follow-Up [facility]- [facility] [address] [place], [place] [phone] Meet Reilly MD [address] [place] [address] documented as of this encounter Visit Diagnoses Not on filedocumented in this encounter Additional Health Concerns Infection Onset Date Last Indicated Resolved Time COVID-19 - Confirmed infection 06/13/2025 06/13/2025 07/13/2025 10:32 PM EDT documented as of this encounter Care Teams Certified Juvenile Probation Officer Relationship Specialty Start Date End Date Agueda Shelton [address] [place] [address] PCP - General 06/16/17 documented as of this encounter
--- OUTSIDE RECORDS SUMMARY | 2025-08-29 15:05 | XMS_ITS | Encounter Summary ---
Author Organization [facility] Address [address] [place] [address] Care Team Providers Care Dispensing Optician Name Role Phone Agueda Shelton Primary Care Provider [phone] Encounter Details Date Type Department Care Team (Late st Contact Info) Description 05/09/2017 Orders Only [facility] Building [address] [place] [address] Meet Reilly MD [address] [place] [phone] Social History Tobacco Use Types Packs/Day Years [...] Info) Description 10/08/2025 3:00 PM EST Follow-Up [facility] [address] [place], [place] [phone] Meet Reilly MD [address] [place] [address] documented as of this encounter Visit Diagnoses Not on filedocumented in this encounter Additional Health Concerns Infection Onset Date Last Indicated Resolved Time COVID-19 - Confirmed infection 06/13/2025 06/13/2025 07/13/2025 10:32 PM EDT documented as of this encounter Care Teams Dispensing Optician Relationship Specialty Start Date End Date Agueda Shelton [address] [place] [address] PCP - General 06/16/17 documented as of this encounter
--- OUTSIDE RECORDS SUMMARY | 2025-08-29 15:05 | XMS_ITS ---
Author Organization [facility] Address [address] [place] [address] Care Team Providers Care Grounds And Nursery Specialist Name Role Phone Nikita Ashlirosalia Primary Care Provider [phone] Transplant Episode Liver Recipient [facility] ([place], [place]) - [facility] Organ Received: Liver Transplanted on 11/20/2013 Marked as Active Follow-up on 11/20/2013 Liver CoordinatorYoli Kent RN Phone: N/A Fax: N/A Email: N/A [place] Organ Diagnosis Organ Primary Contributory Liver Cirrhosis: [...] Coordinator N/A N/A N/A Meet Reilly MD Heater Engineer Helper [phone] [email or web address] Diomedes Chun Referring Physician [phone] N/A Events Post-Transplant Pre-Transplant Admitted: 11/13/2013 Referred: 07/09/2010 Transplanted: 11/20/2013 Evaluation began: 1 Discharged: 12/18/2013 Committee: 12/11/2010 Center waitlisted: 1
--- OUTSIDE RECORDS SUMMARY | 2025-08-29 15:05 | XMS_ITS | Encounter Summary ---
Author Organization [facility] Address [address] [place] [address] Care Team Providers Care Floral Assistant Name Role Phone Agueda Shelton Primary Care Provider [phone] Encounter Details Date Type Department Care Team (Late st Contact Info) Description 12/28/2022 Orders Only [facility] Interventional Radiology [address] [place], [place] [phone] Paulo Camilo MD [address] [place] [phone] Social History Tobacco Use Types Packs/Day Years [...] Info) Description 10/08/2025 3:00 PM EST Follow-Up [facility] Transplant [facility] [address], [place] [phone] Meet Reilly MD [address] [place] [phone] documented as of this encounter Visit Diagnoses Not on filedocumented in this encounter Additional Health Concerns Infection Onset Date Last Indicated Resolved Time COVID-19 - Confirmed infection 06/13/2025 06/13/2025 07/13/2025 10:32 PM EDT documented as of this encounter Care Teams Floral Assistant Relationship Specialty Start Date End Date Agueda Shelton [address] [place] [address] PCP - General 06/16/17 documented as of this encounter
--- OUTSIDE RECORDS SUMMARY | 2025-08-29 15:05 | XMS_ITS | Clinical Summary ---
Author Organization [facility] Address [address] [place] [address] Care Team Providers Care Hand Edge Bander Name Role Phone Agueda Shelton Primary Care Provider [phone] Allergies No known active allergies Medications cyanocobalamin, [...] Refills: 5 MARKOSIGRISEL, SUSANNA N.P.; Started 11-Dec-2013 [id number] EA Box 4 Active colchicine (COLCRYS) 0.6 [...] (PROGRAF) 1 mg capsuleIndicatio ns:Liver replaced by transplant,Immun osuppression (HCC) Take 2 capsules (2 mg total) [...] Department Care Team Description 07/02/2025 Orders Only [facility] Transplant Department [address] [place] [address] Yoli Kent, RN 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); Immunosuppression (HCC) 06/14/2025 Orders Only [facility] Transplant Department [address] [place] [address] Yoli Kent RN 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); Immunosuppression (HCC) 06/14/2025 Telephone [facility] Department [address] [place] [address] Yoli Kent RN from Last 3 Months Immunizations Immunization Administration Dates Next Due COVID-19, Pfizer, mRNA, Biva lent Booster, PF, 30 mcg/0.3 mL dose (for age 12 y and up) 04/09/2023,09/24/2022 Covid-19, Pfizer, mRNA, [place] valent, PF 30 mcg/0.3 mL dose (for ages 12 and older) 07/17/2021,03/16/2021,02/21/2021 Covid-19, Pfizer, mRNA, [place] valent, PF, 30 mcg/0.3 mL dose, danie-sucrose [...] Info) Description 10/08/2025 3:00 PM EST Follow-Up [facility] [address] [place] [phone] Meet Reilly MD [address] [place] [address] Health Maintenance Due Date Last Done Comments [...] 04/12/2023 , 02/15/2023, 03/26/2021, Additional history exists Alcohol/Substance Use Screening 11/28/2024 Depression Screening and Follow-Up 11/28/2024 Social Drivers of Health Margret ual Screening 11/28/2024 COVID-19 Vaccine (2024-2 6 season) 2025 08/24/2023, 04/09/2023, 09/24/2022, Additional history exists Influenza Vaccine (#1) 2025 , 09/17/2023, 08/14/2022, Additional history exists Colon Cancer Screening 02/16/2026 Colonoscopy 02/16/2026 02/17/2016, 11/12/2010 CT Lung Cancer Screening (12 months, previous LungRADS 1 or 2) Discontinued 12/01/2010 Hepatitis C Screening Completed 08/28/2014 , 05/29/2014, 02/20/2014, Additional history exists Pneumococcal Vaccine: 50+ Years Completed 08/07/2024, 08/09/2020, 12/25/2012 Procedures * Due to [place] state law, this organization might not be [...] Health Maintenance Results * Due to [place] state law, this organization might not be sharing negative HIV tests. * Comprehensive Metabolic Panel, Outside Lab (09/27/2017 12:56 PM EDT) Sodium 141 mmol/L [facility] Potassium 4.6 [facility] Chloride 103 [facility] Carbon Dioxide 26 [facility] Glucose 96 [facility] BUN 19 mg/dL [facility] Creatinine 1.2 [facility] Calcium 9.3 mg/dL [facility] Total Protein 6.7 g/dL [facility] Albumin 4.8 g/dL [facility] Bilirubin, Total 0.7 mg/dL [facility] Alkaline Phosphatase 81 U/L [facility] AST 24 U/L [facility] ALT 51 U/L [facility] Blood specimen (specimen) Structure of peripheral vein / Unknown 09/27/2017 12:56 PM EDT us Unknown Provider LAB BLOOD ORDERABLES Final R esult [facility] [address] [place] [address] [id number] * COLONOSCOPY (02/17/2016 9:07 AM EDT) Narrative [...] Assay (TMA). Test Performed by [facility], [facility], [address] [place] [address] Godfrey Hernandez M.D., Ph.D., Director of Laboratories , [place] [id number] 08/28/2014 11:5 6 AM EDT 08/28/2014 1:54 PM EDT us Meet Reilly MD LAB BLOOD ORDERABLES Final Re sult [facility] [address] [place] [address] , [place] * CT Chest W Contrast [...] intravenous contrast; exact amount is documented in cardiopulmonary technologist 's exam notes. One and [...] intravenous contrast; exact amount is documented in cardiopulmonary technologist 's exam notes. One and [...] Documents on File Type Date Recorded Patient Manager Of Purchasing Expl anation Advance Directive 12/19/2013 12:00 AM Adva nce Care Directives Advance Directive 12/04/2010 12:00 AM [facility] dical Dec Making (Adv.Dir) * Full Code (Latest Code Status on File) Date Activated Date Inactivated Comments 08/11/2022 3:27 PM 08/11/2022 7:32 PM Care Teams Hand Edge Bander Relationship Specialty Start Date End Date Agueda hSelton [address] [place] [address] PCP - General 06/16/17
--- OUTSIDE RECORDS SUMMARY | 2025-08-29 15:05 | XMS_ITS | Encounter Summary ---
Author Organization [facility] Address [address] [place] [address] Care Team Providers Care Compressor House Operator Name Role Phone Agueda Shelton Primary Care Provider [phone] Encounter Details Date Type Department Care Team (Late st Contact Info) Description 04/06/2017 Orders Only [facility] Building [address] [place] [address] Meet Reilly MD [address] [place] [phone] Social History Tobacco Use Types Packs/Day Years [...] Info) Description 10/08/2025 3:00 PM EST Follow-Up [facility] Transplant Services [address] [place], [place] [phone] Meet Reilly MD [address] [place], [place] [phone] documented as of this encounter Visit Diagnoses Not on filedocumented in this encounter Additional Health Concerns Infection Onset Date Last Indicated Resolved Time COVID-19 - Confirmed infection 06/13/2025 06/13/2025 07/13/2025 10:32 PM EDT documented as of this encounter Care Teams Compressor House Operator Relationship Specialty Start Date End Date Agueda Shelton [address] [place] [address] PCP - General 06/16/17 documented as of this encounter
--- OUTSIDE RECORDS SUMMARY | 2025-08-29 15:05 | XMS_ITS | Encounter Summary ---
Author Organization [facility] Address [address] [place] [address] Care Team Providers Care Regional Recruiter Name Role Phone Agueda Shelton Primary Care Provider Reason for Visit * Reason Onset Date Comments cs- reschdule appt 03/07/2023 Encounter Details Date Type Department Care Team (Late st Contact Info) Description 03/07/2023 Telephone [facility] Central Scheduling Department [address] [place] [phone] Telephone Intake, Staff cs- reschdule appt Social [...] Info) Description 10/08/2025 3:00 PM EST Follow-Up [facility] Transplant Services [address] [place] [phone] Meet Reilly MD [address] [place], [place] [phone] documented as of this encounter Visit Diagnoses Not on filedocumented in this encounter Additional Health Concerns Infection Onset Date Last Indicated Resolved Time COVID-19 - Confirmed infection 06/13/2025 06/13/2025 07/13/2025 10:32 PM EDT documented as of this encounter Care Teams Regional Recruiter Relationship Specialty Start Date End Date Agueda Shelton [address] [place] [address] PCP - General 06/16/17 documented as of this encounter
== END 2025-08-29 14:19 | disposition home or self-care (01) ==
LOC: HO.RHES 13:36
PROVIDERS: PCP Internal Medicine; Visit Provider Student in an Organized Health Care Education/Training Program
DX: M1A.9XX1 Chronic gout, unspecified, with tophus (tophi) (principal); M70.21 Olecranon bursitis, right elbow; M17.0 Bilateral primary osteoarthritis of knee; Z51.81 Encounter for therapeutic drug level monitoring; Z79.899 Other long term (current) drug therapy; Z79.52 Long term (current) use of systemic steroids
CPT/HCPCS: 20605; 99214

== ENCOUNTER 2025-08-29 13:35 | Outpatient (REF) | payer OTHER, SELFPAY ==
--- OUTSIDE RECORDS SUMMARY | 2025-08-29 15:58 | XMS_ITS | Clinical Summary ---
Author Organization [facility] Address [address] [facility] [address] [place] [address] Phone Care Team Providers Care Switchboard And Control Room Operator Name Role Phone Agueda Shelton MD Primary Care Provider [phone] Allergies Active Allergy Reactions Criticality Noted Date Comments Nsaids Other (see comments) 01/13/2021 Other 12/30/2021 grapefruit Medications coenzyme Q-10 200 MG capsule Take 1 capsule by mouth 1 (one) time each day Active cyanocobalamin (VITAMIN B-12) 100 MCG tablet Take 1 tablet by mouth 1 (one) time each day Active hydrocortisone 2.5 % cream 1 application by Other route at bed time Active Mar Lin-3 Fatty Acids (Fish Oil Concentrate) 1000 MG [...] day Active Cholecalciferol (Vitamin D3) 1.25 MG (72074 UT) capsuleIndicatio ns:Vitamin D Deficiency Take 1 capsule by mouth 1 (one) time each day Active lisinopril (PRINIVIL,ZESTRI L) 30 MG tabletIndication s:Stage 3a chronic kidney disease (HCC),Essential (primary) hypertension Take 1 tablet (30 mg total) by mouth 1 (one) time each day 30 tablet 5 5 11/30/19 26 Active omeprazole (PriLOSEC) [address] capsule Take 20 mg by mouth 1 (one) time each day 0 Active Active Problems Problem Noted Date Diagnosed [...] Visit [facility] [address] [address] Kelli Reyes ARNP Stage 3a chronic kidney disease (HCC) (Primary Dx); Essential (primary) hypertension; Vitamin D deficiency, not otherwise specified from Last 3 Months [...] Care Team (Late st Contact Info) Description 09/16/2025 2:30 PM EDT Office Visit [facility] [address] [address] Kelli Reyes ARNP [address] [address] Health Maintenance Due Date Last Done Comments Breast Cancer Screening 1960 Colorectal Cancer Screening: Annual FOBT 2011 Colorectal Cancer Screening: Colonoscopy 2011 Colorectal Cancer Screening: Sigmoidoscopy 2011 Pneumococcal Vaccine: 50+ Ye ars (3 of 3 - PCV20 or PCV21) 10/03/2020 08/08/2020, 12/25/2012 Hepatitis B Vaccine (1 of 3 - Risk 3-dose series) 2022 Influenza Vaccine (#1) 2025 , 08/08/2020, 09/10/2019, Additional history exists Pneumococcal Vaccine: Peds ( 0 to 5 Years) and At-Risk Patients (6 to 49 Years) Discontinued 08/08/2020, 12/25/2012 Procedures Procedure Name Priority Date/Time Associated Diagnosis Comments EXT RESULT ENTRY Routine 06/23/2025 from Last 3 Months Results * (ABNORMAL) EXT RESULT ENTRY (06/23/2025) Hemoglobin 11.6(A) 12.0 - 16.0 Hematocrit 35.9(A) 36.0 - 46.0 Platelets 273 150 - 399 10*3/UL Sodium 141 137 - 147 Potassium 5.0 3.4 - 5.5 Chloride 108.0 99.0 - 108.0 Carbon Dioxide 25 mmol/L Anion Gap 8 <=30 MMOL/L Glucose 122 60 - 200 BUN 19 4 - 21 mg/dL Creatinine 1.33(A) 0.50 - 1.10 mg/dL Calcium 8.9 8.7 - 10.7 mg/dL Phosphorus, Serum 3.4 eGFR 45 06/23/2025 us Historical Provider LAB BLOOD ORDERABLES Amelia l Result from Last 3 Months Insurance [facility] Medicaid Care Teams Switchboard And Control Room Operator Relationship Specialty Start Date End Date Agueda Shelton MD [address] [place] [address] PCP - General 12/08/20
--- OUTSIDE RECORDS SUMMARY | 2025-08-29 15:58 | XMS_ITS | Encounter Summary ---
Author Organization [facility] Address [address] [place] [address] Phone Care Team Providers Care Compliance Consultant Name Role Phone Agueda Shelton MD Primary Care Provider [phone] Encounter Details Date Type Department Care Team (Late st Contact Info) Description 11/04/2022 Telephone [facility] [address] [place] [phone] Kimberly Archibald MD Social History Tobacco Use [...] Visit [facility] [address] [address] Kelli Reyes ARNP [address] [address] documented as of this encounter Visit Diagnoses Not on filedocumented in this encounter Care Teams Compliance Consultant Relationship Specialty Start Date End Date Agueda Shelton MD [facility] [place] [address] PCP - General 12/08/20 documented as of this encounter
--- OUTSIDE RECORDS SUMMARY | 2025-08-29 15:58 | XMS_ITS | Encounter Summary ---
Author Organization [facility] Address [address] [place] [address] Phone Care Team Providers Care Hardware Assembler Name Role Phone Agueda Shelton MD Primary Care Provider [phone] Encounter Details Date Type Department Care Team ([facility] Contact Info) Description 08/26/2022 Telephone [facility] [address] [place] [phone] Kimberly Archibald MD Social History Tobacco Use [...] Please correct and resend to [facility] [place]. Thank you documented in this encounter Plan of Treatment Upcoming Encounters Date Type Department Care Team (Late st Contact Info) Description 09/16/2025 2:30 PM EDT Office Visit [facility] [address] [address] Kelli Reyes ARNP [address] [address] documented as of this encounter Visit Diagnoses Not on filedocumented in this encounter Care Teams Hardware Assembler Relationship Specialty Start Date End Date Agueda Shelton MD [address] [place] [address] PCP - General 12/08/20 documented as of this encounter
--- OUTSIDE RECORDS SUMMARY | 2025-08-29 15:58 | XMS_ITS | Encounter Summary ---
Author Organization [facility] Address [address] [place] [address] Phone Care Team Providers Care It Teacher Name Role Phone Agueda Shelton MD Primary Care Provider [phone] Encounter Details Date Type Department Care Team (Late st Contact Info) Description 12/09/2022 Telephone [facility] [address] [place] [phone] Kelli Eubanks Social History Tobacco Use Types [...] Visit [facility] [address] [phone] Kelli Reyes ARNP [address] [address] documented as of this encounter Visit Diagnoses Not on filedocumented in this encounter Care Teams It Teacher Relationship Specialty Start Date End Date Agueda Shelton MD [facility] [place] [address] PCP - General 12/08/20 documented as of this encounter
--- OUTSIDE RECORDS SUMMARY | 2025-08-29 15:58 | XMS_ITS | Encounter Summary ---
Author Organization [facility] Address [address] [place] [address] Phone Care Team Providers Care Reefer Truck Driver Name Role Phone Agueda Shelton MD Primary Care Provider [phone] Encounter Details Date Type Department Care Team (Late Contact Info) Description 03/02/2021 Orders Only [facility] [address] [place] [phone] Kimberly Archibald MD Stage 3a chronic kidney [...] Visit [facility] [address] [place] [address] Kelli Reyes ARNP [address] [place] [address] documented as of this encounter [...] PM EDT) Appearance COLORLESS [facility] Comment:CLEAR Specific [place] 1.009 (1.002-1. 030) [facility] pH Urine 6.0 (5.0-8.0) [facility] Albumin, Urine NEGATIVE (NEG) [facility] Glucose, Ur NEGATIVE (NEG) [facility] Ketones, Urine NEGATIVE (NEG) [facility] Bilirubin Urine NEGATIVE (NEG) [facility] Hemoglobin Presence in Urine NEGATIVE (NEG) [facility] Nitrite, Urine NEGATIVE (NEG) [facility] Leukocyte Esterase Urine 1+(A) (NEG) [facility] Urobilinogen Urine NORMAL (NORM) MG/DL [facility] WBC, Urine 3 (0-5) /HPF [facility] RBC, Urine <1 (0-3) /HPF [facility] Bacteria SLIGHT(A) (NEG) HPF [facility] Squamous Epithelial, Urine 3 (0-8) /HPF [facility] Comment: Testing performed or reported by [facility], a Service of [facility], [address] [place] [id number] Gene Vu MD, Clinical Programmer Urine specimen (specimen) Urine specimen obtained by clean catch procedure / Unknown 03/26/2021 2:39 PM EDT 03/26/2021 2:42 PM EDT Kimberly Archibald MD LAB URINE ORDERABLES Final Resu lt Performing Organization Address City/[facility]/ZIP Co de Phone Number [facility] * Urine Culture (03/26/2021 2:38 PM EDT) Specimen Description See Comment See Comment See Comment See Comment [facility] Comment: URINE NONE Reflexed from [id number] <10,000 COL/ML FINAL 03/28/2021 Testing performed or reported by [facility], a Service of [facility], [address] [place] [phone] Darren Garcia MD, Clinical Programmer 03/26/2021 2:38 PM EDT 03/26/2021 2:42 PM EDT James Forrest MD LAB URINE ORDERABLES Final Re sult [facility] * (ABNORMAL) Urine Albumin / Creatinine Ratio (03/26/2021 2:38 PM EDT) Urine Microalbumin 14.1 (<20) MG/L [facility] Comment: The urine microalbumin test is designed to monitor renal function. When screening for Bence Garcia proteinuria, urine electrophoresis is recommended. Microalbumin/Creati nine Ratio 23.8(H) (0-20) MG/GM [facility] Microalb/Creat Ratio 59.3 MG/DL [facility] Comment: Testing performed or reported by [facility], a Service of [facility], [address] [place] [phone] Gene Vu MD, Clinical Programmer 03/26/2021 2:38 PM EDT 03/26/2021 2:42 PM EDT James Forrest MD LAB URINE ORDERABLES Final Re sult [facility] * (ABNORMAL) UA w/Reflex Culture (03/26/2021 2:38 PM EDT) Appearance COLORLESS [facility] Comment:CLEAR Specific [place] 1.009 (1.002-1. 030) [facility] pH Urine 6.0 (5.0-8.0) [facility] Albumin, Urine NEGATIVE [facility] Glucose, Ur NEGATIVE (NEG) [facility] Ketones, Urine NEGATIVE (NEG) [facility] Bilirubin Urine NEGATIVE (NEG) [facility] Hemoglobin Presence in Urine NEGATIVE (NEG) [facility] Nitrite, Urine NEGATIVE (NEG) [facility] Leukocyte Esterase Urine 1+(A) (NEG) [facility] Urobilinogen Urine NORMAL (NORM) MG/DL [facility] WBC, Urine 3 (0-5) /HPF [facility] RBC, Urine <1 (0-3) /HPF [facility] Bacteria SLIGHT(A) (NEG) HPF [facility] Squamous Epithelial, Urine 3 (0-8) /HPF [facility] Clarity CLEAR (CLEAR) [facility] CULTURE INDICATED CULTURE INDICATED [facility] Comment: Testing performed or reported by [facility], a Service of [facility], [address] [place] [id number] Gene Vu MD, Clinical Programmer 03/26/2021 2:38 PM EDT 03/26/2021 2:42 PM EDT us James Forrest MD LAB URINE ORDERABLES Final Re sult [facility] * (ABNORMAL) CBC and differential (03/26/2021 2:20 PM EDT) White Blood Cells 4.9 (4.0-11.0) K/MM3 [facility] RBC 4.22 (4.20-5.40 ) M/MM3 [facility] Hgb 12.6 (11.7-15.5 ) GM/DL [facility] Hematocrit 40.0 (35.7-45.8 ) % [facility] MCV 94.8 (80.0-100. 0) FL [facility] MCH 29.9 (27.0-34.0 ) PG [facility] MCHC 31.5(L) (33.0-37.0 ) g/dL [facility] Platelets 229 (150-460) K/MM3 [facility] RDW-SD 42.7 (<47.0) FL [facility] MPV 9.9 (9.4-12.4) [place] [facility] nRBC Count 0.0 #/100 WBC'S [facility] NRBC Absolute 0.0 K/MM3 [facility] Neutrophils Abs Auto 2.8 (1.3-7.0) K/MM3 [facility] Lymphocytes Relative 1.4 (0.8-3.1) K/MM3 [facility] Monocytes 0.4 (0.4-0.9) K/MM3 [facility] Eosinophils Relative 0.2 (0.0-0.4) K/MM3 [facility] Basophil ABS 0.0 (0.0-0.1) K/MM3 [facility] Granulocytes Absolute 0.0 K/MM3 [facility] Neutrophils % Auto 57.1 (44-76) % [facility] Lymphs 28.6 (15-43) % [facility] Monocytes Absolute 8.4 (4.5-10.5) % [facility] Eosinophils 4.9 (0-6) % [facility] Basophils Relative 0.4 (0-2) % [facility] Immature Granulocytes 0.6 % [facility] Comment: Testing performed or reported by [facility], a Service of [facility], [address] [place] [id number] Gene Vu MD, Clinical Programmer Blood specimen (specimen) Venous blood / Unknown 03/26/2021 2:20 PM EDT 03/26/2021 2:34 PM EDT Result [facility] Kimberly Archibald MD LAB BLOOD ORDERABLES Final Resu lt Performing Organization Address City/[facility]/ZIP Co de Phone Number [facility] * Magnesium (03/26/2021 2:20 PM EDT) Pathologist [facility] Magnesium 2.0 (1.6-2.3) mg/dL [facility] Comment: Testing performed or reported by [facility], a Service of [facility], [address] [place] [phone] Gene Vu MD, Clinical Programmer Blood specimen (specimen) Venous blood / Unknown 03/26/2021 2:20 PM EDT 03/26/2021 2:34 PM EDT Result [facility] Kimberly Archibald MD LAB BLOOD ORDERABLES Final Resu lt Performing Organization Address [facility] de Phone Number [facility] * (ABNORMAL) Tacrolimus level (03/26/2021 2:20 PM EDT) [facility] Tacrolimus Lvl 4.8(L) (5-20) NG/ML [facility] Comment: As of January 18, 2018, Tacrolimus method has been changed from liquid chromatography mass spectrometry (LC-MS/MS) to immunoassay based method (Anderson Cognos Report Developer). The new method could produce measurements that are approximately 15% higher than LC-MS/MS. Reference range(s) correspond to the new method. Testing performed or reported by [facility], a Service of [facility], [address] [place] [id number] Darren Garcia MD, Clinical Programmer Blood specimen (specimen) Venous blood / Unknown 03/26/2021 2:20 PM EDT 03/26/2021 2:34 PM EDT Result [facility] Kimberly Archibald MD LAB BLOOD ORDERABLES Final Resu lt Performing Organization Address [facility] Co de Phone Number [facility] * Vitamin D 25 hydroxy (03/26/2021 2:20 PM EDT) Vitamin D, 25-Hydroxy 30.0 (20-50) NG/ML [facility] Comment: Testing performed or reported by [facility], a Service of [address] [address] Gene Vu MD, Clinical Programmer Blood specimen (specimen) Venous blood / Unknown 03/26/2021 2:20 PM EDT 03/26/2021 2:34 PM EDT Kimberly Archibald MD LAB BLOOD ORDERABLES Final Resu lt Performing Organization Address [facility] Co de Phone Number [facility] * (ABNORMAL) PTH, intact (03/26/2021 2:20 PM EDT) [facility] PTH, Intact 85(H) (15-65) PG/ML [facility] Comment: Testing performed or reported by [facility], a Service of [address] [address] Gene Vu MD, Clinical Programmer Blood specimen (specimen) Venous blood / Unknown 03/26/2021 2:20 PM EDT 03/26/2021 2:34 PM EDT Result [facility] Kimberly Archibald MD LAB BLOOD ORDERABLES Final Resu lt Performing Organization Address [facility] de Phone Number [facility] * (ABNORMAL) Uric acid (03/26/2021 2:20 PM EDT) [facility] Uric Acid 10.8(H) (1.6-7.6) MG/DL [facility] Comment: Testing performed or reported by [facility], a Service of [address] [address] Gene Vu MD, Clinical Programmer Blood specimen (specimen) Venous blood / Unknown 03/26/2021 2:20 PM EDT 03/26/2021 2:34 PM EDT Kimberly Archibald MD LAB BLOOD ORDERABLES Final Resu lt [facility] * (ABNORMAL) Renal function panel (03/26/2021 2:20 PM EDT) Glucose 108(H) (70-99) MG/DL [facility] BUN 24(H) (6-20) MG/DL [facility] Creatinine 1.2(H) (0.5-1.0) MG/DL [facility] Sodium 139 (133-145) MMOL/L [facility] Potassium 4.8 (3.6-5.2) MMOL/L [facility] Chloride 105 (98-107) MMOL/L [facility] Bicarbonate (CO2) 25 (22-29) MMOL/L [facility] Anion Gap 9 (4-17) [facility] Albumin 4.5 (3.4-4.8) GM/DL [facility] Calcium 9.3 (8.6-10.5) MG/DL [facility] Phosphorus, Serum 3.8 (2.5-4.5) MG/DL [facility] Est GFR Non 50 ML/MIN/1.7 3 M2 [facility] Comment: Creatinine based estimated glomerular filtration rate (eGFR) is calculated using the Chronic Kidney Disease Epidemiology Collaboration (CKD-EPI). The CKD-EPI creatinine equation has not been validated in children (<18 years), women or in some racial or ethnic subgroups other than Caucasians and Americans. EST GFR 58 ML/MIN/1.7 3 M2 [facility] Comment: Creatinine based estimated glomerular filtration rate (eGFR) is calculated using the Chronic Kidney Disease Epidemiology Collaboration (CKD-EPI). The CKD-EPI creatinine equation has not been validated in children (<18 years), women or in some racial or ethnic subgroups other than Caucasians and Americans. Testing performed or reported by [facility], a Service of [facility], [address] [place] [id number] Gene Vu MD, Clinical Programmer Blood specimen (specimen) Venous blood / Unknown 03/26/2021 2:20 PM EDT 03/26/2021 2:34 PM EDT us Kimberly Archibald MD LAB BLOOD ORDERABLES Final Resu lt NIKITA documented in this encounter Visit Diagnoses Diagnosis Stage 3a chronic kidney disease (HCC) H/O: liver recipient (HCC) documented in this encounter Care Teams Reefer Truck Driver Relationship Specialty Start Date End Date Agueda Shelton MD [address] [place] [address] PCP - General 12/08/20 documented as of this encounter
--- OUTSIDE RECORDS SUMMARY | 2025-08-29 15:58 | XMS_ITS | Encounter Summary ---
Author Organization [facility] Address [address] [place] [address] Phone Care Team Providers Care Tab Machine Operator Name Role Phone Agueda Shelton MD Primary Care Provider [phone] Encounter Details Date Type Department Care Team (Late st Contact Info) Description 06/06/2024 Office Communication [facility] [address] [place] [phone] Kelli Reyes ARNP [address] [phone] Social History Tobacco Use Types Packs/Day Years [...] Visit [facility] [address] [facility] [address] [place] [address] Kelli Reyes ARNP [address] [address] documented as of this encounter Visit Diagnoses Not on filedocumented in this encounter Care Teams Tab Machine Operator Relationship Specialty Start Date End Date Agueda Shelton MD [address] [place] [address] PCP - General 12/08/20 documented as of this encounter
--- OUTSIDE RECORDS SUMMARY | 2025-08-29 15:58 | XMS_ITS | Encounter Summary ---
Author Organization [facility] Address [address] [place] [address] Phone Care Team Providers Care Special Warfare Combatant Crewman Name Role Phone Agueda Shelton MD Primary Care Provider [phone] Encounter Details Date Type Department Care Team (Late st Contact Info) Description 03/22/2023 Telephone [facility] [address] [place] [phone] Rosetta Thomas [place] Social History Tobacco Use [...] [facility] [address] [address] Kelli Reyes ARNP [address] [address] documented as of this encounter Visit Diagnoses Not on filedocumented in this encounter Care Teams Special Warfare Combatant Crewman Relationship Specialty Start Date End Date Agueda Shelton MD [facility] [place] [address] PCP - General 12/08/20 documented as of this encounter
[2025-08-29 18:01] LABS: Alanine Aminotransferase 32 U/L (0-31); Albumin Level 4.2 g/dL (3.5-5.0); Alkaline Phosphatase 64 U/L (39-117); Anion Gap 12 (12-20); Aspartate Amino Transferase 25 U/L (5-31); Blood Urea Nitrogen 41 mg/dL (9-16); Calcium 9.0 mg/dL (8.4-10.2); Carbon Dioxide 27 mmol/L (22-29); Chloride 107 mmol/L (96-108); Estimated Glomerular Filt Rate 32; Potassium 4.3 mmol/L (3.3-5.1); Sodium 142 mmol/L (135-145); Total Protein 6.8 g/dL (6.5-8.0); Uric Acid 12.2 mg/dL (2.4-5.7)
== END 2025-08-29 13:36 | disposition home or self-care (01) ==
LOC: HO.HKASLDS 13:35
PROVIDERS: PCP Internal Medicine; Visit Provider Student in an Organized Health Care Education/Training Program
DX: M1A.9XX1 Chronic gout, unspecified, with tophus (tophi) (principal); M17.0 Bilateral primary osteoarthritis of knee; Z51.81 Encounter for therapeutic drug level monitoring; Z79.52 Long term (current) use of systemic steroids; Z79.899 Other long term (current) drug therapy
CPT/HCPCS: 20605; 36415; 80053; 84550; 99212; J2003; J3301

== ENCOUNTER 2025-10-03 14:11 | Outpatient (AMB) | payer OTHER, SELFPAY ==
[2025-10-03 14:17] VITALS: BP 132/70; PULSE 68; BMI 46.5
--- NOTE | 2025-10-03 14:17 | A.OFFVIS_ITS ---
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/ previous NS/ Dr Shelton/ chest tightness Intake Note: Public Affairs Director/previous Ns / Dr shelton / Chest tightness Yield Loss Inspector Required: No Accompanied by: Self / Same As Patient Allergies nitrofurantoin Allergy (Unknown, Verified 10/03/25 14:23) nausea, dizziness and tightness chest [facility]fl[facility]ren ([facility] Adverse Reaction (Unknown, Verified 10/03/25 14:23) SEVERE BACK PAIN Medication List - Last Reconciled 10/03/25 by Luis Longoria MD [aerochamber As directed] blood sugar diagnostic (FreeStyle Lite Strips) As directed cholecalciferol (vitamin D3) 100 mcg PO DAILY coenzyme Q10 100 mg PO DAILY hydrocortisone 2.5% 1 appl topical BID PRN 30 days Lacto.acidophilus-Bif.animalis (Daily Probiotic) PO DAILY lancets (FreeStyle Lancets) miscellaneous .qd prn; lisinopril 30 mg PO DAILY loratadine 10 mg PO DAILY 90 days magnesium oxide 400 mg PO BID omega-3 fatty acids 1,000 mg PO .bid prednisone 10 mg PO DAILY propranolol 10 mg PO DAILY simethicone (Gas Relief (simethicone)) 125 mg PO TID-QID PRN tacrolimus 2 mg PO Q12H Ventolin HFA 90 mcg/actuation (albuterol sulfate) 1 inh inhalation QID PRN 30 days NS HPI Comments Details: Thank you for referring Carolyn in cardiology consultation today for exertional shortness of breath. She is a 65 year female with prior solid organ transplantation with liver transplantation about 10 12 years ago being followed by [facility], hypertension, obesity, chronic kidney disease, diffuse myofascial pain. Patient has been referred here because of increasing symptoms of shortness of breath with exertion. However she has also noticed increased weight gain in the last many months. These symptoms started about 5 months ago. That has no associated symptoms of orthopnea, PND, leg edema. Possibly associated with the associated with chest tightness. Patient also complains of intermittent episodes of palpitations. Denies any lightheadedness syncope. Has been taking all her medications. Generally says a blood pressures been well controlled. [facility] Medical History Nephropathy Hypertension, essential Drug-induced peripheral neuropathy Encounter for monitoring allopurinol therapy De Quervain's tenosynovitis, left Carpal tunnel syndrome on both sides Pain of left foot Acute bronchitis Gout Dysuria Surgical History Liver transplant recipient History of endometrial ablation Hx of colonoscopy Hx of appendectomy History of esophagogastroduodenoscopy (EGD) Hx of cholecystectomy History of ankle surgery History of liver transplant Family History Father No problems noted. Mother Sudden cardiac Maternal Grandmother CHF (congestive heart failure) Brother Heart problem Other Arthritis Mental health disorder Substance use disorder Social History Housing: House Alcohol intake: never Patient Tobacco Use Status: Never used Tobacco e-Cigarette/Vaping Use: Never Used Second Hand Smoke Exposure: Yes service: No Current occupational status: disabled Current occupation: rt handed Cognitive needs: No Hearing needs: No Vision needs: No Review of Systems Const Denies daytime sleepiness, Denies difficulty sleeping, Denies snoring, Denies stops breathing during sleep and Denies weakness Card Denies chest pain, Denies rapid heart rate, Denies irregular heart rhythm, Denies claudication, Denies leg edema, Denies lightheadedness, Denies palpitations, Reports dyspnea, Denies orthopnea, Denies paroxysmal nocturnal dyspnea and Denies slow heart rate Resp Denies cough, Reports dyspnea and Denies snoring GI Reports no additional complaints, Denies hematochezia, Denies change in stool character and Denies dyspepsia Musc Denies abnormal gait, Denies muscle weakness and Denies numbness Neuro Denies abnormal gait, Denies numbness and Denies weakness Endo Denies palpitations Physical Exam Vital Signs: Last Vital Signs Pulse 68 10/03/25 14:17 BP 132/70 10/03/25 14:17 BMI result Body Mass Index 46.5 Const General: cooperative, comfortable, no acute distress, alert and awake Nutritional Appearance: obese morbidly obese Orientation/consciousness: patient oriented x3 Limitations: no limitations HEENT Head: Yes normocephalic and Yes atraumatic Neck Neck: Yes trachea midline, Yes supple and Yes no JVD Resp Effort & Inspection: normal respiratory effort Auscultation: clear to auscultation bilaterally and diminished lung sounds Cardio Jugular venous distension: no JVD Rate: regular rate Rhythm: regular rhythm Heart sounds: S1 normal heart sound present, S2 normal heart sound present, no click, no gallops and no murmurs GI Auscultation: normal bowel sounds Skin General skin exam: no rashes or lesions noted Neuro General: patient oriented x3 and no focal motor deficits Extrem General: Yes no clubbing, cyanosis or edema Office Procedures EKG Details: EKG shows normal sinus rhythm with low-voltage QRS with nonspecific T-wave changes 74760-[id number], Complete Assessment & Plan Assessment & Plan (1) SOB (shortness of breath) on exertion: Code(s): R06.02 - Shortness of breath Category: Medical Plan: Patient with new onset symptoms of exertional shortness of breath with multiple risk factors including chronic kidney disease, immunosuppressive therapy, hypertension, morbid obesity and borderline diabetes. Obstructive coronary artery disease needs to be ruled out. Will suggest a vasodilating myocardial perfusion imaging to further assess for the same. This test will be scheduled in near future. Also suggest an echocardiogram to evaluate for LV systolic and diastolic function to evaluate for hypertensive heart disease and pulmonary hypertension. This is test will also be scheduled in near future. Further treatment based on the findings. However it also appears that this could be related to her weight gain and reduced overall exercise activity. Suggested to gradually participating in increasing aerobic activity. Follow up in the clinic after above-mentioned test. Thank you for allowing me to partake in her care Orders: Orders ECG 7 day holter monitor 10/03/25 Luis Longoria MD R00.2 - Palpitations RT home sleep study 10/03/25 Luis Longoria MD E66.01 - Morbid (severe) obesity due to excess calories, R40.0 - Somnolence, Z68.41 - Body mass index [BMI] 40.0- 44.9, adult CA lexiscan stress w gianfranco 10/03/25 Luis Longoria MD R06.02 - Shortness of breath CA echo transthorac w con 10/03/25 Luis Longoria MD R06.02 - Shortness of breath Medications: Changed From lisinopril 15 mg (1.5 x 10 mg) PO DAILY 90 days 135 tabs 2RF To lisinopril 30 mg PO DAILY Agueda Shelton MD Coding Level of Care Code New Pt Level 4 (08062) Complex EM visit Add On G2211 Diagnoses SOB (shortness of breath) on exertion R06.02 CPT Codes EKG - CPT: 31099-[id number], Complete ([id number])
--- OUTSIDE RECORDS SUMMARY | 2025-10-03 17:22 | XMS_ITS | Encounter Summary ---
Author Organization [facility] Address [address] [place] [address] Phone Care Team Providers Care Senior Climate Advisor Name Role Phone Agueda Shelton MD Primary Care Provider [phone] Encounter Details Date Type Department Care Team (Late st Contact Info) Description 12/09/2022 Telephone [facility] [address] [place] [phone] Kelli Eubanks Social History Tobacco Use Types [...] Care Team (Late st Contact Info) Description 01/22/2026 2:30 PM EST Office Visit [facility] [address] [address] Kelli Reyes ARNP [address] [address] documented as of this encounter Visit Diagnoses Not on filedocumented in this encounter Care Teams Senior Climate Advisor Relationship Specialty Start Date End Date Agueda Shelton MD [address] [place] [address] PCP - General 12/08/20 documented as of this encounter
--- OUTSIDE RECORDS SUMMARY | 2025-10-03 17:22 | XMS_ITS | Encounter Summary ---
Author Organization [facility] Address [address] [place] [address] Phone Care Team Providers Care Lawnmower Repair Mechanic Name Role Phone Agueda Shelton MD Primary Care Provider [phone] Encounter Details Date Type Department Care Team (Late st Contact Info) Description 11/04/2022 Telephone [facility] [address] [place] [phone] Kimberly Archibald MD Social History Tobacco Use [...] the [facility] [address] [address] Kelli Reyes ARNP [address] [address] documented as of this encounter Visit Diagnoses Not on filedocumented in this encounter Care Teams Lawnmower Repair Mechanic Relationship Specialty Start Date End Date Agueda Shelton MD [address] [place] [address] PCP - General 12/08/20 documented as of this encounter
--- OUTSIDE RECORDS SUMMARY | 2025-10-03 17:22 | XMS_ITS | Patient Health Record ---
Author Organization [facility] Address [address] [place] [address] Care Team Providers Care History Faculty Member Name Role Phone Maykel Peña MD Primary Care Provider Diomedes Mi [phone] Reason For Referral No Information Medications Medication SIG (Take, Route, Frequency, Duration) Notes Start Date End Date Status Magnesium 400 MG Orally Act ida Multivitamin Orally Active Omeprazole 20 MG 1 capsule Orally Onc e a day; Duration: 30 Active Senna Orally Active Lasix 40 [...] Status Risk Notes Problem Chronic hepatitis C (576143052) Chronic hepatitis C without mention of hepatic coma (070.54) Active confirmed Problem Cirrhosis of liver (84809134) Cirrhosis of liver without mention of alcohol (571.5) Active confirmed Problem Constipation (03402359) Constipation (564.00) Active confirmed Problem Chronic hepatitis C (279614830) Chronic hepatitis C (070.54) Active confirmed Problem Ascites (357084842) Ascites (789.59) Active confirmed Problem Cirrhotic (389537010) Cirrhosis (571.5) Active confirmed Problem Cirrhosis of liver (12916357) Cirrhosis of liver (571.5) Active confirmed Problem Fatigue (17291505) Fatigue (780.79) Active confirmed Plan Of Treatment Pending Test Test Name Order Date CHEM 7 PROFILE 06/23/2012 MRI ABD W&WO CONTRAST 03/28/2012 Insurance Providers Payer Name Payer Address Payer Phone Subscriber Number Group Number Insured Name Patient Relationship to Insured Coverage Start Date Coverage End Date [facility] [address] [place] [id number] MORALES MORSE Self - patient is the insured Medical (General) History Medical History History ICD Code Cirrhosis, Chronic Hep C-pre vious variceal bleeds(s/p sclerotherapy), ascites, encephalopathy--followed by Dr. Chung at [facility]--she underwent an orthotopic liver [...] hepatitis C viral load was nondetectable. Denies MN,DM,CVA,Lung disease,renal dise ase Nonbleeding esophageal varices-EGD [address] Chung Colonoscopy in 05/2011 with kiana garnett of portal HTN in rectum with telangiectasias-no polyps Surgical History Surgery Date(Month/Year) CCY Ankle surgery Uterine ablation for bleeding liver transplant 11/20/13 as above
--- OUTSIDE RECORDS SUMMARY | 2025-10-03 17:22 | XMS_ITS | Encounter Summary ---
Author Organization [facility] Address [address] [place] [address] Phone Care Team Providers Care Jacquard Card Cutter Name Role Phone Agueda Shelton MD Primary Care Provider [phone] Encounter Details Date Type Department Care Team ([facility] Contact Info) Description 08/26/2022 Telephone [facility] [address] [place] [phone] Kimberly Archibald MD Social History Tobacco Use [...] Please correct and resend to [facility] [address] in [place]. Thank you documented in this encounter Plan of Treatment Upcoming Encounters Date Type Department Care Team (Late st Contact Info) Description 01/22/2026 2:30 PM EST Office Visit [facility] [address] [address] Kelli Reyes ARNP [address] [address] documented as of this encounter Visit Diagnoses Not on filedocumented in this encounter Care Teams Jacquard Card Cutter Relationship Specialty Start Date End Date Agueda Shelton MD [address] [place] [address] PCP - General 12/08/20 documented as of this encounter
--- OUTSIDE RECORDS SUMMARY | 2025-10-03 17:23 | XMS_ITS | Clinical Summary ---
Author Organization [facility] Address [address] [place] [address] Phone Care Team Providers Care Tourist Guide Name Role Phone Agueda Shelton MD Primary Care Provider Allergies Active Allergy Reactions Criticality Noted Date Comments Nsaids Other (see comments) 01/13/2021 Other 12/30/2021 grapefruit Medications coenzyme Q-10 200 MG capsule Take 1 capsule by mouth 1 (one) time each day Active cyanocobalamin (VITAMIN B-12) 100 MCG tablet Take 1 tablet by mouth 1 (one) time each day Active hydrocortisone 2.5 % cream 1 application by Other route at bed time Active [place]-3 Fatty Acids (Fish Oil Concentrate) 1000 MG [...] 1 mg at night daily total 3mg. 07/03/20 19 Active Loratadine 10 MG capsule Take 10 mg by mouth 07/03/20 19 Active magnesium oxide (MAG-OX) 400 MG tablet Take 400 mg by mouth 07/03/20 19 Active Turmeric 500 MG capsule Take by mouth Active propranolol (INDERAL) 10 MG tablet Take 10 mg by mouth 1 (one) time each day Active lisinopril (PRINIVIL,ZESTRI L) 30 MG tabletIndication s:Stage 3a chronic kidney disease (HCC),Essential (primary) hypertension Take 1 tablet (30 mg total) by mouth 1 (one) time each day 30 tablet 5 06/03/20 25 026 Active Cholecalciferol (Vitamin D-3) 125 MCG (5000 UT) tablet Take 5,000 Units by mouth 1 (one) time each day Active Cholecalciferol (Vitamin D3) 1.25 MG (49752 UT) capsuleIndicatio ns:Vitamin D Deficiency Take 1 capsule by mouth 1 (one) time each day 025 Discontin ued(Med List Maintenan ce) omeprazole (PriLOSEC) [address] capsule Take 20 mg by mouth 1 (one) time each day 04/14/20 10 025 Discontin ued(Med List Maintenan ce) Active Problems Problem Noted Date Diagnosed Date Acute metabolic acidosis 09/16/2025 Vitamin D deficiency, not otherwise specified Idiopathic [...] Encounters Date Type Department Care Team Description 09/16/2025 2:30 PM EDT Office Visit [facility] [address] [place] [phone] Kelli Reyes ARNP Stage 3a chronic kidney disease (HCC) (Primary Dx); Essential (primary) hypertension; Acute metabolic acidosis from Last 3 Months Immunizations Immunization Administration [...] Sign Reading Time Taken Comments Blood Pressure 120/78 09/16/2025 2:46 PM EDT Pulse 71 09/16/2025 2:46 PM EDT Temperature - - Respiratory Rate - - Oxygen Saturation 97% 06/03/2025 1:51 PM EDT Inhaled Oxygen Concentration - - Weight 117 kg (258 lb 9.6 oz) 09/16/2025 2:46 PM EDT Height 162.6 cm (5' 4 ) 09/03/2021 2:45 PM EDT Body Mass Index 44.39 09/03/2021 2:45 PM EDT Plan of Treatment Upcoming Encounters Date Type Department Care Team (Late st Contact Info) Description 01/22/2026 2:30 PM EST Office Visit [facility] [address] [address] Kelli Reyes ARNP [address] [address] Health Maintenance Due Date Last [...] Date/Time Associated Diagnosis Comments PTH, INTACT Routine 09/12/2025 4:55 PM EDT FERRITIN Routine 09/12/2025 4:55 PM EDT MAGNESIUM Routine 09/12/2025 4:55 PM EDT VITAMIN D 25 HYDROXY Routine 09/12/2025 4:55 PM EDT URINE ALBUMIN / CREATININE RATIO Routine 09/12/2025 4:55 PM EDT PROTEIN / CREATININE RATIO, URINE Routine 09/12/2025 4:55 PM EDT CBC Routine 09/12/2025 4:55 PM EDT RENAL FUNCTION PANEL Routine 09/12/2025 4:55 PM EDT from Last 3 Months Results * Protein, Total, Random Urine w/Creatinine (Protein/Creat Ratio) (09/12/2025 4:55 PM EDT) Creatinine, Ur 86.0 Not Estab. mg/dL [facility] Protein, Ur 5.7 Not Estab. mg/dL [facility] Urine Protein/Creatin ine Ratio 66 0 - 200 mg/g creat [facility] 09/12/2025 4:55 PM EDT 09/12/2025 [employer] [facility] LAB URINE ORDERABLES Final Result Performing Organization Address [facility] Co de Phone Number [facility] [address] [place] [address] * Urine Albumin / Creatinine Ratio (09/12/2025 4:55 PM EDT) Albumin, Urine 13.1 Not Estab. ug/mL [facility] Albumin/Creatin ine Ratio 15 0 - 29 mg/g [facility] Comment: Normal: 0 - 29 Moderately increased: 30 - 300 Severely increased: >300 09/12/2025 4:55 PM EDT 09/12/2025 [facility] LAB URINE ORDERABLES Final Result Performing Organization Address [facility] de Phone Number [facility] [address] [place] [address] * (ABNORMAL) Vitamin D 25 Hydroxy (09/12/2025 4:55 PM EDT) Vitamin D, 25-OH, Total 28.1(L) 30.0 - 100.0 ng/mL [facility] Comment: Vitamin D deficiency has been defined by the [place] of Medicine and an Endocrine Society practice guideline as a level of serum 25-OH vitamin D less than 20 ng/mL (1,2). The Endocrine Society went on to further define vitamin D insufficiency as a level between 21 and 29 ng/mL (2). 1. IOM ([place] of Medicine). 2010. Dietary reference intakes for calcium and D. [place]: The National Academies Press. 2. Joan MABRY, Marycruz CORDERO, Armand CHEN, et al. Evaluation, treatment, and prevention of vitamin D deficiency: an Endocrine Society clinical practice guideline. JCEM. 2010; 96(7):1911-30. 09/12/2025 4:55 PM EDT 09/12/2025 Kelli Reyes [facility] LAB BLOOD ORDERABLES Final Result [facility] [address] [place] [address] * CBC (09/12/2025 4:55 PM EDT) WBC 6.7 3.4 - 10.8 x10E3/uL [facility] RBC 4.08 3.77 - 5.28 x10E6/uL [facility] Hemoglobin 12.8 11.1 - 15.9 g/dL [facility] Hematocrit 38.6 34.0 - 46.6 % [facility] MCV 95 79 - 97 fL [facility] MCH 31.4 26.6 - 33.0 pg [facility] MCHC 33.2 31.5 - 35.7 g/dL [facility] RDW 13.3 11.7 - 15.4 % [facility] Platelets 240 150 - 450 x10E3/uL [facility] 09/12/2025 4:55 PM EDT 09/12/2025 Kelli Reyes [facility] LAB BLOOD ORDERABLES Final Result [facility] [address] [place] [address] * PTH, Intact (09/12/2025 4:55 PM EDT) PTH 51 15 - 65 pg/mL [facility] 09/12/2025 4:55 PM EDT 09/12/2025 [facility] [place] [facility] LAB BLOOD ORDERABLES Final Result Performing Organization Address [facility] Co de Phone Number [facility] [address] [place] [address] * Magnesium (09/12/2025 4:55 PM EDT) Pathologist [facility] Magnesium 1.9 1.6 - 2.3 mg/dL [facility] 09/12/2025 4:55 PM EDT 09/12/2025 [facility] [place] [facility] LAB BLOOD ORDERABLES Final Result Performing Organization Address [facility] de Phone Number [facility] [address] [place] [address] * (ABNORMAL) Ferritin (09/12/2025 4:55 PM EDT) Pathologist [facility] Ferritin 329(H) 15 - 150 ng/mL [facility] 09/12/2025 4:55 PM EDT 09/12/2025 [facility] [place] [facility] LAB BLOOD ORDERABLES Final Result Performing Organization Address [facility] de Phone Number [facility] [address] [place] [address] * (ABNORMAL) Renal Function Panel (09/12/2025 4:55 PM EDT) Glucose 95 70 - 99 mg/dL [facility] BUN 23 8 - 27 mg/dL [facility] Creatinine 1.27(H) 0.57 - 1.00 mg/dL [facility] eGFR CKD-EPI CR 2020 48(L) >59 mL/min/1.7 3 [facility] BUN/Creatinine Ratio 18 12 - 28 [facility] Sodium 141 134 - 144 mmol/L [facility] Potassium 5.0 3.5 - 5.2 mmol/L [facility] Chloride 108(H) 96 - 106 mmol/L [facility] Bicarbonate (CO2) 19(L) 20 - 29 mmol/L [facility] Calcium 9.0 8.7 - 10.3 mg/dL [facility] Albumin 4.0 3.9 - 4.9 g/dL [facility] Phosphorus 3.5 3.0 - 4.3 mg/dL [facility] 09/12/2025 4:55 PM EDT 09/12/2025 us Kelli BARILLAS LAB BLOOD ORDERABLES Final Result [facility] [address] [place] [address] from Last 3 Months Insurance [facility] [place] [address] [place] [id number] Care Teams Tourist Guide Relationship Specialty Start Date End Date Agueda Shelton MD [address] [facility] [place] [address] PCP - General 12/08/20
--- OUTSIDE RECORDS SUMMARY | 2025-10-03 17:23 | XMS_ITS | Encounter Summary ---
Author Organization [facility] Address [address] [place] [address] Care Team Providers Care Android Ios Developer Name Role Phone Agueda Shelton Primary Care Provider [phone] Reason for Visit * Reason Onset Date Comments cs- reschdule appt 03/07/2023 Encounter Details Date Type Department Care Team (Late st Contact Info) Description 03/07/2023 Telephone [facility] Central Scheduling Department [address] [place] [phone] Telephone Intake, Staff cs- reschdule appt Social [...] Info) Description 10/08/2025 3:00 PM EST Follow-Up [facility] [address] [place] [phone] Meet Reilly MD [address] [place], [place] [phone] documented as of this encounter Visit Diagnoses Not on filedocumented in this encounter Additional Health Concerns Infection Onset Date Last Indicated Resolved Time COVID-19 - Confirmed infection 06/13/2025 06/13/2025 07/13/2025 10:32 PM EDT documented as of this encounter Care Teams Android Ios Developer Relationship Specialty Start Date End Date Agueda Shelton [address] [place] [address] PCP - General 06/16/17 documented as of this encounter
--- OUTSIDE RECORDS SUMMARY | 2025-10-03 17:23 | XMS_ITS | Encounter Summary ---
Author Organization [facility] Address [address] [place] [address] Care Team Providers Care Photoengraving Finisher Name Role Phone Agueda Shelton Primary Care Provider [phone] Encounter Details Date Type Department Care Team (Late st Contact Info) Description 12/28/2022 Orders Only [facility] Interventional Radiology [address] [place], [place] [phone] Paulo Camilo MD [address] [place] [address] [phone] Social History Tobacco Use Types Packs/Day Years [...] Info) Description 10/08/2025 3:00 PM EST Follow-Up [facility] [address] [place], [place] [phone] Meet Reilly MD [address] [place] [address] [phone] documented as of this encounter Visit Diagnoses Not on filedocumented in this encounter Additional Health Concerns Infection Onset Date Last Indicated Resolved Time COVID-19 - Confirmed infection 06/13/2025 06/13/2025 07/13/2025 10:32 PM EDT documented as of this encounter Care Teams Photoengraving Finisher Relationship Specialty Start Date End Date Agueda Shelton [address] [place] [address] PCP - General 06/16/17 documented as of this encounter
--- OUTSIDE RECORDS SUMMARY | 2025-10-03 17:23 | XMS_ITS | Encounter Summary ---
Author Organization [facility] Address [address] [place] [address] Care Team Providers Care V Belt Builder Name Role Phone Agueda Shelton Primary Care Provider [phone] Encounter Details Date Type Department Care Team (Late st Contact Info) Description 04/06/2017 Orders Only [facility] Building [address] [place] [address] Meet Reilly MD [address] [place] [phone] Social History Tobacco Use Types Packs/Day Years [...] 10/08/2025 3:00 PM EST Follow-Up [facility] [address] [place], [place] [phone] Meet Reilly MD [address] [place], [place] [phone] documented as of this encounter Visit Diagnoses Not on filedocumented in this encounter Additional Health Concerns Infection Onset Date Last Indicated Resolved Time COVID-19 - Confirmed infection 06/13/2025 06/13/2025 07/13/2025 10:32 PM EDT documented as of this encounter Care Teams V Belt Builder Relationship Specialty Start Date End Date Agueda Shelton [address] [place] [address] PCP - General 06/16/17 documented as of this encounter
--- OUTSIDE RECORDS SUMMARY | 2025-10-03 17:23 | XMS_ITS | Clinical Summary ---
Author Organization [facility] Address [address] [place] [address] Care Team Providers Care Blood Bank Laboratory Professional Name Role Phone Agueda Shelton Primary Care Provider [phone] Allergies No known active allergies Medications cyanocobalamin, vitamin B-12, 1,000 mcg tablet extended release Take 1,000 mcg by mouth daily. DIRECTED. Active folic acid (FOLVITE) 400 mcg tablet Take 400 mcg by mouth daily. DIRECTED Active LACTOBACILLUS ACIDOPHILUS (PROBIOTIC ORAL) ONCE DAILY Active TURMERIC (CURCUMIN MISC) Curcumin Extract Powder PT STATES TAKING 1 CAP 400MG DAILY Refills: 0 Started 03-Feb-2016 Active 02/03/20 16 Active coenzyme Q10 10 mg capsule Coenzyme Q10 10 MG Oral Capsule TAKE 1 CAPSULE DAILY Refills: 0 Started 04-Jan-2014 Active 01/04/20 14 Active omega-3 acid ethyl esters (LOVAZA) 1 gram capsule Fish Oil 1000 MG Oral Capsule TAKE 1 CAPSULE DAILY. Refills: 0 MEET VARNER MD; Started 09-Jul-2015 Active 07/09/20 15 Active hydrocortisone 2.5% cream APPLY TO AFFECTED AREA EVERY DAY AT BEDTIME NEEDED 1 10/18/20 17 Active lidocaine (LIDODERM) 5% patch APPLY 1 PATCH ONTO SKIN DAILY, REMOVE AFTER 12 HOURS 2 11/18/20 17 Active loratadine (CLARITIN) 10 mg tablet Take 10 mg by mouth. 9 11/09/20 17 Active vitamin D3 1,000 unit capsule Vitamin D3 1000 UNIT Oral Capsule 1 TAB DAILY Refills: 0 Active Active BLOOD-GLUCOSE METER (FREESTYLE FREEDOM LITE MISC) FreeStyle Lite Device test 4 x per day Quantity: 1; Refills: 0 SUSANNA STEPHEN N.P.; Started 11-Dec-2013 Active1 EA Box 12/11/19 14 Active BLOOD-GLUCOSE METER (FREESTYLE LITE METER MISC) FreeStyle Lite Test In Vitro Strip TEST 4 TIMES DAILY. Quantity: 1; Refills: 5 MARKOSIGRISEL, SUSANNA N.P.; Started 11-Dec-2013 [id number] EA Box 12/11/19 14 Active colchicine (COLCRYS) 0.6 mg tablet Take 1 tablet (0.6 mg total) by mouth 2 times a day. 60 tablet 12/27/19 18 Active lancets misc Use to test 4 times daily. 100 each 5 03/08/20 19 Active Freestyle lancets 28 gauge USE TO TEST BLOOD SUGAR FOUR TIMES DAILY DIRECTED 03/08/20 19 Active lisinopril (PRINIVIL,ZESTR IL) 10 mg tablet 03/28/20 19 Active fluocinonide (LIDEX) 0.05% cream PLEASE SEE ATTACHED FOR DETAILED DIRECTIONS 01/19/20 22 Active gabapentin (NEURONTIN) 300 mg capsule Take 300 mg by mouth 2 times a day. 05/12/20 22 Active escitalopram (LEXAPRO) 10 mg tablet Take 10 mg by mouth once a day. 07/23/20 22 Active valACYclovir (VALTREX) 500 mg tablet Take 500 mg by mouth 2 times a day. 07/15/20 22 Active Freestyle Lite test strips USE TO TEST 4 TIMES DAILY 100 strip 11 10/29/20 22 Active clobetasoL 0.05 % shampooIndicati ons:Psoriasis Use to wash scalp 3-5x per week. Let sit for 5 min before rinsing 118 mL 3 05/02/20 23 Active alclometasone (ACLOVATE) 0.05 % ointmentIndicat ions:Psoriasis USE ON PSORIASIS IN SKIN FOLDS AND GROIN TWICE DAILY NEEDED 45 g 2 05/17/20 23 Active famotidine (PEPCID) 20 mg tablet TAKE 1 TABLET BY MOUTH TWICE A DAY 180 tablet 3 07/01/20 23 Active triamcinolone (KENALOG) 0.025 % ointmentIndicat ions:Psoriasis Apply to psoriasis and skin folds twice daily for 2-week intervals 80 g 3 10/13/20 23 Active fluocinonide (LIDEX) 0.05% solutionIndicat ions:Psoriasis APPLY TO AFFECTED AREAS OF SCALP TWICE DAILY FOR FLARES FOR UP TO 2 WEEKS AT A TIME 60 mL 2 03/01/20 24 Active clobetasoL (TEMOVATE) 0.05% ointmentIndicat ions:Psoriasis APPLY TO AFFECTED AREAS ON BACK AND LEGS TWICE DAILY 60 g 04/11/20 24 Active ketoconazole (NIZORAL) 2% shampooIndicati ons:Psoriasis APPLY TO SCALP, LATHER, LEAVE ON 5 MINUTES, AND RINSE. USE AT LEAST 2-3X WEEKLY 120 mL 5 06/04/20 24 Active tacrolimus (PROGRAF) 1 mg capsuleIndicati ons:Liver replaced by transplant,Immu nosuppression (HCC) Take 2 capsules (2 mg total) by mouth in the morning AND 1 capsule (1 mg total) every evening. 270 capsule 3 5 2:51 PM EDT 03/28/20 25 028 Active propranoloL (INDERAL) 10 mg tablet TAKE 0.5 TABLETS (5 MG TOTAL) BY MOUTH 2 TIMES A DAY. 90 tablet 3 09/18/20 25 026 Active propranoloL (INDERAL) 10 mg tablet TAKE 0.5 TABLETS (5 MG TOTAL) BY MOUTH 2 TIMES A DAY. 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 Genital herpes in women 03/05/2015 Umbilical hernia 09/18/2014 Arthralgia of multiple sites 05/29/2014 Hypertension 03/21/2014 Hyperglycemia 01/08/2014 Liver replaced by transplant 12/14/2013 Encounters Date Type Department Care Team Description 09/18/2025 Refill [facility] [address] [place] [address] Meet Varner MD 09/16/2025 Abstract [facility] Transplant Department [address] [place] [address] Meet Varner MD 09/16/2025 Abstract [facility] Transplant Department [address] [place] [address] Meet Varner MD from Last 3 Months Immunizations Immunization Administration Dates Next Due COVID-19, Pfizer, mRNA, Biva lent Booster, PF, 30 mcg/0.3 mL dose (for age 12 y and up) 04/09/2023,09/24/2022 Covid-19, Pfizer, mRNA, Patrick valent, PF 30 mcg/0.3 mL dose (for ages 12 and older) 07/17/2021,03/16/2021,02/21/2021 Covid-19, Pfizer, mRNA, Patrick valent, PF, 30 mcg/0.3 mL dose, danie-sucrose (COMIRNATY)(for ages 12 and older) 07/10/2022,01/25/2022 Covid-19, Pfizer, mRNA, Danie -sucrose Vaccine, PF, 30 mcg/0.3 mL (for age 12 y and up) 08/24/2023 INFLUENZA, SPLIT VIRUS, TRIVALENT, PF 09/01/2016 ,08/28/2014 Influenza, Injectable, Madin [place] Canine Kidney, Preservative Free, Quadrivalent 09/10/2019 Influenza, [...] Follow-Up [facility] [address] [place] [address] Meet Varner MD [address] [place] [address] Health Maintenance Due Date Last Done Comments [...] 08/07/2024, 08/09/2020, 12/25/2012 Procedures * Due to [place] state law, this organization might not be sharing negative HIV tests. Procedure Name Priority Date/Time Associated Diagnosis Comments LIVER POST EXTERNAL PANEL Routine 09/12/2025 5:01 PM EDT COMPREHENSIVE METABOLIC PANEL, OUTSIDE LAB Routine 09/27/2017 12:56 PM EDT COLONOSCOPY 02/17/2016 9:07 AM EDT X HEPATITIS C RNA, QUALITATIVE, TMA Routine 08/28/2014 11:[address] CHEST W CONTRAST Routine 12/01/2010 1 1:08 AM EST from Last 3 Months or Most Recently Relevant to Health Maintenance Results * Due to [place] state law, this organization might not be sharing negative HIV tests. * LIVER POST EXTERNAL PANEL (09/12/2025 5:01 PM EDT) Tacrolimus, Highly Sensitive 3.0 [facility] Sodium 141 mmol/L [facility] Potassium 4.9 [facility] Chloride 107 [facility] Carbon Dioxide 20 [facility] Glucose 92 [facility] BUN 23 mg/dL [facility] Creatinine 1.15 mg/dL [facility] Calcium 9.4 mg/dL [facility] Total Protein 6.1 g/dL [facility] Albumin 4.0 g/dL [facility] Bilirubin, Total 0.7 mg/dL [facility] Alkaline Phosphatase 66 U/L [facility] AST 17 U/L [facility] ALT 35 U/L [facility] Magnesium 2.00 mg/dL [facility] WBC 6.4 10*3/uL [facility] Hgb 12.9 [facility] Hematocrit 39.2 % [facility] Platelets 249 10*3/uL [facility] 09/12/2025 5:01 PM EDT us Meet Varner MD LAB BLOOD ORDERABLES Final Re sult [facility] * Comprehensive Metabolic Panel, Outside Lab (09/27/2017 [...] [facility] Bilirubin, Total 0.7 mg/dL [facility] Alkaline Phosphatase 81 U/L [facility] AST 24 U/L [facility] ALT 51 U/L [facility] Blood specimen (specimen) Structure of peripheral vein / Unknown 09/27/2017 12:56 PM EDT us Unknown Provider LAB BLOOD ORDERABLES Final R esult Performing Organization Address City/State/[facility] Co de Phone Number [facility] [address] [place] [address] * COLONOSCOPY (02/17/2016 9:07 AM EDT) Narrative [...] Test Performed by Galina Mars, Navneet Padilla [facility], [address] [place], [place] Godfrey Hernandez M.D., Ph.D., Director of Laboratories , [facility] [id number] 08/28/2014 11:5 6 AM EDT 08/28/2014 1:54 PM EDT us Meet Varner MD LAB BLOOD ORDERABLES Final Re sult [facility]) [address] [place], [place] , [place] * CT Chest W [...] intravenous contrast; exact amount is documented in surgical scrub technologist 's exam notes. One and 5mm [...] intravenous contrast; exact amount is documented in surgical scrub technologist 's exam notes. One and 5mm [...] Documents on File Type Date Recorded Patient Police Captain Expl anation Advance Directive 12/19/2013 12:00 AM Adva nce Care Directives Advance Directive 12/04/2010 12:00 AM keith Douglas dical Dec Making (Adv.Dir) * Full Code (Latest Code Status on File) Date Activated Date Inactivated Comments 08/11/2022 3:27 PM 08/11/2022 7:32 PM Care Teams Blood Bank Laboratory Professional Relationship Specialty Start Date End Date Agueda Shelton [address] [place] [id number] PCP - General 06/16/17
--- OUTSIDE RECORDS SUMMARY | 2025-10-03 17:23 | XMS_ITS | Encounter Summary ---
Author Organization [facility] Address [address] [place] [address] Phone Care Team Providers Care Fire Protection Engineer Name Role Phone Agueda Shelton MD Primary Care Provider [phone] Encounter Details Date Type Department Care Team (Late st Contact Info) Description 03/22/2023 Telephone [facility] [address] [place] [phone] Rosetta Thomas [place] Social History Tobacco Use [...] Office Visit [facility] [address] [address] Kelli Reyes ARNP [address] [address] documented as of this encounter Visit Diagnoses Not on filedocumented in this encounter Care Teams Fire Protection Engineer Relationship Specialty Start Date End Date Agueda Shelton MD [facility] [place] [address] PCP - General 12/08/20 documented as of this encounter
--- OUTSIDE RECORDS SUMMARY | 2025-10-03 17:23 | XMS_ITS ---
Author Organization [facility] Address [address] [place] [address] Care Team Providers Care Hairspring Adjuster Name Role Phone Nikita Ashlirosalia Primary Care Provider [phone] Transplant Episode Liver Recipient [facility] ([place], [place]) - [facility] Organ Received: Liver Transplanted on 11/20/2013 Marked as Active Follow-up on 11/20/2013 Liver CoordinatorYoli Kent RN Phone: N/A Fax: N/A Email: N/A [place] Organ Diagnosis Organ Primary Contributory Liver Cirrhosis: [...] Coordinator N/A N/A N/A Meet Reilly MD Physics Teacher [phone] [email or web address] Diomedes Chun Referring Physician [phone] N/A Events Post-Transplant Pre-Transplant Admitted: 11/13/2013 Referred: 07/09/2010 Transplanted: 11/20/2013 Evaluation began: 1 Discharged: 12/18/2013 Committee: 12/11/2010 Center waitlisted: 1 Appointments (09/02/2025 - 11/02/2025) When With Visit Type Description 10/08/2025 Transplant - Maritza Reilly Follow Up
--- OUTSIDE RECORDS SUMMARY | 2025-10-03 17:23 | XMS_ITS | Encounter Summary ---
Author Organization [facility] Address [address] [place] [address] Phone Care Team Providers Care Policy Issue Clerk Name Role Phone Agueda Shelton MD Primary Care Provider [phone] Encounter Details Date Type Department Care Team (Late st Contact Info) Description 03/02/2021 Orders Only [facility] [address] [place] [phone] Kimberly Acrhibald MD Stage 3a chronic kidney disease (HCC); [...] Visit [facility] [address] [place] [address] Kelli Reyes ARNP [address] [place] [address] documented as of this encounter [...] PM EDT) Appearance COLORLESS [facility] Comment:CLEAR Specific Barnes 1.009 (1.002-1. 030) [facility] pH Urine 6.0 (5.0-8.0) [facility] Albumin, Urine NEGATIVE (NEG) [facility] Glucose, Ur NEGATIVE (NEG) [facility] Ketones, Urine NEGATIVE (NEG) [facility] Bilirubin Urine NEGATIVE (NEG) [facility] Hemoglobin Presence in Urine NEGATIVE (NEG) [facility] Nitrite, Urine NEGATIVE (NEG) [facility] Leukocyte Esterase Urine 1+(A) (NEG) [facility] Urobilinogen Urine NORMAL (NORM) MG/DL [facility] WBC, Urine 3 (0-5) /HPF [facility] RBC, Urine <1 (0-3) /HPF [facility] Bacteria SLIGHT(A) (NEG) HPF [facility] Squamous Epithelial, Urine 3 (0-8) /HPF [facility] Comment: Testing performed or reported by [facility], a Service of [facility], [address] [place] [address] Gene Vu MD, Land Surveyor Manager Urine specimen (specimen) Urine specimen obtained by clean catch procedure / Unknown 03/26/2021 2:39 PM EDT 03/26/2021 2:42 PM EDT Kimberly Archibald MD LAB URINE ORDERABLES Final Resu lt Performing Organization Address [facility]/ZIP Co de Phone Number [facility] * Urine Culture (03/26/2021 2:38 PM EDT) Specimen Description See Comment See Comment See Comment See Comment [facility] Comment: URINE NONE Reflexed from [id number] <10,000 COL/ML FINAL 03/28/2021 Testing performed or reported by [facility], a Service of [facility], [address] [place] [address] Darren Garcia MD, Land Surveyor Manager 03/26/2021 2:38 PM EDT 03/26/2021 2:42 PM EDT James Forrest MD LAB URINE ORDERABLES Final Re sult [facility] * (ABNORMAL) Urine Albumin / Creatinine Ratio (03/26/2021 2:38 PM EDT) Urine Microalbumin 14.1 (<20) MG/L [facility] Comment: The urine microalbumin test is designed to monitor renal function. When screening for Bence Garcia proteinuria, urine electrophoresis is recommended. Microalbumin/Creati nine Ratio 23.8(H) (0-20) MG/GM [facility] Microalb/Creat Ratio 59.3 MG/DL [facility] Comment: Testing performed or reported by [facility], a Service of [facility], [address] [place] [address] Gene Vu MD, Land Surveyor Manager 03/26/2021 2:38 PM EDT 03/26/2021 2:42 PM EDT James Forrest MD LAB URINE ORDERABLES Final Re sult [facility] * (ABNORMAL) UA w/Reflex Culture (03/26/2021 2:38 PM EDT) Appearance COLORLESS [facility] Comment:CLEAR Specific Barnes 1.009 (1.002-1. 030) [facility] pH Urine 6.0 (5.0-8.0) [facility] Albumin, Urine NEGATIVE [facility] Glucose, Ur NEGATIVE (NEG) [facility] Ketones, Urine NEGATIVE (NEG) [facility] Bilirubin Urine NEGATIVE (NEG) [facility] Hemoglobin Presence in Urine NEGATIVE (NEG) [facility] Nitrite, Urine NEGATIVE (NEG) [facility] Leukocyte Esterase Urine 1+(A) (NEG) [facility] Urobilinogen Urine NORMAL (NORM) MG/DL [facility] WBC, Urine 3 (0-5) /HPF [facility] RBC, Urine <1 (0-3) /HPF [facility] Bacteria SLIGHT(A) (NEG) HPF [facility] Squamous Epithelial, Urine 3 (0-8) /HPF [facility] Clarity CLEAR (CLEAR) [facility] CULTURE INDICATED CULTURE INDICATED [facility] Comment: Testing performed or reported by [facility], a Service of [facility], [address] [place] [address] Gene Vu MD, Land Surveyor Manager 03/26/2021 2:38 PM EDT 03/26/2021 2:42 PM EDT us James Forrest MD LAB URINE ORDERABLES Final Re sult [facility] * (ABNORMAL) CBC and differential (03/26/2021 2:20 PM EDT) White Blood Cells 4.9 (4.0-11.0) K/MM3 [facility] RBC 4.22 (4.20-5.40 ) M/MM3 [facility] Hgb 12.6 (11.7-15.5 ) GM/DL [facility] Hematocrit 40.0 (35.7-45.8 ) % [facility] MCV 94.8 (80.0-100. 0) FL [facility] MCH 29.9 (27.0-34.0 ) PG [facility] MCHC 31.5(L) (33.0-37.0 ) g/dL [facility] Platelets 229 (150-460) K/MM3 [facility] RDW-SD 42.7 (<47.0) FL [facility] MPV 9.9 (9.4-12.4) FL [facility] nRBC Count 0.0 #/100 WBC'S [facility] NRBC Absolute 0.0 K/MM3 [facility] Neutrophils Abs Auto 2.8 (1.3-7.0) K/MM3 [facility] Lymphocytes Relative 1.4 (0.8-3.1) K/MM3 [facility] Monocytes 0.4 (0.4-0.9) K/MM3 [facility] Eosinophils Relative 0.2 (0.0-0.4) K/MM3 [facility] Basophil ABS 0.0 (0.0-0.1) K/MM3 [facility] Granulocytes Absolute 0.0 K/MM3 [facility] Neutrophils % Auto 57.1 (44-76) % [facility] Lymphs 28.6 (15-43) % [facility] Monocytes Absolute 8.4 (4.5-10.5) % [facility] Eosinophils 4.9 (0-6) % [facility] Basophils Relative 0.4 (0-2) % [facility] Immature Granulocytes 0.6 % [facility] Comment: Testing performed or reported by [facility], a Service of [facility], [address] [place] [address] Gene Vu MD, Land Surveyor Manager Blood specimen (specimen) Venous blood / Unknown 03/26/2021 2:20 PM EDT 03/26/2021 2:34 PM EDT Result [facility] Kimberly Archibald MD LAB BLOOD ORDERABLES Final Resu lt Performing Organization Address City/[facility]/ZIP Co de Phone Number [facility] * Magnesium (03/26/2021 2:20 PM EDT) [facility] Magnesium 2.0 (1.6-2.3) mg/dL [facility] Comment: Testing performed or reported by [facility], a Service of [facility], [address] [place] [address] Gene Vu MD, Land Surveyor Manager Blood specimen (specimen) Venous blood / Unknown 03/26/2021 2:20 PM EDT 03/26/2021 2:34 PM EDT Result [facility] Kimberly Archibald MD LAB BLOOD ORDERABLES Final Resu lt Performing Organization Address [facility] de Phone Number [facility] * (ABNORMAL) Tacrolimus level (03/26/2021 2:20 PM EDT) [facility] Tacrolimus Lvl 4.8(L) (5-20) NG/ML [facility] Comment: As of January 18, 2018, Tacrolimus method has been changed from liquid chromatography mass spectrometry (LC-MS/MS) to immunoassay based method ([employer] Systems Administrator). The new method could produce measurements that are approximately 15% higher than LC-MS/MS. Reference range(s) correspond to the new method. Testing performed or reported by [facility], a Service of [facility], [address] [place] [address] Darren Garcia MD, Land Surveyor Manager Blood specimen (specimen) Venous blood / Unknown 03/26/2021 2:20 PM EDT 03/26/2021 2:34 PM EDT Result [facility] Kimberly Archibald MD LAB BLOOD ORDERABLES Final Resu lt Performing Organization Address City/[facility] Co de Phone Number [facility] * Vitamin D 25 hydroxy (03/26/2021 2:20 PM EDT) Vitamin D, 25-Hydroxy 30.0 (20-50) NG/ML [facility] Comment: Testing performed or reported by [facility], a Service of [address] [address] Gene Vu MD, Land Surveyor Manager Blood specimen (specimen) Venous blood / Unknown 03/26/2021 2:20 PM EDT 03/26/2021 2:34 PM EDT Kimberly Archibald MD LAB BLOOD ORDERABLES Final Resu lt Performing Organization Address [facility] de Phone Number [facility] * (ABNORMAL) PTH, intact (03/26/2021 2:20 PM EDT) [facility] PTH, Intact 85(H) (15-65) PG/ML [facility] Comment: Testing performed or reported by [facility], a Service of [address] [address] Gene Vu MD, Land Surveyor Manager Blood specimen (specimen) Venous blood / Unknown 03/26/2021 2:20 PM EDT 03/26/2021 2:34 PM EDT Result [facility] Kimberly Archibald MD LAB BLOOD ORDERABLES Final Resu lt Performing Organization Address [facility] de Phone Number [facility] * (ABNORMAL) Uric acid (03/26/2021 2:20 PM EDT) [facility] Uric Acid 10.8(H) (1.6-7.6) MG/DL [facility] Comment: Testing performed or reported by [facility], a Service of [address] [address] Gene Vu MD, Land Surveyor Manager Blood specimen (specimen) Venous blood / Unknown 03/26/2021 2:20 PM EDT 03/26/2021 2:34 PM EDT Kimberly Archibald MD LAB BLOOD ORDERABLES Final Resu lt Performing Organization Address City/[facility]/ZIP Co de Phone Number [facility] * (ABNORMAL) Renal function panel (03/26/2021 2:20 PM EDT) Glucose 108(H) (70-99) MG/DL [facility] BUN 24(H) (6-20) MG/DL [facility] Creatinine 1.2(H) (0.5-1.0) MG/DL [facility] Sodium 139 (133-145) MMOL/L [facility] Potassium 4.8 (3.6-5.2) MMOL/L [facility] Chloride 105 (98-107) MMOL/L [facility] Bicarbonate (CO2) 25 (22-29) MMOL/L [facility] Anion Gap 9 (4-17) [facility] Albumin 4.5 (3.4-4.8) GM/DL [facility] Calcium 9.3 (8.6-10.5) MG/DL [facility] Phosphorus, Serum 3.8 (2.5-4.5) MG/DL [facility] Est GFR Non 50 ML/MIN/1.7 3 M2 [facility] Comment: Creatinine based estimated glomerular filtration rate (eGFR) is calculated using the Chronic Kidney Disease Epidemiology Collaboration (CKD-EPI). The CKD-EPI creatinine equation has not been validated in children (<18 years), women or in some racial or ethnic subgroups other than Caucasians and Americans. EST GFR 58 ML/MIN/1.7 3 M2 [facility] Comment: Creatinine based estimated glomerular filtration rate (eGFR) is calculated using the Chronic Kidney Disease Epidemiology Collaboration (CKD-EPI). The CKD-EPI creatinine equation has not been validated in children (<18 years), women or in some racial or ethnic subgroups other than Caucasians and Americans. Testing performed or reported by [facility], a Service of [facility], [address] [place] [address] Gene Vu MD, Land Surveyor Manager Blood specimen (specimen) Venous blood / Unknown 03/26/2021 2:20 PM EDT 03/26/2021 2:34 PM EDT Kimberly Archibald MD LAB BLOOD ORDERABLES Final Resu lt NIKITA documented in this encounter Visit Diagnoses Diagnosis Stage 3a chronic kidney disease (HCC) H/O: liver recipient (HCC) documented in this encounter Care Teams Policy Issue Clerk Relationship Specialty Start Date End Date Agueda Shelton MD [address] [place] [address] PCP - General 12/08/20 documented as of this encounter
--- OUTSIDE RECORDS SUMMARY | 2025-10-03 17:23 | XMS_ITS | Encounter Summary ---
Author Organization [facility] Address [address] [place] [address] Care Team Providers Care Flux Tube Attendant Name Role Phone Agueda Shelton Primary Care Provider [phone] Encounter Details Date Type Department Care Team (Late st Contact Info) Description 05/09/2017 Orders Only [facility] Building [address] [place] [address] Meet Reilly MD [address] [place] [id number] Social History Tobacco Use Types Packs/Day Years [...] Info) Description 10/08/2025 3:00 PM EST Follow-Up [facility] [address], [place] [phone] Meet Reilly MD [address] [place] [address] documented as of this encounter Visit Diagnoses Not on filedocumented in this encounter Additional Health Concerns Infection Onset Date Last Indicated Resolved Time COVID-19 - Confirmed infection 06/13/2025 06/13/2025 07/13/2025 10:32 PM EDT documented as of this encounter Care Teams Flux Tube Attendant Relationship Specialty Start Date End Date Agueda Shelton [address] [place] [address] PCP - General 06/16/17 documented as of this encounter
--- OUTSIDE RECORDS SUMMARY | 2025-10-03 17:23 | XMS_ITS | Encounter Summary ---
Author Organization [facility] Address [address] [place] [address] Care Team Providers Care Well Service Pump Equipment Operator Name Role Phone Agueda Shelton Primary Care Provider [phone] Encounter Details Date Type Department Care Team (Late st Contact Info) Description 08/31/2017 Transplant Conversio n Encounter [facility] [address] [place] [address] Provider, Historical Conversion [place] Social History Tobacco Use Types Packs/Day Years [...] Info) Description 10/08/2025 3:00 PM EST Follow-Up [facility] [address] [place], [place] [phone] Meet Reilly MD [address] [place] [address] documented as of this encounter Visit Diagnoses Not on filedocumented in this encounter Additional Health Concerns Infection Onset Date Last Indicated Resolved Time COVID-19 - Confirmed infection 06/13/2025 06/13/2025 07/13/2025 10:32 PM EDT documented as of this encounter Care Teams Well Service Pump Equipment Operator Relationship Specialty Start Date End Date Agueda Shelton [address] [place] [address] PCP - General 06/16/17 documented as of this encounter
== END 2025-10-03 14:45 | disposition home or self-care (01) ==
LOC: HO.HCS 14:11
PROVIDERS: PCP Internal Medicine; Visit Provider Internal Medicine Cardiovascular Disease
DX: R06.02 Shortness of breath (principal)
CPT/HCPCS: 93010; 99204

== ENCOUNTER → 2025-10-03 14:11 | Outpatient (BNVA) | payer OTHER, SELFPAY | PROVIDERS: PCP Internal Medicine; Visit Provider Internal Medicine Cardiovascular Disease | DX: R06.02 Shortness of breath (principal); R00.2 Palpitations; E66.01 Morbid (severe) obesity due to excess calories; Z68.41 Body mass index [BMI] 40.0-44.9, adult | CPT/HCPCS: 93005; 99202 ==